=== PATIENT | female | born 1995 | race Caucasian/White ===

== ENCOUNTER 2017-11-06 21:02 | Emergency (ER) | payer BC, SELFPAY ==
[2017-11-06 21:03] VITALS: BP 122/75; PULSE 95; RESP 18; TEMP 37.7; O2SAT 99; BMI 24.0
--- NOTE | 2017-11-06 23:56 | ED.DCSUM_ITS ---
- ER Visit Summary Date of Service: 11/06/17 Chief Complaint: Abscesses History of Present Illness: The patient is a 22 F with history of skin infections and recurrent abscesses who presents with 1 day of painful abscesses to the left thigh and buttock. Patient states that they came on very suddenly, which is typical for her. She is having pain when sitting. She denies any fever or constitutional symptoms. No history of IV drug use. She has required incision and drainage in the past. She is supposed to be on a medication for her skin infections but states it cost $900 and she cannot afford it. She denies any other medical history. Physical Examination: Patient is afebrile and hemodynamically stable. Well-nourished well-developed sitting in bed in no distress. Heart is regular rate and rhythm. No increased work of breathing. Examination of the left lower extremity shows a 5 x 7 erythematous ovoid region with mild fluctuance in the middle on the posterior mid left thigh and a 6 x 4 cm erythematous ovoid lesion with mild fluctuance in the middle on the left buttock. They are tender to palpation. Test Results: [] Emergency Department Course and Treatment: Bedside ultrasound was performed that did show pus pockets in both lesions consistent with abscess. They both had surrounding cellulitis greater than 5 cm. Incision and drainage was performed after cleansing both abscesses. 1% lidocaine was instilled to perform a local block. A 1 cm stab incision was performed with an 11 blade with expression of thick pus from both abscess pockets. Loculations were broken with curved hemostats. Patient was then started on Keflex and Bactrim for treatment of the associated cellulitis. Patient was given pain medication. She was discharged home with referral to a primary care doctor for further evaluation and management of her recurrent skin infections. Patient agreed with this plan was discharged home. Treatment Plan: [] Disposition: [] Impression: Left thigh abscess, left buttock abscess, associated cellulitis This note was generated with [employer] dictation software. It may contain incorrect words, spelling, and punctuation that were not noted in review of the chart prior to signing ED Disposition - Plan for ED Patient: Disposition: Home or Assisted Living Chief Complaint: Abscess Instructions: ED Abscess IandD, ED Infec Skin Cellulitis Prescriptions: Hydrocodone Bitart/Apap 5-325 [[place] 5/325] 1 tab PO Q6H PRN PRN 2 Days #8 tab PRN Reason: Pain Cephalexin [Keflex] 500 mg PO Q6 #40 cap Smz/Tmp Ds [Bactrim Ds] 1 tab PO BID #10 tab Referrals: Evelyn Vallejo [[facility]] - Additional Instructions: Please take the antibiotic in its entirety as prescribed, even if your cellulitis improves before your antibiotics are wished. You may use over-the- counter pain medication as needed for pain. You may use the norco for severe pain related to the incision and drainage. Please follow-up with a doctor of your choice or the doctor on this paperwork to establish primary care and for further evaluation of your recurrent abscesses and infections. If you have any further concerns or any worsening of your condition, please come back immediately for another evaluation.
[2017-11-06] MEDS: Smz/Tmp Ds Tablet 1 TABLET PO (23:57)
[2017-11-06] MEDS: Cephalexin 250 MG Capsule 500 MG PO (23:57)
[2017-11-07] MEDS: HYDROcodone Bitartrate/Apap 5/325 Tablet PO (00:01)
[2017-11-07 00:12] VITALS: BP 120/60; PULSE 82; RESP 18; O2SAT 96
== END 2017-11-07 00:13 | disposition home or self-care (01) ==
PROVIDERS: Emergency Provider Emergency Medicine
DX: L02.416 Cutaneous abscess of left lower limb (principal); L02.31 Cutaneous abscess of buttock
CPT/HCPCS: 10060; 99283

== ENCOUNTER 2018-05-19 08:17 | Emergency (ER) | payer MEDICAID, SELFPAY ==
[2018-05-19 08:18] VITALS: BP 118/69; PULSE 78; RESP 16; TEMP 37; O2SAT 99; BMI 22.6
--- NOTE | 2018-05-19 08:32 | ED.VISSUMM ---
- ER Visit Summary Date of Service: 05/19/18 Chief Complaint: [Abscess on sternum and right upper thigh] History of Present Illness: The patient is a 22 F [presents the emergency department with complaint of an abscess on her sternal area that started about 2 days ago. Patient states the the abscess broke open and started to drain today. She has had no fevers. Patient also noticed one developing on her right medial thigh. Patient states she has been having abscesses for years. Patient did not go to work last night because of the pain.] Physical Examination: [HEENT-PERRLA, EOMI. Cranial nerves II through XII grossly intact. TMs clear. Mucous membranes moist. No adenopathy. Cardiovascular-regular rate and rhythm without murmur or ectopy Lungs-clear to auscultation, chest wall stable without crepitus or subcu emphysema. Patient has a soft tissue swelling measuring approximately 4 cm in total diameter with some faint surrounding erythema in the inferior sternal area. There is a central opening of about 5 mm that is draining spontaneously. Abdomen-normoactive bowel sounds, soft, nontender, no rebound or rigidity, no peritoneal signs. Extremities-intact ?4, normal range of motion, normal pulses, atraumatic]. Patient has approximately 1 cm soft tissue swelling over the medial proximal thigh with some faint erythema. Central portion slightly fluctuant. Test Results: [None indicated] Emergency Department Course and Treatment: [Using gentle pressure I was able to express large amount of purulent debris from the sternal abscess some of which was thick and cottage cheeselike. No further I&D was required. Regarding the small abscess on her right medial thigh I offered to anesthetize an I&D this area however she would refer just to try antibiotics and does not want me to attempt an I&D at this time. Patient understands that if this enlarges she may need to have an opened up and drained.] Treatment Plan: [Patient will be started on Keflex and Bactrim and advised to follow-up with primary care physician invertebrate paleontologist for no doc within the next 5-7 days] Disposition: [Discharged home in stable condition] Impression: [Abscess to sternum spontaneously draining Abscess right medial thigh] This note was generated with [employer] software. It may contain incorrect words, spelling, and punctuation that were not noted in review of the chart prior to signing ED Disposition - Plan for ED Patient: Chief Complaint: Abscess Referrals: Care Physician,No Primary [Primary Care Provider] -
--- NOTE | 2018-05-19 08:36 | ED.DEP ---
ED Disposition - Plan for ED Patient: Chief Complaint: Abscess Instructions: ED Abscess IandD, ED Staph Infec Abx Tx Only Prescriptions: Hydrocodone Bitart/Apap 5-325 [[place] 5MG-325MG] 1 tab PO Q4H PRN PRN 2 Days #10 tab PRN Reason: Pain Cephalexin [Keflex] 500 mg PO Q6 #40 cap Smz/Tmp Ds [Bactrim Ds] 1 tab PO BID #14 tab Referrals: Care Physician,No Primary [Primary Care Provider] - Evelyn Vallejo MD [COURTESY STAFF PHYSICIAN] - 5-7 Days
== END 2018-05-19 09:06 | disposition home or self-care (01) ==
PROVIDERS: Emergency Provider Emergency Medicine
DX: L02.415 Cutaneous abscess of right lower limb (principal); Z72.0 Tobacco use
CPT/HCPCS: 99282

== ENCOUNTER 2019-02-02 14:09 | Emergency (ER) | payer OTHER, MEDICAID, SELFPAY ==
[2019-02-02 14:10] VITALS: BP 119/58; PULSE 96; RESP 18; TEMP 36.4; O2SAT 98; BMI 32.9
--- NOTE | 2019-02-02 15:34 | ED.VISSUMM ---
- ER Visit Summary Date of Service: 02/02/19 Chief Complaint: [Abscess to left side of face] History of Present Illness: The patient is a 23 F [presents the emergency department with soft tissue swelling and pain for last 2 days. Patient states that she has swelling into the left side of her neck. She denies any fevers. Patient has had history of prior abscesses. Patient has history of acne.] Physical Examination: [HEENT-PERRLA, EOMI. Cranial nerves II through XII grossly intact. TMs clear. Mucous membranes moist. No adenopathy. Left face-patient has a chain of suspected small abscesses that are anterior auricular and tender to palpation. Patient does have left anterior cervical lymphadenopathy noted. There is faint erythema and cellulitis. Abscesses are fluctuant. Cardiovascular-regular rate and rhythm without murmur or ectopy Lungs-clear to auscultation, chest wall stable without crepitus or subcu emphysema Abdomen-normoactive bowel sounds, soft, nontender, no rebound or rigidity, no peritoneal signs. Extremities-intact ?4, normal range of motion, normal pulses, atraumatic] Test Results: [None indicated] Emergency Department Course and Treatment: [Patient was given the option of antibiotics versus incision and drainage. She understands that antibiotic alone may not resolve the issue. Patient agreed and consented to incision and drainage. Area of the left face was sterilely draped and prepped. Wound cleansed with Shur-Clens. Anesthetized locally with 1% lidocaine total of 3 cc. Using 11 blade two small 5 mm incisions were made into the suspected abscesses. Immediately returned large amount of purulent debris. Wound culture was obtained. Wounds irrigated. Clean dressing applied.] Treatment Plan: [Patient will start clindamycin. Patient will be referred to Dr. Enrique Khan for follow up] Disposition: [Discharged home in stable condition] Impression: [Facial soft tissue abscesses with incision and drainage] This note was generated with [employer] dictation software. It may contain incorrect words, spelling, and punctuation that were not noted in review of the chart prior to signing ED Disposition - Plan for ED Patient: Referrals: Care Physician,No Primary [Primary Care Provider] -
--- NOTE | 2019-02-02 15:36 | ED.DEP ---
ED Disposition - Plan for ED Patient: Instructions: ED Abscess IandD Prescriptions: Clindamycin HCl [Cleocin] 300 mg PO Q6H #40 cap Referrals: Care Physician,No Primary [Primary Care Provider] - Enrique Khan MD [STAFF PHYSICIAN] - 3-5 Days
[2019-02-02] MEDS: Clindamycin HCl 150 MG Capsule 300 MG PO (16:09)
[2019-02-02 16:12] VITALS: PULSE 87; RESP 16; O2SAT 98
== END 2019-02-02 16:13 | disposition home or self-care (01) ==
PROVIDERS: Emergency Provider Emergency Medicine
DX: L02.01 Cutaneous abscess of face (principal); Z72.0 Tobacco use
CPT/HCPCS: 69000; 87070; 87186; 87205; 99283

== ENCOUNTER 2019-07-25 10:54 | Emergency (ER) | payer MEDICAID, SELFPAY ==
[2019-07-25 10:55] VITALS: BP 110/81; PULSE 107; RESP 17; TEMP 36.9; O2SAT 98; BMI 26.4
--- NOTE | 2019-07-25 11:13 | ED.VIS.GEN ---
History of Present Illness Chief Complaint: Sore Throat Informant: Patient Onset: Days Context: Gradual Onset Timing: Continuous Current Severity: Moderate Maximum Severity: Moderate Narrative: The patient presents to the emergency department with sore throat. Patient states over the past 3 days, she has had generalized malaise. She began to have pain in her left neck. She states that she noticed white spots in her throat. She does think she had fever but has not taken her temperature. She denies any nausea or vomiting. She has no history of immunosuppression. She is otherwise been in her normal state of health. She has had prior tonsillectomy. Prior similar symptoms: No Recent Illness/Hospitalization: No Past Medical History - Allergies and Home Meds Allergies/Adverse Reactions: Allergies No Known Allergies Allergy (Verified 07/25/19 10:55) Primary Care Physician: Care Physician,No Primary [Primary Care Provider] - Prior records reviewed: Yes Past Medical History: None Surgical History: tonsillectomy Smoking Status: Current every day smoker Review of Systems General: Reports: Fever. Denies: Chills, Sweats Eyes: Denies: Visual changes - bilaterally, Diplopia ENT: Reports: Left ear pain, Sore throat. Denies: Rhinorrhea Cardiovascular: Denies: Chest pain, Palpitations Respiratory: Denies: Dyspnea, Cough, Dyspnea on exertion Gastrointestinal: Denies: Abdominal pain, Nausea, Vomiting, Diarrhea, Melena, Hematochezia Genitourinary: Denies: Dysuria, Hematuria, Frequency Musculoskeletal: Denies: Back pain, Extremity Pain Skin: Denies: Rash, Wounds Neurological: Denies: Headache, Weakness, Numbness Physical Exam Vital Signs/Narrative: Vital Signs Temp Pulse Resp BP Pulse Ox 07/25/19 10:55 98.5 F 107 H 17 110/81 H 98 Inital Vital Signs reviewed: Yes General: Well nourished, Well developed, No Acute Distress Head: Normocephalic, Atraumatic Eyes: Perrl, EOMI ENT: Moist mucous membranes, No rhinorrhea, - - There is exudative lesions in the posterior oropharynx mostly in the left. The uvula is midline. There is no evidence of retropharyngeal or peritonsillar abscess. Neck is supple with anterior lymphadenopathy. Neck: Supple, Nontender Cardiovascular: Regular rate, Regular rhythm, No murmurs Respiratory: No distress, CTA bilaterally, Chest nontender Abdomen: Soft, Nontender, Nondistended, Normal bowel sounds Back: Nontender, Normal Inspection Extremities: Nontender, No edema Skin: Normal color, No rash Neurological: Alert, Oriented x3, Cranial nerves II-XII grossly intact, Normal Strength, Normal Sensation Psychological: Normal affect, Normal Mood Diagnostic/Tx/Re-eval - Medical Decision Making The patient has exudative tonsillitis, absence of cough, and fever. Based on [facility] criteria, I do feel that treatment for strep is appropriate. She is well-appearing. She is afebrile here. The patient be given Decadron and Augmentin. She will continue anti-inflammatories. She will be discharged home. Impression 1. Strep pharyngitis ED Disposition - Plan for ED Patient: Instructions: PHARYNGITIS, Strep (Confirmed) Prescriptions: Amox/Clavulanate Tablet [Augmentin Tablet] 875 mg PO Q12H #20 tab Prescription Printed Referrals: Care Physician,No Primary [Primary Care Provider] -
[2019-07-25] MEDS: dexAMETHasone 10 MG/ML Vial PO.IVFORM (11:44)
[2019-07-25] MEDS: Amox/Clavulanate 875 MG Tablet PO (11:44)
[2019-07-25 11:47] VITALS: TEMP 36.6
== END 2019-07-25 11:50 | disposition home or self-care (01) ==
LOC: ED 11:26
PROVIDERS: Emergency Provider Emergency Medicine
DX: J02.0 Streptococcal pharyngitis (principal); F17.200 Nicotine dependence, unspecified, uncomplicated
CPT/HCPCS: 99283

== ENCOUNTER 2019-08-14 12:09 | Emergency (ER) | payer MEDICAID, SELFPAY ==
[2019-08-14 12:10] VITALS: BP 110/74; PULSE 76; RESP 16; TEMP 36.8; O2SAT 98; BMI 25.8
[2019-08-14 12:58] LABS: Bacteria 0 SEEN /hpf (None Seen); Mucous, Urine 0 SEEN /hpf (<or=2+); Red Blood Cells-Urine 0 SEEN /hpf (0-5); White Blood Cells 0 SEEN /hpf (0-5)
[2019-08-14 13:01] LABS: Color, Urine Yellow (Yellow); Glucose, Dipstick Normal (Normal); Ketone-Dipstick 5 mg/dl (Negative); Leukocyte Esterase-Dipstick Negative /ul (Negative); Nitrite-Dipstick Negative (Negative); Occult Blood-Urine Negative /ul (Negative); Protein-Dipstick 30 mg/dl (Negative); Specific Gravity, Urine 1.025 (1.002-1.030); Urine Bilirubin Dipstick Negative (Negative); Urine Clarity Clear (Clear); Urine Urobilinogen Normal (Normal)
[2019-08-14 13:07] LABS: Squamous Epithelial Cells - UA 0-5 SEEN /hpf (5-10)
[2019-08-14 13:08] LABS: Internal QC Validated? YES +Cl - CLEAR BKGD; Pregnancy, Urine Negative Negative
[2019-08-14 13:35] LABS: Anion Gap 6 (5-15); BUN 10 mg/dL (7-18); BUN/Creat Ratio 17.1 RATIO (10-20); Calcium,Total 8.7 mg/dL (8.5-10.1); Chloride 108 mmol/L (98-107); Creatinine, Serum 0.58 mg/dL (0.55-1.02); EST Glomerular Filtration Rate 136 mL/min (>60); Est Glom Filt Rate - Afr Amer 164 mL/min (>60); Estimated Creatinine Clearance 141.22 ml/min; Glucose 82 mg/dL (74-106); Sodium Level 141 mmol/L (136-145)
--- NOTE | 2019-08-14 13:47 | ED.VIS.GEN ---
History of Present Illness Informant: Patient Onset: Yesterday Context: Gradual Onset Timing: Continuous Quality: swollen Location: left arm and left flank Current Severity: Mild Maximum Severity: Mild Worsened by: movement Relieved by: nothing Associated Symptoms: denies Narrative: 24-year-old female who denies any significant past medical history presents to the emergency department with concern for swelling of the left side of her abdomen and her left arm. Patient was seen here approximately 3 weeks ago and diagnosed with strep throat given a prescription for Augmentin as well as 1 dose of Decadron in the emergency department. Was feeling improved up until yesterday when she felt like the left side of her abdomen and her left arm were swollen. She is not having any significant pain. No fevers. No vomiting. She has been able to eat and drink normally. No diarrhea melena or hematochezia. No urinary symptoms. No back pain. No rash. She is no longer having a sore throat or any upper respiratory symptoms. She is not on control. She has no leg pain or swelling. No hemoptysis. No chest pain or shortness of breath. No history of DVT or PE or any recent travel or surgeries. Prior similar symptoms: No Recent Illness/Hospitalization: No <Huseyin Freeman - Last Filed: 08/14/19 13:47> <Melany Goodman - Last Filed: 08/14/19 15:10> Chief Complaint: Edema Past Medical History Prior records reviewed: Yes Past Medical History: None Surgical History: tonsillectomy Lives: With Family Smoking Status: Current every day smoker Alcohol: Rare <Huseyin Freeman - Last Filed: 08/14/19 13:47> <Melany Goodman - Last Filed: 08/14/19 15:10> - Allergies and Home Meds Allergies/Adverse Reactions: Allergies No Known Allergies Allergy (Verified 07/25/19 10:55) Primary Care Physician: Betty Mccormack DO [STAFF PHYSICIAN] - Care Physician,No Primary [Primary Care Provider] - Review of Systems General: Denies: Chills, Fever, Malaise, Subjective, Sweats, Weight loss, - Eyes: Denies: Visual changes - left, Visual changes - right, Visual changes - bilaterally, Blurred vision - left, Blurred vision - right, Blurred Vision - bilaterally, Diplopia, -, - ENT: Denies: Bilateral ear pain, Left ear pain, Right ear pain, Rhinorrhea, Sore throat, -, - Cardiovascular: Denies: Chest pain, Palpitations, Heart racing, -, - Respiratory: Denies: Dyspnea, Cough, Sputum, Dyspnea on exertion, Orthopnea, Paroxysmal nocturnal dyspnea, -, - Gastrointestinal: Denies: Abdominal pain, Nausea, Vomiting, Diarrhea, Constipation, Melena, Hematochezia, -, - Genitourinary: Denies: Dysuria, Hematuria, Frequency, -, - Musculoskeletal: Reports: Swelling. Denies: Myalgias, Arthralgias, Neck pain, Back pain, Extremity Pain Skin: Denies: Rash, Abscess, Abrasions, Wounds Neurological: Denies: Headache, Weakness, Parasthesia, Numbness Hematologic: Denies: Easy bruising, Easy bleeding <Huseyin Freeman - Last Filed: 08/14/19 13:47> Musculoskeletal: Reports: Extremity Pain - left arm <Melany Goodman - Last Filed: 08/14/19 15:10> Physical Exam Vital Signs/Narrative: Vital Signs Temp Pulse Resp BP Pulse Ox 08/14/19 12:10 98.3 F 76 16 110/74 98 Inital Vital Signs reviewed: Yes General: Well nourished, Well developed, No Acute Distress Head: Normocephalic, Atraumatic Eyes: Perrl, EOMI ENT: Moist mucous membranes Neck: Supple, Nontender, No lymphadenopathy, No JVD Cardiovascular: Regular rate, Regular rhythm, No murmurs Respiratory: No distress, CTA bilaterally, Chest nontender Abdomen: Soft, Nontender, Nondistended, Normal bowel sounds, No masses Back: Nontender, Normal Inspection Extremities: Nontender, No edema, - - Patient has no appreciable swelling of her left upper extremity. She has pain with flexion of her arm at the bicep tendon. She has no weakness. There is no redness or rash. No signs of compartment syndrome. Radial pulses are normal. Rocket Assembly Operator strength equal bilaterally.. Negative for: Tenderness, Edema, Calf Tenderness Skin: Normal color, No rash, No Trauma Neurological: Alert, Oriented x3, Normal Strength, Normal Sensation Psychological: Normal affect <Huseyin Freeman - Last Filed: 08/14/19 13:47> Vital Signs/Narrative: Vital Signs Temp Pulse Resp BP Pulse Ox 08/14/19 12:10 98.3 F 76 16 110/74 98 <NehemiashaileMelany - Last Filed: 08/14/19 15:10> Diagnostic/Tx/Re-eval - Medical Decision Making On exam the patient does not have any appreciable swelling of her abdomen or of her left upper extremity. She has no signs of DVT. Vital signs are stable. She has no rash or CVA tenderness. She has no further evidence of pharyngitis. Urinalysis did show proteinuria and because we are concerned for a poststreptococcal glomerulonephritis we did obtain a basic metabolic panel. This was unremarkable. Patient was reassured. I stressed to her the importance of establishing with a primary care physician. We referred her to one today. She will be discharged. Return precautions given. <Huseyin Freeman - Last Filed: 08/14/19 13:47> Laboratory Data 08/14/19 08/14/19 12:51 13:18 Sodium 141 Potassium 4.0 Chloride 108 H Carbon Dioxide 27.0 Anion Gap 6 BUN 10 Creatinine 0.58 Estim Creat Clear Calc 141.22 Est GFR (MDRD) Af Amer 164 Est GFR (MDRD) Non-Af 136 BUN/Creatinine Ratio 17.1 Glucose 82 Calcium 8.7 Urine Color Yellow Urine Clarity Clear Urine pH 5.0 Ur Specific [place] 1.025 Urine Protein 30 H Urine Glucose (UA) Normal Urine Ketones 5 H Urine Occult Blood Negative Urine Nitrite Negative Urine Bilirubin Negative Urine Urobilinogen Normal Ur Leukocyte Esterase Negative Urine RBC 0 SEEN Urine WBC 0 SEEN Ur Squamous Epith Cells 0-5 SEEN Urine Bacteria 0 SEEN Urine Mucus 0 SEEN Urine Test Negative - Medical Decision Making Patient evaluated independent of PA. I agree with above. Patient is evaluated for sensation of swelling over her left flank. She also has pain/soreness in her left arm. She appears nontoxic in no acute distress. Her vital signs are normal. She did recently have strep throat which she was treated for. I do not appreciate any swelling on physical exam. Because of her recent strep, urinalysis is obtained looking for signs of proteinuria. She does have a small amount of protein in her urine. BMP is been obtained which shows normal renal function and normal electrolytes. Her chloride is minimally elevated but near her baseline. At this time I do not suspect post Streptococcus glomerulonephritis. Urine is negative. Patient has minimal tenderness over her left bicep. She has soft compartments. It is possible she has a strain. I feel that she is stable for outpatient follow-up. She was referred to me she does not currently have one. Urinalysis is not consistent with a kidney stone or pyelonephritis. Patient is counseled on signs and symptoms requiring return to the emergency room. Patient verbalizes agreement and understand this plan. Patient discharged home in stable and improved condition. <Melany Goodman - Last Filed: 08/14/19 15:10> ED Disposition <Huseyin Fereman - Last Filed: 08/14/19 13:47> <Melany Goodman - Last Filed: 08/14/19 15:10> - Plan for ED Patient: Disposition: Home or Assisted Living Diagnosis: Proteinuria, Flank pain, Biceps muscle strain Instructions: ED Peripheral Edema, Unilateral Referrals: Care Physician,No Primary [Primary Care Provider] - Betty Mccormack DO [STAFF PHYSICIAN] -
--- NOTE | 2019-08-14 14:01 | ED.RN ---
THIS RN TO BEDSIDE TO DISCHARGE PATIENT. PATIENT AND BELONGINGS WERE GONE, GOWN LAYING ON CHAIR.
== END 2019-08-14 14:01 | disposition home or self-care (01) ==
PROVIDERS: Emergency Medicine; Emergency Provider Physician Assistant Medical
DX: R80.9 Proteinuria, unspecified (principal); R10.9 Unspecified abdominal pain; S46.219A Strain of muscle, fascia and tendon of other parts of biceps, unspecified arm, initial encounter; X58.XXXA Exposure to other specified factors, initial encounter; Y93.9 Activity, unspecified; Y92.89 Other specified places as the place of occurrence of the external cause; Y99.9 Unspecified external cause status; F17.200 Nicotine dependence, unspecified, uncomplicated
CPT/HCPCS: 36415; 80048; 81001; 81025; 99282

== ENCOUNTER 2019-10-29 17:00 | Emergency (ER) | payer SELFPAY ==
[2019-10-29 17:01] VITALS: BP 115/76; PULSE 101; RESP 18; TEMP 37.3; O2SAT 98; BMI 25.8
--- NOTE | 2019-10-29 18:06 | ED.DCSUM_ITS ---
History of Present Illness Chief Complaint: General Illness Informant: Patient Onset: Days Context: Gradual Onset Timing: Continuous Associated Symptoms: Cough, Fever Chest Pain: Intermittent, Pleuritic Narrative: Patient is a 24-year-old female with no past medical history presenting with flulike symptoms. She states her stepdaughter recently was diagnosed with the flu by swab. Patient she has been having symptoms for the past 5 days. She has associated fever, chills, headache, left-sided chest pain, abdominal pain, cough and decreased appetite. She is also having myalgias. She states he feels very nauseous and is intermittently thrown up and had diarrhea. She is taken [id number] cold and flu medicines with minimal relief. States the nighttime medicine seem to work best. She last had medicine last night. She said nothing today. She is not have a primary care doctor or insurance. States she came to emergency room for medications to help with her symptoms. Patient denies any other complaints at this time. Past Medical History - Allergies and Home Meds Allergies/Adverse Reactions: Allergies No Known Allergies Allergy (Verified 10/29/19 17:03) Primary Care Physician: Care Physician,No Primary [Primary Care Provider] - Past Medical History: None Surgical History: tonsillectomy Lives: With Family Smoking Status: Current every day smoker Review of Systems General: Reports: Chills, Fever, Malaise. Denies: Sweats Cardiovascular: Reports: Chest pain. Denies: Palpitations Respiratory: Reports: Cough. Denies: Dyspnea, Dyspnea on exertion Gastrointestinal: Reports: Abdominal pain, Nausea, Vomiting, Diarrhea. Denies: Melena, Hematochezia Genitourinary: Denies: Dysuria, Hematuria, Frequency Musculoskeletal: Reports: Myalgias. Denies: Arthralgias Skin: Denies: Rash Neurological: Denies: Headache, Weakness, Numbness Physical Exam Vital Signs/Narrative: Vital Signs Temp Pulse Resp BP Pulse Ox 10/29/19 17:01 99.2 F H 101 H 18 115/76 98 Inital Vital Signs reviewed: Yes General: Well nourished, Well developed Head: Normocephalic, Atraumatic Eyes: Perrl, EOMI ENT: Moist mucous membranes, TM's clear - Bilaterally?only partial visualization of the TM secondary to cerumen. Negative for: Rhinorrhea, Sinus tenderness Neck: Supple, Nontender, - - Mild anterior cervical lymphadenopathy present Cardiovascular: Regular rate, Regular rhythm, No murmurs Respiratory: No distress, CTA bilaterally, No Stridor, - - Dry hacking cough during my exam. Negative for: Rhonchi, Wheezing Abdomen: Soft, Nontender, Nondistended, Normal bowel sounds Back: Nontender, Normal Inspection Extremities: Nontender, No edema Skin: Normal color, No rash Neurological: Alert, Oriented x3, Cranial nerves II-XII grossly intact, Normal Strength, Normal Sensation Psychological: Normal affect Diagnostic/Tx/Re-eval - Medical Decision Making Patient is evaluated for 5 days of flulike symptoms with a known flu exposure. Clinically she is well-appearing but looks like she feels unwell. Her vital signs significant for mild tachycardia and low-grade fever. Patient does not appear dehydrated. While patient states she has chest pain that seems to be more associated with coughing and her flulike illness. It seems to be worse when she takes a deep breath or when she coughs. I suspect it is pleuritic in nature versus muscle skeletal. I do not think blood work, EKG or chest x-ray is indicated at this time. She does have clear breath sounds. Patient is counse led that she is not a candidate for Tamiflu and therefore we will not flu swab her. She is treated with Motrin and Zofran emergency room. She will be discharged home with symptomatic treatment. She is counseled on the typical course of a flu illness. Patient does have a PCP will be [facility]. Patient is counseled on signs and symptoms requiring return to the emergency room. Patient verbalizes agreement and understand this plan. Patient discharged home in stable and improved condition. ED Disposition - Plan for ED Patient: Disposition: Home or Assisted Living Diagnosis: Flu-like symptoms Instructions: INFLUENZA (Adult) Prescriptions: Ibuprofen [Motrin] 600 mg PO Q6H PRN PRN #20 tab PRN Reason: Fever Prescription Printed Guaifenesin/Codeine [Robitussin AC] 10 ml PO Q6H PRN PRN 3 Days #120 udc PRN Reason: Cough Prescription Printed Ondansetron HCl [Zofran] 4 mg PO Q6H PRN PRN #12 tab PRN Reason: Nausea Prescription Printed Referrals: [facility] [NON-STAFF] -
[2019-10-29] MEDS: Ibuprofen 600 MG Tablet PO (18:20)
[2019-10-29] MEDS: Ondansetron ODT 4 MG Tablet PO (18:21)
== END 2019-10-29 18:23 | disposition home or self-care (01) ==
PROVIDERS: Emergency Provider Emergency Medicine
DX: R05 Cough (principal); R50.9 Fever, unspecified; M79.10 Myalgia, unspecified site; R10.9 Unspecified abdominal pain; R51 Headache; R07.9 Chest pain, unspecified; F17.200 Nicotine dependence, unspecified, uncomplicated
CPT/HCPCS: 99283

== ENCOUNTER 2021-02-27 16:28 | Emergency (ER) | payer MEDICAID, SELFPAY ==
[2021-02-27 16:28] VITALS: BP 122/67; PULSE 108; RESP 17; TEMP 36.8; O2SAT 96; BMI 28.3
[2021-02-27 16:30] VITALS: BP 122/67; PULSE 108; RESP 17; TEMP 36.8; O2SAT 96
--- NOTE | 2021-02-27 16:49 | EDS_ITS ---
HPI History of Present Illness Chief Complaint: Abscess Narrative Narrative: Patient presents with a right inner thigh abscess for the past few days she did have some drainage but it closed up again. She has some redness around it and she feels pain in her right inguinal crease region. No fever or chills no abdominal pain. No nausea or vomiting. [facility] Medical History (Updated 02/27/21 @ 17:[address] Michael Lazcano MD) Abscess Home Medications clindamycin HCl 300 mg PO 4X/DAY #80 cap 02/27/21 [Rx Last Taken Unknown] hydrocodone-acetaminophen 1 tab PO QHS PRN 3 Days #10 tab 02/27/21 [Rx Last Taken Unknown] Allergy/AdvReac Type Severity Reaction Status Date / Time No Known Allergies Allergy Verified 02/27/21 16:31 Social History Smoking Status: Current every day smoker tobacco type: cigarettes ROS ROS ED ROS Narrative Past medical history: none Medications: Reviewed Social history: Noncontributory Review of systems: General: No fever or chills Musculoskeletal: Abscess as in HPI Skin: Abscess as in HPI Neurological: No weakness or paresthesias Hematologic: No easy bleeding or easy bruising EXAM Physical Exam Narrative Exam Narrative: Physical exam General: Patient does appears slightly anxious Head: Normocephalic, Atraumatic Neck: No C-spine tenderness Cardiovascular: Regular rate, Regular rhythm Respiratory: No distress, CTA bilaterally Back: Nontender, Normal Inspection. Extremities: Right inner thigh proximal abscess, IV abscess is about 7 cm x 3 cm, there is a surrounding area of cellulitis of about 10 x 12 cm without. There is some inguinal pain but I do not appreciate any actual lymph nodes. Skin: As above Neurological: Normal strength and sensation Const Vital Signs: 02/27/21 16:28 02/27/21 16:30 Temperature 98.3 F 98.3 F Temperature Source Temporal Temporal Pulse Rate 108 H 108 H Respiratory Rate 17 17 Blood Pressure 122/67 H 122/67 H Blood Pressure Mean 85 85 Pulse Ox 96 96 Oxygen Delivery Method Room Air Room Air MDM MDM MDM Narrative Medical decision making narrative: Patient is given IV antibiotics, she will be given analgesics and p.o. antibiotics for home she will be discharged in stable condition with follow-up. If anything worsens she is to come back to the emergency department. Procedures Other Procedures Procedure(s): Incision and drainage Verbal consent obtained. Patient was given Dilaudid IV prior to the procedure. The procedure is complex with multiple loculations 1% lidocaine about 10 mL were used A #11 blade, the wound was ellipsed. Pus was expectorated All the loculations were broken. I irrigated afterwards Patient tolerated procedure well. Discharge Plan Triage Chief Complaint: Abscess ED Provider: Michael Lazcano Dx/Rx/DC Orders Clinical Impression: Abscess Instructions: ED Abscess Incision And Drainage Prescriptions: New hydrocodone-acetaminophen 5-325 mg tablet 1 tab PO QHS PRN (Reason: pain) 3 Days Qty: 10 RF: 0 clindamycin HCl 150 mg capsule 300 mg PO 4X/DAY Qty: 80 RF: 0 Primary Care Provider: Care Physician,No Primary Referrals: Radhames Pickett III, MD [STAFF PHYSICIAN] - 2 Days Care Physician,No Primary [Primary Care Provider] - Disposition Disposition: Home, self care
[2021-02-27] MEDS: HYDROmorphone 1 MG/ML Syringe IV (17:15)
[2021-02-27] MEDS: Ondansetron 4 MG/2 ML Vial IV (17:15)
[2021-02-27] MEDS: Lidocaine 1% (20 ml mdv) 20 ML Vial INFILT (17:17)
[2021-02-27 18:17] VITALS: PULSE 98; RESP 16; O2SAT 97
== END 2021-02-27 18:17 | disposition home or self-care (01) ==
LOC: ED 17:55
PROVIDERS: Emergency Provider Emergency Medicine
DX: L02.415 Cutaneous abscess of right lower limb (principal); F17.210 Nicotine dependence, cigarettes, uncomplicated
CPT/HCPCS: 10060; 96365; 96375; 99283; J7050; A4216; J2405

== ENCOUNTER 2022-04-21 18:35 | Emergency (ER) | payer MEDICAID, SELFPAY ==
[2022-04-21 18:35] VITALS: BP 114/81; PULSE 98; RESP 16; TEMP 36.6; O2SAT 98; BMI 29.1
[2022-04-21 18:58] VITALS: BP 114/81; PULSE 92; RESP 18; TEMP 36.6; O2SAT 98
[2022-04-21] MEDS: Lidocaine 1% (20 ml mdv) 20 ML Vial INFILT (19:08)
--- NOTE | 2022-04-21 19:29 | EX.ED.DYSGE1 ---
HPI History of Present Illness Chief Complaint: Abscess Detail of Chief Complaint: Abscess the body of the mandible on the right and upper back Informant: patient Onset/Context/Timing Onset: Days (Onset Thursday) Context: Sudden Onset Timing: Continuous Quality: Abscess Location: Midline upper back and anterior right neck Current Severity: Moderate Maximum Severity: Moderate Worsened by: Palpation Relieved by: Nothing Associated Symptoms Associated Symptoms: No associated symptoms Narrative Narrative: Patient is a 26-year-old woman with recurrent abscesses. 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 She denies fever, chills night sweats. She denies history of diabetes. She states last normal menses was 2 to 3 weeks ago. Prior similar symptoms: Yes Recent Illness/Hospitalization: No PFSH PFSH Medical History Abscess Home Medications clindamycin HCl 150 mg capsule 300 mg PO 4X/DAY #80 caps 02/27/21 [Rx Last Taken Unknown] hydrocodone-acetaminophen 5-325mg 5mg-325mg 1 tab PO QHS PRN pain 3 days #10 tabs 02/27/21 [Rx Last Taken Unknown] doxycycline monohydrate 100 mg capsule 100 mg PO BID #10 CAPSULES 04/21/22 [Rx Last Taken Unknown] Allergy/AdvReac Type Severity Reaction Status Date / Time No Known Allergies Allergy Verified 04/21/22 18:38 Social History (Updated 04/21/22 @ 19:[address] Harpreet Conner MD) Smoking Status: Current every day smoker tobacco type: e-cigarettes substance use type: does not use ROS ROS ED Constitutional Constitutional ED: Denies chills, fever(s), subjective or sweats Eyes Eyes: Reports other; Denies blurry vision, change in vision or diplopia ENT ENT ED: Reports other Details: Denies inability to open or close mouth. ; Denies ear pain, rhinorrhea or sore throat Cardiovascular Cardiovascular: Denies palpitations or racing heartbeat Respiratory/Chest Respiratory/Chest: Denies dyspnea Gastrointestinal Gastrointestinal: Denies nausea or vomiting Integumentary Reports abscess; Denies rash Endocrine Endocrinology: Denies polydipsia, polyphagia or polyuria Hematologic/Lymphatic Hematologic/Lymphatic: Denies easy bruising or lymphadenopathy Allergic/Immunologic Allergic/Immunologic ED: Denies mouth swelling, tongue swelling or urticaria EXAM Physical Exam Const Vital Signs: 04/21/22 18:35 04/21/22 18:58 04/21/22 18:58 Temperature 97.8 F 97.8 F Temperature Source Temporal Temporal Pulse Rate 98 92 92 Respiratory Rate 16 18 18 Blood Pressure 114/81 H 114/81 H 114/81 H Blood Pressure Mean 92 92 92 Pulse Ox 98 98 98 Oxygen Delivery Method Room Air Room Air Room Air Positive well nourished and well developed General Appearance ED: well developed and NAD; Negative for cyanotic, diaphoretic or pallor HEENT Reports moist mucous membranes HEENT Narrative: Nares patent. Mucosa moist. Teeth normal. Patient has an abscess in. The body of the mandible on the right. There is cervical lymphadenopathy. The area is fluctuant. There is slight erythema. There is no evidence of trismus. Trachea is midline. There is no in-store expiratory stridor. tenderness; Negative for trauma Eyes PERRL and EOMs intact bilaterally General Eye ED: Negative for pale conjunctiva or scleral icterus Neck No no lymphadenopathy, supple and no JVD Neck Narrative: Please read under H EENT narrative Resp normal respiratory effort and clear to auscultation bilaterally Cardio regular rate, regular rhythm, S1 normal heart sound, S2 normal heart sound and no murmurs Neuro oriented x3, CN's II-XII intact bilaterally and no sensory deficits noted Sensorium / Orientation: alert Motor Exam: strength 5/5 throughout Psych mental status grossly normal Skin no rashes or lesions noted, no wounds and skin turgor normal General Skin Exam: elasticity normal; Negative for jaundice or pallor MDM MDM MDM Narrative Medical decision making narrative: Patient has an abscess inferior to the cervical spinous process of C7. There is fluctuant erythematous. This may represent a carbuncle. Patient also has an abscess anterior right neck as previously described. These will require incision and drainage. Procedures Other Procedures Procedure(s): The apparent abscess on the back was incised by field block and local infiltration. Incision was made with 10 blade. Thick copious cottage cheese appearing material was present. This is an infected sebaceous cyst and not an abscess. Patient for serial/anterior neck abscess was incised. This was under significant pressure. Purulent material flowed. There is a cavity that is 1 cm in depth and 2 cm in width that was noted. Blunt dissection was undertaken. The cavity was cleansed. This is not an infected sebaceous cyst. Discharge Plan Triage Chief Complaint: Abscess ED Provider: Harpreet Conner Dx/Rx/DC Orders Clinical Impression: Abscess of skin of neck, Infected sebaceous cyst Instructions: ED Abscess Incision And Drainage, Epidermoid Cyst Infect Antibiotics Prescriptions: New doxycycline monohydrate 100 mg capsule 100 mg PO BID Qty: 10 0RF No Action hydrocodone-acetaminophen 5-325 mg tablet 1 tab PO QHS PRN (Reason: pain) 3 Days Qty: 10 0RF clindamycin HCl 150 mg capsule 300 mg PO 4X/DAY Qty: 80 0RF Primary Care Provider: Care Physician,No Primary Referrals: Care Physician,No Primary [Primary Care Provider] - Doctor,Your [NON-STAFF] - 2 Days for wound check Activity Restrictions/Additional Instructions: You need to follow-up with a surgeon to remove the sac of the cyst to prevent recurrent infections. This is located on your back Take antibiotics until gone The name of your doctor is located on your insurance card issue to you by [facility] Disposition Disposition: Home, Self Care
[2022-04-21] MEDS: Ibuprofen 200 MG Tablet 800 MG PO (19:39)
[2022-04-21] MEDS: Doxycycline 100 MG CAPSULE PO (19:39)
[2022-04-21 20:01] VITALS: RESP 16
== END 2022-04-21 20:02 | disposition home or self-care (01) ==
PROVIDERS: Emergency Provider Emergency Medicine; Visit Provider Emergency Medicine
DX: L02.11 Cutaneous abscess of neck (principal); L72.3 Sebaceous cyst; F17.290 Nicotine dependence, other tobacco product, uncomplicated
CPT/HCPCS: 10061; 10060; 99283

== ENCOUNTER → 2022-05-16 | Outpatient (CLI) | payer MEDICAID, SELFPAY ==
--- NOTE | 2022-05-16 15:56 | US_ITS ---
STUDY: SUPERFICIAL ULTRASOUND - LEFT AXILLA REASON FOR EXAM: Female, 26 years old. left axillary lump TECHNIQUE: A superficial ultrasound was performed with real-time and static hagen-scale imaging. COMPARISON: None. FINDINGS: Multiple longitudinal and transverse ultrasound images the left axilla multiple axillary lymph nodes with the largest measuring 8 x 16 mm. Other lymph nodes are noted. There is also a 5 mm hypoechoic area within the superficial subcutaneous fat which may be of rheumatologic origin. US/Ext Non Vasc Limited/Soft Tiss IMPRESSION: 1. Multiple axillary lymph nodes. 2. 5 mm hypoechoic mass in the superficial subcutaneous fat may be of dermal rheumatologic origin such as a sebaceous cyst. Electronically Signed: Billy Russell MD at 18:30 EDT ,
== END | disposition home or self-care (01) ==
LOC: US 15:54
PROVIDERS: Referring Provider Physician Assistant; Visit Provider Physician Assistant
DX: M79.662 Pain in left lower leg (principal)
CPT/HCPCS: 76882

== ENCOUNTER → 2022-06-25 | Outpatient (CLI) | payer MEDICAID, SELFPAY ==
[2022-06-25 15:32] LABS: Absolute Lymphocyte Count 2.11 X10^3/uL (0.83-4.51); Absolute Neutrophil Count 5.1 X10^3/uL (2.0-7.7); Basophil# 0.03 X10^3/uL; Basophil% 0.4 % (0-1); Eosinophil# 0.08 X10^3/uL; Hematocrit 41.4 % (37-47); Hemoglobin 13.1 g/dL (12.0-15.0); Lymphocyte # 2.11 X10^3/ul (0.83-4.51); Lymphocyte % 26.5 % (19-41); Mean Corp Hgb Conc 31.6 g/dL (32-36); Mean Corpuscular Hgb 28.9 pg (27.0-32.0); Mean Corpuscular Volume 91.2 fL (81-99); Mean Platelet Vol. 10.8 fl (6.2-12.0); Monocyte# 0.63 X10^3/uL; Monocyte% 7.9 % (0-10); NRBC Flagged by Analyzer 0 % (0-5); Neutrophil # 5.07 X10^3/uL (2.7-7.7); Neutrophil % 63.8 % (47-70); Platelet Count 395 K/mm3 (150-450); RBC Distribution Width CV 12.9 % (11.6-14.6); RBC Distribution Width SD 42.8 fl (35.1-43.9); Red Blood Count 4.54 M/mm3 (4.2-5.4)
== END | disposition home or self-care (01) ==
PROVIDERS: PCP Family Medicine; Referring Provider Family Medicine; Visit Provider Family Medicine
DX: R59.1 Generalized enlarged lymph nodes (principal)
CPT/HCPCS: 36415; 85025

== ENCOUNTER 2022-07-22 13:00 | Outpatient (RCR) | payer MEDICAID, SELFPAY ==
--- NOTE | 2022-06-30 16:20 | HP.OTEVAL_ITS ---
Patient's Visit Information DON GARCIA is a 26 year old F, referred to Occupational Therapy by Nanda William DO, with a diagnosis of lymphedema. Date of Evaluation: 06/30/22 Occupational Therapist: Jayda Concepcion, BISMARK/Mark Anthony, CHT - Subjective This 26 year old female was seen for OT eval dx of lymphedema. Pt states she had a sx in March and noticed shortly after pt states US showed in larged lymph nodes and now it comes and goes of swelling. pt has swelling in her armpit about 4 years ago - pt states this did seep and went away on its on. 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 pt states she when her arm does start to feel funny it the whole inner arm and backside- pt states at times symptoms make her feel like she is losing control over her arm. Pt is left handed for eating and writing. pt does use her left hand with her phone. pt states she does get tingling in her arm after she has been using her arm and stops at her wrist. pt states pain does become bothersome and have difficulty sleeping-. pt states she took the kids to [facility]- pt states she did not participate in event just driving about [address] did not bother her until she got home. pt states hot shower does make it feel a little better and movement does feel good- pt notices symptoms after she stops doing. - Pain left UE 2 Pain Intensity Range: 7 - Strength Backend Python Developer: right 75# left 75# Lateral Pinch: right 12# left 14# Tripod Pinch: right 10# left 12# Tip-to-Tip Pinch: right 4# left 4# - Lymphedema (Circumferential Measure) MCP: right 20cm left 20cm Wrist: right 16cm left 15.5cm Lower forearm: right 20.5 left 20cm Largest forearm: right 26cm left 26cm Elbow: right 25cm left 25cm Largest humerus: right 29cm left 29cm Axcillary: right 34cm left 33cm - Quick DASH-Disab of Arm,Shoulder& Hand Quick DASH Score: 51.6650 - Rehabilitation General Assessment: pt demo with sensory symptoms of fullness/tightness and nerve irritation. Pt demo with poor posture that can be contributing to symptoms of tingling. Pt demo need of skilled OT services 2x week for 4 weeks to ed. pt on dx, initiate postural correction and ergo. to limit rolled shoulders neck forward posture. Rehabilitation Potential: Good - Anticipated Interventions A/AAROM/PROM, Edema Control, Desensitization, Ergonomic Education, Education re Diagnosis, Manual Lymph Drainage, Education re Life-long lymphedema Management, Education re Skin Care and Precautions, Education re Self Massage Techniques, Education re Correct Donning Tech,Care&Wearing Sched Comp Garments, Home Program - Visit Plan Frequency: 1-2x /Week Duration: 4 Weeks TEXT: Thank you for the opportunity to evaluate your patient. For Medicare and Medicare HMO plans, please review the plan of care and approve it. It will need to be FAXED BACK to us at [phone] for Medicare purposes. Please let me know if there are questions or concerns regarding this plan of care. Physician Signature: Date:
--- NOTE | 2022-08-01 07:53 | HP.OTREVAL ---
Nanda William, DO, It has been my pleasure to treat DON GARCIA over the last 3 visits for lymphedema. Please see the progress note below for an update on the occupational therapy plan of care! Subjective: pt arrives states she is painful after she removes the garment- and is difficult to sleep. pt states she continues to struggle with discomfort left axillary region Objective/Function: pt has been compliant in getting compression device that supports under her axillary region and arm- pt however is getting pain when she removes her garment- ( this should not be happening). pt is also performing self lymph massage and her ROM ex with no change in her symptoms of fullness-pain- and the nodules in her axillary region have not changed- circumference of UE has not changed. pt does not present with typical lymphedema type symptoms and would benefit from further imaging - or referral vascular /lymphedema specialist- Plan Visits in this POC: 8 Plan: rec'd referral to vascular/lymphedema for further testing and dx imaging Goals - Goals Demonstrate adequate knowledge of self-massage by 2nd week: Yes Demonstrate adequate knowledge skin care/prec by 2nd week: Yes Demonstrate adequate knowledge therapeutic exercises by d/c: Yes Select approp compression garment w/donning/care/wear by d/c: Yes Patient Goals: Decrease Swelling/Stiffness, Use Hand/Wrist/Arm Normally Again Anticipated Interventions Anticipated Interventions: A/AAROM/PROM, Edema Control, Desensitization, Ergonomic Education, Education re Diagnosis, Manual Lymph Drainage, Education re Life-long lymphedema Management, Education re Skin Care and Precautions, Education re Self Massage Techniques, Education re Correct Donning Tech,Care&Wearing Sched Comp Garments, Home Program Please do not hesitate to contact me at [phone] by phone or if you have questions or concerns regarding this new plan of care! Sincerely, Jayda Concepcion, OTR/L, CHT
--- NOTE | 2022-08-21 12:34 | HP.OT.NRP ---
DON GARCIA was seen in my office for initial evaluation on 06/30/22. The following Plan of Care was established for this patient: Initial Frequency: 1-2x /Week Initial Duration: 4 Weeks Plan: rec'd referral to vascular/lymphedema drFernando for further testing and dx imaging Anticipated Interventions: A/AAROM/PROM, Edema Control, Desensitization, Ergonomic Education, Education re Diagnosis, Manual Lymph Drainage, Education re Life-long lymphedema Management, Education re Skin Care and Precautions, Education re Self Massage Techniques, Education re Correct Donning Tech,Care&Wearing Sched Comp Garments, Home Program This patient was last seen in our office 07/22/11. Pertinent comments regarding their Occupational therapy will appear below: pt seen 3 visits for lymphedema a Home program was given. pt to return if she has concerns and at this time pt has not scheduled further apts and is d/c at this time. At this point I will be discontinuing this patient from occupational therapy. I would be happy to see this patient again in the future if found appropriate by the physician. Thank you! Jayda Concepcion, OTR/L, CHT
== END 2022-07-22 19:00 | disposition home or self-care (01) ==
LOC: OT 13:00
PROVIDERS: PCP Family Medicine; Referring Provider Family Medicine; Visit Provider Family Medicine
DX: I89.0 Lymphedema, not elsewhere classified (principal)
CPT/HCPCS: 97140; 97166; 97530

== ENCOUNTER → 2022-08-11 | Outpatient (CLI) | payer MEDICAID, SELFPAY ==
[2022-08-11 18:03] LABS: Erythrocyte Sedimentation Rate 11 mm/hr (0-30)
[2022-08-11 18:32] LABS: Anion Gap 8 (5-15); BUN 10 mg/dL (7-18); BUN/Creat Ratio 17.2 RATIO (10-20); Calcium,Total 8.8 mg/dL (8.5-10.1); Chloride 106 mmol/L (98-107); Creatinine, Serum 0.58 mg/dL (0.55-1.02); EST Glomerular Filtration Rate 133 mL/min (>60); Est Glom Filt Rate - Afr Amer 161 mL/min (>60); Glucose 95 mg/dL (74-106); Potassium 3.9 mmol/L (3.5-5.1); Sodium Level 139 mmol/L (136-145)
[2022-08-13 14:47] LABS: ANTINUCLEAR ANTIBODIES DIRECT Negative (Negative)
== END | disposition home or self-care (01) ==
PROVIDERS: PCP Family Medicine; Referring Provider Nurse Practitioner Family; Visit Provider Nurse Practitioner Family
DX: R59.1 Generalized enlarged lymph nodes (principal)
CPT/HCPCS: 36415; 80048; 85652; 86038

== ENCOUNTER 2022-09-30 18:22 | Emergency (ER) | payer MEDICAID, SELFPAY ==
[2022-09-30 18:23] VITALS: BP 150/92; PULSE 92; RESP 18; TEMP 36; O2SAT 100; BMI 32.1
[2022-09-30] MEDS: Cephalexin 500 MG Capsule PO (19:27)
[2022-09-30] MEDS: Lidocaine 1% (20 ml mdv) 20 ML Vial INFILT (19:29)
[2022-09-30 19:32] VITALS: O2SAT 99
--- NOTE | 2022-09-30 19:42 | EX.ED.DYSGE1 ---
HPI History of Present Illness Chief Complaint: Abscess Informant: patient Onset/Context/Timing Onset: Weeks (1) Context: Gradual Onset Timing: Continuous Quality: Burning Location: Right periorbital area Worsened by: Nothing Relieved by: Nothing Narrative Narrative: Patient presents with facial abscess that has been getting worse over the past week. Patient states it is gradually getting worse. Patient states it is over the right periorbital area. Patient states nothing makes it worse and nothing makes it better. Patient describes her pain as burning sensation. Patient states she tried to squeeze it but was unable to get anything out of it. Patient states she has been using warm compresses with no improvement. Patient admits to some blurred vision and some nausea. Patient denies any fevers or chills. PFSH PFS Medical History Abscess H/O drainage of abscess Hidradenitis suppurativa Home Medications cephalexin 500 mg capsule 500 mg PO Q6 #40 CAPSULES 09/30/22 [Rx Last Taken Unknown] Allergy/AdvReac Type Severity Reaction Status Date / Time No Known Allergies Allergy Verified 09/30/22 18:23 Family History Grandmother Breast cancer Diabetes Surgical History no surgical history no surgical history Social History Smoking Status: Current every day smoker tobacco type: e-cigarettes substance use type: does not use ROS ROS ED Constitutional Constitutional ED: Denies chills or fever(s) Eyes Eyes: Reports blurry vision; Denies change in vision ENT ENT ED: Denies rhinorrhea or sore throat Cardiovascular Cardiovascular: Denies chest pain or palpitations Respiratory/Chest Respiratory/Chest: Denies cough or dyspnea Gastrointestinal Gastrointestinal: Reports nausea; Denies vomiting Genitourinary Genitourinary ED: Denies dysuria or hematuria Musculoskeletal Musculoskeletal: Denies back pain or neck pain Integumentary Reports abscess; Denies rash Neurologic Neurologic: Denies headache(s) or weakness Allergic/Immunologic Allergic/Immunologic ED: Denies mouth swelling or urticaria EXAM Physical Exam Const Vital Signs: 09/30/22 18:23 09/30/22 19:32 Temperature 96.8 F L Temperature Source Temporal Pulse Rate 92 Respiratory Rate 18 Blood Pressure 150/92 H Blood Pressure Mean 111 Pulse Ox 100 99 Oxygen Delivery Method Room Air Room Air Positive well nourished and well developed General Appearance ED: well developed and NAD HEENT Reports moist mucous membranes Eyes PERRL and EOMs intact bilaterally Neck supple and no JVD Neuro oriented x3, CN's II-XII intact bilaterally and no sensory deficits noted Sensorium / Orientation: alert Motor Exam: strength 5/5 throughout Psych mental status grossly normal Skin Skin Narrative: There is some erythema and fluctuance over the right lateral periorbital area. There is some mild fluctuance. There is no discharge or drainage. There is tenderness to palpation over the area. MDM MDM MDM Narrative Medical decision making narrative: Patient was given a dose of Keflex here. The area was cleaned with chlorhexidine prep. The area was anesthetized with 1% plain lidocaine locally. A small linear incision was made using an 11 blade scalpel. A large amount of purulent drainage was expressed. The wound was left open. Bacitracin dressing was applied. Patient tolerated the procedure well. Patient was instructed to use warm compresses. Patient was given a prescription for Keflex. Patient was instructed to follow-up with her primary care physician in 5 to 7 days. Patient understood and was agreeable with the plan. All questions were answered. Discharge Plan Triage Chief Complaint: Abscess ED Provider: Guzman Lan Dx/Rx/DC Orders Clinical Impression: Abscess of face Instructions: ED Abscess Incision And Drainage Prescriptions: New cephalexin [cephalexin] 500 MG capsule 500 mg PO Q6 Qty: 40 0RF Primary Care Provider: Nanda William Referrals: Nanda William, [Primary Care Provider] - 5-7 Days Disposition Disposition: Home, Self Care Discharge Date/Time: 09/30/22 20:52
== END 2022-09-30 20:52 | disposition home or self-care (01) ==
PROVIDERS: Emergency Provider Emergency Medicine; PCP Family Medicine; Visit Provider Emergency Medicine
DX: L02.01 Cutaneous abscess of face (principal); R11.0 Nausea; H53.8 Other visual disturbances; F17.210 Nicotine dependence, cigarettes, uncomplicated
CPT/HCPCS: 10060; 99283

== ENCOUNTER 2023-02-25 19:40 | Emergency (ER) | payer MEDICAID, SELFPAY ==
[2023-02-25 19:41] VITALS: BP 119/80; PULSE 80; RESP 16; TEMP 36.7; O2SAT 99; BMI 29.8
--- NOTE | 2023-02-25 20:54 | ED.VIS.DENTA ---
HPI History of Present Illness Chief Complaint: Dental Informant: patient Onset/Context/Timing Onset: Days (2) Context: Gradual Onset Timing: Continuous Quality: Pressure, aching Location: Left lower molars Worsened by: Nothing Relieved by: - (Nothing) Associated Symptoms Assocated Symptom - Dental: jaw swelling and face swelling; Negative for fever, cold sensitivity or hot sensitivity Narrative Narrative: Patient presents with left lower dental pain that has been getting worse over the past 2 days. Patient states it has gradually gotten worse. Patient states she was brushing her teeth when she felt pain in her left lower teeth. Patient states that she got feeling in her left lower molars a few months ago and started having infection after that. Patient states she has an appoint with a new dentist but not until April. Patient states nothing makes it worse and nothing makes it better. Patient admits to some subjective chills but denies any fevers. Patient states her pain radiates into the left side of her head and down into the left side of her neck. PFSH PFS Medical History Abscess H/O drainage of abscess Hidradenitis suppurativa Pain, dental Home Medications cephalexin 500 mg capsule 500 mg PO Q6 #40 CAPSULES 09/30/22 [Rx Last Taken Unknown] amoxicillin 875 mg-potassium clavulanate 125 mg tablet 875 mg PO Q12H #20 TABLETS 02/25/23 [Rx Last Taken Unknown] Allergy/AdvReac Type Severity Reaction Status Date / Time No Known Allergies Allergy Verified 02/25/23 19:42 Family History Grandmother Breast cancer Diabetes Social History Smoking Status: Current every day smoker tobacco type: e-cigarettes substance use type: does not use ROS ROS ED Constitutional Constitutional ED: Reports chills; Denies fever(s) Eyes Eyes: Denies blurry vision or change in vision ENT ENT ED: Denies rhinorrhea or sore throat Cardiovascular Cardiovascular: Denies chest pain or palpitations Respiratory/Chest Respiratory/Chest: Denies cough or dyspnea Gastrointestinal Gastrointestinal: Denies nausea or vomiting Genitourinary Genitourinary ED: Denies dysuria or hematuria Musculoskeletal Musculoskeletal: Reports neck pain; Denies back pain Integumentary Denies abscess or rash Neurologic Neurologic: Reports headache(s); Denies weakness Allergic/Immunologic Allergic/Immunologic ED: Denies mouth swelling or urticaria EXAM Physical Exam Const Vital Signs: 02/25/23 19:41 Temperature 98.1 F Temperature Source Temporal Pulse Rate 80 Respiratory Rate 16 Blood Pressure 119/80 Blood Pressure Mean 93 Pulse Ox 99 Oxygen Delivery Method Room Air Positive well nourished and well developed General Appearance ED: well developed and NAD HEENT Mouth ED: Yes oral and palatal mucosa normal, Yes lips normal and Yes tongue normal Mouth: oral and palatal mucosa normal, lips normal and tongue normal Teeth and Gingiva: caries and gingiva abnormal Positive for gingival edema and gingival tenderness Throat: posterior oropharynx normal Neck supple and no JVD General: Negative for anterior neck swelling, tenderness or submandibular swelling Neuro oriented x3, CN's II-XII intact bilaterally, moves all extremities, no focal motor deficits and no sensory deficits noted Sensorium / Orientation: alert Motor Exam: strength 5/5 throughout MDM MDM MDM Narrative Medical decision making narrative: Patient was advised that this is most likely an infected dental carry since the patient recently completed a course of antibiotics, there is a risk of resistance to penicillin. Therefore, patient was given a dose of Augmentin here. Patient was given a prescription for Augmentin. Patient was instructed to use Tylenol or ibuprofen as needed for pain. Patient was instructed to contact her dentist for follow-up care in 7 to 10 days. Patient was instructed return if worse in any way. Patient understood and was agreeable with the plan. All questions were answered. Discharge Plan Triage Chief Complaint: Dental ED Provider: Guzman Lan Dx/Rx/DC Orders Clinical Impression: Infected dental caries Instructions: ED Dental Pain Prescriptions: New amoxicillin-pot clavulanate [amoxicillin-pot clavulanate] 875-125 mg tablet 875 mg PO Q12H Qty: 20 0RF No Action cephalexin [cephalexin] 500 MG capsule 500 mg PO Q6 Qty: 40 0RF Primary Care Provider: Nanda William Referrals: Nanda William, DO [Primary Care Provider] - 1-2 Weeks Dentist,Your [STAFF PHYSICIAN] - 1-2 Weeks Disposition Disposition: Home, Self Care Discharge Date/Time: 02/25/23 21:11
[2023-02-25] MEDS: Naproxen 250 MG Tablet 500 MG PO (21:08)
[2023-02-25] MEDS: Amox/Clavulanate 875 MG Tablet PO (21:08)
== END 2023-02-25 21:11 | disposition home or self-care (01) ==
PROVIDERS: Emergency Provider Emergency Medicine; PCP Family Medicine; Visit Provider Emergency Medicine
DX: K02.9 Dental caries, unspecified (principal); F17.210 Nicotine dependence, cigarettes, uncomplicated
CPT/HCPCS: 99283

== ENCOUNTER → 2024-04-12 | Outpatient (CLI) | payer MEDICAID, SELFPAY ==
--- NOTE | 2024-04-12 10:58 | RAD_ITS ---
STUDY: X-RAY - CERVICAL SPINE REASON FOR EXAM: Female, 28 years old. Neck pain TECHNIQUE: 5 view(s) of the cervical spine were obtained. COMPARISON: None FINDINGS: Normal anterior atlantoaxial articulation. Normal odontoid process. There is straightening of the normal cervical lordosis. Normal vertebral bodies and endplates. Normal disc space heights. Normal visualized intervertebral neuroforamina. The soft tissue structures are unremarkable. RAD/Cerv Spine 4 or 5 Views IMPRESSION: Straightening of the normal lordotic curvature possibly from muscular spasm. Electronically Signed: Billy Russell MD at 13:16 EDT ,
== END | disposition home or self-care (01) ==
PROVIDERS: PCP Family Medicine; Referring Provider Family Medicine; Visit Provider Family Medicine
DX: M54.2 Cervicalgia (principal)
CPT/HCPCS: 72050

== ENCOUNTER → 2024-04-26 | Outpatient (CLI) | payer MEDICAID, SELFPAY ==
[2024-04-26 15:50] LABS: Erythrocyte Sedimentation Rate 11 mm/hr (0-30)
[2024-04-30 10:41] LABS: Dilute Russell Viper Venom 34.8 sec (0.0-47.0); Interpretation Comment: (.); PTT-LA 31.4 sec (0.0-43.5); Thrombin Time 19.2 sec (0.0-23.0); dPT Confirm Ratio 1.32 Ratio (0.00-1.34)
[2024-04-30 10:42] LABS: ANTINUCLEAR ANTIBODIES DIRECT Negative (Negative); Anti-Histone Abs 0.4 Units (0.0-0.9); SJOGREN'S Anti-SS-A test < 0.2 AI (0.0-0.9); SJOGREN'S Anti-SS-B test < 0.2 AI (0.0-0.9)
== END | disposition home or self-care (01) ==
LOC: MTLAB 12:34
PROVIDERS: PCP Family Medicine; Referring Provider Family Medicine; Visit Provider Family Medicine
DX: R21 Rash and other nonspecific skin eruption (principal)
CPT/HCPCS: 36415; 85652; 86038; 86235

== ENCOUNTER 2024-06-10 08:27 | Day surgery (SDC) | payer MEDICAID, SELFPAY ==
[2024-06-10 08:41] VITALS: BP 112/69; PULSE 63; RESP 18; TEMP 36.3; O2SAT 100; BMI 28.4
--- NOTE | 2024-06-10 09:05 | PCM.HP.BLA ---
History and Physical Date of Admission: 06/10/24 The patient is examined and there are no changes to the H&P dated 06/08/2024. Informed consent was obtained. We will proceed with excision of cyst x 2 of her posterior neck. Assessment & Plan Assessment/Plan (1) Epidermoid cyst of neck: PLAN: Plan For excision cyst of neck x 2.
--- NOTE | 2024-06-10 09:20 | CYST_PTH ---
PATIENT: DON GARCIA LOC: [facility] [place] U#:[id number] AGE/SX: 28/F ROOM: RE06/10/[address]: Dr. Romina Grigsby MD : 1995 BED: DIS: 06/10/2024 SPEC #: [id number] RECD: 06/10/24 13:04 STATUS: BETO URIARTEKeith #: [id number] PAVEL: 06/10/24 09:[address]: Romina Grigsby DEPT: SURGICAL PATHOLOGY RECD BY: Sharron Arteaga ENTERED: 06/10/24 13:40 SP TYPE: Cyst OTHR DR: Helio Smith MD Tissues: A - CYST B - CYST Procedures: Surgery Specimen Level III HEADER OPERATION: Excision cysts x2 posterior neck PRE-OP DIAGNOSIS: Epidermoid cyst of neck TISSUE SUBMITTED: A- Upper posterior neck cyst, B- Lower posterior neck cyst MICROSCOPIC DIAGNOSIS A. Cyst of upper posterior neck, excision: Epidermal inclusion cyst. B. Cyst of lower posterior neck, excision: Epidermal inclusion cyst. AM. 06/13/2024 MICROSCOPIC DESCRIPTION Slides are reviewed. GROSS DESCRIPTION A. Received in fixative is one container labeled with the patient's name and designated Upper posterior neck cyst. The specimen consists of a piece of arguelles-white skin measuring 2.0 x 0.2 x 0.1cm. Also present in the container is a piece of skin with underlying tissue measuring 2.2 x 0.5cm and underlying tissue measuring 2.5 x 1.5 x 1.5cm. Section of the larger piece reveals a cyst filled with arguelles-white cheesy material. International Trade Analyst sections are submitted in one cassette. B. Received in fixative is one container labeled with the patient's name and designated Lower posterior neck cyst. The specimen consists of a piece of skin with underlying tissue. Skin piece measures 1.5 x 0.5cm and underlying tissue measures 1.5 x 1.5 x 1.0cm. Specimen is inked, serially sectioned and reveal a cyst filled with arguelles-white cheesy material. The entire specimen is submitted in one cassette. 06/10/2024 TC:5 CPT:29201p6
[2024-06-10 09:41] VITALS: BP 104/69; BP 121/67; O2SAT 100; O2SAT 97; O2SAT 98; O2SAT 99
[2024-06-10] MEDS: Lidocaine 1% /Epi 1:100 9 ML, Sodium Bicarbonate 1 MEQ OPERA.SITE (09:48)
--- NOTE | 2024-06-10 10:48 | DCINST_ITS ---
Discharge Instructions Dressing / Incision Additional Dressing/Incision Instructions:: Keep your back slightly elevated to reduce swelling and bruising. Take the oral antibiotic (Keflex) until finished after you have finished your other antibiotic. May remove the dressing to shower --then replace after showering with dry gauze and tape. Follow Up Care Please Follow Up With: Romina Grigsby MD When: in 1-2 weeks Test Results: Test results from this visit will be discussed in further detail at your follow- up appointment, if applicable. Discharge Plan Admission Attending Provider: Romina Grigsby Primary Care Provider: Helio Smith Instructions Print Language: Israeli Discharge Orders/Prescriptions Prescriptions: New cephalexin 500 mg capsule 500 mg PO BID 7 Days Qty: 14 0RF No Action gabapentin 100 mg capsule 100 mg PO TID tizanidine 4 mg tablet 4 mg PO BID Referrals / Follow Up: Helio Smith MD [Primary Care Provider] - Disposition Disposition (needs filled in before D/C Order can be placed): Home, Self Care
--- NOTE | 2024-06-10 10:54 | OP.PCM_ITS ---
Problems Associated Problem List Diagnoses (1) Epidermoid cyst of neck: Report of Operation Date of Procedure: 06/10/24 Pre-Operative Diagnosis: Cysts x 2 of posterior neck Post-Operative Diagnosis: Same Surgery/Procedure Performed:: Excision cyst of the neck x 2 (4.0 cm, 3.0 cm) with intermediate closure Surgeon: Romina Grigsby sonar technician: ADDIS HILLresource development manager Type of Anesthesia: Local Specimen's removed: Cyst x 2 Estimated Blood Loss (mL): Minimal Description of Procedure: The patient presents with 2 cyst on the posterior neck. She presents for excision of the cyst with submission for pathologic evaluation. Procedure the patient is brought to the operating room and placed on the operating room table in a prone position. The posterior neck is prepped and draped in the usual sterile fashion. We initially began with injecting 1% Xylocaine with epinephrin e in the periphery around the cysts. An elliptical incision is made over top of the cysts and is then carried down through the subcutaneous tissue until the cyst are encountered. The cyst is then carefully enucleated from its bed. Hemostasis is controlled with cautery. The wound is then closed in layers using a Monocryl suture in the subcutaneous tissue and dermis. Skin edges were approximated with a running subcuticular Monocryl suture. Further reinforcement the closure is done with interrupted Prolene suture. Dry gauze and tape is applied as a dressing. She tolerated the procedure well and was taken to the recovery area in an awake and stable condition. Needle and sponge counts are correct. Complications None Admit VTE Documentation VTE Mechan Device Prophylaxis: None Reason prophylaxis not ordered:: Treatment Not Indicated
[2024-06-10 11:04] VITALS: BP 105/68; BP 112/69; PULSE 57; RESP 16; TEMP 36.4; O2SAT 100
== END 2024-06-10 11:09 | disposition home or self-care (01) ==
LOC: SDC 08:28 → AC 08:30
PROVIDERS: PCP Family Medicine; Referring Provider Plastic Surgery; Visit Provider Plastic Surgery
PROC: (CPT 12042; principal; 2024-06-10 09:10)
DX: L72.0 Epidermal cyst (principal)
CPT/HCPCS: 12042; 88304

== ENCOUNTER 2024-08-01 09:30 | Outpatient (RCR) | payer MEDICAID, SELFPAY ==
--- NOTE | 2024-06-22 12:27 | HP.PTEVAL_ITS ---
Patient's Visit Information Visit Information Visit Information: DON GARCIA is a 28 year old F referred to Physical Therapy by Helio Smith MD with a diagnosis of neuropathy. Date of Evaluation: 06/22/24 Physical Therapist: JIMBO Landry Visit Plan Frequency: 2x /Week Duration: 2 Months Plan: Give stretches for C-spine, thoracic and Lumbar first visit for HEP and see how pt does with these and then begin core/postural exercises 2X/ week for 8 weeks for stretching of thoracic, cervical, and L-spine musculature, neutral spine core stability, postural exercises, L LE strength and L UE strength with HEP. Subjective Subjective: Pt has some shoulder blade pinching and her LB and pain down the L leg to her toes. It feels like she sat on her L arm and L leg. She does not notice any weakness in her arm or leg but it feels it is weak. They did not do anything other than go to PT and then to a neurologist. She has neck pain. X-r ay of neck is good. Her neck is stiff and she gets NAIR quite freq also. She started with L arm N&T and burning feeling (feels liek his funny bone) feels in her shoulder down to her finger. This just randomly started about a year ago. She has tried compression sleeves ad that did not help. The sx come and goes and not a continuous thing. She is taking gabapentin but did not take it this morning. The leg started about 3 weeks ago randomly front and back of L leg. It is random too. She also has mid back pain and across her shoulder blades and her LB. She gets random reoccurring abscess off her neck 2 weeks ago and she got her stitches out yesterday. She has no issue walking. She has no issue climbing stairs. She is on her feet all day because she can not sit still. She is sleeping but wakes up twice a night. If she gets the tingling and numbness she would sit down and it would calm down. Her arm pain and leg pain do not occur at the same time. Pain LBP: Pain Intensity (Out of 10): 4 L leg pain: Pain Intensity (Out of 10): 3 L arm pain: Pain Intensity (Out of 10): 2 mid back: Pain Intensity (Out of 10): 7 Objective Objective: L handed: Gait: Walks with decrease hip extension and guarded gait pattern Trunk AROM: flexion 95%, Ext 50% (increase pain), SB B 75%, Rot B 75% Pt is able to walk on heels and toes UE AROM: full AROM B UE MMT: R shoulder flex 6.9 and L 4.5 R shoulder ABD 7.1 and L 7.8 R shoulder ER 8.2 and L 8 LE MMT: R hip flex 12.8 and L 10.3 R knee ext 11.2 and L 9.9 R knee flex 6.3 and L 6.2 R hip abd 4/5 and L 4/5 R hip ext 4-/5 and L 3+/5 Pt is able to do 3/4 normal ROM bridge Patella and bicep DTR 2+/3 B C-spine AROM: flexion 75% (increase pulling), Ext 50% (increase pain), Rot B 75%, SB B 75% Balance/Special Test Scores Lower Extremity Functional Score: 70 Goals Goal 1:: I HEP Goal Time Frame: 6-8 Weeks Goal 2:: Increase posture to sit and stand with good posture during therapy sessions Goal Time Frame: 6-8 Weeks Goal 3:: Increase UE/LE strength (at the time of the eval: UE MMT: R shoulder flex 6.9 and L 4.5 R shoulder ABD 7.1 and L 7.8 R shoulder ER 8.2 and L 8 LE MMT: R hip flex 12.8 and L 10.3 R knee ext 11.2 and L 9.9 R knee flex 6.3 and L 6.2 R hip abd 4/5 and L 4/5 R hip ext 4-/5 and L 3+/5 Pt is able to do 3/4 normal ROM bridge) Goal Time Frame: 6-8 Weeks Goal 4:: Decrease the frequency of L UE and L LE tingling by 25% Goal Time Frame: 6-8 Weeks Rehabilitation Potential Rehabilitation Potential: Good Anticipated Interventions Patient/Client Instruction: Educate patient on: Condition and Plan of Care For the Purpose of:: To decrease pain, To increase ROM, To improve nutrient delivery to tissue, To improve muscle performance and motor function, To improve ability to perform ADL's, To increase tolerance to activity/condition/position, To improve performance and independence with ADL's, To decrease level of supervision to perform tasks, To improve ability of physical actions for home/community/work/leisure, To improve health of tissue, To decrease soft tissue restriction and To increase flexibility/ROM Therapeutic Exercise to Include: Strength training, Body mechanics, Postural training, Flexibilty training, Neuromotor development, Active ROM, Dynamic Lumbar Stabilization and Scapular Strength/Stabilization For the Purpose of:: To decrease pain, To increase ROM, To improve nutrient delivery to tissue, To increase oxygenation perfusion, To improve muscle performance and motor function, To improve ability to perform ADL's, To increase tolerance to activity/condition/position, To improve performance and independence with ADL's, To decrease level of supervision to perform tasks, To improve ability of physical actions for home/community/work/leisure, To improve gait and locomotor functions, To improve health of tissue, To decrease soft tissue restriction, To increase flexibility/ROM and To improve endurance Text: Thank you for the opportunity to evaluate your patient. For Medicare and Medicare HMO plans, please review the plan of care and approve it. It will need to be FAXED BACK to us at [phone] for Medicare purposes. For Medicare only, by signing this I certify the plan of care. Please let me know if there are questions or concerns regarding this plan of care. Physician Signature: Date:
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
== END 2024-08-01 10:51 | disposition home or self-care (01) ==
LOC: PT 09:30
PROVIDERS: PCP Family Medicine; Referring Provider Family Medicine; Visit Provider Family Medicine
DX: G62.9 Polyneuropathy, unspecified (principal)
CPT/HCPCS: 97110; 97162; 97530

== ENCOUNTER 2024-08-18 17:17 | Emergency (ER) | payer MEDICAID, SELFPAY ==
[2024-08-18 17:17] VITALS: BP 159/85; PULSE 104; RESP 16; TEMP 35.7; O2SAT 100; BMI 30.1
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
--- NOTE | 2024-08-18 17:35 | EX.ED.DYSGE1 ---
HPI History of Present Illness Chief Complaint: Lower Extremity Injury [facility] Medical History Left shoulder pain History of back pain History of environmental allergies Pain, dental H/O drainage of abscess Hidradenitis suppurativa Abscess Home Medications ?Medication ?Instructions ?Recorded ?Last Taken ?Type NK 08/09/24 Unknown History Allergy/AdvReac Type Severity Reaction Status Date / Time No Known Allergies Allergy Verified 08/18/24 17:27 Family History Grandmother Breast cancer Diabetes Grandfather Cancer prostate and colon Grandmother CVA (cerebral vascular accident) Social History Smoking Status: Current every day smoker tobacco type: e-cigarettes alcohol intake: never substance use type: does not use additional social history: denies vaping, denies edibles, denies marijuana, denies aspirin and ibuprofen EXAM Physical Exam Const Vital Signs: 08/18/24 17:17 Temperature 96.2 F L Temperature Source Temporal Pulse Rate 104 H Respiratory Rate 16 Blood Pressure 159/85 H Blood Pressure Mean 109 Pulse Ox 100 Oxygen Delivery Method Room Air MDM MDM MDM Narrative Medical decision making narrative: HISTORY OF PRESENT ILLNESS: 29-year-old female presents with concern for lower extremity injury. She states she injured her right foot on Thursday. She received x-rays in urgent care which showed a possible fracture. She follow with orthopedic surgery they stated she had no clear fracture. She is currently in a walking boot and is bearing weight on the foot. She is concerned that there may be a fracture and wants to know was going on REVIEW OF SYSTEMS: Pertinent positives: Foot pain Pertinent negatives: Numbness weakness or loss of sensation PHYSICAL EXAM: Nursing triage notes reviewed, Vital signs reviewed Constitutional: please see mdm Extremities: Slight swelling noted to the right foot, TTP over right fibula, compartments are soft Neuro: Intact sensation L1-S1 dermatomal distributions. Intact 5/5 strength in hip flexion (T12-L3). Knee extension (L2-L4). Ankle dorsiflexion (L4-L5). Ankle plantar flexion (S1). Great toe extension (L5). 2+ patellar and Achilles DTRs. Skin: Ecchymosis noted over the posterior foot MEDICAL DECISION MAKING: Chief Complaint: Foot pain External records reviewed: Reviewed prior imaging studies in our chart. No advanced imaging of the foot noted Factors affecting care: Possible foot fracture Social determinants of health: none History obtained from others: none Consults: none MDM Narrative: Patient was hemodynamically stable, afebrile, nontoxic-appearing. Exam with bruising noted to foot and TTP over fibula. I considered the following differential diagnosis: Foot fracture, foot contusion Discussed the patient repeat imaging reviewed prior imaging the patient had on her cell phone that showed a slight hairline distal fibular fracture. I informed the patient that she likely would not require surgery. I offered her pain medication immobilization with her walking boot as well as crutches and nonweightbearing status. She agreed to did not want additional imaging at this time. She agreed to follow-up with the already scheduled orthopedic appointment next week. The patient and/or family, caregivers express understanding. The patient and/or family, caregivers agrees with the plan. Shared decision making: I will have a discussion with the patient and or visitors regarding risk/benefits of further testing or admission. They will be made aware of of the risk/benefits inherent in this decision they will be given the opportunity to voice understanding. Total critical care time today provided was at least 0 minutes. This excludes separately billable procedures. Critical care time (if documented) is secondary to the patient having high probability of clinically significant/life threatening deterioration in the patient's condition which required my urgent intervention. Impression: 1. Right foot pain 2. Distal fibular fracture Dispo: Discharge home This note was generated with [employer]ist dictation software. It may contain incorrect words, spelling, and punctuation that were not noted in review of the chart prior to signing. Discharge Plan Triage Chief Complaint: Lower Extremity Injury ED Provider: Jaylan Hunter Dx/Rx/DC Orders Prescriptions: No Action NK Primary Care Provider: Helio Smith Referrals: Helio Smith MD [Primary Care Provider] - Print Language: Cymraes
[2024-08-18] MEDS: oxyCODONE 5 MG Tablet PO (18:32)
== END 2024-08-18 18:35 | disposition home or self-care (01) ==
PROVIDERS: Emergency Provider Emergency Medicine; PCP Family Medicine; Visit Provider Emergency Medicine
DX: S82.409D Unspecified fracture of shaft of unspecified fibula, subsequent encounter for closed fracture with routine healing (principal); S90.30XD Contusion of unspecified foot, subsequent encounter; M79.671 Pain in right foot; F17.210 Nicotine dependence, cigarettes, uncomplicated; X58.XXXD Exposure to other specified factors, subsequent encounter
CPT/HCPCS: 99282

== ENCOUNTER → 2024-08-31 | Outpatient (CLI) | payer MEDICAID, SELFPAY ==
--- NOTE | 2024-08-31 12:59 | NEURO ---
NCS and/or EMG Patient Report Ordering Doctor: Jayson Turcios DATE OF SERVICE: 08/31/24 Fela presents with complaints of intermittent pain in both arms. She reports intermittent numbness. Electrodiagnostic findings: Median motor nerve demonstrates normal distal latency, amplitude and conduction velocity bilaterally. Ulnar motor response is within normal limits bilaterally. Normal median and ulnar F?waves. Sensory responses are within normal limits. Needle EMG testing was performed upper limbs. All muscles tested showed no evidence of denervation with normal motor unit action potentials. Electrodiagnostic impression: This is a normal electrodiagnostic study of the upper limbs. There is no electrodiagnostic evidence for peripheral neuropathy, including carpal tunnel syndrome. There is no electrodiagnostic evidence for cervical radiculopathy. Multi Select Codes Neurology Neurology Interp Codes: 31160-90 Musc test done w/n test comp (interp) (2) and 87860-41 Nrv cndj test 13/> studies (interp)
== END | disposition home or self-care (01) ==
LOC: PSN 09:50
PROVIDERS: PCP Family Medicine; Referring Provider Orthopaedic Surgery Sports Medicine; Visit Provider Orthopaedic Surgery Sports Medicine
DX: R20.0 Anesthesia of skin (principal); R20.2 Paresthesia of skin; M79.602 Pain in left arm; M79.601 Pain in right arm
CPT/HCPCS: 95886; 95913

== ENCOUNTER 2024-09-27 11:00 | Outpatient (RCR) | payer MEDICAID, SELFPAY ==
--- NOTE | 2024-09-05 12:02 | HP.PTEVAL_ITS ---
Patient's Visit Information Visit Information Visit Information: DON GARCIA is a 29 year old F referred to Physical Therapy by Yao Myers PA-C with a diagnosis of CONTUSION OF RIGHT ANKLE. Date of Evaluation: 09/05/24 Physical Therapist: Enrique Borden, PT, Cert MDT, OCS Visit Plan Frequency: 2x /Week Duration: 4 Weeks Plan: PT INTERVENTIONS FLEXABILITY CALF ,STRENGTHENING EX'S ANKLE STABILIZERS , PROPRIOCEPTION AND MODALITIES PRN Subjective Subjective: This 29 y/o female presents to physical therapy with right ankle contusion . Patient had ~ 1 month closet door hit ankle posterior aspect. Patient had immediate ER urgent care did x-rays and place on boot . Patient developed bruising and edema. JEN Myers did x-rays no fracture. Recommended PT also prescribed Oxycodone. Patient has some soreness. Patient wore regular shoes 1st day. Denies paresthesia/tingling -. Patient able to sleeping .Patient symptoms affects QOL and function. Patient goals to decrease pain. SOCIAL: Significant other VOCATION: HOME Pain Right Ankle: Pain Intensity (Out of 10): 2 Pain Intensity Range: 10 Objective Objective: POSTURE: mild forward,normal arch PALPATION: tender calf GAIT: reciprocal pattern NEURO: denies paresthesia/tingling AROM: dorsiflexion 0 degrees ,plantarflexion 60 degrees ,inversion 35 degrees ,eversion 5 degrees MMT: ankle stabilizers 4/5 PROPRIOCEPTION: intact SPECIAL TEST: inversion stress test ,anterior drawer - Balance/Special Test Scores Lower Extremity Functional Score: 55 Goals Goal 1:: Patient to be I with HEP ankle Goal Time Frame: 4-6 Weeks Goal 2:: Patient to improve LFES Score by 5 points to improve QOL Goal Time Frame: 4-6 Weeks Goal 3:: Patient to demonstrate 70% improvement with NO pain and improved function housework tasks Goal Time Frame: 4-6 Weeks Goal 4:: Patient to have 5/5 strength without pain to improve function Goal Time Frame: 4-6 Weeks Rehabilitation Potential Physical Therapy Diagnosis: Patient had laceration from door landed on posterior ankle /calf caused pain ecchymosis and some weakness thus benefit from skilled PT Rehabilitation Potential: Good Anticipated Interventions Patient/Client Instruction: Educate patient on: Condition and Plan of Care For the Purpose of:: To decrease pain, To increase ROM, To improve muscle performance and motor function, To increase tolerance to activity/conditio n/position, To improve ability of physical actions for home/community/work/leisure, To improve health of tissue, To decrease soft tissue restriction and To increase flexibility/ROM Therapeutic Exercise to Include: Strength training, Balance training and Flexibilty training Comment: ANKLE For the Purpose of:: To decrease pain, To increase ROM, To improve muscle performance and motor function, To improve ability to perform ADL's, To improve ability of physical actions for home/community/work/leisure, To improve health of tissue, To decrease soft tissue restriction and To improve tolerance to ADL's TENS: Yes IF ES: Yes Thermo therapy (hot pack): Yes Ultrasound (thermal/non thermal): Yes For the Purpose of:: To decrease pain, To increase ROM, To improve health of tissue and To decrease soft tissue restriction Text: Thank you for the opportunity to evaluate your patient. For Medicare and Medicare HMO plans, please review the plan of care and approve it. It will need to be FAXED BACK to us at [phone] for Medicare purposes. For Medicare only, by signing this I certify the plan of care. Please let me know if there are questions or concerns regarding this plan of care. Physician Signature: Date:
--- NOTE | 2025-01-25 08:30 | HP.PT.NRP ---
Patient Information Patient Information: DON GARCIA was seen in my office for initial evaluation on 09/05/24. The following Plan of Care was established for this patient: POC Established Initial Frequency: 2x /Week Initial Duration: 4 Weeks Anticipated Interventions Patient/Client Instruction: Educate patient on: Condition and Plan of Care For the Purpose of:: To decrease pain, To increase ROM, To improve muscle performance and motor function, To increase tolerance to activity/condition/position, To improve ability of physical actions for home/community/work/leisure, To improve health of tissue, To decrease soft tissue restriction and To increase flexibility/ROM Therapeutic Exercise to Include: Strength training, Balance training and Flexibilty training For the Purpose of:: To decrease pain, To increase ROM, To improve muscle performance and motor function, To improve ability to perform ADL's, To improve ability of physical actions for home/community/work/leisure, To improve health of tissue, To decrease soft tissue restriction and To improve tolerance to ADL's TENS: Yes IF ES: Yes Thermo therapy (hot pack): Yes Ultrasound (thermal/non thermal): Yes For the Purpose of:: To decrease pain, To increase ROM, To improve health of tissue and To decrease soft tissue restriction Last Seen Last Seen: This patient was last seen in our office . Pertinent comments regarding their Physical therapy will appear below: This patient was seen for PT for ankle contusion for HEP thus is d/c At this point I will be discontinuing this patient from physical therapy. I would be happy to see this patient again in the future if found appropriate by the physician. Thank you! Enrique Borden, PT, Cert MDT, OCS Balance/Gait/Functional tests Balance/Special Test Scores Lower Extremity Functional Score: 55
== END 2024-09-27 19:00 | disposition home or self-care (01) ==
LOC: PT 11:00
PROVIDERS: PCP Family Medicine; Referring Provider Physician Assistant; Visit Provider Physician Assistant
DX: S90.01XD Contusion of right ankle, subsequent encounter (principal)
CPT/HCPCS: 97110; 97162

== ENCOUNTER → 2024-09-27 | Outpatient (CLI) | payer MEDICAID, SELFPAY ==
[2024-09-27 17:50] LABS: Absolute Neutrophil Count 4.9 X10^3/uL (2.0-7.7); Basophil# 0.05 X10^3/uL; Basophil% 0.5 % (0-1); Eosinophil# 0.08 X10^3/uL; Eosinophils% 0.9 % (0-5); Hematocrit 40.5 % (37-47); Hemoglobin 13.1 g/dL (12.0-15.0); Lymphocyte % 37.7 % (19-41); Mean Corp Hgb Conc 32.3 g/dL (32-36); Mean Corpuscular Volume 89.6 fL (81-99); Monocyte# 0.71 X10^3/uL; Monocyte% 7.6 % (0-10); NRBC Flagged by Analyzer 0 % (0-5); Neutrophil # 4.93 X10^3/uL (2.7-7.7); Neutrophil % 53.1 % (47-70); Platelet Count 348 K/mm3 (150-450); RBC Distribution Width CV 12.4 % (11.6-14.6); RBC Distribution Width SD 40.7 fl (35.1-43.9); Red Blood Count 4.52 M/mm3 (4.2-5.4); White Blood Count 9.3 K/mm3 (4.4-11.0)
[2024-09-27 19:08] LABS: Vitamin D,25 Hydroxy 30.1 ng/mL
[2024-09-27 19:25] LABS: ALB/GLOB Ratio 1.1 RATIO (0.9-2.4); AST(SGOT) 14 U/L (15-37); Alanine Aminotransfer ALT/SGPT 25 U/L (13-56); Albumin, Serum 4.1 g/dL (3.2-5.0); Alkaline Phosphatase 72 U/L (45-117); Anion Gap 6 (5-15); BUN 9 mg/dL (7-18); BUN/Creat Ratio 13.6 RATIO (10-20); Calcium,Total 9.4 mg/dL (8.5-10.1); Chloride 106 mmol/L (98-107); Creatinine, Serum 0.66 mg/dL (0.55-1.02); EST Glomerular Filtration Rate 113 mL/min (>60); Est Glom Filt Rate - Afr Amer 136 mL/min (>60); Globulin 3.9 g/dL (2.2-4.2); Glucose 97 mg/dL (74-106); Potassium 3.9 mmol/L (3.5-5.1); Sodium Level 138 mmol/L (136-145); Troponin-I HS 4 pg/mL (3.0-54.0)
== END | disposition home or self-care (01) ==
LOC: MFPLAB 15:13
PROVIDERS: PCP Family Medicine; Referring Provider Family Medicine; Visit Provider Family Medicine
DX: R00.2 Palpitations (principal); R07.9 Chest pain, unspecified; R53.83 Other fatigue
CPT/HCPCS: 36415; 80053; 82306; 84443; 84484; 85025

== ENCOUNTER → 2024-10-10 | Outpatient (CLI) | payer MEDICAID, SELFPAY ==
--- NOTE | 2024-10-10 11:00 | MRI_ITS ---
STUDY: MRI LEFT SHOULDER REASON FOR EXAM: Female, 29 years old. Pain, shoulder pain rule out cuff tear. TECHNIQUE: Standardized fat and water weighted pulse sequences were obtained in all 3 orthogonal planes. COMPARISON: Left shoulder radiographs dated 08/09/2024. FINDINGS: Normal supraspinatus tendon. Normal infraspinatus tendon. Normal subscapularis tendon. Normal teres minor tendon. Normal supraspinatus muscle. Normal infraspinatus muscle. Normal subscapularis muscle. Normal teres minor muscle. Normal glenohumeral articulation. Normal humeral head and visualized proximal humerus. Normal biceps labral complex. Normal intracapsular long biceps tendon. Normal labrum. Normal capsulo-ligamentous complex. Normal rotator interval. Normal acromioclavicular articulation. There is a Type II morphology (curved), with a neutral orientation. There is no subacromial-subdeltoid bursal fluid. Normal visualized coracohumeral and coracoacromial ligaments. Normal quadrilateral space. Normal axillary space. Normal deltoid muscle. Normal trapezius muscle. MRI/Upper Ext Joint Only(Routine) IMPRESSION: No rotator cuff tear or discrete labral tear. Electronically Signed: Ender Amanda MD at 9:54 EST ,
== END | disposition home or self-care (01) ==
LOC: MRI 08:59
PROVIDERS: PCP Family Medicine; Referring Provider Orthopaedic Surgery Sports Medicine; Visit Provider Orthopaedic Surgery Sports Medicine
DX: M25.512 Pain in left shoulder (principal); M25.812 Other specified joint disorders, left shoulder
CPT/HCPCS: 73221

== ENCOUNTER → 2024-11-14 | Outpatient (CLI) | payer MEDICAID, SELFPAY ==
[2024-11-14 17:54] LABS: Internal QC Validated? YES +Cl - CLEAR BKGD; Pregnancy, Serum, hCG Quali. NEGATIVE Negative
== END | disposition home or self-care (01) ==
LOC: MFPLAB 16:32
PROVIDERS: PCP Family Medicine; Referring Provider Family Medicine; Visit Provider Family Medicine
DX: Z00.00 Encounter for general adult medical examination without abnormal findings (principal)
CPT/HCPCS: 36415; 84703

== ENCOUNTER → 2024-11-22 | Outpatient (CLI) | payer MEDICAID, SELFPAY ==
--- NOTE | 2024-11-22 18:55 | CT_ITS ---
PROCEDURE: ABDOMEN WITH IV CONTRAST REASON FOR EXAM: Epigastric pain with radiation to right side TECHNIQUE: Abdomen CT with intravenous contrast. Coronal and sagittal reformatted images IV CONTRAST: 91 cc Isovue-300 COMPARISON: None. FINDINGS: Lung bases: Clear Liver: Unremarkable. Gallbladder: Unremarkable. Nondistended without evidence of calcified stones, wall thickening or pericholecystic free fluid identified. Spleen: Unremarkable. Pancreas: Unremarkable. Adrenals: Unremarkable. Kidneys: Unremarkable. Symmetric appearing nephrograms without hydronephrosis or perinephric stranding. Bowel: Visualized loops of bowel are unremarkable. Oral contrast is seen to the proximal sigmoid colon. No bowel dilation, free air or free fluid identified. Normal caliber appendix without secondary signs. Lymph nodes: No suspicious lymph node enlargement. Vasculature: Unremarkable Peritoneum / Retroperitoneum: No ascites or free air at the upper abdomen. Bones: Unremarkable. CT/Abdomen WITH IV Contrast IMPRESSION: No evidence of intra-abdominal abnormality. One or more dose reduction techniques were used (e.g., Automated exposure contr ol, adjustment of the mA and/or kV according to patient size, use of iterative reconstruction technique). Reading Location: [id number]
== END | disposition home or self-care (01) ==
LOC: CT 18:49
PROVIDERS: PCP Family Medicine; Referring Provider Family Medicine; Visit Provider Family Medicine
DX: R10.13 Epigastric pain (principal)
CPT/HCPCS: 74160; Q9967

== ENCOUNTER → 2024-12-02 | Outpatient (CLI) | payer MEDICAID, SELFPAY ==
[2024-12-02 14:22] LABS: CRP 4.51 mg/L (0.0-3.0)
[2024-12-05 13:07] LABS: Endomysial Antibody IgA Negative (Negative); Immunoglobulin A 100 mg/dL (87-352); t-Transglutaminase IgA <2 U/mL (0-3)
== END | disposition home or self-care (01) ==
LOC: MTLAB 09:51
PROVIDERS: PCP Family Medicine; Referring Provider Internal Medicine Gastroenterology; Visit Provider Internal Medicine Gastroenterology
DX: R10.9 Unspecified abdominal pain (principal)
CPT/HCPCS: 36415; 82784; 83516; 86140; 86255

== ENCOUNTER → 2025-01-26 | Outpatient (CLI) | payer MEDICAID, SELFPAY ==
[2025-01-28 05:07] LABS: Alpha Antitrypsin Serum 145 mg/dL (100-188)
== END | disposition home or self-care (01) ==
LOC: MFPLAB 11:13
PROVIDERS: PCP Family Medicine; Referring Provider Family Medicine; Visit Provider Family Medicine
DX: R79.89 Other specified abnormal findings of blood chemistry (principal); J44.9 Chronic obstructive pulmonary disease, unspecified
CPT/HCPCS: 36415; 82103; 84439; 84443

== ENCOUNTER → 2025-02-06 | Outpatient (CLI) | payer MEDICAID, SELFPAY ==
--- NOTE | 2025-02-06 17:16 | CT_ITS ---
PROCEDURE: CHEST WITHOUT CONTRAST 02/06/2025 REASON FOR EXAM: COPD,SOB TECHNIQUE: Chest CT without contrast performed in the prone position. Coronal and Sagittal reconstruction series were provided. One or more dose reduction techniques were used (e.g., Automated exposure control, adjustment of the mA and/or kV according to patient size, use of iterative reconstruction technique RADIATION DOSE SUMMARY: CTDlvol: 15.6 mGy DLP: 615 mGycm COMPARISON: CT abdomen and pelvis 11/22/2024 FINDINGS: Lymph nodes: Mildly prominent axillary lymph nodes bilaterally. Heart and Vasculature: Residual thymic tissue. Normal heart size. No coronary calcification. Lungs and Airways: Central airways are clear. No focal consolidation. No suspicious pulmonary nodule. Pleura: No pleural effusion. Upper Abdomen: Unremarkable. Bones: Unremarkable. CT/Chest without Contrast IMPRESSION: 1. No acute cardiopulmonary abnormality. 2. Mildly prominent axillary lymph nodes bilaterally. Recommend clinical foll ow-up. Reading Location: [id number]
== END | disposition home or self-care (01) ==
LOC: CT 17:10
PROVIDERS: PCP Family Medicine; Referring Provider Internal Medicine Pulmonary Disease; Visit Provider Internal Medicine Pulmonary Disease
DX: R06.02 Shortness of breath (principal); J44.9 Chronic obstructive pulmonary disease, unspecified
CPT/HCPCS: 71250

== ENCOUNTER → 2025-04-03 | Outpatient (CLI) | payer MEDICAID, SELFPAY | END | disposition home or self-care (01) | LOC: MFPLAB 12:23 | PROVIDERS: PCP Family Medicine; Referring Provider Family Medicine; Visit Provider Family Medicine | DX: E03.9 Hypothyroidism, unspecified (principal) | CPT/HCPCS: 36415; 84439; 84443 ==

== ENCOUNTER → 2025-04-11 | Outpatient (CLI) | payer MEDICAID, SELFPAY ==
--- NOTE | 2025-04-11 10:12 | ECHOD_ITS ---
Reason For Study Reason For Study: PHTN Procedure This was a 2D Doppler, Color Flow transthoracic echocardiogram. Myocardial strain analysis was performed in this exam to aid in the assessment of cardiac function. Exam performed in department. Left Ventricle Normal LV size. Left ventricular systolic function is normal. The left ventricular ejection fraction is 60 %. No regional wall motion abnormalities noted. Right Ventricle Normal RV size. Normal systolic function. Atria Normal left atrium. Normal right atrium. Bubble contrast study is negative for PFO/ASD. Hypermobile atrial septum. Mitral Valve Equivocal mitral valve prolapse. Tricuspid Valve Normal tricuspid valve. Aortic Valve Trisinus/trileaflet aortic valve. Pulmonic Valve Normal pulmonic valve. Great Vessels Normal aortic root. The pulmonary artery is normal size. Normal inferior vena cava. Pericardium/Pleural No pericardial effusion. Medication 22 gauge I.V. with prn adaptor inserted into right arm. Performed a rapid injection of agitated mix of 9 cc saline and 1cc air to assess for atrial septal defect. No chance of confirmed before Bubble study. MMode/2D Measurements & Calculations LVIDd: 5.3 cm IVSd: 0.85 cm Ao root diam: 2.6 cm LVIDs: 3.5 cm LVPWd: 0.77 cm RVDd: 3.6 cm FS: 35.0 % LAV(MOD-bp): 42.3 ml LVAd ap4: 30.2 cm2 SV(MOD-sp4): 55.3 ml LAV(MOD-bp) Indexed: 21.0 ml/m2 LVLd ap4: 8.1 cm SI(MOD-sp4): 27.5 ml/m2 LAV(MOD-sp2): 40.9 ml EDV(MOD-sp4): 93.4 ml LAV(MOD-sp4): 39.6 ml EDV(sp4-el): 95.4 ml LVAs ap4: 16.9 cm2 LVLs ap4: 6.2 cm ESV(MOD-sp4): 38.0 ml ESV(sp4-el): 39.2 ml EF(MOD-sp4): 59.3 % EF(sp4-el): 58.9 % SV(sp4-el): 56.1 ml LA A4 area: 16.0 cm2 LA dimension(2D): 3.6 cm RA A4 area: 12.8 cm2 TAPSE: 2.3 cm Time Measurements MV dec time: 0.19 sec Doppler Measurements & Calculations MV E max loc: 94.7 cm/sec Lat Peak E' Loc: 18.0 cm/sec Med Peak E' Loc: 14.2 cm/sec MV A max loc: 50.1 cm/sec E/E' lat: 5.3 E/E' med: 6.7 MV E/A: 1.9 MV V2 max: 109.7 cm/sec MV P1/2t max loc: 111.6 cm/sec Ao V2 max: 108.6 cm/sec MV max P.8 mmHg MV P1/2t: 64.7 msec Ao max P.7 mmHg MV V2 mean: 50.5 cm/sec MV dec slope: 505.1 cm/sec2 Ao V2 mean: 73.5 cm/sec MV mean P.3 mmHg MVA(P1/2t): 3.4 cm2 Ao mean P.5 mmHg MV V2 VTI: 29.1 cm Ao V2 VTI: 26.3 cm AV (velocity ratio): 0.86 LV V1 max: 97.6 cm/sec PA V2 max: 86.4 cm/sec LV V1 max P.8 mmHg LV V1 mean P.0 mmHg LV V1 mean: 65.5 cm/sec LV V1 VTI: 22.6 cm ECHO/Echo Complete Interpretation Summary Normal LV size. Left ventricular systolic function is normal. The left ventricular ejection fraction is 60 %. Bubble contrast study is negative for PFO/ASD. Hypermobile atrial septum. Ordering Physician: Eric Ford V Referring Physician: Eric Ford V Performed By: Dewayne Moyer RCS
== END | disposition home or self-care (01) ==
LOC: CVS 10:06
PROVIDERS: PCP Family Medicine; Referring Provider Internal Medicine Pulmonary Disease; Visit Provider Internal Medicine Pulmonary Disease
DX: I27.20 Pulmonary hypertension, unspecified (principal)
CPT/HCPCS: 93306; A4216

== ENCOUNTER → 2025-04-20 | Outpatient (CLI) | payer MEDICAID, SELFPAY ==
--- NOTE | 2025-04-20 08:06 | US_ITS ---
PROCEDURE: BREAST LIMITED UNILATERAL 04/20/2025 REASON FOR EXAM: F, Age 29 y/o , LYMPHADENOPATHY COMPARISON: Prior mammogram done earlier in the day.. TECHNIQUE: BREAST LIMITED UNILATERAL. Targeted sonogram of the left axilla. FINDINGS: There is a 1.5 cm 1.4 cm 0.6 cm hypoechoic complex density with increased vascularity in the axilla. There is also evidence of a 6 mm x 5 mm x 8 mm superficial hypoechoic nodule without any vascularity. There is also evidence of a 1.2 cm 1.2 cm x 0.4 cm hypoechoic complex nodular density with increased vascularity. Benign-appearing axillary lymph nodes are also seen the largest measures 2 cm x 1.6 cm x 0.9 cm. US/Breast Limited Unilateral IMPRESSION: Benign-appearing lymphadenopathy as described. There are 2 complex solid and cystic nodules with increased vascularity. Biops y recommended. BI-RADS 4: SUSPICIOUS RECOMMENDATION: Biopsy Recommended Reading Location: [id number]
--- NOTE | 2025-04-20 08:06 | BI_ITS ---
EXAM: DIAG MAMM W/CAD, BILAT 04/20/2025 CLINICAL HISTORY: F, Age 29 y/o , LYMPHADENOPATHY. Waxing and waning of swollen lymph nodes in both axilla. TECHNIQUE: DIAG MAMM W/CAD, BILAT. COMPARISON: This is a baseline study. FINDINGS: TISSUE DENSITY: The breasts are heterogeneously dense, which may obscure small masses. Bilateral Breast Mammographic Findings: No significant masses, calcifications or other abnormalities are identified. BI/DIAG MAMM W/CAD, BILAT IMPRESSION: No suspicious abnormality is seen. With the patient's history of bilateral axi llary lymphadenopathy, targeted sonographic correlation recommended. OVERALL FINAL ASSESSMENT BI-RADS 0: INCOMPLETE - NEED ADDITIONAL IMAGING EVALUATION. RECOMMENDATION: Ultrasound Recommended A letter with findings and recommendations will be mailed to the patient. Reading Location: [id number]
--- NOTE | 2025-04-20 08:06 | US_ITS ---
PROCEDURE: BREAST LIMITED UNILATERAL 04/20/2025 REASON FOR EXAM: F, Age 29 y/o , LYMPHADENOPATHY COMPARISON: Prior mammogram done earlier in the day.. TECHNIQUE: BREAST LIMITED UNILATERAL targeted ultrasound of the right axilla performed. FINDINGS: No sonographic abnormality is seen. US/Breast Limited Unilateral IMPRESSION: No sonographic abnormality is seen. BI-RADS 1: NEGATIVE RECOMMENDATION: Routine annual follow-up in 1 Year Reading Location: [id number]
--- OUTSIDE RECORDS SUMMARY | 2025-04-20 08:32 | XMS RPT_ITS | CCD ---
Author Organization [facility] Care Team Providers Care Powder Line Repairer Name Role Phone ERASTOTAB E Unavailable Unavailable ERASTO, TAB E Unavailable Unavailable ERASTO, TAB E Unavailable Unavailable DIDUR, KENZIE DO Unavailable Unavailable DIDUR, KENZIE DO Unavailable Unavailable DIDUR, KENZIE DO Unavailable Unavailable NO, DOCTOR ON Unavailable Unavailable NO, DOCTOR ON Unavailable Unavailable Care Physician, No Primary Primary Care Provider Unavailable Care Physician, No Primary Referring Provider Un available CHRISTIANO Maza Attending Provider Care Physician, No Primary Primary Care Provider Unavailable Care Physician, No Primary Referring Provider Un available CHRISTIANO Maza Attending Provider Unavailable Primary Care Provider Unavailcarlos e Cynthia Williamson (Pss) Primary Care Provider Michelle vailable Helio Hargrove MD Primary Care Provider Unavailable Primary Care Provider UnavailHelio Joe MD Primary Care Provider Helio Hargrove MD Attending Provider Helio Hargrove MD Referring Provider Jayson Turcios MD Attending Provider Dr. Ty Vazquez MD Attending Provider Dr. Jaylan Hunter DO Attending Provider Dr. Jaylan Hunter DO Emergency Provider [phone] Jayson Turcios MD Referring Provider Jayson Turcios MD Other Provider Dr. Jade Hernandez MD Attending Provider Yao Myers PA-C Attending Provider [phone] Yao Myers PA-C Referring Provider Beena FLYNN, Helio Primary Care Provider Beena FLYNN, Helio Referring Provider Jayson Turcios MD Attending Provider George FLYNN, Dr. Crawford Attending Provider Elsa SORENSEN, Dr. Tian Attending Provider Dr. Jaylan Hunter DO Emergency Provider Jayson Turcios MD Referring Provider Jayson Turcios MD Other Provider Mary FLYNN, Dr. Hansen Attending Provider Louis ALVARADO, Yao Attending Provider Yao Myers PA-C Referring Provider Beena FLYNN, Helio Attending Provider Zaira FLYNN, Dr. Allen Attending Provider Dr. Alejandro Meneses MD Referring Provider Beena FLYNN, Helio Primary Care Provider [phone] Jayson Turcios MD Attending Provider Beena FLYNN, Helio Referring Provider [phone] Beena FLYNN, Helio Primary Care Provider [phone] Jayson Turcios MD Attending Provider Jayson Turcios MD Referring Provider Beena FLYNN, Helio Referring Provider Helio Hargrove MD Attending Provider WHITNEY SMILEY Referring Unavailable BEENA, CHALON Primary Care Unavailable BEENA, CHALON Primary Care Unavailable BEENA, CHALON Primary Care Unavailable BEENA, CHALON Primary Care Unavailable ROSIE WHALEN Attending Unavailable BEENA, CHALON Primary Care Unavailable GALI MATTHEW Attending Unavailable BEENA, CHALON Primary Care Unavailable BEENA, CHALON Primary Care Unavailable Beena FLYNN, Beverlyon Primary Care Provider [phone] Helio Hargrove MD Attending Provider Beena FLYNN, Chalon Referring Provider Dr. Eric Ford MD, V Attending Provider [phone] Dr. Eric Ford MD, V Referring Provider George FLYNN, Dr. Crawford Attending Provider Jaylan Hunter Attending Unavailable Beena, Chalon Primary Care Unavailable Beena, Chalon Primary Care Unavailable Ghazoul, Romina Referring Unavailable Ghazoul, Romina Attending Unavailable Beena, Chalon Attending Unavailable Beena, Chalon Referring Unavailable Beena, Chalon Primary Care Unavailable Mollison, Jayson Referring Unavailable Mollison, Jayson Attending Unavailable Beena, Chalon Primary Care Unavailable Beena, Chalon Attending Unavailable Beena, Chalon Primary Care Unavailable Beena, Chalon Referring Unavailable Beena, Chalon Primary Care Unavailable Jabour, Vincent Referring Unavailable Jabour, Vincent Attending Unavailable Beena, Chalon Primary Care Unavailable Sibilia, Eric V Referring Unavailable Sibilia, Eric V Attending Unavailable Beena, Chalon Attending Unavailable Beena, Chalon Primary Care Unavailable Beena, Chalon Referring Unavailable Beena, Chalon Referring Unavailable Beena, Chalon Attending Unavailable Beena, Chalon Primary Care Unavailable Beena, Chalon Primary Care Unavailable Sibilia, Eric V Attending Unavailable Beena, Chalon Primary Care Unavailable Sibilia, Eric V Referring Unavailable Sibilia, Eric V Attending Unavailable Beena, Chalon Attending Unavailable Beena, Chalon Referring Unavailable Beena, Chalon Primary Care Unavailable Beena, Chalon Attending Unavailable Beena, Chalon Referring Unavailable Beena, Chalon Primary Care Unavailable Beena, Chalon Attending Unavailable Beena, Chalon Primary Care Unavailable Beena, Chalon Referring Unavailable Beena, Chalon Primary Care Unavailable Ty Vazquez Attending Unavailable Beena, Chalon Referring Unavailable Beena, Chalon Primary Care Unavailable Ghazoul, Romina Attending Unavailable Mollison, Jayson Attending Unavailable Beena, Chalon Primary Care Unavailable Beena, Chalon Referring Unavailable Beena, Chalon Referring Unavailable Beena, Chalon Attending Unavailable Beena, Chalon Primary Care Unavailable Mollison, Jayson Referring Unavailable Mollison, Jayson Attending Unavailable Beena, Chalon Primary Care Unavailable Beena, Chalon Primary Care Unavailable Yao Ram Referring Unavailable Yao Ram Attending Unavailable Beena, Chalon Referring Unavailable Mollison, Jayson Attending Unavailable Beena, Chalon Primary Care Unavailable Beena, Chalon Referring Unavailable Jayson Turcios Attending Unavailable Beena, Chalon Primary Care Unavailable Beena, Chalon Primary Care Unavailable Calista, Romina Attending Unavailable Beena, Chalon Referring Unavailable Beena, Chalon Primary Care Unavailable Ghazoul, Romina Referring Unavailable Ghazoul, Romina Attending Unavailable Ghazoul, Romina Consulting Unavailable Beena, Chalon Primary Care Unavailable Ty Vazquez Attending Unavailable Jayson Turcios Consulting Unavailable Jayson Turcios Referring Unavailable Jade Hernandez Attending Unavailable Beena, Chalon Primary Care Unavailable Beena, Chalon Attending Unavailable Beena, Chalon Referring Unavailable Beena, Chalon Primary Care Unavailable Medications Current Medications Medication Drug Class(es) Dates Sig (Normalized) Sig (Original) baclofen 10 mg oral tablet (7 sources) gamma-Aminobutyric Acid-ergic Agonist Start: 10-17-2024 Baclofen 10 mg tablet Active mg PO October 17, 2024 1:00am 120 actuat fluticasone propionate 0.22 mg/actuat metered dose inhaler (8 sources) Corticosteroid Start: 02-28-2025 fluticasone (FLOVENT) 220 mcg/actuation inhaler 02/28/2025 Active Start: 12-16-2018 End: 08-16-2024 take 2 spray(s) by mouth once daily fluticasone (FLONASE) 50 mcg/actuation nasal spray Use 2 Sprays in each nostril once daily. Rinse mouth after use. 1 Bottle 12/16/2018 08/16/2024 Discontinued (Course of therapy completed) Comment on above: Use 2 Sprays in each nostril once daily. Rinse mouth after use. levothyroxine sodium 0.05 mg oral tablet (1 source) l-Thyroxine Start: 03-28-20 levothyroxine (SYNTHROID) 50 mcg tablet 03/28/2025 Active omeprazole 40 mg delayed release oral capsule (1 source) Proton Pump Inhibitor Start: 12-28-19 take 1 capsule by mouth once daily before breakfast omeprazole (PRILOSEC) 40 mg capsule TAKE 1 CAPSULE BY MOUTH ONCE DAILY DIRECTED BEFORE BREAKFAST 12/27/2024 Active predniSONE 20 mg oral tablet (2 sources) Start: 03-28-20 End: 04-08-20 take 3 tablets by mouth once daily, then take 2 tablets by mouth once daily, then take 1 tablet by mouth once daily predniSONE (DELTASONE) 20 mg tablet Indications: Rash Take 3 tablets by mouth once daily for 3 days, THEN 2 tablets once daily for 4 days, THEN 1 tablet once daily for 4 days. 21 tablet 03/28/2025 04/08/2025 Active Start: 04-27-2023 End: 05-02-2023 take 2 tablets by mouth once daily predniSONE (DELTASONE) 20 mg tablet Indications: Foot injury, right, initial encounter Take 2 tablets by mouth once daily for 5 days. 10 tablet 0 04/27/2023 05/02/2023 Active Comment on above: Take 2 tablets by [facility] once daily for 5 days. 30 actuat umeclidinium 0.0625 mg/actuat / vilanterol 0.025 mg/actuat dry powder inhaler (1 source) Anticholinergic, beta2-Adrenergic Agonist Start: 02-28-2025 take 1 puff(s) by mouth once daily ANORO ELLIPTA 62.5-25 mcg/actuation inhaler INHALE 1 PUFF BY MOUTH ONCE DAILY WITH GOOD ORAL CARE AFTER USE 02/28/2025 Active Completed/Discontinued Medications Medication Drug Class(es) Dates Sig (Normalized) Sig (Original) acetaminophen 325 mg / HYDROcodone bitartrate 5 mg oral tablet (12 sources) Opioid Agonist Start: 02-27-2021 End: 04-24-2022 Hydrocodone-Acetami nophen 5-325 mg tablet Discontinued 1 {tbl} PO AT BEDTIME as needed for pain 10 3 0 February 27, 2021 April 24, 2022 1:23pm Abscess Cutaneous abscess, unspecified Start: 02-27-2021 End: 04-24-2022 take 1 tablet by mouth at bedtime Hydrocodone-Acetaminophen Discontinued 1 TABLET PO AT BEDTIME 10 3 February 27, 2021 April 24, 2022 1:23pm amoxicillin 500 mg oral capsule (5 sources) Penicillin-class Antibacterial Start: 04-24-2023 End: 08-16-2024 amoxicillin (AMOXIL) 500 mg capsule 04/24/2023 08/16/2024 Discontinued (Course of therapy completed) amoxicillin 875 mg / clavulanate 125 mg oral tablet (8 sources) Penicillin-class Antibacterial Start: 02-25-2023 End: 06-08-2024 take 1 tablet by mouth every twelve hours Amoxicillin-Pot Clavulanate 875-125 mg tablet Discontinued 875 mg PO Q12H 20 0 February 25, 2023 12:00am June 08, 2024 9:52am benzonatate 100 mg oral capsule (3 sources) Non-narcotic Antitussive Start: 12-27-2023 End: 08-16-2024 take 1 capsule by mouth every eight hours as needed benzonatate (TESSALON PERLES) 100 mg capsule Take 1 capsule by mouth three times a day as needed for cough. 21 capsule 12/27/2023 08/16/2024 Discontinued (Course of therapy completed) Comment on above: Take 1 capsule by mo ut three times a day as needed for cough. biotin 1 mg oral capsule (7 sources) End: 08-16-2024 biotin 1 mg cap Take by mouth. 08/16/2024 Discontinued (Course of therapy completed) Comment on above: Take by mouth. brompheniramine maleate 0.4 mg/ml / dextromethorphan hydrobromide 2 mg/ml / pseudoephedrine hydrochloride 6 mg/ml oral solution (5 sources) alpha-Adrenergic Agonist, Uncompetitive P-tmgywt-T-aspartate Receptor Antagonist, Sigma-1 Agonist Start: 12-16-2018 End: 12-27-2023 take 10 mL by mouth every six hours as needed Brompheniramine- Pseudoeph-DM (BROMFED DM) 2-30-10 mg/5 mL syrup Take 10 mL by mouth four times daily as needed. 200 mL 12/16/2018 12/27/2023 Discontinued Comment on above: Take 10 mL by mouth four times daily as needed. cephalexin 500 mg oral capsule (16 sources) Cephalosporin Antibacterial Start: 06-10-2024 End: 08-09-2024 take 1 capsule by mouth twice daily Cephalexin 500 mg capsule Discontinued 500 mg PO TWICE A DAY 14 7 0 June 10, 2024 12:00am August 09, 2024 10:33am Start: 09-30-2022 End: 06-08-2024 take 1 capsule by mouth every six hours Cephalexin 500 MG capsule Discontinued 500 mg PO EVERY 6 HOURS 40 0 September 30, 2022 1:00am June 08, 2024 9:52am clindamycin 150 mg oral capsule (12 sources) Lincosamide Antibacterial Start: 02-27-2021 End: 04-24-2022 take 2 capsules by mouth four times daily Clindamycin Hcl 150 mg capsule Discontinued 300 mg PO 4 TIMES DAILY 80 0 February 27, 2021 12:00am April 24, 2022 1:23pm Start: 02-27-2021 End: 04-24-2022 take 300 mg by mouth four times daily Clindamycin Hcl Discontinued 300 MG PO 4 TIMES DAILY 80 February 27, 2021 12:00am April 24, 2022 1:23pm codeine phosphate 2 mg/ml / guaiFENesin 20 mg/ml oral solution (12 sources) Opioid Agonist Start: 10-29-2019 End: 11-01-2019 take 1 mL by mouth every six hours as needed for cough Codeine-Guaifenesin 5 ML liquid Discontinued 10 mL PO EVERY 6 HOURS NEEDED as needed for Cough 120 3 0 October 29, 2019 1:00am October 31, 2019 1:00am November 01, 2019 1:08am Influenza-like symptoms Other general symptoms and signs Start: 10-29-2019 End: 11-01-2019 take 1 mL by mouth every six hours as needed Codeine-Guaifenesin Discontinued 10 ML PO EVERY 6 HOURS NEEDED 120 3 October 29, 2019 1:00am November 01, 2019 1:08am doxycycline hyclate 50 mg oral capsule (20 sources) Tetracycline-class Drug Start: 04-12-2024 End: 08-16-2024 take 1 capsule by mouth once doxycycline (VIBRAMYCIN) 50 mg capsule Take 1 capsule by mouth every afternoon. 04/12/2024 08/16/2024 Discontinued (Course of therapy completed) Start: 04-21-2022 End: 05-15-2022 take 1 capsule by mouth twice daily Doxycycline Monohydrate 100 mg capsule Discontinued 100 mg PO TWICE A DAY 14 7 0 May 08, 2022 6:40pm May 14, 2022 12:00am May 15, 2022 12:04am gabapentin 100 mg oral capsule (7 sources) Anti-epileptic Agent Start: 06-08-2024 End: 08-09-2024 take 1 capsule by mouth three times daily Gabapentin 100 mg capsule Discontinued 100 mg PO THREE TIMES A DAY June 08, 2024 12:00am August 09, 2024 10:33am ibuprofen 600 mg oral tablet (3 sources) Nonsteroidal Anti-inflammatory Drug Start: 12-27-2023 End: 08-16-2024 take 1 tablet by mouth every six hours as needed ibuprofen (MOTRIN) 600 mg tablet Take 1 tablet by mouth every 6 hours as needed for pain. 30 tablet 12/27/2023 08/16/2024 Discontinued (Course of therapy completed) Comment on above: Take 1 tablet by anshul th every 6 hours as needed for pain. meloxicam 15 mg oral tablet (5 sources) Nonsteroidal Anti-inflammatory Drug Start: 03-07-2019 End: 12-27-2023 take 1 tablet by mouth once daily at mealtime meloxicam (MOBIC) 15 mg tablet Indications: Wrist pain, acute, left Take 1 tablet by mouth once daily. Take with food. 30 tablet 03/07/2019 12/27/2023 Discontinued Comment on above: Take 1 tablet by anshul th once daily. Take with food. naproxen 500 mg oral tablet (4 sources) Nonsteroidal Anti-inflammatory Drug Start: 03-28-2021 End: 12-27-2023 take 1 tablet by mouth every twelve hours as needed naproxen (NAPROSYN) 500 mg tablet Take 1 tablet by mouth twice daily as needed (pain/inflammatio n, take with food.). 20 tablet 03/28/2021 12/27/2023 Discontinued Comment on above: Take 1 tablet by anshul th twice daily as needed (pain/inflammation, take with food.). oxyCODONE hydrochloride 5 mg oral capsule (7 sources) Opioid Agonist Start: 08-18-2024 End: 09-06-2024 take 1 capsule by mouth every six hours as needed for pain Oxycodone 5 mg capsule Discontinued 5 mg PO EVERY 6 HOURS as needed for pain 12 3 0 August 18, 2024 September 06, 2024 12:00pm Closed fracture of fibula 25/iron fum/folic/dha (-1 ORAL) (7 sources) End: 08-16-2024 25/iron fum/folic/dha (-1 ORAL) Take by mouth. 08/16/2024 Discontinued (Course of therapy completed) 25/iron fum/folic/dha (-1 ORAL) Take by mouth. Active 25/iron fum/folic/dha (-1 ORAL) Take by mouth. 0 Active Comment on above: Take by mouth. tiZANidine 4 mg oral tablet (7 sources) Central alpha-2 Adrenergic Agonist Start: 4 End: 4 take 1 tablet by mouth twice daily Tizanidine 4 mg tablet Discontinued 4 mg PO TWICE A DAY June 08, 2024 12:00am June 21, 2024 11:20am Problems Active Problems Problem Classification Problem Date Documented Da te Episodic/Chronic Allergic reactions (1 source) Unspecified contact dermatitis due to plants, except food; Translations: [Rhus dermatitis] Onset: 01-12-2025 Episodic Disorders of teeth and jaw (20 sources) Abscess of mandible; Translations: [Inflammatory conditions of jaws] Episodic Fracture of lower limb (8 sources) Closed fracture of distal right fibula; Translations: [Other fracture of upper and lower end of right fibula, initial encounter for closed fracture] 08-16-2024 Episodic Genitourinary symptoms and ill-defined conditions (12 sources) Proteinuria; Translations: [Proteinuria, unspecified] 08-15-2019 Episodic Nonmalignant breast conditions (1 source) Unspecified lump in unspecified breast; Translations: [Unspecified lump in unspecified breast] Onset: 04-18-2025 Episodic Other connective tissue disease (11 sources) Pain in axilla; Translations: [Pain in left upper arm] 05-13-2022 Episodic Other connective tissue disease (2 sources) Pain in left upper arm; Translations: [Pain in limb] Episodic Other connective tissue disease (1 source) Pain in left foot; Translations: [Pain in left foot] 03-28-2021 Episodic Other ear and sense organ disorders (1 source) Impacted cerumen in right ear; Translations: [Impacted cerumen, right ear] 11-19-2024 Episodic Other injuries and conditions due to external causes (1 source) Injury of right foot; Translations: [Unspecified injury of right foot, initial encounter] 04-27-2023 Episodic Other injuries and conditions due to external causes (1 source) Injury of right ankle; Translations: [Unspecified injury of right ankle, initial encounter] 08-16-2024 Episodic Other lower respiratory disease (1 source) Shortness of breath; Translations: [Shortness of breath] Onset: 02-10-2025 Episodic Other non-traumatic joint disorders (1 source) Acute ankle pain; Translations: [Pain in left ankle and joints of left foot] 03-28-2021 Episodic Other non-traumatic joint disorders (15 sources) Disorder of shoulder; Translations: [Other specified joint disorders, left shoulder] 09-06-2024 Episodic Other screening for suspected conditions (not mental disorders or infectious disease) (2 sources) Encounter for screening mammogram for malignant neoplasm of breast; Translations: [Other specified abnormal findings of blood chemistry] Onset: 02-01-2025 Episodic Other skin disorders (12 sources) Infection of sebaceous cyst; Translations: [Sebaceous cyst] 04-29-2022 Episodic Other skin disorders (11 sources) Hidradenitis suppurativa; Translations: [Hidradenitis suppurativa] 05-08-2022 Episodic Other skin disorders (4 sources) Hidradenitis suppurativa; Translations: [Hidradenitis] Episodic Other skin disorders (2 sources) Eruption; Translations: [Rash and other nonspecific skin eruption] 04-25-2024 Episodic Other skin disorders (7 sources) Epidermoid cyst of skin of neck; Translations: [Epidermal cyst] 06-08-2024 Episodic Other upper respiratory infections (2 sources) Acute upper respiratory infection; Translations: [Acute upper respiratory infection, unspecified] 12-27-2023 Episodic Pulmonary heart disease (2 sources) Pulmonary hypertension, unspecified; Translations: [Pulmonary hypertension, unspecified] Onset: 02-27-2025 Chronic Residual codes; unclassified (5 sources) Influenza-like symptoms; Translations: [Other general symptoms and signs] 10-30-2019 Episodic Residual codes; unclassified (8 sources) Viral syndrome; Translations: [Other general symptoms and signs] 11-19-2024 Episodic Skin and subcutaneous tissue infections (20 sources) Abscess; Translations: [Cutaneous abscess, unspecified] 10-08-2022 Episodic Sprains and strains (12 sources) Strain of biceps brachii muscle; Translations: [Strain of muscle, fascia and tendon of other parts of biceps, unspecified arm, initial encounter] 08-15-2019 Episodic Superficial injury; contusion (1 source) Contusion of right ankle, initial encounter; Translations: [Contusion of right ankle, initial encounter] Onset: 01-26-2025 Episodic Thyroid disorders (1 source) Hypothyroidism, unspecified; Translations: [Hypothyroidism, unspecified] Onset: 04-07-2025 Chronic Past or Other Problems Problem Classification Problem Date Documented Da te Episodic/Chronic Abdominal pain (14 sources) Flank pain; Translations: [Unspecified abdominal pain] Onset: 12-05-2024 08-15-2019 Episodic Cardiac dysrhythmias (1 source) Palpitations; Translations: [Palpitations] Onset: 10-21-2024 Episodic Other connective tissue disease (1 source) Pain in left arm; Translations: [Pain in left arm] Onset: 10-04-2024 Episodic Other connective tissue disease (1 source) Pain in right arm; Translations: [Pain in right arm] Onset: 10-04-2024 Episodic Other connective tissue disease (1 source) Pain in right foot; Translations: [Pain in right foot] Onset: 09-19-2024 Episodic Other injuries and conditions due to external causes (1 source) Unspecified injury of right ankle, initial encounter; Translations: [Ankle injury, right, initial encounter] Onset: 08-16-2024 Episodic Other nervous system disorders (2 sources) Anesthesia of skin; Translations: [Anesthesia of skin] Onset: 10-04-2024 Episodic Other nervous system disorders (1 source) Paresthesia of skin; Translations: [Paresthesia of skin] Onset: 10-04-2024 Episodic Other non-traumatic joint disorders (18 sources) Pain in left shoulder; Translations: [Left shoulder pain] Onset: 11-03-2024 08-09-2024 Episodic Other non-traumatic joint disorders (1 source) Other specified joint disorders, left shoulder; Translations: [Other specified joint disorders, left shoulder] Onset: 09-06-2024 Episodic Other skin disorders (2 sources) Rash and other nonspecific skin eruption; Translations: [Rash] Onset: 05-25-2024 Episodic Other skin disorders (2 sources) Epidermal cyst; Translations: [Epidermal cyst] Onset: 06-28-2024 Episodic Results Test Name Value Interpretation Reference Range Facility [facility] 04-11-2025 [facility] [place] [address] Formerly [facility] 04/11/25 1018 MR#: [id number] Acct: [id number] Name: FELA GARCIA Rep #: [id number] : 1995 29 From: Ty Vazquez MD Attending Dr: Dr. Eric Ford MD Status: REG CLI Ordering Dr: Eric Ford MD Date: 04/11/25 Location: [facility] Sex: F C Admitted: Reason For Study Reason For Study: PHTN Procedure This was a 2D Doppler, Color Flow transthoracic echocardiogram. Myocardial strain analysis was performed in this exam to aid in the assessment of cardiac function. Exam performed in department. Left Ventricle Normal LV size. Left ventricular systolic function is normal. The left ventricular ejection fraction is 60 %. No regional wall motion abnormalities noted. Right Ventricle Normal RV size. Normal systolic function. Atria Normal left atrium. Normal right atrium. Bubble contrast study is negative for PFO/ASD. Hypermobile atrial septum. Mitral Valve Equivocal mitral valve prolapse. Tricuspid Valve Normal tricuspid valve. Aortic Valve Trisinus/trileaflet aortic valve. Pulmonic Valve Normal pulmonic valve. Great Vessels Normal aortic root. The pulmonary artery is normal size. Normal inferior vena cava. Pericardium/Pleural No pericardial effusion. Medication 22 gauge I.V. with prn adaptor inserted into right arm. Performed a rapid injection of agitated mix of 9 cc saline and 1cc air to assess for atrial septal defect. No chance of confirmed before Bubble study. MMode/2D Measurements Calculations LVIDd: 5.3 cm IVSd: 0.85 cm Ao root diam: 2.6 cm LVIDs: 3.5 cm LVPWd: 0.77 cm RVDd: 3.6 cm FS: 35.0 % LAV(MOD-bp): 42.3 ml LVAd ap4: 30.2 cm2 SV(MOD-sp4): 55.3 ml LAV(MOD-bp) Indexed: 21.0 ml/m2 LVLd ap4: 8.1 cm SI(MOD-sp4): 27.5 ml/m2 LAV(MOD-sp2): 40.9 ml EDV(MOD-sp4): 93.4 ml LAV(MOD-sp4): 39.6 ml EDV(sp4-el): 95.4 ml LVAs ap4: 16.9 cm2 LVLs ap4: 6.2 cm ESV(MOD-sp4): 38.0 ml ESV(sp4-el): 39.2 ml EF(MOD-sp4): 59.3 % EF(sp4-el): 58.9 % SV(sp4-el): 56.1 ml LA A4 area: 16.0 cm2 LA dimension(2D): 3.6 cm RA A4 area: 12.8 cm2 TAPSE: 2.3 cm Time Measurements MV dec time: 0.19 sec Doppler Measurements Calculations MV E max samir: 94.7 cm/sec Lat Peak E' Samir: 18.0 cm/sec Med Peak E' Samir: 14.2 cm/sec MV A max samir: 50.1 cm/sec E/E' lat: 5.3 E/E' med: 6.7 MV E/A: 1.9 MV V2 max: 109.7 cm/sec MV P1/2t max samir: 111.6 cm/sec Ao V2 max: 108.6 cm/sec MV max P.8 mmHg MV P1/2t: 64.7 msec Ao max P.7 mmHg MV V2 mean: 50.5 cm/sec MV dec slope: 505.1 cm/sec2 Ao V2 mean: 73.5 cm/sec MV mean P.3 mmHg MVA(P1/2t): 3.4 cm2 Ao mean P.5 mmHg MV V2 VTI: 29.1 cm Ao V2 VTI: 26.3 cm AV (velocity ratio): 0.86 LV V1 max: 97.6 cm/sec PA V2 max: 86.4 cm/sec LV V1 max P.8 mmHg LV V1 mean P.0 mmHg LV V1 mean: 65.5 cm/sec LV V1 VTI: 22.6 cm ECHO/Echo Complete Interpretation Summary Normal LV size. Left ventricular systolic function is normal. The left ventricular ejection fraction is 60 %. Bubble contrast study is negative for PFO/ASD. Hypermobile atrial septum. Ordering Physician: Eric Ford V Referring Physician: Eric Ford V Performed By: Dewayne Moyer RCS 04/11/25 1123 Date Ty Vazquez MD CC: Dr. Helio Hargrove MD; Dr. Eric Ford MD Date Dictated: 04/11/25 1018 Date Transcribed: 04/11/25 1123 Studio Potter: Signed Normal [facility] [facility] Echocardiogram study reportO rdered By: Ty Vazquez on 04-11-2025 Study report [facility] [address] [place] [address] Echo Complete 04/11/25 1018 MR#: [id number] Acct: [id number] Name: FELA GARCIA Rep #:[id number] : 1995 29 From: Ty Tyson Attending Dr: Dr. Eric Ford MD Status: REG CLI Ordering Dr: Eric Ford MD Date: 04/11/25 Location: [facility] Sex: F C Admitted: Reason For Study Reason For Study: PHTN Procedure This was a 2D Doppler, Color Flow transthoracic echocardiogram. Myocardial strain analysis was performed in this exam to aid in the assessment of cardiac function. Exam performed in department. Left Ventricle Normal LV size. Left ventricular systolic function is normal. The left ventricular ejection fraction is 60 %. No regional wall motion abnormalities noted. Right Ventricle Normal RV size. Normal systolic function. Atria Normal left atrium. Normal right atrium. Bubble contrast study is negative for PFO/ASD. Hypermobile atrial septum. Mitral Valve Equivocal mitral valve prolapse. Tricuspid Valve Normal tricuspid valve. Aortic Valve Trisinus/trileaflet aortic valve. Pulmonic Valve Normal pulmonic valve. Great Vessels Normal aortic root. The pulmonary artery is normal size. Normal inferior vena cava. Pericardium/Pleural No pericardial effusion. Medication 22 gauge I.V. with prn adaptor inserted into right arm. Performed a rapid injection of agitated mix of 9 cc saline and 1cc air to assess for atrial septal defect. No chance of confirmed before Bubble study. MMode/2D Measurements & Calculations LVIDd: 5.3 cm IVSd: 0.85 cm Ao root diam: 2.6 cm LVIDs: 3.5 cm LVPWd: 0.77 cm RVDd: 3.6 cm FS: 35.0 % LAV(MOD-bp): 42.3 ml LVAd ap4: 30.2 cm2 SV(MOD-sp4): 55.3 ml LAV(MOD-bp) Indexed: 21.0 ml/m2 LVLd ap4: 8.1 cm SI(MOD-sp4): 27.5 ml/m2 LAV(MOD-sp2): 40.9 ml EDV(MOD-sp4): 93.4 ml LAV(MOD-sp4): 39.6 ml EDV(sp4-el): 95.4 ml LVAs ap4: 16.9 cm2 LVLs ap4: 6.2 cm ESV(MOD-sp4): 38.0 ml ESV(sp4-el): 39.2 ml EF(MOD-sp4): 59.3 % EF(sp4-el): 58.9 % SV(sp4-el): 56.1 ml LA A4 area: 16.0 cm2 LA dimension(2D): 3.6 cm RA A4 area: 12.8 cm2 TAPSE: 2.3 cm Time Measurements MV dec time: 0.19 sec Doppler Measurements & Calculations MV E max samir: 94.7 cm/sec Lat Peak E' Samir: 18.0 cm/sec Med Peak E' Samir: 14.2 cm/sec MV A max samir: 50.1 cm/sec E/E' lat: 5.3 E/E' med: 6.7 MV E/A: 1.9 MV V2 max: 109.7 cm/sec MV P1/2t max samir: 111.6 cm/sec Ao V2 max: 108.6 cm/sec MV max P.8 mmHg MV P1/2t: 64.7 msec Ao max P.7 mmHg MV V2 mean: 50.5 cm/sec MV dec slope: 505.1 cm/sec2 Ao V2 mean: 73.5 cm/sec MV mean P.3 mmHg MVA(P1/2t): 3.4 cm2 Ao mean P.5 mmHg MV V2 VTI: 29.1 cm Ao V2 VTI: 26.3 cm AV (velocity ratio): 0.86 LV V1 max: 97.6 cm/sec PA V2 max: 86.4 cm/sec LV V1 max P.8 mmHg LV V1 mean P.0 mmHg LV V1 mean: 65.5 cm/sec LV V1 VTI: 22.6 cm ECHO/Echo Complete Interpretation Summary Normal LV size. Left ventricular systolic function is normal. The left ventricular ejection fraction is 60 %. Bubble contrast study is negative for PFO/ASD. Hypermobile atrial septum. Ordering Physician: Eric Ford V Referring Physician: Eric Ford V Performed By: Dewayne Moyer RCS 04/11/25 1123 Date _ Ty Vazquez MD CC: Dr. Helio Hargrove MD; Dr. Eric Ford MD ~ Date Dictated: 04/11/25 1018 Date Transcribed: 04/11/25 112 Studio Potter: Signed [facility] Work Phone: T4 Free Directon 04-03-2025 T4 FREE DIRECT 1.50 ng/dL High 0.76-1.46 [facility] Comment on above: Order Comment: Order Date: 03/31/25Order Info: 3016-3 - TSHOrder Info: 3024-7 - T4F Performed By: #### L 506.0400 ####[facility] [address] [place], [address] T4 freeOrdered By: Helio morejon on 04-03-2025 Free T4 [Mass/Vol] 1.50 ng/dL High 0.76-1.46 [facility] TSH DL <= 0.005 mIU/L QnOrde red By: Helio Hargrove on 04-03-2025 TSH Qn 4.510 uIU/mL High 0.300-4.200 [facility] Thyroid Stim Hormone (TSH)on 04-03-2025 TSH 4.510 uIU/mL High 0.300-4.200 [facility] Comment on above: Order Comment: Order Date: 03/31/25Order Info: 3016-3 - TSHOrder Info: 3024-7 - T4F Performed By: #### L [id number] ####[facility] [id number] [place], [address] CNOVon 03-28-2025 CNOV Office Visit (WOUCA) FELA GARCIA ([id number]) 1995 F Date Time Provider Department 03/28/25 6:00 PM GALI MATTHEW During your visit today, we recorded the following information about you: Temperature Pulse Respiration Blood pressure 99.4 degrees 82/minute 18/minute 122/74 Weight 94.4 kg Gali Matthew MD 03/28/2025 6:08 PM Signed [facility] [address] [place], [place] [address] Emergency Department Diagnosis: Assessment NONSPECIFIC RASH: Our exam shows you have a rash which has no clear cause. Rashes can result from infections, allergies, or irritation of the skin by chemicals or other environmental factors. Rashes can also result from scratching or rubbing the skin too much to relieve itching. Further medical examination may be needed to identify the specific cause and proper treatment of your skin rash. You should treat your rash as recommended by your doctor. If you have itching, you should avoid scratching as much as possible, as this further damages the skin. Ask your doctor or pharmacist if you have any questions about what topical medicines may help relieve your symptoms. Call your doctor right away if your rash is not better in 2-3 days, if it worsens, or if there are signs of infection (increased pain, redness, drainage or pus). Gali Matthew MD 03/28/2025 6:20 PM Signed [facility] Subjective Fela Garcia is a 29 year old female. 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 Negative for chills and fever. Respiratory: Negative for cough. Musculoskeletal: Negative for arthralgias and myalgias. Skin: Positive for rash. Objective BP 122/74 Pulse 82 Temp 37.4 ?C (99.4 ?F) (Tympanic) Resp 18 Wt 94.4 kg (208 lb 1.8 oz) LMP 07/27/2024 (Exact Date) SpO2 99% Physical Exam Vitals and nursing note reviewed. Constitutional: Appearance: Normal appearance. She is not ill-appearing. Cardiovascular: Rate and Rhythm: Normal rate and regular rhythm. Pulmonary: Effort: Pulmonary effort is normal. Breath sounds: Normal breath sounds. Skin: Findings: Rash present. Comments: Papulovesicular rash on fingers and trunk and mild rash on face Neurological: Mental Status: She is alert and oriented to person, place, and time. Psychiatric: Mood and Affect: Mood normal. Behavior: Behavior normal. {ASSESSMENT/PLAN: 1. 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 Procedures Allergies As of Date: 03/28/2025 (No Known Allergies) Date Reviewed: 03/28/2025 Reviewed by: Merle Francois LPN - Fully Assessed Reason for Visit: poison alcides [Other] Cmt: Poison alcides on face, chest and h ands x 1 week Primary Visit Diagnosis:Rash [R21] Order(s):predniSONE (DELTASONE) 20 mg tabletTake 3 tablets by mouth once daily for 3 days, THEN 2 tablets once daily for 4 days, THEN 1 tablet once daily for 4 days.Disp: 21 tabletRfl: 0 Prescriptions as of 03/28/2025 - levothyroxine (SYNTHROID) 50 mcg tablet - fluticasone (FLOVENT) 220 mcg/actuation inhaler - ANORO ELLIPTA 62.5-25 mcg/actuation inhaler INHALE 1 PUFF BY MOUTH ONCE DAILY WITH GOOD ORAL CARE AFTER USE - predniSONE (DELTASONE) 20 mg tablet Take 3 tablets by mouth once daily for 3 days, THEN 2 tablets once daily for 4 days, THEN 1 tablet once daily for 4 days. - omeprazole (PRILOSEC) 40 mg capsule TAKE 1 CAPSULE BY MOUTH ONCE DAILY DIRECTED BEFORE BREAKFAST Problem List As Of Date: 03/28/2025 (None) Other instructions from your clinician: [facility] [address] [place], [place] [address] Emergency Department Diagnosis: Assessment NONSPECIFIC RASH: Our exam shows you have a rash which has no clear cause. Rashes can result from infections, allergies, or irritation of the skin by chemicals or other environmental factors. Rashes can also result from scratching or rubbing the skin too much to relieve itching. Further medical examination may be needed to identify the specific ca (more content not included)... Normal [facility] Chest without Contraston Chest without Contrast [facility] Imaging Services [address], [place] [id number] Chest without Contrast MR#: [id number] Acct: [id number] Name: FELA GARCIA Rep #: [id number] : 1995 F 29 From: Yusuf Pulido MD PCP: Dr. Helio Hargrove MD Status: REG CLI Study: Chest without Contrast Date of Exam: 02/06/25 Exam# [id number] Ordering Dr: Eric Ford MD PROCEDURE: CHEST WITHOUT CONTRAST 02/06/2025 REASON FOR EXAM: COPD,SOB TECHNIQUE: Chest CT without contrast performed in the prone position. Coronal and Sagittal reconstruction series were provided. One or more dose reduction techniques were used (e.g., Automated exposure control, adjustment of the mA and/or kV according to patient size, use of iterative reconstruction technique RADIATION DOSE SUMMARY: CTDlvol: 15.6 mGy DLP: 615 mGycm COMPARISON: CT abdomen and pelvis 11/22/2024 FINDINGS: Lymph nodes: Mildly prominent axillary lymph nodes bilaterally. Heart and Vasculature: Residual thymic tissue. Normal heart size. No coronary calcification. Lungs and Airways: Central airways are clear. No focal consolidation. No suspicious pulmonary nodule. Pleura: No pleural effusion. Upper Abdomen: Unremarkable. Bones: Unremarkable. CT/Chest without Contrast IMPRESSION: 1. No acute cardiopulmonary abnormality. 2. Mildly prominent axillary lymph nodes bilaterally. Recommend clinical follow-up. Reading Location: [facility] CC: Dr. Helio Hargrove MD; Dr. Eric Ford MD Studio Potter: Signed Normal [facility] Alpha Antitrypsin Serumon ALPHA1 ANTITRYP 145 mg/dL Normal 100-188 [facility] Comment on above: Order Comment: Order Date: 01/26/25Order Info: [id number] - AA Result Comment: Perf ormed at: CB - [facility] [address] [id number] Pyridine Operator: Alejandro Guzman PhD, Phone: [phone] Performed By: #### L 255.1984, I3238.3414, T142.8820 ####[facility] [address] [place], [address] Serum euemq-7-iksykuwnvjd me asurementOrdered By: Helio Hargrove on 01-26-2025 Alpha 1 antitrypsin [Mass/Vol] 145 mg/dL 100-188 [facility] Comment on above: Performed at: [address] [id number] Director: Alejandro Guzman PhD, Phone: [phone] T4 Free Directon 01-26-2025 T4 FREE DIRECT 0.90 ng/dL Normal 0.76-1.46 [facility] Comment on above: Order Comment: Order Date: 01/26/25Order Info: 3016-3 - TSHOrder Info: 3024-03 - T4F Performed By: #### L 501.9520, L3900.2100, L506.0400 ####[facility] [address] [place], [place], [id number] T4 freeOrdered By: Helio morejon on 01-26-2025 Free T4 [Mass/Vol] 0.90 ng/dL 0.76-1.46 [facility] TSH DL <= 0.005 mIU/L QnOrde red By: Helio Hargrove on 01-26-2025 TSH Qn 13.800 uIU/mL High 0.300-4.200 [facility] Thyroid Stim Hormone (TSH)on 01-26-2025 TSH 13.800 uIU/mL High 0.300-4.200 [facility] Comment on above: Order Comment: Order Date: 01/26/25Order Info: 3016-3 - TSHOrder Info: 3024-03 - T4F Performed By: #### L 501.9520, L3900.2100, L506.0400 ####[facility] [address] [place], [address] CNOVon 01-12-2025 CNOV Office Visit (UCWSTR ) FELA GARCIA ([id number]) 1995 F Date Time Provider Department 01/12/25 4:30 PM ROSIE WHALEN During your visit today, we recorded the following information about you: Temperature Pulse Respiration Blood pressure 98.6 degrees 78/minute 18/minute 122/70 Weight 89.4 kg Rosie Whalen APRN.[facility] 01/12/2025 4:44 PM Signed [facility] Subjective HPI HPI Fela Garcia is a 29 year old female who presents today for CC of itchy rash. This started 2 days ago. Has tried otc medication for relief. Symptoms are worsened by nothing. Risk factors recently started a [employer] .Patient presents with: Rash: Widespread, started on L arm, now on face and L side ribs x2 days PAST MEDICAL HISTORY Diagnosis Date Skin cysts, generalized recurrent back and chest since 13yo PAST SURGICAL HISTORY Procedure Laterality Date NONE ALLERGIES Patient has no known allergies. MEDICATIONS omeprazole (PRILOSEC) 40 mg capsule TAKE 1 CAPSULE BY MOUTH ONCE DAILY DIRECTED BEFORE BREAKFAST predniSONE (DELTASONE) 10 mg tablet Take 4 tabs daily x 3 days, then 3 tabs x 3 days, 2 tabs x 3 days, then 1 tab x3 days with food. triamcinolone acetonide (KENALOG) 0.1 % cream Apply 1 application to affected area three times a day for 10 days. Apply sparingly to area for rash/itching. No family history on file. Social History Tobacco Use Smoking status: Every Day Smokeless tobacco: Never Review of Systems Constitutional: Negative for fever. Musculoskeletal: Negative for arthralgias, joint swelling and myalgias. Skin: Positive for rash. Negative for wound. Objective BP 122/70 Pulse 78 Temp 37 ?C (98.6 ?F) Resp 18 Wt 89.4 kg (197 lb 1.5 oz) LMP 07/27/2024 (Exact Date) SpO2 98% Physical Exam Constitutional: General: She is not in acute distress. Appearance: She is not toxic-appearing or diaphoretic. HENT: Head: Normocephalic and atraumatic. Skin: General: Skin is warm and dry. Findings: Rash present. Rash is vesicular (distribution linear ). Neurological: Mental Status: She is alert and oriented to person, place, and time. {ASSESSMENT/PLAN: 1. Rhus dermatitis - ICD9: 692.6, ICD10: L25.5 - Oral Steriod tx -Prednisone taper - Topical steriod tx with Rx for steriod cream/ointment- see orders - discussed skin care of rash - follow up if symptoms persist or worsen. - PREDNISONE 10 MG TABLET - TRIAMCINOLONE ACETONIDE 0.1 % TOPICAL CREAM Rosie Whalen APRN.[employer] Differential Diagnoses - contact allergic derm d/t plant Disposition The patient was discharged. Procedures Allergies As of Date: 01/12/2025 (No Known Allergies) Date Reviewed: 01/12/2025 Reviewed by: Tosin Hernandez MA - Fully Assessed Reason for Visit: Rash [1087] Cmt: Widespread, started on L arm, now on face and L side ribs x2 days Primary Visit Diagnosis:Rhus dermatitis [L25.5] Order(s):predniSONE (DELTASONE) 10 mg tabletTake 4 tabs daily x 3 days, then 3 tabs x 3 days, 2 tabs x 3 days, then 1 tab x3 days with food.Disp: 30 tabletRfl: 0 triamcinolone acetonide (KENALOG) 0.1 % creamApply 1 application to affected area three times a day for 10 days. Apply sparingly to area for rash/itching.Disp: 80 gRfl: 0 Prescriptions as of 01/12/2025 - omeprazole (PRILOSEC) 40 mg capsule TAKE 1 CAPSULE BY MOUTH ONCE DAILY DIRECTED BEFORE BREAKFAST - predniSONE (DELTASONE) 10 mg tablet Take 4 tabs daily x 3 days, then 3 tabs x 3 days, 2 tabs x 3 days, then 1 tab x3 days with food. - triamcinolone acetonide (KENALOG) 0.1 % cream Apply 1 application to affected area three times a day for 10 days. Apply sparingly to area for rash/itching. Problem List As Of Date: 01/12/2025 (None) Prescriptions ordered this encounter Disp Refills Start End PREDNISONE 10 MG TABLET 30 t* 0 01/12/2025 01/24/2025 Sig: Take 4 tabs daily x 3 days, then 3 tabs x 3 days, 2 tabs x 3 days, then 1 tab x3 days with food. TRIAMCINOLONE ACETONIDE 0.1 % TOPICA* 80 g 0 01/12/2025 01/22/2025 Route: TOPICAL Sig: Apply 1 application to affected area three times a day for 10 days. Apply sparingly to area for rash/itching. Encounter Status:Closed by ROSIE WHALEN on 01/12/25 Normal [facility] Celiac Disease Profileon ENDOMYSIAL IGA Negative Normal Negative [facility] Comment on above: Performed By: #### L 3410.2400, L501.6710 #### [facility] [address] [place], [place], [id number] IMMUNOGLOB A QN 100 mg/dL Normal 87-352 [facility] Comment on above: Result Comment: Perf ormed at: [facility] [id number] Pyridine Operator: Alejandro Guzman PhD, Phone: [phone] Performed By: #### L 3410.2400, L547.6733 #### [facility] [address] [place], [address] tTG IGA <2 Normal 0-3 [facility] Comment on above: Result Comment: Nega tive 0 - 3 Weak Positive 4 - 10 Positive >10 Tissue Transglutaminase (tTG) has been identified as the endomysial antigen. Studies have demonstr- ated that endomysial IgA antibodies have over 99% specificity for gluten sensitive enteropathy. Performed By: #### L 3410.2400, L524.6710 #### [facility] [address] [place], [place], [id number] CRPon 12-02-2024 C-REACTIVE PROT 4.51 mg/L High 0.0-3.0 [facility] Comment on above: Performed By: #### L 3410.2400, L501.6710 #### [facility] [address] [place], [place], [id number] CRP [Mass/Vol]Ordered By: Lydia Meneses on 12-02-2024 C-Reactive Protein Extended Range 4.51 mg/L High 0.0-3.0 [facility] Endomysial IgA antibody assa yOrdered By: Alejandro Meneses on 12-02-2024 Endomysial IgA Antibody Negative Negative [facility] IgA [Mass/Vol]Ordered By: Lydia Meneses on 12-02-2024 Immunoglobulin A 100 mg/dL [address] [place] [address] Comment on above: Performed at: [facility] [place] [id number] Director: Alejandro Guzman PhD, Phone: [phone] Serum or plasma C reactive p rotein measurement (mass/volume)Ordered By: Alejandro Meneses on 12-02-2024 CRP [Mass/Vol] 4.51 mg/L High 0.0-3.0 [facility] Serum or plasma IgA measurem ent (mass/volume)Ordered By: Alejandro Meneses on 12-02-2024 IgA [Mass/Vol] 100 mg/dL [address] [place] [address] Comment on above: Performed at: [facility] [place] [id number] Director: Alejandro Guzman PhD, Phone: [phone] Serum tissue transglutaminas e (tTG) IgA antibody assay (units/volume)Ordered By: Alejandro Meneses on 12-02-2024 tTG IgA Qn (S) <2 U/mL 0-3 [facility] Comment on above: Negative 0 - 3 Weak Positive 4 - 10 Positive >10 Tissue Transglutaminase (tTG) has been identified as the endomysial antigen. Studies have demonstr- ated that endomysial IgA antibodies have over 99% specificity for gluten sensitive enteropathy. tTG IgA Qn (S)Ordered By: Lydia Meneess on 12-02-2024 Tissue Transglutaminase IgA Ab <2 U/mL 0-3 [facility] Comment on above: Negative 0 - 3 Weak Positive 4 - 10 Positive >10 Tissue Transglutaminase (tTG) has been identified as the endomysial antigen. Studies have demonstr- ated that endomysial IgA antibodies have over 99% specificity for gluten sensitive enteropathy. Abdomen WITH IV Contraston 0 11-22-2024 Abdomen WITH IV Contrast [facility] Imaging Services [address] [place], [place] [address] Abdomen WITH IV Contrast MR#: [id number] Acct: [id number] Name: FELA GARCIA Rep #: [id number] : 1995 F 29 From: Eric Chan MD PCP: Dr. Helio Hargrove MD Status: REG CLI Study: Abdomen WITH IV Contrast Date of Exam: 5 Exam# [id number] Ordering Dr: Helio Hargrove MD PROCEDURE: ABDOMEN WITH IV CONTRAST REASON FOR EXAM: Epigastric pain with radiation to right side TECHNIQUE: Abdomen CT with intravenous contrast. Coronal and sagittal reformatted images IV CONTRAST: 91 cc Isovue-300 COMPARISON: None. FINDINGS: Lung bases: Clear Liver: Unremarkable. Gallbladder: Unremarkable. Nondistended without evidence of calcified stones, wall thickening or pericholecystic free fluid identified. Spleen: Unremarkable. Pancreas: Unremarkable. Adrenals: Unremarkable. Kidneys: Unremarkable. Symmetric appearing nephrograms without hydronephrosis or perinephric stranding. Bowel: Visualized loops of bowel are unremarkable. Oral contrast is seen to the proximal sigmoid colon. No bowel dilation, free air or free fluid identified. Normal caliber appendix without secondary signs. Lymph nodes: No suspicious lymph node enlargement. Vasculature: Unremarkable Peritoneum / Retroperitoneum: No ascites or free air at the upper abdomen. Bones: Unremarkable. CT/Abdomen WITH IV Contrast IMPRESSION: No evidence of intra-abdominal abnormality. One or more dose reduction techniques were used (e.g., Automated exposure control, adjustment of the mA and/or kV according to patient size, use of iterative reconstruction technique). Reading Location: [id number] CC: Dr. Helio Hargrove MD Studio Potter: Signed Normal [facility] CNOVon 11-19-2024 CNOV Office Visit (UCWSTR ) FELA GARCIA ([id number]) 1995 F Date Time Provider Department 11/19/24 12:00 PM ARIES ARAIZA [facility] During your visit today, we recorded the following information about you: Temperature Pulse Respiration Blood pressure 97 degrees 61/minute 18/minute 106/68 Weight 85.1 kg Aries Araiza MD 11/19/2024 12:48 PM Signed Patient presents with: Flu Like Symptoms: Nasal congestion, headaches, right ear pain, dry cough, sore throat x6 days HPI: Feeling sick for a couple days, initial nasal congestion started 5 days ago. Positive symptoms: Sore throat, Nasal Congestion, Rhinorrhea, Headache, right earache, Body Aches, Malaise, soft stool, hoarse voice, hot/chills Negative symptoms: Vomiting, Diarrhea, Fever, OTC: Mucinex, Nyquil, Dayquil, throat spray MEDICATIONS: No current outpatient medications on file. No current facility-administered medications for this visit. ALLERGIES: ALLERGIES No Known Allergies VITALS: BP 106/68 Pulse 61 Temp 36.1 ?C (97 ?F) Resp 18 Wt 85.1 kg (187 lb 9.8 oz) LMP 07/27/2024 (Exact Date) SpO2 98% PHYSICAL EXAM: GEN: mildly ill appearing HEENT: PERRL, EOMI, conjunctiva clear Ears: left canal clear. Right cerumen impaction. TMs without erythema, bulge, or effusion Sinuses: non-tender frontal sinus, non-tender maxillary sinuses Throat: moist mucous membranes, mild erythema, no exudate Neck: supple, no thyromegaly, no lymphadenopathy HEART: regular rate, regular rhythm, no murmurs LUNGS: clear to auscultation, no wheezes or crackles, no increased WOB ASSESSMENT/PLAN: 1. Influenza-like symptoms - ICD9: 780.99, ICD10: R68.89 (primary diagnosis) - suspect viral URI, differential includes influenza and COVID-19. - Discussed supportive care treatment with home isolation (fever free for 24 hours and improving symptoms+5 days of limiting exposure), rest, cold medicine, and analgesia. - Red flags to seek further treatment include chest pain, shortness of breath, and lethargy; in the ER if severe. 2. Impacted cerumen of right ear - ICD9: 380.4, ICD10: H61.21 Successful removal of impaction by water irrigation (began by staff and completed by myself for residual impaction). MD Trace Howard Kevin J, MD 11/19/2024 2:05 PM Signed Addended by: ARIES ARAIZA on: 11/19/2024 02:05 PM Modules accepted: Orders Allergies As of Date: 11/19/2024 (No Known Allergies) Date Reviewed: 11/19/2024 Reviewed by: Jayda Adams LPN - Fully Assessed Reason for Visit: Flu Like Symptoms [267] Cmt: Nasal congestion, headaches, right ear pain, dry cough, sore throat x6 days Primary Visit Diagnosis:Influenza-l tonie symptoms [R68.89] Other Visit Diagnosis:Impacted cerumen of right ear [H61.21] Order(s):COVID AND INFLUENZA A/B AND RSV PCR, ROUTINE [SQCVFLRS] Order #: [id number]. #:[id number] Problem List As Of Date: 11/19/2024 (None) LOS History for Encounter ----- Level of Service: OFFICE/OUTPATIENT ESTABLISHED MOD [facility] 30 MIN[[id number]] Date AND Time: 11-19-2024 12:47 PM Recorded by User: ARIES ARAIZA Encounter Status:Closed by ARIES ARAIZA on 11/19/24 Normal [facility] Beta HCG ( test) Ql Ordered By: Helio Hargrove on 11-14-2024 Serum Test, Qualitative Negative [facility] ,Serum,hCG Quali.on 11-14-2024 HCG, SERUM QUAL Negative Normal [facility] Comment on above: Performed By: #### L 700.6800 #### [facility] [address] [place], [address] Serum beta-hCG test, qualita tiveOrdered By: Helio Hargrove on 11-14-2024 Beta HCG ( test) Ql Negative [facility] CNOVon 10-26-2024 CNOV Office Visit (UCWSTR ) MARICARMENSTEFANIE ElaineFELA Ervin ([id number]) 1995 F Date Time Provider Department 10/26/24 4:00 PM LEONOR HUGGINS [facility] During your visit today, we recorded the following information about you: Temperature Pulse Respiration Blood pressure 98.1 degrees 63/minute 18/minute 110/72 Weight 82.8 kg Leonor Huggins APRN.SPANISH SPEAKING BABYSITTER 10/26/2024 4:23 PM Signed CC: Patient presents with: Sore Throat: ST and fever x 3 days HPI: Fela Mueller Jose is a 29 year old female who presents to the office with complaint of sore throat and fever for a few days. Symptoms are staying the same. Associated symptoms includes sore throat. Denies wheezing, dyspnea, nausea, vomiting , and diarrhea. Treatments tried include nothing so far. with no relief of symptoms. Sick contacts: unknown. History of asthma, frequent episodes of bronchitis, chronic bronchitis, bronchiectasis or COPD: No Smoker: No Seasonal/environmenta l allergies: No The ROS is otherwise negative. The patient's pmh, medications, allergies, and past visits are reviewed. PHYSICAL EXAM: BP 110/72 Pulse 63 Temp 36.7 ?C (98.1 ?F) (Tympanic) Resp 18 Wt 82.8 kg (182 lb 8.7 oz) LMP 07/27/2024 (Exact Date) SpO2 98% General appearance: alert, cooperative, pleasant, in no acute distress Head: Normocephalic Eyes: EOM's intact, conjunctiva pink and moist, no icterus, sclera white, non-injected Ears: Right ear: External ear/canal- Normal, TM - clear with good landmarks. Left ear: External ear/canal- Normal, TM - clear with good landmarks Oropharynx:mild erythema, without exudates present, uvula midline, serious fluid noted Neck: mild cervical adenopathy Heart: Negative. RRR without obvious murmur, gallop, or rubs. No ectopy. Lungs: clear to auscultation, without rales or wheeze, good air exchange PAST MEDICAL HISTORY Diagnosis Date Skin cysts, generalized recurrent back and chest since 13yo PAST SURGICAL HISTORY Procedure Laterality Date NONE ALLERGIES Patient has no known allergies. MEDICATIONS No prescriptions on file. No family history on file. Social History Tobacco Use Smoking status: Every Day Smokeless tobacco: Never ASSESSMENT/PLAN: 1. Sore throat - ICD9: 462, ICD10: J02.9 - STREP A MOLECULAR (POC) - neg . Potential red flag symptoms discussed with the patient. Reviewed appropriate action plan to take if red flag symptoms occur. Patient agreeable to treatment plan. Leonor Huggins APRN.SPANISH SPEAKING BABYSITTER Allergies As of Date: 10/26/2024 (No Known Allergies) Date Reviewed: 10/26/2024 Reviewed by: Merle Francois LPN - Fully Assessed Reason for Visit: Sore Throat [200] Cmt: ST and fever x 3 days Primary Visit Diagnosis:Sore throat [J02.9] Order(s):STREP A MOLECULAR (POC) [1883625] Order #: [id number]. #:[id number] Problem List As Of Date: 10/26/2024 (None) Encounter Status:Closed by LEONOR HUGGINS on 10/26/24 Normal [facility] STREP A MOLECULAR (POC)on Procedural Control Valid [facility] Strep A (POCT) Negative Negative [facility] Orthopedic Visit Reporton Orthopedic Visit Report [facility] [address] [place] [id number] OFFICE VISIT Date of Service: 10/17/24 MR#: [id number] Acct: [id number] Name: FELA GARCIA Rep #: [id number] : 1995 Provider: Dr. Jayson silveira MD Age/Sex: 29/F Location: [facility] [place].[facility] Status: Signed Intake Vital Signs 08/18/24 17:17 Height 5 ft 5 in Intake Visit Reasons: LEFT SHOULDER Chief Complaint: MRI review Accompanied by: Self Is patient in pain?: No Allergies No Known Allergies Allergy (Verified 10/17/24 10:56) Medications ???Medication ???Instructions ???Recorded ???Confirmed ???Type baclofen 10 mg tablet mg PO 10/17/24 10/17/24 History PFSH Medical History (Updated 09/06/24 @ 11:13 by Jayson Turcios MD) Impingement of left shoulder Left shoulder pain History of back pain History of environmental allergies Pain, dental H/O drainage of abscess Hidradenitis suppurativa Abscess Family History Grandmother Breast cancer Diabetes Grandfather Cancer prostate and colon Grandmother CVA (cerebral vascular accident) Social History Smoking Status: Current every day smoker tobacco type: e-cigarettes alcohol intake: never substance use type: does not use additional social history: denies vaping, denies edibles, denies marijuana, denies aspirin and ibuprofen HPI LEFT SHOULDER Details: This documentation accurately reflects the service provided and the decisions made by me, Dr. Jayson Turcios MD 10/17/24 1017. Part of today???s visit was documented by [ ], acting as scribe. FELA GARCIA is a 29 year old F here today for left shoulder pain. Follow-up MRI. Overall the last couple weeks the shoulder has not been painful. The patient is able to do all her normal activities such as playing with her boyfriend's son. Having heart monitor test still waiting on the results of that. Has tried numerous things nonoperative management including physical therapy and massage as well as medications for the upper extremity. Supplemental Info [facility] [address], [place] [id number] Upper Ext Joint Only(Routine) MR#: [id number] Acct: [id number] Name: FELA GARCIA Rep #: [id number] : 1995 F 29 From: Ender Amanda MD PCP: Dr. Helio Hargrove MD Status: REG CLI Study: Upper Ext Joint Only(Routine) Date of Exam: 10/10/24 Exam# [id number] Ordering Dr: Jayson Turcios MD [id number] STUDY: MRI LEFT SHOULDER REASON FOR EXAM: Female, 29 years old. Pain, shoulder pain rule out cuff tear. TECHNIQUE: Standardized fat and water weighted pulse sequences were obtained in all 3 orthogonal planes. COMPARISON: Left shoulder radiographs dated 08/09/2024. FINDINGS: Normal supraspinatus tendon. Normal infraspinatus tendon. Normal subscapularis tendon. Normal teres minor tendon. Normal supraspinatus muscle. Normal infraspinatus muscle. Normal subscapularis muscle. Normal teres minor muscle. Normal glenohumeral articulation. Normal humeral head and visualized proximal humerus. Normal biceps labral complex. Normal intracapsular long biceps tendon. Normal labrum. Normal capsulo-ligamentous complex. Normal rotator interval. Normal acromioclavicular articulation. There is a Type II morphology (curved), with a neutral orientation. There is no subacromial-subdeltoi d bursal fluid. Normal visualized coracohumeral and coracoacromial ligaments. Normal quadrilateral space. Normal axillary space. Normal deltoid muscle. Normal trapezius muscle. MRI/Upper Ext Joint Only(Routine) IMPRESSION: No rotator cuff tear or discrete labral tear. Electronically Signed: Ender Amanda MD at 9:54 EST , I independently reviewed the imaging. Concur with radiologist report. Coding Level of Care Code Off vis,est,level 3 Diagnoses Impingement of left shoulder M25.812 Left shoulder pain M25.512 Assessment and Plan Assessment and Plan (1) Impingement of left shoulder: Status: Acute Plan: 29-year-old female follow-up left shoulder pain MRI shows a no tendon or labrum tears with a type II acromion. At this point given minimal pain and symptoms prefer to continue on conservative ma nagement could try a subacromial cortisone injection that would be both diagnostic and potenti (more content not included)... Normal [facility] Upper Ext Joint Only(Routine )on 10-10-2024 Upper Ext Joint Only(Routine) [facility] [address], [place] [address] Upper Ext Joint Only(Routine) MR#: [id number] Acct: [id number] Name: FELA GARCIA Rep #: [id number] : 1995 F 29 From: Ender Amanda MD PCP: Dr. Helio Hargrove MD Status: REG CLI Study: Upper Ext Joint Only(Routine) Date of Exam: 0 10/10/24 Exam# [id number] Ordering Dr: Jayson Turcios MD [id number] STUDY: MRI LEFT SHOULDER REASON FOR EXAM: Female, 29 years old. Pain, shoulder pain rule out cuff tear. TECHNIQUE: Standardized fat and water weighted pulse sequences were obtained in all 3 orthogonal planes. COMPARISON: Left shoulder radiographs dated 08/09/2024. FINDINGS: Normal supraspinatus tendon. Normal infraspinatus tendon. Normal subscapularis tendon. Normal teres minor tendon. Normal supraspinatus muscle. Normal infraspinatus muscle. Normal subscapularis muscle. Normal teres minor muscle. Normal glenohumeral articulation. Normal humeral head and visualized proximal humerus. Normal biceps labral complex. Normal intracapsular long biceps tendon. Normal labrum. Normal capsulo-ligamentous complex. Normal rotator interval. Normal acromioclavicular articulation. There is a Type II morphology (curved), with a neutral orientation. There is no subacromial-subdeltoi d bursal fluid. Normal visualized coracohumeral and coracoacromial ligaments. Normal quadrilateral space. Normal axillary space. Normal deltoid muscle. Normal trapezius muscle. MRI/Upper Ext Joint Only(Routine) IMPRESSION: No rotator cuff tear or discrete labral tear. Electronically Signed: Ender Amanda MD at 9:54 EST , CC: Dr. Helio Hargrove MD; Dr. Jayson Turcios MD [employer]: Signed Normal [facility] [id number]-KF-Mmpcbcn DOrdered By: Thierry Hargrove on 09-27-2024 Vitamin D 25-Hydroxy 30.1 ng/mL [facility] Comment on above: Vitamin D 25(OH) Sta tus Range Deficiency <20 ng/mL (50nmol/L) Insufficiency 20 - 30 ng/mL (50 - 75 nmol/L) Sufficiency 30 - 100 ng/mL (75 - 250 nmol/L) Toxicity >100 ng/mL (>250 nmol/L) Absolute neutrophil countOrd ered By: Helio Hargrove on 09-27-2024 Neutrophils (Bld) [#/Vol] 4.9 10*3/uL 2.0-7.7 [facility] Albumin to globulin ratioOrd ered By: Helio Hargrove on 09-27-2024 Albumin/Globulin [Mass ratio] 1.1 {ratio} 0.9-2.4 [facility] Basophil percentageOrdered B y: Helio Hargrove on 09-27-2024 Basophils/100 WBC (Bld) 0.5 % 0-1 [facility] Bilirubin, totalOrdered By: Helio Hargrove on 09-27-2024 Bilirubin [Mass/Vol] 0.30 mg/dL 0.20-1.[address] [facility] Comment on above: For patients on eltr ombopag therapy, use of Dimension [place] TBIL is not recommended. Blood urea nitrogen (BUN)/cr eatinine ratioOrdered By: Helio Hargrove on 09-27-2024 Urea nitrogen/Creatinine [Mass ratio] 13.6 mg/mg 10-20 [facility] CBC W/Diff, Automatedon Absolute Lymph 3.50 X10 3/uL Normal 0.83-4.51 [facility] Comment on above: Order Comment: Order Date: 09/27/24Order Info: 0184-1 - CBCD Performed By: #### L 500.4050, L501.9520, L506.1000, L100.0100 ####[facility] [address] [place], [address] Absolute Neut 4.9 X10 3/uL Normal 2.0-7.7 [facility] Comment on above: Order Comment: Order Date: 09/27/24Order Info: 0184-1 - CBCD Performed By: #### L 500.4050, L501.9520, L506.1000, L100.0100 ####[facility] [address] [place], [address] Basophils/100 WBC (Bld) 0.5 % Normal 0-1 [facility] Comment on above: Order Comment: Order Date: 09/27/24Order Info: 0184-1 - CBCD Performed By: #### L 500.4050, L501.9520, L506.1000, L100.0100 ####[facility] [address] [place], [address] Eosinophils/100 WBC (Bld) 0.9 % Normal 0-5 [facility] Comment on above: Order Comment: Order Date: 09/27/24Order Info: 0184-1 - CBCD Performed By: #### L 500.4050, L501.9520, L506.1000, L100.0100 ####[facility] [address] [place], [address] Erythrocyte distribution width (RBC) [Ratio] 12.4 % Normal 11.6-14.6 [facility] Comment on above: Order Comment: Order Date: 09/27/24Order Info: 0184-1 - CBCD Performed By: #### L 500.4050, L501.9520, L506.1000, L100.0100 ####[facility] [address] [place], [address] Hematocrit (Bld) [Volume fraction] 40.5 % Normal 37-47 [facility] Comment on above: Order Comment: Order Date: 09/27/24Order Info: 0184-1 - CBCD Performed By: #### L 500.4050, L501.9520, L506.1000, L100.0100 ####[facility] [address] [place], [address] Hemoglobin (Bld) [Mass/Vol] 13.1 g/dL Normal 12.0-15.0 [facility] Comment on above: Order Comment: Order Date: 09/27/24Order Info: 0184-1 - CBCD Performed By: #### L 500.4050, L501.9520, L506.1000, L100.0100 ####[facility] [address] [place], [address] IG% 0.200 Normal 0.0-0.9 [facility] Comment on above: Order Comment: Order Date: 09/27/24Order Info: 0184-1 - CBCD Result Comment: IG% - Immature Granulocytes (promyelocytes, myelocytes and metamyelocytes) > 1% indicates that a LEFT SHIFT is Present. Performed By: #### L 500.4050, L501.9520, L506.1000, L100.0100 ####[facility] [address] [place], [address] Lymphocytes/100 WBC (Bld) 37.7 % Normal 19-41 [facility] Comment on above: Order Comment: Order Date: 09/27/24Order Info: 0184-1 - CBCD Performed By: #### L 500.4050, L501.9520, L506.1000, L100.0100 ####[facility] [address] [place], [address] MCH (RBC) [Entitic mass] 29.0 pg Normal 27.0-32.0 [facility] Comment on above: Order Comment: Order Date: 09/27/24Order Info: 0184-1 - CBCD Performed By: #### L 500.4050, L501.9520, L506.1000, L100.0100 ####[facility] [address] [place], [address] MCHC (RBC) [Mass/Vol] 32.3 g/dL Normal 32-36 [facility] Comment on above: Order Comment: Order Date: 09/27/24Order Info: 0184-1 - CBCD Performed By: #### L 500.4050, L501.9520, L506.1000, L100.0100 ####[facility] [address] [place], [address] MCV (RBC) [Entitic vol] 89.6 fL Normal 81-99 [facility] Comment on above: Order Comment: Order Date: 09/27/24Order Info: 0184-1 - CBCD Performed By: #### L 500.4050, L501.9520, L506.1000, L100.0100 ####[facility] [address] [place], [address] Monocytes/100 WBC (Bld) 7.6 % Normal 0-10 [facility] Comment on above: Order Comment: Order Date: 09/27/24Order Info: 0184-1 - CBCD Performed By: #### L 500.4050, L501.9520, L506.1000, L100.0100 ####[facility] [address] [place], [address] Neutrophils/100 WBC (Bld) 53.1 % Normal 47-70 [facility] Comment on above: Order Comment: Order Date: 09/27/24Order Info: 0184-1 - CBCD Performed By: #### L 500.4050, L501.9520, L506.1000, L100.0100 ####[facility] [address] [place], [address] Nucleated RBC (Bld) [#/Vol] 0 10*3/uL Normal 0-5 [facility] Comment on above: Order Comment: Order Date: 09/27/24Order Info: 0184-1 - CBCD Performed By: #### L 500.4050, L501.9520, L506.1000, L100.0100 ####[facility] [address] [place], [address] Platelet mean volume (Bld) [Entitic vol] 11.0 fL Normal 6.2-12.0 [facility] Comment on above: Order Comment: Order Date: 09/27/24Order Info: 0184-1 - CBCD Performed By: #### L 500.4050, L501.9520, L506.1000, L100.0100 ####[facility] [address] [place], [address] Platelets (Bld) [#/Vol] 348 10*3/uL Normal 150-450 [facility] Comment on above: Order Comment: Order Date: 09/27/24Order Info: 0184-1 - CBCD Performed By: #### L 500.4050, L501.9520, L506.1000, L100.0100 ####[facility] [address] [place], [address] RBC (Bld) [#/Vol] 4.52 10*6/uL Normal 4.2-5.4 [facility] Comment on above: Order Comment: Order Date: 09/27/24Order Info: 0184-1 - CBCD Performed By: #### L 500.4050, L501.9520, L506.1000, L100.0100 ####[facility] [address] [place], [address] RDW SD 40.7 fl Normal 35.1-43.9 [facility] Comment on above: Order Comment: Order Date: 09/27/24Order Info: 0184-1 - CBCD Performed By: #### L 500.4050, L501.9520, L506.1000, L100.0100 ####[facility] [address] [place], [address] WBC (Bld) [#/Vol] 9.3 10*3/uL Normal 4.4-11.0 [facility] Comment on above: Order Comment: Order Date: 09/27/24Order Info: 0184-1 - CBCD Performed By: #### L 500.4050, L501.9520, L506.1000, L100.0100 ####[facility] [address] [place], [address] Carbon dioxide measurementOr dered By: Helio Hargrove on 09-27-2024 CO2 [Moles/Vol] 25.0 mmol/L 21.0-32.0 [facility] Chloride measurementOrdered By: Helio Hargrove on 09-27-2024 Chloride [Moles/Vol] 106 mmol/L 98-[address] [facility] Comprehensive Metabolic Prof ilon 09-27-2024 Albumin [Mass/Vol] 4.1 g/dL Normal 3.2-5.0 [facility] Comment on above: Order Comment: Order Date: 09/27/24Order Info: 0786-1 - CMPOrder Info: 3016-3 - TSH1 Performed By: #### L 500.4050, L501.9520, L506.1000, L100.0100 ####[facility] [address] [place], [address] Albumin/Globulin [Mass ratio] 1.1 {ratio} Normal 0.9-2.4 [facility] Comment on above: Order Comment: Order Date: 09/27/24Order Info: 0786-1 - CMPOrder Info: 3016-3 - TSH1 Performed By: #### L 500.4050, L501.9520, L506.1000, L100.0100 ####[facility] [address] [place], [address] ALK P 72 U/L Normal 45-117 [facility] Comment on above: Order Comment: Order Date: 09/27/24Order Info: 0786-1 - CMPOrder Info: 3016-3 - TSH1 Performed By: #### L 500.4050, L501.9520, L506.1000, L100.0100 ####[facility] [address] [place], [address] ALT [Catalytic activity/Vol] 25 U/L Normal 13-56 [facility] Comment on above: Order Comment: Order Date: 09/27/24Order Info: 0786-1 - CMPOrder Info: 3016-3 - TSH1 Performed By: #### L 500.4050, L501.9520, L506.1000, L100.0100 ####[facility] [address] [place], [address] AST [Catalytic activity/Vol] 14 U/L Low 15-37 [facility] Comment on above: Order Comment: Order Date: 09/27/24Order Info: 0786-1 - CMPOrder Info: 3016-3 - TSH1 Performed By: #### L 500.4050, L501.9520, L506.1000, L100.0100 ####[facility] [address] [place], [address] Bilirubin [Mass/Vol] 0.30 mg/dL Normal 0.20-1.[address] [facility] Comment on above: Order Comment: Order Date: 09/27/24Order Info: 0786-1 - CMPOrder Info: 3016-3 - TSH1 Result Comment: For patients on eltrombopag therapy, use of Dimension [place] TBIL is not recommended. Performed By: #### L 500.4050, L501.9520, L506.1000, L100.0100 ####[facility] [address] [place], [address] BUN/CRE 13.6 RATIO Normal 10-20 [facility] Comment on above: Order Comment: Order Date: 09/27/24Order Info: 0786-1 - CMPOrder Info: 6-3 - TSH1 Performed By: #### L 500.4050, L501.9520, L506.1000, L100.0100 ####[facility] [address] [place], [address] CA,Total 9.4 mg/dL Normal 8.5-10.1 [facility] Comment on above: Order Comment: Order Date: 09/27/24Order Info: 0786-1 - CMPOrder Info: 6-3 - TSH1 Performed By: #### L 500.4050, L501.9520, L506.1000, L100.0100 ####[facility] [address] [place], [address] Chloride [Moles/Vol] 106 mmol/L Normal 98-[address] [facility] Comment on above: Order Comment: Order Date: 09/27/24Order Info: 0786-1 - CMPOrder Info: 3016-3 - TSH1 Performed By: #### L 500.4050, L501.9520, L506.1000, L100.0100 ####[facility] [address] [place], [address] CO2 [Moles/Vol] 25.0 mmol/L Normal 21.0-32.0 [facility] Comment on above: Order Comment: Order Date: 09/27/24Order Info: 0786-1 - CMPOrder Info: 3016-3 - TSH1 Performed By: #### L 500.4050, L501.9520, L506.1000, L100.0100 ####[facility] [address] [place], [address] Creatinine [Mass/Vol] 0.66 mg/dL Normal 0.55-1.02 [facility] Comment on above: Order Comment: Order Date: 09/27/24Order Info: 0786-1 - CMPOrder Info: 3016 - TSH1 Result Comment: The validity of the calculated GFR GFRAA in patients over 70 years has not been determined. Clinical correlation is essential. Performed By: #### L 500.4050, L501.9520, L506.1000, L100.0100 ####[facility] [address] [place], [address] EST GFR - AA 136 mL/min Normal >60 [facility] Comment on above: Order Comment: Order Date: 09/27/24Order Info: 0786-1 - CMPOrder Info: 3016-3 - TSH1 Result Comment: Afri can Croatian GFR Calc Performed By: #### L 500.4050, L501.9520, L506.1000, L100.0100 ####[facility] [address] [place], [address] GAP 6 Normal 5-15 [facility] Comment on above: Order Comment: Order Date: 09/27/24Order Info: 0786-1 - CMPOrder Info: 3016- - TSH1 Performed By: #### L 500.4050, L501.9520, L506.1000, L100.0100 ####[facility] [address] [place], [address] GFR/1.73 sq M.predicted among non-blacks MDRD (S/P/Bld) [Vol rate/Area] 113 mL/min/{1.73_m2} Normal >60 [facility] Comment on above: Order Comment: Order Date: 09/27/24Order Info: 0786- - CMPOrder Info: 3015-11 - TSH1 Result Comment: Non- GFR Calc Performed By: #### L 500.4050, L501.9520, L506.1000, L100.0100 ####[facility] [address] [place], [address] Globulin (S) [Mass/Vol] 3.9 g/dL Normal 2.2-4.2 [facility] Comment on above: Order Comment: Order Date: 09/27/24Order Info: 0786-1 - CMPOrder Info: 3015-11 - TSH1 Performed By: #### L 500.4050, L501.9520, L506.1000, L100.0100 ####[facility] [address] [place], [address] Glucose [Mass/Vol] 97 mg/dL Normal 74-106 [facility] Comment on above: Order Comment: Order Date: 09/27/24Order Info: 0786- - CMPOrder Info: 3015-11 - TSH1 Performed By: #### L 500.4050, L501.9520, L506.1000, L100.0100 ####[facility] [address] [place], [address] Potassium [Moles/Vol] 3.9 mmol/L Normal 3.5-5.1 [facility] Comment on above: Order Comment: Order Date: 09/27/24Order Info: 0786-1 - CMPOrder Info: 3015-11 - TSH1 Performed By: #### L 500.4050, L501.9520, L506.1000, L100.0100 ####[facility] [address] [place], [address] Sodium [Moles/Vol] 138 mmol/L Normal 136-145 [facility] Comment on above: Order Comment: Order Date: 09/27/24Order Info: 0786-1 - CMPOrder Info: 3 - TSH1 Performed By: #### L 500.4050, L501.9520, L506.1000, L100.0100 ####[facility] [address] [place], [address] T PROT 8.0 g/dL Normal 6.4-8.2 [facility] Comment on above: Order Comment: Order Date: 09/27/24Order Info: 0786-1 - CMPOrder Info: 3016-3 - TSH1 Performed By: #### L 500.4050, L501.9520, L506.1000, L100.0100 ####[facility] [id number], [address] Urea nitrogen [Mass/Vol] 9 mg/dL Normal 7-18 [facility] Comment on above: Order Comment: Order Date: 09/27/24Order Info: 0786-1 - CMPOrder Info: 3016-3 - TSH1 Performed By: #### L 500.4050, L501.9520, L506.1000, L100.0100 ####[facility] [id number] [place], [address] Eosinophil percentageOrdered By: Helio Hargrove on 09-27-2024 Eosinophils/100 WBC (Bld) 0.9 % 0-5 [facility] Erythrocyte distribution wid th ratioOrdered By: Helio Hargrove on 09-27-2024 Erythrocyte distribution width (RBC) [Ratio] 12.4 % 11.6-14.6 [facility] Erythrocyte distribution wid th standard deviationOrdered By: Helio Hargrove on 09-27-2024 Erythrocyte distribution width (RBC) [Entitic vol] 40.7 fL 35.1-43.9 [facility] Estimated glomerular filtrat ion rate (GFR) AmericanOrdered By: Helio Hargrove on 09-27-2024 Estimated GFR (MDRD) Amer 136 mL/min >60 [facility] Comment on above: GFR Calc Glomerular filtration rate ( GFR) estimationOrdered By: Helio Hargrove on 09-27-2024 Estimated GFR (MDRD) Non-Af Amer 113 mL/min >60 [facility] Comment on above: Non- GFR Calc Glucose measurementOrdered B y: Helio Hargrove on 09-27-2024 Glucose [Mass/Vol] 97 mg/dL 74-106 [facility] Hematocrit Auto (Bld) [Volum e fraction]Ordered By: Helio Hargrove on 09-27-2024 Hematocrit (Bld) [Volume fraction] 40.5 % 37-47 [facility] Hemoglobin measurementOrdere d By: Helio Hargrove on 09-27-2024 Hemoglobin (Bld) [Mass/Vol] 13.1 g/dL 12.0-15.0 [facility] Immature granulocytes/100 WB C Auto (Bld)Ordered By: [facility] Hargrove on 09-27-2024 Immature granulocytes/100 WBC (Bld) 0.200 % 0.0-0.9 [facility] Comment on above: IG% - Immature Granu locytes (promyelocytes, myelocytes and metamyelocytes) > 1% indicates that a LEFT SHIFT is Present. L501.4020on 09-27-2024 TROPONIN-I HS 4 pg/mL Normal 3.0-54.0 [facility] Comment on above: Order Comment: Order Date: 09/27/24Order Info: 0786-1 - CMPOrder Info: 3016-3 - TSH1 Result Comment: Tim frank Note: New Test Units and Gender Specific Reference Ranges. For more information see Policy Stat Procedure [place] High Sensitivity Troponin (TNIH) and attachments. Performed By: #### L 501.4020 ####[facility] [id number] [place], [address] Laboratory - Chemistry and C hemistry - challengeOrdered By: Helio Hargrove on 09-27-2024 AST [Catalytic activity/Vol] 14 U/L Low 15-37 [facility] Lymphocytes Auto (Unsp spec) [#/Vol]Ordered By: Helio Hargrove on 09-27-2024 Lymphocytes (Bld) [#/Vol] 3.50 10*3/uL 0.83-4.51 [facility] Lymphocytes/100 WBC Auto (Un sp spec)Ordered By: Helio Hargrove on 09-27-2024 Lymphocytes/100 WBC (Bld) 37.7 % 19-41 [facility] MCV (mean corpuscular volume ) determinationOrdered By: Helio Hargrove on 09-27-2024 MCV (RBC) [Entitic vol] 89.6 fL 81-99 [facility] Mean corpuscular hemoglobin (MCH) determinationOrdered By: Helio Beena on 09-27-2024 MCH (RBC) [Entitic mass] 29.0 pg 27.0-32.0 [facility] Mean corpuscular hemoglobin concentration (MCHC) determinationOrdered By: Helio Beena on 09-27-2024 MCHC (RBC) [Mass/Vol] 32.3 g/dL 32-36 [facility] Mean platelet volume determi nationOrdered By: Helio Beena on 09-27-2024 Platelet mean volume (Bld) [Entitic vol] 11.0 fL 6.2-12.0 [facility] Monocyte percentageOrdered B y: Helio Hargrove on 09-27-2024 Monocytes/100 WBC (Bld) 7.6 % 0-10 [facility] Neutrophil percentageOrdered By: Helio Beena on 09-27-2024 Neutrophils/100 WBC (Bld) 53.1 % 47-70 [facility] Nucleated red blood cell per centageOrdered By: Helio Hargrove on 09-27-2024 Nucleated RBC/100 WBC (Bld) [Ratio] 0 % 0-5 [facility] Platelet countOrdered By: Dallin Hargrove on 09-27-2024 Platelets (Bld) [#/Vol] 348 10*3/uL 150-450 [facility] Potassium measurementOrdered By: Helio Hargrove on 09-27-2024 Potassium [Moles/Vol] 3.9 mmol/L 3.5-5.1 [facility] RBC Auto (Bld) [#/Vol]Ordere d By: Helio Hargrove on 09-27-2024 RBC (Bld) [#/Vol] 4.52 10*6/uL 4.2-5.4 [facility] Serum anion gap measurementO rdered By: Helio Hargrove on 09-27-2024 Anion gap [Moles/Vol] 6 mmol/L 5-15 [facility] Serum globulin measurementOr dered By: Helio Hargrove on 09-27-2024 Globulin (S) [Mass/Vol] 3.9 g/dL 2.2-4.2 [facility] Serum or plasma alanine larson otransferase (ALT) measurementOrdered By: Helio Hargrove on 09-27-2024 ALT [Catalytic activity/Vol] 25 U/L 13-56 [facility] Serum or plasma albumin carri urement (mass/volume)Ordered By: Helio Hargrove on 09-27-2024 Albumin [Mass/Vol] 4.1 g/dL 3.2-5.0 [facility] Serum or plasma alkaline fabby sphatase measurementOrdered By: Helio Hargrove on 09-27-2024 ALP [Catalytic activity/Vol] 72 U/L 45-117 [facility] Serum or plasma calcium carri urement (mass/volume)Ordered By: Helio Hargrove on 09-27-2024 Calcium [Mass/Vol] 9.4 mg/dL 8.5-10.1 [facility] Serum or plasma creatinine m easurement (mass/volume)Ordered By: Helio Hargrove on 09-27-2024 Creatinine [Mass/Vol] 0.66 mg/dL 0.55-1.02 [facility] Comment on above: The validity of the calculated GFR & GFRAA in patients over 70 years has not been determined. Clinical correlation is essential. Serum or plasma urea nitroge n measurement (mass/volume)Ordered By: Helio Hargrove on 09-27-2024 Urea nitrogen [Mass/Vol] 9 mg/dL 7-18 [facility] Sodium levelOrdered By: Beverly Hargrove on 09-27-2024 Sodium [Moles/Vol] 138 mmol/L 136-145 [facility] TSH QnOrdered By: Helio elaine on 09-27-2024 Thyroid Stimulating Hormone (TSH) 3.830 uIU/mL High 0.358-3.740 [facility] Thyroid Stim Hormone (TSH)on 09-27-2024 TSH 3.830 uIU/mL High 0.358-3.740 [facility] Comment on above: Order Comment: Order Date: 09/27/24Order Info: [id number] - CMPOrder Info: [id number] - TSH1 Performed By: #### L 500.4050, L501.9520, L506.1000, L100.0100 ####[facility] [id number] [place], [address] Total proteinOrdered By: Martha Hargrove on 09-27-2024 Protein [Mass/Vol] 8.0 g/dL 6.4-8.2 [facility] Troponin IOrdered By: Helio Hargrove on 09-27-2024 Troponin I High Sensitivity 4 pg/mL 3.0-54.0 [facility] Comment on above: Please Note: New Cady t Units and Gender Specific Reference Ranges. For more information see Policy Stat Procedure [place] High Sensitivity Troponin (TNIH) and attachments. Vitamin D,25 Hydroxyon 09-27 Vitamin D 25-OH 30.1 ng/mL Normal [facility] Comment on above: Order Comment: Order Date: 09/27/24Order Info: [id number] - VITD25 Result Comment: Ilene min D 25(OH) Status Range Deficiency <20 ng/mL (50nmol/L) Insufficiency 20 - 30 ng/mL (50 - 75 nmol/L) Sufficiency 30 - 100 ng/mL (75 - 250 nmol/L) Toxicity >100 ng/mL (>250 nmol/L) Performed By: #### L 500.4050, L501.9520, L506.1000, L100.0100 ####[facility] [address] [place], [address] White blood cell (WBC) count Ordered By: Helio Hargrove on 09-27-2024 WBC (Bld) [#/Vol] 9.3 10*3/uL 4.4-11.0 [facility] Orthopedic Visit Reporton Orthopedic Visit Report [facility] [address] [place] [address] [address] [place], [place] [address] OFFICE VISIT Date of Service: 09/06/24 MR#: [id number] Acct: [id number] Name: FELA GARCIA Rep #: [id number] : 1995 Provider: Dr. Jayson silveira MD Age/Sex: 29/F Location: [facility] [place].[facility] Status: Signed Intake Vital Signs 08/18/24 17:17 Height 5 ft 5 in Weight: 181 lb BMI 30.1 BP 159/85 H Respiration 16 Pulse 104 H Temp 96.2 F L Temp Source Temporal Pulse Oximetry (%) 100 Intake Visit Reasons: LEFT SHOULDER Chief Complaint: EMG Review Accompanied by: Self Is patient in pain?: Yes Allergies No Known Allergies Allergy (Verified 09/06/24 11:00) PFSH Medical History Left shoulder pain History of back pain History of environmental allergies Pain, dental H/O drainage of abscess Hidradenitis suppurativa Abscess Family History Grandmother Breast cancer Diabetes Grandfather Cancer prostate and colon Grandmother CVA (cerebral vascular accident) Social History Smoking Status: Current every day smoker tobacco type: e-cigarettes alcohol intake: never substance use type: does not use additional social history: denies vaping, denies edibles, denies marijuana, denies aspirin and ibuprofen HPI LEFT SHOULDER Details: This documentation accurately reflects the service provided and the decisions made by me, Dr. Jayson Turcios MD 09/06/24 8483. Part of today???s visit was documented by [ ], acting as scribe. FELA GARCIA is a 29 year old F here today for FU NCS upper extremities. still painful in the shoulder. Has done PT twice now. first time was OT. PT was 6 weeks ago for 5 weeks. Supplemental Info [facility] Pulmonary Services/Neurology [address] [place] [address] MR#: [id number] Acct: [id number] Name: FELA GARCIA Rep #: [id number] : 1995 29 From: Jade Hernandez MD Referring Dr: Jayson Turcios MD Status: REG CLI Location: PSN Date: 08/31/24 Sex: F C NCS and/or EMG Patient Report Ordering Doctor: Jayson Turcios DATE OF SERVICE: 08/31/24 Fela presents with complaints of intermittent pain in both arms. She reports intermittent numbness. Electrodiagnostic findings: Median motor nerve demonstrates normal distal latency, amplitude and conduction velocity bilaterally. Ulnar motor response is within normal limits bilaterally. Normal median and ulnar F???waves. Sensory responses are within normal limits. Needle EMG testing was performed upper limbs. All muscles tested showed no evidence of denervation with normal motor unit action potentials. Electrodiagnostic impression: This is a normal electrodiagnostic study of the upper limbs. There is no electrodiagnostic evidence for peripheral neuropathy, including carpal tunnel syndrome. There is no electrodiagnostic evidence for cervical radiculopathy. Multi Select Codes Neurology Neurology Interp Codes: 08196-98 Musc test done w/n test comp (interp) (2) and 92848-04 Nrv cndj test 13/> studies (interp) Coding Level of Care Code Off vis,est,level 3 Diagnoses Left shoulder pain M25.512 Impingement of left shoulder M25.812 Assessment and Plan Assessment and Plan (1) Left shoulder pain: Status: Acute Plan: 29-year-old female with ongoing difficulties with the upper extremity. Has some shoulder pain radiating down the arm the nerve conduction studies were negative. I will go ahead and order an MRI of the shoulder to see if there is any shoulder pathology that would be amenable to interventions beyond conservative management the patient has done twice now physical therapy recently within the last 6 weeks. They will follow-up after the MRI no further questions or concerns and the patient did decline a cortisone injection at today's visit. (2) Impingement of left shoulder: Status: Acute Orders: Orders Upper Ext Joint Only(Routine) Today M25.512 - Pain in left shoulder, M25.812 - Other specified joint disorders, left shoulder Ortho Exam General General: Yes no acute distress Neurologic: Yes alert and Yes oriented x3 Psychologic: Yes reasonable and appropriate Left Shoulder Skin/Wound: Yes CDI, No ecchymosis, No erythema and No swelling Testing: Yes Hawkin's, Yes Neer's, No Speed's, No TTP Biceps, No TTP AC Joint, Yes AROM-Forward Elevation 0-180, Yes AROM-External Rotation at side 0-60, Yes empty can and No scapular winging 09/06/24 1116 Date (more content not included)... Normal [facility] Inital Evaluation (1) - PTon 09-05-2024 Inital Evaluation (1) - PT [facility] Physical Therapy [facility] [address] [place] [address] / REHABILITATION SERVICES INITIAL EVALUATION MR#: [id number] Acct: [id number] Name: FELA GARCIA Rep #: [id number] : 1995 29 From: Enrique Borden PT, Cert. MD Mart[place], OCS Referring Dr.: Yao Myers PA-C Status: REG R CR Insurance: [facility] [employer]URANCE Patient's Visit Information Visit Information Visit Information: FELA GARCIA is a 29 year old F referred to Physical Therapy by Yao Myers PA-C with a diagnosis of CONTUSION OF RIGHT ANKLE. Date of Evaluation: 09/05/24 Physical Therapist: Enrique Borden PT, Cert T, OCS Visit Plan Frequency: 2x /Week Duration: 4 Weeks Plan: PT INTERVENTIONS FLEXABILITY CALF ,STRENGTHENING EX'S ANKLE STABILIZERS , PROPRIOCEPTION AND MODALITIES PRN Subjective Subjective: This 29 y/o female presents to physical therapy with right ankle contusion . Patient had 1 month closet door hit ankle posterior aspect. Patient had immediate ER urgent care did x-rays and place on boot . Patient developed bruising and edema. JEN Myers did x-rays no fracture. Recommended PT also prescribed Oxycodone. Patient has some soreness. Patient wore regular shoes 1st day. Denies paresthesia/tingling -. Patient able to sleeping .Patient symptoms affects QOL and function. Patient goals to decrease pain. SOCIAL: Significant other VOCATION: HOME Pain Right Ankle: Pain Intensity (Out of 10): 2 Pain Intensity Range: 10 Objective Objective: POSTURE: mild forward,normal arch PALPATION: tender calf GAIT: reciprocal pattern NEURO: denies paresthesia/tingling AROM: dorsiflexion 0 degrees ,plantarflexion 60 degrees ,inversion 35 degrees ,eversion 5 degrees MMT: ankle stabilizers 4/5 PROPRIOCEPTION: intact SPECIAL TEST: inversion stress test ,anterior drawer - Balance/Special Test Scores Lower Extremity Functional Score: 55 Goals Goal 1:: Patient to be I with HEP ankle Goal Time Frame: 4-6 Weeks Goal 2:: Patient to improve LFES Score by 5 points to improve QOL Goal Time Frame: 4-6 Weeks Goal 3:: Patient to demonstrate 70% improvement with NO pain and improved function housework tasks Goal Time Frame: 4-6 Weeks Goal 4:: Patient to have 5/5 strength without pain to improve function Goal Time Frame: 4-6 Weeks Rehabilitation Potential Physical Therapy Diagnosis: Patient had laceration from door landed on posterior ankle /calf caused pain ecchymosis and some weakness thus benefit from skilled PT Rehabilitation Potential: Good Anticipated Interventions Patient/Client Instruction: Educate patient on: Condition and Plan of Care For the Purpose of:: To decrease pain, To increase ROM, To improve muscle performance and motor function, To increase tolerance to activity/condition/po sition, To improve ability of physical actions for home/community/work/l eisure, To improve health of tissue, To decrease soft tissue restriction and To increase flexibility/ROM Therapeutic Exercise to Include: Strength training, Balance training and Flexibilty training Comment: ANKLE For the Purpose of:: To decrease pain, To increase ROM, To improve muscle performance and motor function, To improve ability to perform ADL's, To improve ability of physical actions for home/community/work/l eisure, To improve health of tissue, To decrease soft tissue restriction and To improve tolerance to ADL's TENS: Yes IF ES: Yes Thermo therapy (hot pack): Yes Ultrasound (thermal/non thermal): Yes For the Purpose of:: To decrease pain, To increase ROM, To improve health of tissue and To decrease soft tissue restriction Text: Thank you for the opportunity to evaluate your patient. For Medicare and Medicare HMO plans, please review the plan of care and approve it. It will need to be FAXED BACK to us at [phone] for Medicare purposes. For Medicare only, by signing this I certify the plan of care. Please let me know if there are questions or concerns regarding this plan of care. Physician Signature: Date : 09/05/24 1519 CC: CHRISTIANO Myers; Dr. Helio Hargrove MD ROSALINA Signed Normal [facility] NCS and/or EMG Patienton NCS and/or EMG Patient [facility] Pulmonary Services/Neurology [address] [place] [address] MR#: [id number] Acct: [id number] Name: FELA GARCIA Rep #: [id number] : 1995 29 From: Jade Hernandez MD Referring Dr: Jayson Turcios MD Status: REG [facility] Location: [facility] Date: 08/31/24 Sex: F C NCS and/or EMG Patient Report Ordering Doctor: Jayson Turcios DATE OF SERVICE: 08/31/24 Fela presents with complaints of intermittent pain in both arms. She reports intermittent numbness. Electrodiagnostic findings: Median motor nerve demonstrates normal distal latency, amplitude and conduction velocity bilaterally. Ulnar motor response is within normal limits bilaterally. Normal median and ulnar F???waves. Sensory responses are within normal limits. Needle EMG testing was performed upper limbs. All muscles tested showed no evidence of denervation with normal motor unit action potentials. Electrodiagnostic impression: This is a normal electrodiagnostic study of the upper limbs. There is no electrodiagnostic evidence for peripheral neuropathy, including carpal tunnel syndrome. There is no electrodiagnostic evidence for cervical radiculopathy. Multi Select Codes Neurology Neurology Interp Codes: 14378-09 Musc test done w/n test comp (interp) (2) and 27380-53 Nrv cndj test 13/> studies (interp) 08/31/24 1301 Date Jade Hernandez MD CC: Dr. Jade Hernandez MD; Dr. Helio Hargrove MD; Dr. Jayson Turcios MD Date Dictated: 08/31/24 1259 Date Transcribed: 08/31/241258 Studio Potter: JOSY Signed Normal [facility] Emergency Department Summary on 08-18-2024 Emergency Department Summary [facility] Medical Records Department [address] [place] [address] Emergency Department Summary 08/18/24 MR#: [id number] Acct: [id number] Name: FELA GARCIA Rep #: [id number] : 1995 From: Jaylan Hunter DO PCP: Dr. Helio Hargrove MD Status:PRE ER Location: ED HPI History of Present Illness Chief Complaint: Lower Extremity Injury [facility] Medical History Left shoulder pain History of back pain History of environmental allergies Pain, dental H/O drainage of abscess Hidradenitis suppurativa Abscess Home Medications ???Medication ???Instructions ???Recorded ???Last Taken ???Type NK 08/09/24 Unknown History Allergy/AdvReac Type Severity Reaction Status Date / Time No Known Allergies Allergy Verified 08/18/24 17:27 Family History Grandmother Breast cancer Diabetes Grandfather Cancer prostate and colon Grandmother CVA (cerebral vascular accident) Social History Smoking Status: Current every day smoker tobacco type: e-cigarettes alcohol intake: never substance use type: does not use additional social history: denies vaping, denies edibles, denies marijuana, denies aspirin and ibuprofen EXAM Physical Exam Const Vital Signs: 08/18/24 17:17 Temperature 96.2 F L Temperature Source Temporal Pulse Rate 104 H Respiratory Rate 16 Blood Pressure 159/85 H Blood Pressure Mean 109 Pulse Ox 100 Oxygen Delivery Method Room Air MDM MDM MDM Narrative Medical decision making narrative: HISTORY OF PRESENT ILLNESS: 29-year-old female presents with concern for lower extremity injury. She states she injured her right foot on Thursday. She received x-rays in urgent care which showed a possible fracture. She follow with orthopedic surgery they stated she had no clear fracture. She is currently in a walking boot and is bearing weight on the foot. She is concerned that there may be a fracture and wants to know was going on REVIEW OF SYSTEMS: Pertinent positives: Foot pain Pertinent negatives: Numbness weakness or loss of sensation PHYSICAL EXAM: Nursing triage notes reviewed, Vital signs reviewed Constitutional: please see mdm Extremities: Slight swelling noted to the right foot, TTP over right fibula, compartments are soft Neuro: Intact sensation L1-S1 dermatomal distributions. Intact 5/5 strength in hip flexion (T12- L3). Knee extension (L2-L4). Ankle dorsiflexion (L4-L5). Ankle plantar flexion (S1). Great toe extension (L5). 2+ patellar and Achilles DTRs. Skin: Ecchymosis noted over the posterior foot MEDICAL DECISION MAKING: Chief Complaint: Foot pain External records reviewed: Reviewed prior imaging studies in our chart. No advanced imaging of the foot noted Factors affecting care: Possible foot fracture Social determinants of health: none History obtained from others: none Consults: none [facility] Narrative: Patient was hemodynamically stable, afebrile, nontoxic-appearing. Exam with bruising noted to foot and TTP over fibula. I considered the following differential diagnosis: Foot fracture, foot contusion Discussed the patient repeat imaging reviewed prior imaging the patient had on her cell phone that showed a slight hairline distal fibular fracture. I informed the patient that she likely would not require surgery. I offered her pain medication immobilization with her walking boot as well as crutches and nonweightbearing status. She agreed to did not want additional imaging at this time. She agreed to follow-up with the already scheduled orthopedic appointment next week. The patient and/or family, caregivers express understanding. The patient and/or family, caregivers agrees with the plan. Shared decision making: I will have a discussion with the patient and or visitors regarding risk/benefits of further testing or admission. They will be made aware of of the risk/benefits inherent in this decision they will be given the opportunity to voice understanding. Total critical care time today provided was at least 0 minutes. This excludes separately billable procedures. Critical care time (if documented) is secondary to the patient having high probability of clinically significant/life threatening deterioration in the patient's condition which required my urgent intervention. Impression: 1. Right foot pain 2. Distal fibular fracture Dispo: Discharge home This note was generated with Wikimedia Foundationation software. It may contain incorrect words, spelling, and punctuation that were not noted in review of the chart prior to signing. Discharge Plan Triage Chief Complaint: Lower Extremity Inj (more content not included)... [facility] FELA GARCIA ([id number]) 1995 F Date Time Provider Department 08/16/24 11:30 AM [facility] During your visit today, we recorded the following information about you: Temperature Pulse Respiration Blood pressure 98 degrees 77/minute 18/minute 129/85 Weight Last Period 79.7 kg 07/27/24 Whitney Smiley PA-C 08/16/2024 2:15 PM Signed This note was created using Heliatekriter. Subjective Fela Garcia is a 29 year old female. HPI Presents with a chief complaint of right ankle pain for 2 days. She states an accordion door from her closet fell and landed on the back of her ankle. She is got bruising and swelling and pain with moving the ankle. She denies other injuries. No weakness or numbness. Review of Systems Musculoskeletal: Right ankle pain, swelling and bruising All other systems reviewed and are negative. 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 No current facility-administered medications for this visit. PAST SURGICAL HISTORY Procedure Laterality Date NONE No family history on file. Social History Tobacco Use Smoking status: Every Day Smokeless tobacco: Never Objective BP 129/85 Pulse 77 Temp 36.7 ?C (98 ?F) Resp 18 Wt 79.7 kg (175 lb 11.3 oz) LMP 07/27/2024 (Exact Date) SpO2 100% Physical Exam Vitals reviewed. Constitutional: Appearance: Normal appearance. HENT: Head: Normocephalic and atraumatic. Musculoskeletal: Legs: Comments: Patient has bruising and swelling diffusely about the lateral malleolus and lateral right foot. She is tender on palpation. Able to dorsiflex and plantarflex but is painful. Able to ambulate. No tenderness over the Achilles tendon. Intact on Velasco testing. Pedal pulses 2+. Normal distal sensation. Cap refill brisk less than 2 seconds. Skin: General: Skin is warm and dry. Neurological: General: No focal deficit present. Mental Status: She is alert and oriented to person, place, and time. Assessment and Plan ASSESSMENT/PLAN: 1. Closed fracture of distal end of right fibula, unspecified fracture morphology, initial encounter - ICD9: 824.8, ICD10: S82.831A X-ray shows a fracture of the distal right fibula that is nondisplaced. I did place her in a boot and crutches. Recommended nonweightbearing until she follows up with orthopedics. She would prefer to follow-up with [place] [facility]. She was given her disc of x-rays and referral. Rest, ice, ibuprofen. Patient agreeable. - XR ANKLE GENERAL 3V AP/LAT/OBL RIGHT - XR FOOT GENERAL 3V AP/LAT/OBL RIGHT - CONSULT TO ORTHOPAEDICS Whitney Smiley PA-C Allergies As of Date: 08/16/2024 (No Known Allergies) Date Reviewed: 04/25/2024 Reviewed by: Merle Francois LPN - Fully Assessed Reason for Visit: Trauma [112] Cmt: Accordion door fell on R ankle backside of foot x 2 days, ankle is painful, swelling an bruising , LROM, applying pressure painful Primary Visit Diagnosis:Closed fracture of distal end of right fibula, unspecified fracture morphology, initial encounter [S82.831A] Order(s):XR ANKLE GENERAL 3V AP/LAT/OBL RIGHT [[id number]] Order #: [id number] FUTURE XR FOOT GENERAL 3V AP/LAT/OBL RIGHT [[id number]] Order #: [id number] FUTURE CONSULT TO ORTHOPAEDICS [9026] Order #: [id number]: 1 FUTURE Problem List As Of Date: 08/16/2024 (None) Medications Discontinued During This Encounter Prescriptions - amoxicillin (AMOXIL) 500 mg capsule (Discontinued) Reported on 12/27/2023 - benzonatate (TESSALON PERLES) 100 mg capsule (Discontinued) Reported on 04/25/2024 - biotin 1 mg cap (Discontinued) Reported on 03/28/2021 - fluticasone (FLONASE) 50 mcg/actuation nasal spray (Discontinued) Reported on 03/07/2019 - 25/iron fum/folic/dha (-1 ORAL) (Discontinued) Reported on 03/28/2021 - doxycycline (VIBRAMYCIN) 50 mg capsule (Discontinued) Take 1 capsule by mouth every afternoon. - ibuprofen (MOTRIN) 600 mg tablet (Discontinued) Take 1 tablet by mouth every 6 hours as needed for pain. Encounter Status:Closed by WHITNEY SMILEY on 08/16/24 Normal [facility] No Panel Informationon 08-16 Radiology Study observation (narrative) [facility] XR ANKLE 3V AP/LAT/OBL RTon 08-16-2024 XR ANKLE 3V AP/LAT/OBL RT * * *Final Report* * * DATE OF EXAM: Aug 16 2024 12:15PM WOX [id number] - XR ANKLE 3V AP/LAT/OBL RT / PROCEDURE REASON: Ankle injury, right, initial encounter * * * * Physician Interpretation * * * * TITLE: XR ANKLE 3V AP/LAT/OBL RT CLINICAL INDICATION: Injury with pain TECHNIQUE: 3 view radiographic study of the right ankle COMPARISON: Radiograph dated 03/28/2021 FINDINGS: Lateral soft tissue swelling and small ankle joint effusion. Vertical oblique nondisplaced fracture of the medial aspect of the distal fibular metaphysis. Talar dome and ankle mortise intact. IMPRESSION: Nondisplaced fracture of the distal fibular metaphysis with overlying soft tissue swelling Studio [facility] Transcribe Date/Time: Aug 16 2024 12:17P Dictated by : ISAIAS MARSHALL MD This examination was interpreted and the report reviewed and electronically signed by: ISAIAS MARSHALL MD on Aug 16 2024 12:20PM EST [id number] Normal [facility] XR Ankle - right AP and Late ral and obliqueon 08-16-2024 IMPRESSION: Nondisplaced fracture of the distal fibular metaphysis with overlying soft tissue swelling Studio Potter: [facility] Transcribe Date/Time: Aug 16 2024 12:17P Dictated by : ISAIAS MARSHALL MD This examination was interpreted and the report reviewed and electronically signed by: ISAIAS MARSHALL MD on Aug 16 2024 12:20PM [facility] DIVISION OF RADIOLOGY * * *Final Report* * * DATE OF EXAM: Aug 16 2024 12:15PM WOX 5297 - XR ANKLE 3V AP/LAT/OBL RT / PROCEDURE REASON: Ankle injury, right, initial encounter * * * * Physician Interpretation * * * * TITLE: XR ANKLE 3V AP/LAT/OBL RT CLINICAL INDICATION: Injury with pain TECHNIQUE: 3 view radiographic study of the right ankle COMPARISON: Radiograph dated 03/28/2021 FINDINGS: Lateral soft tissue swelling and small ankle joint effusion. Vertical oblique nondisplaced fracture of the medial aspect of the distal fibular metaphysis. Talar dome and ankle mortise intact. DIVISION OF RADIOLOGY Provider, [facility] - 08/16/2024 * * *Final Report* * * DATE OF EXAM: Aug 16 2024 12:15PM WOX 5297 - XR ANKLE 3V AP/LAT/OBL RT / PROCEDURE REASON: Ankle injury, right, initial encounter * * * * Physician Interpretation * * * * TITLE: XR ANKLE 3V AP/LAT/OBL RT CLINICAL INDICATION: Injury with pain TECHNIQUE: 3 view radiographic study of the right ankle COMPARISON: Radiograph dated 03/28/2021 FINDINGS: Lateral soft tissue swelling and small ankle joint effusion. Vertical oblique nondisplaced fracture of the medial aspect of the distal fibular metaphysis. Talar dome and ankle mortise intact. IMPRESSION IMPRESSION: Nondisplaced fracture of the distal fibular metaphysis with overlying soft tissue swelling Studio Potter: [facility] Transcribe Date/Time: Aug 16 2024 12:17P Dictated by : ISAIAS MARSHALL MD This examination was interpreted and the report reviewed and electronically signed by: ISAIAS MARSHALL MD on Aug 16 2024 12:20PM [facility] XR FOOT 3V AP/LAT/OBL RTon 1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 Intake Vital Signs 02/25/23 19:41 06/08/24 09:48 Height 5 ft 4 in 5 ft 5 in Weight: 171 lb BMI 28.4 BP 109/71 Blood Pressure Location Rt brachial Position Sitting Respiration 16 Pulse 54 L Temp 98.0 F Temp Source Oral Pulse Oximetry (%) 99 Oxygen Delivery Method room air Intake Visit Reasons: LIPOMAS/CYSTS BACK OF NECK Chief Complaint: cyst on back of neck Is patient in pain?: Yes (02/28) Allergies No Known Allergies Allergy (Verified 06/08/24 09:51) Medications ???Medication ???Instructions ???Recorded ???Confirmed ???Type gabapentin 100 mg capsule 100 mg PO TID 06/08/24 06/08/24 History tizanidine 4 mg tablet 4 mg PO BID 06/08/24 06/08/24 History Nurse's Note: pt here for evaluation of cyst on back of neck, close to spine. [facility] Medical History (Updated 06/08/24 @ 10:[address] Romina Grigsby MD) History of back pain History of environmental allergies Pain, dental H/O drainage of abscess Hidradenitis suppurativa Abscess Family History (Updated 06/08/24 @ 09:47 by Rosa Macario) Grandmother Breast cancer Diabetes Grandfather Cancer prostate and colon Grandmother CVA (cerebral vascular accident) Social History (Updated 06/08/24 @ 09:48 by Rosa Macario) Smoking Status: Current every day smoker tobacco type: e-cigarettes alcohol intake: never substance use type: does not use additional social history: denies vaping, denies edibles, denies marijuana, denies aspirin and ibuprofen HPI LIPOMAS/CYSTS BACK OF NECK Details: Patient states that she has recently noticed 2 lumps on the posterior neck. She is unsure how long they have been in place. She states she has had another 1 removed from her right shoulder in the past. She has a long history of acne of her chest, shoulders, back, and face which has been resistant to previous treatment. She states she showers daily using an exfoliating sponge. ROS General General: Yes good health and fatigue; No fever(s) or weight loss HENMT HENMT: No rhinitis, sore throat/mouth sore, nasal congestion, contacts or glaucoma Endo Endocrine: Yes polydipsia; No thyroid disease, heat intolerance, cold intolerance, hepatitis or excessive urine Skin Skin: No Bleeding, bruising, changing moles or suspicious lesion Musc Musculoskeletal: Yes muscle weakness and back pain; No joint pain, joint stiffness, osteoarthritis or Muscle aches/ myalgia Neuro Neurological: Yes headache(s), Yes lightheadedness and No numbness Cardio Cardiovascular: Yes fatigue; No chest pain, pacemaker or shortness of breat with exertion Psych Psychiatric: No depression, claustrophobia or anxiety Resp Respiratory: No spitting up, shortness of breath, sleep apnea, asthma, emphysema, TB, Cough or Smoker Gastro Gastrointestinal: No diarrhea, constipation, blood in stool, nausea, vomiting or abdominal bloating Pablo Hematologic: No anemia, No bleeding and No abnormal bleeding Genitourinary: No urinary frequency, blood in urine or incontinence Exam Details Patient with 2 subcutaneous masses of the posterior inferior neck. The surrounding area is noted to have multiple small cysts and comedones. There is no evidence of active infection. I reviewed excision of the 2 masses under local anesthetic. The specimens will be sent to pathology for evaluation. She is aware that this will result in scars from the excision however cyst could enlarge or become infected if they remain in place. She indicates she wishes to proceed. Const General: cooperative, healthy appearing, no acute distress and well developed Nutritional Appearance: well nourished Orientation: alert [facility] Head: normal to inspection, normocephalic and atraumatic Ears: hearing grossly normal bilaterally Nose: external nose normal Face and sinus: normal facial exam and face symmetric Mouth: lip normal Eyes General: appearance normal, both eyes and all related structures Eyelids: eyelids normal Pupils: PERRL EOM: EOM intact bilaterally Neck Neck: normal visual inspection and no lymphadenopathy Chest Chest palpation inspection: normal inspection of the chest Resp Effort Inspection: normal respiratory effort Auscultation: clear to auscultation bilaterally Cardio Rate: regular rate Rhythm: regular rhythm Heart Sounds: S1 normal and S2 normal GI Inspection: normal to inspection Palpation: soft and nontender Skin General: no rashes or lesions n (more content not included)... Normal [facility] ANTINUCLEAR ANTIBODIES [facility] 04-30-2024 IVET,DIRECT Negative Normal Negative [facility] Comment on above: Result Comment: Perf ormed at: - [facility] [address] [id number] Pyridine Operator: Alejandro Guzman PhD, Phone: [phone] Performed at: [facility] [id number] Pyridine Operator: Villa Guevara MD, Phone: [phone] Performed By: #### L 3410.0800, L3100.5475, L3100.9100, L4500.0100, L101.9900 #### [facility] [address] [place], [place], [id number] Anti-Histone Abson ANTI-HISTONE AB 0.4 Units Normal 0.0-0.9 [facility] Comment on above: Result Comment: Nega tive <1.0 Weak Positive 1.0 - 1.5 Moderate Positive 1.6 - 2.5 Strong Positive >2.5 Performed By: #### L 3410.0800, L3100.5475, L3100.9100, L4500.0100, L101.9900 ####[facility] [address] [place], [place], [id number] Lupus Anticoagulant Compon 0 04-30-2024 aPTT Coag (Bld) [Time] 31.4 s Normal 0.0-43.5 [facility] Comment on above: Performed By: #### L 3410.0800, L3100.5475, L3100.9100, L4500.0100, L101.9900 #### [facility] [address] [place], [place], [id number] DILUTE PT (dPT) 35.0 sec Normal 0.0-47.6 [facility] Comment on above: Performed By: #### L 3410.0800, L3100.5475, L3100.9100, L4500.0100, L101.9900 #### [facility] [address] [place], [place], [id number] dPT Conf. Ratio 1.32 Ratio Normal 0.00-1.34 [facility] Comment on above: Performed By: #### L 3410.0800, L3100.5475, L3100.9100, L4500.0100, L101.9900 #### [facility] [address] [place], [place], [id number] DRVVT 34.8 sec Normal 0.0-47.0 [facility] Comment on above: Performed By: #### L 3410.0800, L3100.5475, L3100.9100, L4500.0100, L101.9900 #### [facility] [address] [place], [address] Interpretation Comment: Normal . [facility] Comment on above: Result Comment: No l upus anticoagulant was detected. Performed at: [address] [id number] Pyridine Operator: Villa Guevara MD, Phone: [phone] Performed By: #### L 3410.0800, L3100.5475, L3100.9100, L4500.0100, L101.9900 #### [facility] [address] [place], [place], [id number] THROMBIN TIME 19.2 sec Normal 0.0-23.0 [facility] Comment on above: Performed By: #### L 3410.0800, L3100.5475, L3100.9100, L4500.0100, L101.9900 #### [facility] [address] [place], [place], [id number] Sjogren's Antibodies A/Bon 0 04-30-2024 ANTI-SS-A < 0.2 Normal 0.0-0.9 [facility] Comment on above: Performed By: #### L 3410.0800, L3100.5475, L3100.9100, L4500.0100, L101.9900 #### [facility] [address] [place], [address] ANTI-SS-B < 0.2 Normal 0.0-0.9 [facility] Comment on above: Performed By: #### L 3410.0800, L3100.5475, L3100.9100, L4500.0100, L101.9900 #### [facility] [address] [place], [place], [address] Erythrocyte Sed Rateon 04-26 SED RATE 11 mm/hr Normal 0-30 [facility] Comment on above: Performed By: #### L 3410.0800, L3100.5475, L3100.9100, L4500.0100, L101.9900 #### [facility] [address] [place], [address] CNOVon 04-25-2024 CNOV Office Visit (UCTR ) FELA GARCIA ([id number]) 1995 F Date Time Provider Department 04/25/24 7:00 PM ES CUMIMNS [facility] During your visit today, we recorded the following information about you: Temperature Pulse Respiration Blood pressure 98.8 degrees 82/minute 16/minute 112/78 Weight 80.1 kg Es Cummins APRN.SPANISH SPEAKING BABYSITTER 04/25/2024 7:13 PM Signed Subjective The history is provided by the patient. No occupational health nurse manager was used. HPI Fela Garcia is a 28 year old female who presents today for CC of red, sunburn like rash on face, neck, and patches on arms, and legs. States it does not itch, feels like sunburn This started in past 24 hours. Patient started Doxycycline in March 50 mg for cystic acne. Patient was out in the sun the past weekend and developed sunburn like rash in past 24 hours. She denies any fever chills body aches, throat swelling or SOB. BP 112/78 Pulse 82 Temp 37.1 ?C (98.8 ?F) (Tympanic) Resp 16 Wt 80.1 kg (176 lb 9.4 oz) SpO2 98% Social History Tobacco Use Smoking status: Every Day Smokeless tobacco: Never PAST MEDICAL HISTORY No date: Skin cysts, generalized Comment: recurrent back and chest since 13yo I have confirmed and edited as necessary, the [facility] Review of Systems Constitutional: Negative for chills and fever. Musculoskeletal: Negative for joint pain and myalgias. Skin: Positive for rash. Negative for itching. All other systems reviewed and are negative. Objective Physical Exam Vitals and nursing note reviewed. HENT: Mouth/Throat: Pharynx: No pharyngeal swelling. Pulmonary: Effort: Pulmonary effort is normal. Breath sounds: Normal breath sounds. Skin: General: Skin is warm and dry. Findings: Erythema present. Comments: Patches/sunburn like on marked areas Neurological: Mental Status: She is alert and oriented to person, place, and time. Psychiatric: Mood and Affect: Affect normal. ASSESSMENT/PLAN: 1. Rash - ICD9: 782.1, ICD10: R21 Appears to be photosensitivity reaction to doxycycline Stop doxycycline Zyrtec/Benadryl prn Follow up with PCP for management of doxycycline. Diagnosis and treatment plan were discussed and questions were answered to the patient's satisfaction. Pt acknowledged understanding of concepts and follow up plan. Specific signs and symptoms that would indicate the need for higher level of care were discussed in detail warranting prompt ER evaluation. Es Cummins APRN.Es Perez APRN.CNP 04/25/2024 7:13 PM Signed Stop doxycycline Zyrtec/Benadryl prn Follow up with PCP for management of doxycycline. * Seek medical care immediately, call 911, go to ER if you have chest pain, difficulty breathing, shortness of breath, inability to swallow. Allergies As of Date: 04/25/2024 (No Known Allergies) Date Reviewed: 04/25/2024 Reviewed by: Merle Francois LPN - Fully Assessed Reason for Visit: Rash [1087] Cmt: Rash on face, neck shoulders arms and legs x 1 day Primary Visit Diagnosis:Rash [R21] Prescriptions as of 04/25/2024 - doxycycline (VIBRAMYCIN) 50 mg capsule Take 1 capsule by mouth every afternoon. - ibuprofen (MOTRIN) 600 mg tablet Take 1 tablet by mouth every 6 hours as needed for pain. - benzonatate (TESSALON PERLES) 100 mg capsule Take 1 capsule by mouth three times a day as needed for cough. - amoxicillin (AMOXIL) 500 mg capsule - 25/iron fum/folic/dha (-1 ORAL) Take by mouth. - biotin 1 mg cap Take by mouth. - fluticasone (FLONASE) 50 mcg/actuation nasal spray Use 2 Sprays in each nostril once daily. Rinse mouth after use. Problem List As Of Date: 04/25/2024 (None) Other instructions from your clinician: Stop doxycycline Zyrtec/Benadryl prn Follow up with PCP for management of doxycycline. * Seek medical care immediately, call 911, go to ER if you have chest pain, difficulty breathing, shortness of breath, inability to swallow. Encounter Status:Closed by ES CUMMINS on 04/25/24 Normal [facility] INFLUENZA A&B MOLECULAR (POC )on 12-27-2023 Flu A (POCT) Negative Negative [facility] Flu B (POCT) Negative Negative [facility] Procedural Control Valid [facility] STREP A MOLECULAR (POC)on Procedural Control [facility] Strep A (POCT) Negative Negative [facility] XR FOOT GENERAL 3V AP/LAT/OB L RIGHTon 04-27-2023 [facility] XR Foot - right AP and Later al and obliqueon 04-27-2023 IMPRESSION: No radiographic evidence of acute osseous injury Studio Potter: [facility] Transcribe Date/Time: Apr 27 2023 4:07P Dictated by : ISAIAS MARSHALL MD This examination was interpreted and the report reviewed and electronically signed by: ISAIAS MARSHALL MD on Apr 27 2023 4:08PM [facility] DIVISION OF RADIOLOGY * * *Final Report* * * DATE OF EXAM: Apr 27 2023 4:06PM WOX [id number] - XR FOOT 3V AP/LAT/OBL RT / PROCEDURE REASON: Foot injury, right, initial encounter * * * * Physician Interpretation * * * * TITLE: XR FOOT 3V AP/LAT/OBL RT CLINICAL INDICATION: Foot injury TECHNIQUE: 3 view radiographic study of the right foot COMPARISON: None FINDINGS: No acute fracture or dislocation identified. Joint spaces preserved. DIVISION OF RADIOLOGY Provider, [facility] Jarred morel [place] - 04/27/2023 * * *Final Report* * * DATE OF EXAM: Apr 27 2023 4:06PM WOX [id number] - XR FOOT 3V AP/LAT/OBL RT / PROCEDURE REASON: Foot injury, right, initial encounter * * * * Physician Interpretation * * * * TITLE: XR FOOT 3V AP/LAT/OBL RT CLINICAL INDICATION: Foot injury TECHNIQUE: 3 view radiographic study of the right foot COMPARISON: None FINDINGS: No acute fracture or dislocation identified. Joint spaces preserved. IMPRESSION IMPRESSION: No radiographic evidence of acute osseous injury Studio Potter: [facility] Transcribe Date/Time: Apr 27 2023 4:07P Dictated by : ISAIAS MARSHALL MD This examination was interpreted and the report reviewed and electronically signed by: ISAIAS MARSHALL MD on Apr 27 2023 4:08PM EST [facility] Radiology Study observation (narrative) [facility] XR Foot - right AP and Later al and obliqueOrdered By: [facility] Provider on 04-27-2023 [facility] Basophil percentageon 2021 Chloride [Moles/Vol] 106 mmol/L 98-[address] [facility] Work Phone: Glucose [Mass/Vol] 95 mg/dL 74-106 [facility] Work Phone: Potassium [Moles/Vol] 3.9 mmol/L 3.5-5.1 [facility] Work Phone: [phone] Sodium [Moles/Vol] 139 mmol/L 136-145 [facility] Work Phone: Erythrocyte sedimentation ra gabrielle 08-11-2022 ESR (Bld) [Velocity] 11 mm/h 0-[address] [facility] Work Phone: Laboratory - Chemistry and C hemistry - challengeon 08-11-2022 CO2 [Moles/Vol] 25.0 mmol/L 21.0-32.0 [facility] Work Phone: Urea nitrogen/Creatinine [Mass ratio] 17.2 mg/mg 10-20 [facility] Work Phone: No Panel Informationon 08-11 Anti-Nuclear Antibody Screen Negative Negative [facility] Work Phone: Comment on above: Performed at: [address] [id number] Director: Alejandro Guzman PhD, Phone: [phone] Estimated GFR (MDRD) Amer 161 mL/min >60 [facility] Work Phone: Comment on above: GFR Calc Estimated GFR (MDRD) Non-Af Amer 133 mL/min >60 [facility] Work Phone: Comment on above: Non- GFR Calc Serum or plasma calcium carri urement (mass/volume)on 08-11-2022 Calcium [Mass/Vol] 8.8 mg/dL 8.5-10.1 [facility] Work Phone: [phone] Serum or plasma creatinine m easurement (mass/volume)on 08-11-2022 Creatinine [Mass/Vol] 0.58 mg/dL 0.55-1.02 [facility] Work Phone: Comment on above: The validity of the calculated GFR & GFRAA in patients over 70 years has not been determined. Clinical correlation is essential. Serum or plasma urea nitroge n measurement (mass/volume)on 08-11-2022 Urea nitrogen [Mass/Vol] 10 mg/dL 7-18 [facility] Work Phone: [phone] Thin prep Papanicolaou smear with manual screeningon 08-11-2022 Thin prep Papanicolaou smear with manual screening 8 5-15 [facility] Work Phone: [phone] Absolute lymphocyte counton 06-25-2022 Lymphocytes Auto (Unsp spec) [#/Vol] 2.11 10*3/uL 0.83-4.51 [facility] Work Phone: [phone] Basophil percentageon 2021 Basophils/100 WBC (Bld) 0.4 % 0-1 [facility] Work Phone: Eosinophils/100 WBC (Bld) 1.0 % 0-5 [facility] Work Phone: Neutrophils (Bld) [#/Vol] 5.1 10*3/uL 2.0-7.7 [facility] Work Phone: [phone] Neutrophils/100 WBC (Bld) 63.8 % 47-70 [facility] Work Phone: [phone] WBC (Bld) [#/Vol] 8.0 10*3/uL 4.4-11.0 [facility]: [phone] Blood erythrocytes count (nu mber/volume)on 06-25-2022 RBC (Bld) [#/Vol] 4.54 10*6/uL 4.2-5.4 [facility] Work Phone: [phone] Blood hemoglobin measurement (mass/volume)on 06-25-2022 Hemoglobin (Bld) [Mass/Vol] 13.1 g/dL 12.0-15.0 [facility] Work Phone: [phone] Blood lymphocytes/100 leukoc yteson 06-25-2022 Lymphocytes/100 WBC (Bld) 26.5 % 19-41 [facility] Work Phone: [phone] Blood monocytes/100 leukocyt eson 06-25-2022 Monocytes/100 WBC (Bld) 7.9 % 0-10 [facility] Work Phone: [phone] Blood platelet mean volumeon 06-25-2022 Platelet mean volume (Bld) [Entitic vol] 10.8 fL 6.2-12.0 [facility] Work Phone: [phone] Determination of erythrocyte mean corpuscular volume (MCV)on 06-25-2022 MCV (RBC) [Entitic vol] 91.2 fL 81-99 [facility] Work Phone: [phone] Hematocrit Auto (Bld) [Volum e fraction]on 06-25-2022 Hematocrit (Bld) [Volume fraction] 41.4 % 37-47 [facility] Work Phone: [phone] Laboratory - Hematology and Cell countson 06-25-2022 Erythrocyte distribution width (RBC) [Entitic vol] 42.8 fL 35.1-43.9 [facility] Work Phone: Erythrocyte distribution width (RBC) [Ratio] 12.9 % 11.6-14.6 [facility] Work Phone: Immature granulocytes/100 WBC (Bld) 0.400 % 0.0-0.9 [facility] Work Phone: Comment on above: IG% - Immature Granu locytes (promyelocytes, myelocytes and metamyelocytes) > 1% indicates that a LEFT SHIFT is Present. MCH (RBC) [Entitic mass] 28.9 pg 27.0-32.0 [facility] Work Phone: Nucleated RBC/100 WBC (Bld) [Ratio] 0 % 0-5 [facility] Work Phone: MCHC Auto (RBC) [Mass/Vol]on 06-25-2022 MCHC (RBC) [Mass/Vol] 31.6 g/dL 32-36 [facility] Work Phone: Platelets bldon 06-25-2022 Platelets (Bld) [#/Vol] 395 10*3/uL 150-450 [facility] Work Phone: No Panel Informationon 03-28 IMPRESSION: Negative left ankle and foot. Studio Potter: GASTON Transcribe Date/Time: Mar 28 2021 7:57P Dictated by : KENZIE PAYNE MD This examination was interpreted and the report reviewed and electronically signed by: KENZIE PAYNE MD on Mar 28 2021 7:59PM [facility] DIVISION OF RADIOLOGY Radiology Study observation (narrative) [facility] No Panel InformationOrdered By: Ccf Provider on 03-28-2021 [facility] XR Ankle - left AP and Later al and obliqueon 03-28-2021 * * *Final Report* * * DATE OF EXAM: Mar 28 2021 7:33PM WOX 5298 - XR ANKLE 3V AP/LAT/OBL LT / PROCEDURE REASON: Acute left ankle pain * * * * Physician Interpretation * * * * EXAMINATION: LEFT ANKLE AND FOOT X-RAYS HISTORY: Acute left ankle pain COMPARISON: None available. TECHNIQUE: AP, lateral and oblique views. (6 images) RESULT: No fracture, dislocation or destructive changes. Joint spaces and articular surfaces are preserved. Soft tissues appear within normal limits. DIVISION OF RADIOLOGY Provider, [facility] - 03/28/2021 * * *Final Report* * * DATE OF EXAM: Mar 28 2021 7:33PM WOX 5298 - XR ANKLE 3V AP/LAT/OBL LT / PROCEDURE REASON: Acute left ankle pain * * * * Physician Interpretation * * * * EXAMINATION: LEFT ANKLE AND FOOT X-RAYS HISTORY: Acute left ankle pain COMPARISON: None available. TECHNIQUE: AP, lateral and oblique views. (6 images) RESULT: No fracture, dislocation or destructive changes. Joint spaces and articular surfaces are preserved. Soft tissues appear within normal limits. IMPRESSION IMPRESSION: Negative left ankle and foot. Studio Potter: [employer] Transcribe Date/Time: Mar 28 2021 7:57P Dictated by : KENZIE PAYNE MD This examination was interpreted and the report reviewed and electronically signed by: KENZIE PAYNE MD on Mar 28 2021 7:59PM EST [facility] XR Foot - left AP and Latera l and obliqueon 03-28-2021 * * *Final Report* * * DATE OF EXAM: Mar 28 2021 7:33PM WOX 5336 - XR FOOT 3V AP/LAT/OBL LT / PROCEDURE REASON: Foot pain, left * * * * Physician Interpretation * * * * EXAMINATION: LEFT ANKLE AND FOOT X-RAYS HISTORY: Acute left ankle pain COMPARISON: None available. TECHNIQUE: AP, lateral and oblique views. (6 images) RESULT: No fracture, dislocation or destructive changes. Joint spaces and articular surfaces are preserved. Soft tissues appear within normal limits. DIVISION OF RADIOLOGY Provider, [facility] - 03/28/2021 * * *Final Report* * * DATE OF EXAM: Mar 28 2021 7:33PM WOX 5336 - XR FOOT 3V AP/LAT/OBL LT / PROCEDURE REASON: Foot pain, left * * * * Physician Interpretation * * * * EXAMINATION: LEFT ANKLE AND FOOT X-RAYS HISTORY: Acute left ankle pain COMPARISON: None available. TECHNIQUE: AP, lateral and oblique views. (6 images) RESULT: No fracture, dislocation or destructive changes. Joint spaces and articular surfaces are preserved. Soft tissues appear within normal limits. IMPRESSION IMPRESSION: Negative left ankle and foot. Studio Potter: GASTON Transcribe Date/Time: Mar 28 2021 7:57P Dictated by : KENZIE PAYNE MD This examination was interpreted and the report reviewed and electronically signed by: KENZIE PAYNE MD on Mar 28 2021 7:59PM EST [facility] EMERGENCY REPORTon EMERGENCY REPORT [facility] EMERGENCY ROOM REPORT NAME ACCOUNT SEX AGE ADMIT DISCHARGE PT MED. RECORD# NUMBER DATE DATE TYPE JOSE [id number] F 01/11/18 01/11/18 [place] [address] ROOM: ER DATE OF : 1995 DICTATING PHYSICIAN: Kenzie Farah CHIEF COMPLAINT/HISTORY OF PRESENT ILLNESS: This is a 22-year-old white female complaining of an abscess to the upper thoracic back near the base of the neck for the past 2 days. The area has been gradually getting more red, swollen and painful. She has had abscesses before and was here 2 weeks go for an abscess on the left leg that had to be drained. This feels very similar. PAST MEDICAL HISTORY: Significant only for previous skin abscess. PAST SURGICAL HISTORY: She denies any past surgeries. ALLERGIES: No known drug allergies. SOCIAL HISTORY: She is a smoker of 1/2 pack per day. She denies any use of alcohol . She lives at home with her family. REVIEW OF SYSTEMS: She denies any fever, weight loss, sweats, chills, chest pain, shortness of breath, cough, sputum, wheeze, abdominal pain, nausea, vomiting, diarrhea, constipation, melena, hematochezia, headache, numbness, unsteady gait, weakness, neck or back pain, joint pain, but does complain of skin abscess. Further review of systems is negative. PHYSICAL EXAMINATION: The patient is alert and oriented x 3. Appears in mild distress secondary to a skin abscess on the thoracic back. Pleasant and cooperative. HEENT: Head appears atraumatic. Pupils are equal and reactive to light. Red reflex intact bilaterally. Extraocular muscles intact. No conjunctival injection. Nose: No rhinorrhea or epistaxis. Mouth: Mucous membranes are moist. Teeth intact. No pharyngeal erythema. Neck is supple. Trachea is midline. No JVD or lymphadenopathy. No posterior cervical tenderness. No nuchal rigidity. Lungs are clear to auscultation in all lung chua. No adventitious sounds are noted. CVS: Heart rate and rhythm is regular without murmur. Abdomen is soft and nontender with normoactive bowel sounds x4 quadrants. No guarding or rigidity. No rebound. No palpable abdominal mass or hepatosplenomegaly. Back exhibits a 2 cm abscess upper thoracic back near the base of the neck. It has come to a head. There is a central pore, but it is presently not draining anything. There is no lymphangitic streaking. But the area is very tender to palpation, consistent with a subcutaneous abscess. Extremities: No edema, cyanosis. Peripheral pulses are intact. No motor or sensory Page 1 of 2 [facility]ELA GARCIA Emergency Room Report deficits noted. Hand range master is strong and symmetric. Vital Signs: Blood pressure 128/83, pulse 83, respirations 18, temperature 97.5. EMERGENCY DEPARTMENT COURSE AND TREATMENT: Wound site was cleansed with a diluted Betadine solution. Local anesthesia with 1% lidocaine with epinephrine. The abscess then was incised with a #11 blade, 1 cm length incision with a moderate amount of purulent drainage produced. The wound was packed with iodoform gauze and the patient was advised to keep that in for 2 days and then remove it. She tolerated the procedure well. Sterile dressing was placed over the site. DIAGNOSIS: Superficial skin abscess, upper thoracic back--incised and drained. PLAN/DISPOSITION: She is prescribed Keflex 500 mg one p.o. q6h, dispense #40 with no refill. Bactrim DS one p.o. b.i.d. dispense #20 with no refill. She was given a dose of each prior to discharge. She is to follow up with [facility] in 2-3 days for reevaluation. If her symptoms become worse she can return here. She is discharged from the clinic in stable condition. Dictated By: Kenzie Farah DO JOB #: [id number] Transcribed by: tessie TD: 01/11/18 11:20 Electronically signed by: E-Sign: Dr. Kenzie Farah D.O. 01/15/18 05:44 Page 2 of 2 FELA AGRCIA Emergency Room Report [facility] EMERGENCY REPORTon 8 EMERGENCY REPORT [facility] EMERGENCY ROOM REPORT NAME ACCOUNT SEX AGE ADMIT DISCHARGE PT MED. RECORD# NUMBER DATE DATE TYPE JOSE [id number] F 22 12/27/17 12/27/17 3 [place] [id number] ROOM: ER DATE OF : 1995 DICTATING PHYSICIAN: Tab Sage CHIEF COMPLAINT: Abscesses. HISTORY OF PRESENT ILLNESS: She comes in with multiple abscesses. She has had these abscesses in the past. She denies fevers or chills. She has had some pain. She presents to the emergency department. She says that she may have had a low-grade fever at home. She has a friend who has had abscesses in the past. PAST MEDICAL HISTORY: PAST SURGICAL HISTORY: Denies. SOCIAL HISTORY: She does smoke. She denies alcohol use. REVIEW OF SYSTEMS: Eight systems are reviewed. Negative except as mentioned above. PHYSICAL EXAMINATION: She is an awake, alert and oriented female in no acute distress. Blood pressure 132/98. Pulse 110. Pulse ox 99% on room air. Head is normocephalic, atraumatic. Eyes: Pupils are equal, round, and reactive to light. Extraocular muscles are intact. Nares are patent. Throat has adequate oral moisture. Uvula is midline. Neck is supple without petechiae or rash. Heart rate is regular without murmur. S1 equals S2, and no S3 or S4 appreciated. Lungs are clear to auscultation bilaterally. No rales, rhonchi or retractions. Abdomen is soft and nontender, nondistended. Skin is warm and dry. EMERGENCY DEPARTMENT COURSE AND TREATMENT: She does have an abscess on her left thigh and also on her left shoulder. I did offer to remove them. Risks and benefits were explained. She was anesthetized with lidocaine. A cross incision was made. She had a small amount of discharge from the thigh and also a small amount of discharge from the shoulder area. She also has some excoriated wounds that she has picked over. We will write her for Bactrim. DIAGNOSIS: Abscess of the left leg and left shoulder with incision and drainage. PLAN/DISPOSITION: She will be placed on Bactrim and discharged in stable condition. Page 1 of 2 JOSE [facility] Emergency Room Report D: Tab Sage DO TD: 12/28/17 07:40 JOB #: [id number] Transcribed by: tessie Electronically signed by: EMELIA Sage D.O. 12/29/17 08:00 Page 2 of 2 JOSEFELA Emergency Room Report [facility] Vital Signs Date Time Vital Sign Value Performing Clinician Facility 03-28-2025 17:55-0400 Body temperature 99.39 [degF] Gali Matthew MD Work Phone: [facility] 03-28-2025 17:55-0400 Body weight 94.4 kg Gali Matthew MD Work Phone: [facility] 03-28-2025 17:55-0400 Diastolic blood pressure 74 mm[Hg] Gali Matthew MD Work Phone: [facility] 03-28-2025 17:55-0400 Heart rate 82 /min Gali Matthew MD Work Phone: [facility] 03-28-2025 17:55-0400 Respiratory rate 18 /min Gali Matthew MD Work Phone: [facility] 03-28-2025 17:55-0400 SaO2% (BldA) [Mass fraction] 99 % Gali Matthew MD Work Phone: [facility] 03-28-2025 17:55-0400 Systolic blood pressure 122 mm[Hg] Gali Matthew MD Work Phone: [facility] 11-19-2024 12:14-0500 Body temperature 97 [degF] Aries Araiza MD Work Phone: [facility] 11-19-2024 12:14-0500 Body weight 85.1 kg Aries Araiza MD Work Phone: [facility] 11-19-2024 12:14-0500 Diastolic blood pressure 68 mm[Hg] Aries Araiza MD Work Phone: [facility] 11-19-2024 12:14-0500 Heart rate 61 /min Aries Araiza MD Work Phone: [facility] 11-19-2024 12:14-0500 Respiratory rate 18 /min Aries Araiza MD Work Phone: [facility] 11-19-2024 12:14-0500 SaO2% (BldA) [Mass fraction] 98 % Aries Araiza MD Work Phone: [facility] 11-19-2024 12:14-0500 Systolic blood pressure 106 mm[Hg] Aries Araiza MD Work Phone: [facility] 10-26-2024 15:57-0500 Body temperature 98.1 [degF] Leonor Huggins APRN.SPANISH SPEAKING BABYSITTER Work Phone: [facility] 10-26-2024 15:57-0500 Body weight 82.8 kg Leonor Huggins APRN.SPANISH SPEAKING BABYSITTER Work Phone: [facility] 10-26-2024 15:57-0500 Diastolic blood pressure 72 mm[Hg] Leonor Huggins APRN.SPANISH SPEAKING BABYSITTER Work Phone: [facility] 10-26-2024 15:57-0500 Heart rate 63 /min Leonor Huggins APRN.SPANISH SPEAKING BABYSITTER Work Phone: [facility] 10-26-2024 15:57-0500 Respiratory rate 18 /min Leonor Huggins APRN.SPANISH SPEAKING BABYSITTER Work Phone: [facility] 10-26-2024 15:57-0500 SaO2% (BldA) [Mass fraction] 98 % Leonor Huggins APRN.SPANISH SPEAKING BABYSITTER Work Phone: [facility] 10-26-2024 15:57-0500 Systolic blood pressure 110 mm[Hg] Leonor Huggins APRN.SPANISH SPEAKING BABYSITTER Work Phone: [facility] 08-18-2024 17:17-0500 Body height 165.1 cm Helio Hargrove MD Work Phone: [facility] 08-18-2024 17:17-0500 Body mass index (BMI) [Ratio] 30.1 kg/m2 Helio Hargrove MD Work Phone: [facility] 08-18-2024 17:17-0500 Body temperature 96.2 [degF] Helio Hargrove MD Work Phone: [facility] 08-18-2024 17:17-0500 Body weight 82.1 kg Helio Hargrove MD Work Phone: [facility] 08-18-2024 17:17-0500 Diastolic blood pressure 85 mm[Hg] Helio Hargrove MD Work Phone: [facility] 08-18-2024 17:17-0500 Heart rate 104 /min Helio Hargrove MD Work Phone: [facility] 08-18-2024 17:17-0500 Respiratory rate 16 /min Helio Hargrove MD Work Phone: [facility] 08-18-2024 17:17-0500 SaO2% (BldA) [Mass fraction] 100 % Helio Hargrove MD Work Phone: [facility] 08-18-2024 17:17-0500 Systolic blood pressure 159 mm[Hg] Helio Hargrove MD Work Phone: [facility] 08-16-2024 11:43-0500 Body temperature 98.01 [degF] Whitney Athy PA-C Work Phone: [facility] 08-16-2024 11:43-0500 Body weight 79.7 kg Whitney Athy PA-C Work Phone: [facility] 08-16-2024 11:43-0500 Diastolic blood pressure 85 mm[Hg] Whitney Athy PA-C Work Phone: [facility] 08-16-2024 11:43-0500 Heart rate 77 /min Whitney Athy PA-C Work Phone: [facility] 08-16-2024 11:43-0500 Respiratory rate 18 /min Whitney Athy PA-C Work Phone: [facility] 08-16-2024 11:43-0500 SaO2% (BldA) [Mass fraction] 100 % Whitney LI-Thierry Work Phone: [facility] 08-16-2024 11:43-0500 Systolic blood pressure 129 mm[Hg] Whitney LI-Thierry Work Phone: [facility] 04-25-2024 18:54-0400 Body temperature 98.8 [degF] Es Maria G TIRE MOLD ENGRAVER.SPANISH SPEAKING BABYSITTER Work Phone: [facility] 04-25-2024 18:54-0400 Body weight 80.1 kg Es Mraia G TIRE MOLD ENGRAVER.SPANISH SPEAKING BABYSITTER Work Phone: [facility] 04-25-2024 18:54-0400 Diastolic blood pressure 78 mm[Hg] Es Maria G TIRE MOLD ENGRAVER.SPANISH SPEAKING BABYSITTER Work Phone: [facility] 04-25-2024 18:54-0400 Heart rate 82 /min Es Maria G TIRE MOLD ENGRAVER.SPANISH SPEAKING BABYSITTER Work Phone: [facility] 04-25-2024 18:54-0400 Respiratory rate 16 /min Es Maria G TIRE MOLD ENGRAVER.SPANISH SPEAKING BABYSITTER Work Phone: [facility] 04-25-2024 18:54-0400 SaO2% (BldA) [Mass fraction] 98 % Es Maria G TIRE MOLD ENGRAVER.SPANISH SPEAKING BABYSITTER Work Phone: [facility] 04-25-2024 18:54-0400 Systolic blood pressure 112 mm[Hg] Es Maria G TIRE MOLD ENGRAVER.SPANISH SPEAKING BABYSITTER Work Phone: [facility] 12-27-2023 11:15-0400 Body temperature 98.4 [degF] Roseline Lan TIRE MOLD ENGRAVER.SPANISH SPEAKING BABYSITTER Work Phone: [facility] 12-27-2023 11:15-0400 Body weight 83 kg Roseline Lan TIRE MOLD ENGRAVER.SPANISH SPEAKING BABYSITTER Work Phone: [facility] 12-27-2023 11:15-0400 Diastolic blood pressure 72 mm[Hg] Roseline Lan TIRE MOLD ENGRAVER.SPANISH SPEAKING BABYSITTER Work Phone: [facility] 12-27-2023 11:15-0400 Heart rate 108 /min Roseline Lan TIRE MOLD ENGRAVER.SPANISH SPEAKING BABYSITTER Work Phone: [facility] 12-27-2023 11:15-0400 Respiratory rate 18 /min Roseline Lan TIRE MOLD ENGRAVER.SPANISH SPEAKING BABYSITTER Work Phone: [facility] 12-27-2023 11:15-0400 SaO2% (BldA) [Mass fraction] 97 % Roseline Lan TIRE MOLD ENGRAVER.SPANISH SPEAKING BABYSITTER Work Phone: [facility] 12-27-2023 11:15-0400 Systolic blood pressure 110 mm[Hg] Roseline Lan TIRE MOLD ENGRAVER.SPANISH SPEAKING BABYSITTER Work Phone: [facility] 04-27-2023 15:38-0400 Body temperature 97.7 [degF] Rosie Koby TIRE MOLD ENGRAVER.SPANISH SPEAKING BABYSITTER Work Phone: [facility] 04-27-2023 15:38-0400 Body weight 80.02 kg Rosie Koby TIRE MOLD ENGRAVER.SPANISH SPEAKING BABYSITTER Work Phone: [facility] 04-27-2023 15:38-0400 Diastolic blood pressure 76 mm[Hg] Rosie Koby TIRE MOLD ENGRAVER.SPANISH SPEAKING BABYSITTER Work Phone: [facility] 04-27-2023 15:38-0400 Heart rate 80 /min Rosie Koby TIRE MOLD ENGRAVER.SPANISH SPEAKING BABYSITTER Work Phone: [facility] 04-27-2023 15:38-0400 Respiratory rate 21 /min Rosie Koby TIRE MOLD ENGRAVER.SPANISH SPEAKING BABYSITTER Work Phone: [facility] 04-27-2023 15:38-0400 SaO2% (BldA) [Mass fraction] 98 % Rosie Koby TIRE MOLD ENGRAVER.SPANISH SPEAKING BABYSITTER Work Phone: [facility] 04-27-2023 15:38-0400 Systolic blood pressure 118 mm[Hg] Rosie Koby TIRE MOLD ENGRAVER.SPANISH SPEAKING BABYSITTER Work Phone: [facility] 02-25-2023 19:41-0400 Body height 162.56 cm [facility] 02-25-2023 19:41-0400 Body mass index (BMI) [Ratio] 29.8 kg/m2 [facility] 02-25-2023 19:41-0400 Body temperature 98.1 [degF] [facility] 02-25-2023 19:41-0400 Body weight 78.92 kg [facility] 02-25-2023 19:41-0400 Diastolic blood pressure 80 mm[Hg] [facility] 02-25-2023 19:41-0400 Heart rate 80 /min [facility] 02-25-2023 19:41-0400 Respiratory rate 16 /min [facility] 02-25-2023 19:41-0400 SaO2% (BldA) [Mass fraction] 99 % [facility] 02-25-2023 19:41-0400 Systolic blood pressure 119 mm[Hg] [facility] 12-17-2022 17:01-0400 Body temperature 97.5 [degF] Leonor Huggins APRN.SPANISH SPEAKING BABYSITTER Work Phone: [facility] 12-17-2022 17:01-0400 Body weight 86.82 kg Leonor Huggins APRN.SPANISH SPEAKING BABYSITTER Work Phone: [facility] 12-17-2022 17:01-0400 Diastolic blood pressure 68 mm[Hg] Leonor Huggins APRN.SPANISH SPEAKING BABYSITTER Work Phone: [facility] 12-17-2022 17:01-0400 Heart rate 70 /min Leonor Huggins APRN.SPANISH SPEAKING BABYSITTER Work Phone: [facility] 12-17-2022 17:01-0400 Respiratory rate 20 /min Leonor Huggins APRN.SPANISH SPEAKING BABYSITTER Work Phone: [facility] 12-17-2022 17:01-0400 SaO2% (BldA) [Mass fraction] 99 % Leonor Huggins APRN.SPANISH SPEAKING BABYSITTER Work Phone: [facility] 12-17-2022 17:01-0400 Systolic blood pressure 100 mm[Hg] Leonor Huggins APRN.SPANISH SPEAKING BABYSITTER Work Phone: [facility] 09-30-2022 19:32-0500 SaO2% (BldA) [Mass fraction] 99 % [facility] Work Phone: 09-30-2022 18:23-0500 Body height 165.1 cm [facility] Work Phone: 09-30-2022 18:23-0500 Body mass index (BMI) [Ratio] 32.1 kg/m2 [facility] Work Phone: 09-30-2022 18:23-0500 Body temperature 96.8 [degF] [facility] Work Phone: 09-30-2022 18:23-0500 Body weight 87.54 kg [facility] Work Phone: 09-30-2022 18:23-0500 Diastolic blood pressure 92 mm[Hg] [facility] Work Phone: 09-30-2022 18:23-0500 Heart rate 92 /min [facility] Work Phone: 09-30-2022 18:23-0500 Respiratory rate 18 /min [facility] Work Phone: 09-30-2022 18:23-0500 Systolic blood pressure 150 mm[Hg] [facility] Work Phone: 04-21-2022 20:01-0400 Respiratory rate 16 /min [facility] Work Phone: 04-21-2022 18:58-0400 Body temperature 97.8 [degF] [facility] Work Phone: 04-21-2022 18:58-0400 Diastolic blood pressure 81 mm[Hg] [facility] Work Phone: 04-21-2022 18:58-0400 Heart rate 92 /min [facility] Work Phone: 04-21-2022 18:58-0400 SaO2% (BldA) [Mass fraction] 98 % [facility] Work Phone: 04-21-2022 18:58-0400 Systolic blood pressure 114 mm[Hg] [facility] Work Phone: 04-21-2022 18:35-0400 Body height 165.1 cm [facility] Work Phone: 04-21-2022 18:35-0400 Body mass index (BMI) [Ratio] 29.1 kg/m2 [facility] Work Phone: 04-21-2022 18:35-0400 Body weight 79.37 kg [facility] Work Phone: Encounters Encounter Date Encounter Type Care Provider Facility Start: 04-20-2025 ambulatory [facility] Facility:[facility] Start: 04-12-2025 ambulatory [facility] Facility:[facility] Start: 04-11-2025 Non-patient / Non-visit Dr. Araujo [facility] Start: 04-11-2025 End: 04-11-2025 ambulatory Helio Hargrove MD Work Phone: -[facility]iovascular Services Start: 04-11-2025 End: 04-11-[address] Eric Ford MD -Cardiovascular Services Work Phone: Start: 04-11-2025 End: 04-11-2025 ambulatory Helio Hargrove Facility:[facility] Start: 04-03-2025 End: 04-03-2025 ambulatory Helio Hargrove MD Work Phone: -Laboratory [facility] Start: 04-03-2025 End: 04-03-[address] Helio Hargrove MD -[facility] Start: 04-03-2025 End: 04-03-2025 ambulatory Helio Hargrove Facility:[facility] Start: 03-28-2025 End: 03-28-2025 Office outpatient visit 25 minutes Gali Matthew MD Work Phone: [facility] Comment on above: Rash (Primary Dx) Start: 03-28-2025 End: 03-28-2025 ambulatory [facility] Facility:[facility] Start: 02-27-2025 ambulatory Beverlyon Beena Facility:[facility] Start: 02-06-2025 End: 02-06-[address] Eirc Ford MD -Cat Scan [facility] Work Phone: Start: 02-06-2025 End: 02-06-2025 ambulatory Helio Hargrove Facility:[facility] Start: 01-26-2025 End: 01-26-2025 ambulatory Helio Hargrove MD Work Phone: [facility] Work Phone: Start: 01-26-2025 End: 01-26-[address] [facility] Start: 01-26-2025 End: 01-26-2025 ambulatory Helio Hargrove Facility:[facility] Start: 01-12-2025 End: 01-12-2025 ambulatory HELIO HARGROVE Facility:[facility] Start: 12-02-2024 End: 12-02-2024 ambulatory Helio Hargrove MD Work Phone: [facility] Work Phone: Start: 12-02-2024 End: 12-02-[address] [facility] Start: 12-02-2024 End: 12-02-2024 ambulatory Helio Hargrove Facility:[facility] Start: 11-24-2024 Encounter for genera l adult medical examination without abnormal findings Helio Hargrove [facility] Start: 11-22-2024 End: 11-22-2024 ambulatory Helio Hargrove MD Work Phone: [facility] Work Phone: Start: 11-22-2024 End: 11-22-[address] Helio Hargrove MD -Cat Scan, [facility] Work Phone: Start: 11-22-2024 End: 11-22-2024 ambulatory Helio Hargrove Facility:[facility] Start: 11-20-2024 End: 01-20-2025 Follow-up encounter Leonor Huggins APRN.SPANISH SPEAKING BABYSITTER Work Phone: [facility] Start: 11-19-2024 End: 11-19-2024 ambulatory [facility] Facility:[facility] Start: 11-19-2024 End: 11-19-2024 Patient encounter procedure Aries Araiza MD Work Phone: [facility] Comment on above: Influenza-like sympt oms (Primary Dx); Impacted cerumen of right ear Start: 11-14-2024 End: 11-14-2024 ambulatory Helio Hargrove MD Work Phone: [facility] Work Phone: Start: 11-14-2024 End: 11-14-[address] Helio Hargrove MD -Laboratory, [facility] Start: 11-14-2024 End: 11-14-2024 ambulatory [facility] Facility:[facility] Start: 10-26-2024 End: 10-26-2024 ambulatory [facility] Facility:[facility] Start: 10-26-2024 End: 10-26-2024 Patient encounter procedure Leonor Huggins APRN.SPANISH SPEAKING BABYSITTER Work Phone: [facility] Comment on above: Sore throat (Primary Dx) Start: 10-17-2024 End: 10-17-[address] Jayson Turcios MD -[facility] Work Phone: Start: 10-17-2024 End: 10-17-2024 ambulatory Helio Beena Facility:[facility] Start: 10-10-2024 End: 10-10-[address] Jayson Turcios MD -[facility] Work Phone: Start: 10-10-2024 End: 10-10-2024 ambulatory Jayson Turcios Facility:[facility] Start: 09-27-2024 End: 09-27-[address] Helio Hargrove MD -Laboratory, [facility] Start: 09-27-2024 End: 09-27-2024 ambulatory [facility] Facility:[facility] Start: 09-27-2024 Registered Recurring Yao Ramirez -Physical Therapy Work Phone: Start: 09-27-2024 End: 09-27-2024 [facility] Facility:[facility] Start: 09-06-2024 End: 09-06-[address] Jayson Turcios MD -[facility] Work Phone: Start: 09-06-2024 End: 09-06-[address] [facility] Facility:[facility] Start: 08-31-[address] [facility] Facility :[facility] Start: 08-31-2024 Non-patient / Non-visit Dr. Jade acuña MD -[facility]- Start: 08-31-2024 End: 08-31-[address] Jayson Turcios MD -Pulmonary Services/Neurology Work Phone: Start: 08-31-2024 End: 08-31-[address] [facility] Facility:[facility] Start: 08-18-2024 End: 08-18-2024 Emergency department patient visit Dr. Jaylan Hunter DO -Emergency Department Work Phone: Start: 08-16-2024 End: 08-16-2024 Subsequent hospital visit by physician Jim [facility] Work Phone: Radiology Comment on above: Ankle injury, right, initial encounter [S99.911A] Start: 08-16-2024 End: 08-16-2024 ambulatory [facility] Facility:[facility] Start: 08-16-2024 End: 08-16-2024 Patient encounter procedure Whitney Smiley PA-C Work Phone: [facility] Comment on above: Closed fracture of d istal end of right fibula, unspecified fracture morphology, initial encounter (Primary Dx) Start: 08-09-2024 End: 08-09-[address] Jayson Turcios MD -[facility] Work Phone: Start: 08-09-2024 End: 08-09-2024 ambulatory [facility] Facility:[facility] Start: 08-01-2024 End: 08-01-2024 ambulatory [facility] Facility:[facility] Start: 08-01-2024 End: 08-01-[address] Helio Hargrove MD -Physical Therapy Work Phone: Start: 06-21-2024 End: 06-21-2024 ambulatory [facility] Facility:[facility] Start: 06-10-2024 End: 06-10-2024 ambulatory [facility] Facility:[facility] Start: 06-08-2024 End: 06-08-[facility] Start: 04-25-2024 End: 04-26-2024 ambulatory [facility] Facility:[facility] Start: 04-25-2024 End: 04-25-2024 Patient encounter procedure Es Cummins APRN.SPANISH SPEAKING BABYSITTER Work Phone: [facility] Comment on above: Rash (Primary Dx) Start: 12-27-2023 End: 12-27-2023 Patient encounter procedure Roseline Lan APRN.SPANISH SPEAKING BABYSITTER Work Phone: [facility] Comment on above: URI, acute (Primary Dx) Start: 04-27-2023 End: 04-27-2023 Subsequent hospital visit by physician Xr [facility] Work Phone: Radiology Comment on above: Foot injury, right, initial encounter [S99.921A] Start: 04-27-2023 End: 04-27-2023 Patient encounter procedure Rosie Whalen APRN.SPANISH SPEAKING BABYSITTER Work Phone: [facility] Comment on above: Foot injury, right, initial encounter (Primary Dx) Start: 02-25-2023 End: 02-25-2023 Emergency department patient visit [facility]-Emergency Department Start: 12-17-2022 End: 12-17-2022 Patient encounter procedure Leonor Huggins APRN.SPANISH SPEAKING BABYSITTER Work Phone: [facility] Comment on above: Jaw pain (Primary Dx ) Start: 09-30-2022 End: 09-30-2022 Emergency department patient visit [facility]-Emergency Department Start: 08-11-2022 End: 08-11-2022 ambulatory No Primary Care Physician [facility] Work Phone: Start: 08-11-2022 End: 08-11-2022 Patient encounter procedure No Primary Care Physician [facility] Start: 07-22-2022 End: 07-22-2022 ambulatory No Primary Care Physician [facility] Work Phone: Start: 07-22-2022 End: 07-22-2022 Discharged Recurring No Primary Care Physician [facility]-Occupational Therapy Start: 07-22-2022 Registered Recurring No Primar y Care Physician [facility]-Occupational Therapy Start: 06-25-2022 End: 06-25-2022 Patient encounter procedure No Primary Care Physician [facility] Start: 05-16-2022 End: 05-16-2022 Patient encounter procedure No Primary Care Physician [facility] Start: 05-13-2022 End: 05-13-2022 Patient encounter procedure No Primary Care Physician [facility] Start: 05-08-2022 End: 05-08-2022 Patient encounter procedure No Primary Care Physician [facility] Start: 04-24-2022 End: 04-24-2022 Patient encounter procedure No Primary Care Physician [facility] Start: 04-21-2022 End: 04-21-2022 Emergency department patient visit [facility]-Emergency Department Start: 03-28-2021 End: 03-28-2021 Subsequent hospital visit by physician Jim [facility] Work Phone: Radiology Comment on above: Acute left ankle cathryn n [M25.572] Start: 01-11-2018 End: 01-11-2018 Emergency department patient visit KENZIE SANTA [facility] Start: 12-27-2017 End: 12-27-2017 Emergency department patient visit TAB SAGE [facility] Procedures Date Procedure Procedure Detail Performing Clinician Start: 02-06-2025 CT of chest without contrast Helio Hargrove MD Work Phone: Start: 03-14-2025 Endomysial antibody IgA level Helio Hargrove MD Work Phone: Start: 11-22-2024 CT of abdomen with contrast Helio Hargrove MD Work Phone: Start: 10-26-2024 STREP A MOLECULAR (POC) Roseline Lan TIRE MOLD ENGRAVER.SPANISH SPEAKING BABYSITTER Work Phone: Start: 10-10-2024 MRI of joint of lowe r extremity Helio Hargrove MD Work Phone: Start: 08-16-2024 End: 08-16-2024 Radex ankle complete minimum 3 views Whitney Smiley PA-C Work Phone: Start: 08-09-2024 Plain X-ray of shoulder Helio Hargrove MD Work Phone: Start: 12-27-2023 INFLUENZA A&B MOLECU LAR (POC) [facility] Start: 12-27-2023 STREP A MOLECULAR (POC) [facility] Provider Start: 04-27-2023 Radex foot complete minimum 3 views Rosie Whalen TIRE MOLD ENGRAVER.SPANISH SPEAKING BABYSITTER Work Phone: Start: 05-16-2022 Ultrasonography of limb No Primary Care Physician Start: 03-28-2021 Radex ankle complete minimum 3 views Guzman Charlton TIRE MOLD ENGRAVER.SPANISH SPEAKING BABYSITTER Work Phone: Plan of Treatment Date Care Activity Detail Author Start: 05-22-2025 Influenza vaccination C [facility] Start: 08-18-2024 [facility] Start: 05-22-2024 Covid-19 Vaccine ( season) Covid-19 Vaccine ( season) [facility] Start: 05-22-2024 Covid-19 Vaccine ( season) Covid-19 Vaccine ( season) [facility] Start: 05-22-2024 Influenza vaccination C [facility] Start: 12-27-2023 End: 03-27-2024 INFLUENZA A&B MOLECULAR (POC) INFLUENZA A&B MOLECULAR (POC) Microbiology Routine URI, acute Expected: 12/27/2023, Expires: 03/27/2024 [facility] Work Phone: Comment on above: Expected: 12/27/2023 , Expires: 03/27/2024 Start: 09-21-2023 Behavioral Health Screening Behavioral Health Screening [facility] Start: 05-22-2023 Covid-19 Vaccine ( season) Covid-19 Vaccine ( season) [facility] Start: 05-22-2023 Influenza vaccination INFLUENZA (#1) [facility] Start: 09-21-2022 DEPRESSION ASSESSMENT DEPRESSION ASS ESSMENT [facility] Start: 05-22-2022 Influenza vaccination INFLUENZA (#1) [facility] Start: 05-08-2022 Patient referral [facility] Work Phone: Start: 11-12-2021 Urine microalbumin profile DTaP,Tdap,Td Vaccine (7 - Td or Tdap) [facility] Start: 2017 PAP TESTING PAP TESTING [facility] Start: 2017 Screening for malign ant neoplasm of cervix [facility] Start: 2015 Pneumococcal vaccination Pneumococcal Vaccine (1 of 2 - PCV) [facility] Start: 2015 Urine microalbumin profile DTAP,TDAP,TD (1 - Tdap) [facility] Start: 2014 Anxiety Screening Anxiety Screening [facility] Start: 2014 [facility]: 2014 HEPATITIS C SCREENING HEPATITIS C [facility] Start: 2014 Hepatitis C screening Hepatitis C [facility] Start: 2014 HIV SCREENING HIV SCREENING [facility] Start: 2014 HIV screening HIV Screening [facility] Start: 12-10-2011 HPV Vaccine (2 - 3-d ose series) HPV Vaccine (2 - 3-dose series) [facility] Start: 2010 PEDS TO ADULT TRANSITION ANNUAL ASSESSMENT PEDS TO ADULT TRANSITION ANNUAL ASSESSMENT [facility] Start: 2008 PEDS TO ADULT TRANSITION INITIAL DISCUSSION PEDS TO ADULT TRANSITION INITIAL DISCUSSION [facility] Start: 2007 HPV VACCINE (1 - 2-d ose series) HPV VACCINE (1 - 2-dose series) [facility] Start: 2005 HPV VACCINE (1 - 2-d ose series) HPV VACCINE (1 - 2-dose series) [facility] Start: 2002 PNEUMOCOCCAL (1 - PCV) PNEUMOCOCCAL (1 - PCV) [facility] Start: 2002 Pneumococcal vaccination Pneumococcal Vaccine (1 of 2 - PCV) [facility] Start: 01-11-1997 COVID-19 VACCINE (#1) COVID-19 VACCI NE (#1) [facility] Start: 1996 HEPATITIS B (1 of 3 - 3-dose series) HEPATITIS B (1 of 3 - 3-dose series) [facility] COVID & INFLUENZA A/ B & RSV PCR, ROUTINE COVID & INFLUENZA A/B & RSV PCR, ROUTINE Microbiology Routine Influenza-like symptoms Ordered: 11/19/2024 [facility] Work Phone: Comment on above: Ordered: 11/19/2024 Patient Education [facility] Work Phone: Patient referral [facility] [place] Work Phone: Payers Date Payer Category Payer Self-pay [id number] 2022 Unknown [id number] 2020 Medicaid [id number] [facility] [id number] [id number] Medicaid MEDICAID [id number] Private Health Insurance [id number] Unknown [id number] Unknown [id number] 2.16.8 [id number] Unknown [id number] 2.16.8 40.1.030657.3.579.2.462 Unknown [id number] 2.16.8 40.1.691766.3.579.2.462 Unknown [id number] 2.16.8 40.1.038425.3.579.2.462 Unknown [id number] 2.16.8 40.1.708759.3.579.2.462 Unknown [id number] 2.16.8 40.1.318130.3.579.2.462 Unknown [id number] 2.16.8 40.1.274658.3.579.2.462 Unknown [id number] 2.16.8 40.1.010212.3.579.2.462 Unknown [id number] 2.16.8 40.1.732137.3.579.2.462 Unknown [id number] 2.16.8 40.1.142149.3.579.2.462 Unknown [id number] 2.16.8 40.1.222955.3.579.2.462 Unknown [id number] 2.16.8 40.1.607180.3.579.2.462 Unknown [id number] 2.16.8 40.1.555833.3.579.2.462 Unknown [id number] 2.16.8 40.1.600154.3.579.2.462 Unknown [id number] 2.16.8 40.1.722152.3.579.2.462 Unknown [id number] 2.16.8 40.1.396968.3.579.2.462 Unknown [id number] 2.16.8 40.1.104354.3.579.2.462 Unknown [id number] 2.16.8 40.1.005739.3.579.2.462 Unknown [id number] 2.16.8 40.1.382562.3.579.2.462 Unknown [id number] 2.16.8 40.1.993620.3.579.2.462 Unknown [id number] 2.16.8 40.1.989753.3.579.2.462 Unknown [id number] 2.16.8 40.1.520964.3.579.2.462 Unknown [id number] 2.16.8 40.1.600018.3.579.2.462 Unknown [id number] 2.16.8 40.1.564609.3.579.2.462 Unknown [id number] 2.16.8 40.1.288270.3.579.2.462 Unknown [id number] 2.16.8 40.1.346602.3.579.2.462 Unknown [id number] 2.16.8 40.1.682499.3.579.2.462 Social History Date Type Detail Facility [facility] Work Phone: Start: 04-21-2022 End: 02-25-2023 Tobacco smoking status LAIS Unknown if ever smoked [facility] Start: 08-14-2019 Rare [facility] Start: 10-29-2019 With Family [facility] Start: 1995 Sex Assigned At Female [facility] Start: 12-17-2022 End: 08-18-2024 Tobacco smoking status NHIS Smokes tobacco daily [facility] Start: 11-25-2018 End: 12-17-2022 Tobacco use and exposure Smokeless tobacco non-user [facility] Start: 1995 Sex Assigned At Not on file [facility] Start: 08-25-2020 End: 04-27-2023 History of Social function [facility] Start: 08-25-2020 End: 04-27-2023 Tobacco use panel [facility] National Score (1-100), lower number is lower risk Not on file [facility] Start: 02-26-2021 End: 03-28-2021 Exposure to SARS-CoV-2 (event) Not sure [facility] Start: 11-24-2024 End: 12-13-2024 Sex Female (finding) [facility] NEGATED: Highlighted row [facility] Functional Status Date Assessment Result Facility 08-30-2020 Are you deaf, or do you have serious difficulty hearing No 08/30/2020 7:23 PM Dinah Sepulveda MD No [facility] Work Phone: 08-30-2020 Are you blind, or do you have serious difficulty seeing, even when wearing glasses No 08/30/2020 7:23 PM Dinah Sepulveda MD No [facility] 08-30-2020 Do you have serious difficulty walking or climbing stairs No 08/30/2020 7:23 PM Dinah Sepulveda MD No [facility] 08-30-2020 Do you have difficul ty dressing or bathing No 08/30/2020 7:23 PM Dinah Sepulveda MD No [facility] 08-30-2020 Because of a physica l, mental, or emotional condition, do you have difficulty doing errands alone such as visiting a physician's office or shopping No 08/30/2020 7:23 PM Dinah Sepulveda MD No [facility] Mental Status Date Assessment Result Facility 08-30-2020 Because of a physica l, mental, or emotional condition, do you have serious difficulty concentrating, remembering, or making decisions No 08/30/2020 7:23 PM Dinah Sepulveda MD No [facility] Clinical Notes 03-28-2021 to 03-28-2025 Gali Matthew MD - 03/28/2025 6:08 PM EDTPatient InstructionsAddendum Note - Aries Araiza MD - 11/19/2024 2:05 PM ESTAddendum Note - Aries Araiza MD - 11/19/2024 2:05 PM EST Note Date & Type Note Facility 03-28-2025 Note HNO ID: [id number] Author: GALI MATTHEW MD Service: ? Author Type: Physician Type: Progress Notes Filed: 03/28/2025 18:20 Note Text: URGENT CARE CHARY Garcia is a 29 year old female. 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 Negative for chills and fever. Respiratory: Negative for cough. Musculoskeletal: Negative for arthralgias and myalgias. Skin: Positive for rash. Objective BP 122/74 Pulse 82 Temp 37.4 ?C (99.4 ?F) (Tympanic) Resp 18 Wt 94.4 kg (208 lb 1.8 oz) LMP 07/27/2024 (Exact Date) SpO2 99% Physical Exam Vitals and nursing note reviewed. Constitutional: Appearance: Normal appearance. She is not ill-appearing. Cardiovascular: Rate and Rhythm: Normal rate and regular rhythm. Pulmonary: Effort: Pulmonary effort is normal. Breath sounds: Normal breath sounds. Skin: Findings: Rash present. Comments: Papulovesicular rash on fingers and trunk and mild rash on face Neurological: Mental Status: She is alert and oriented to person, place, and time. Psychiatric: Mood and Affect: Mood normal. Behavior: Behavior normal. {ASSESSMENT/PLAN: 1. 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 Procedures [facility] 03-28-2025 History of Presen t illness Narrative URGENT CARE [facility] Fela Garcia is a 29 year old female. 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 Negative for chills and fever. Respiratory: Negative for cough. Musculoskeletal: Negative for arthralgias and myalgias. Skin: Positive for rash. Objective BP 122/74 Pulse 82 Temp 37.4 C (99.4 F) (Tympanic) Resp 18 Wt 94.4 kg (208 lb 1.8 oz) LMP 07/27/2024 (Exact Date) SpO2 99% Physical Exam Vitals and nursing note reviewed. Constitutional: Appearance: Normal appearance. She is not ill-appearing. Cardiovascular: Rate and Rhythm: Normal rate and regular rhythm. Pulmonary: Effort: Pulmonary effort is normal. Breath sounds: Normal breath sounds. Skin: Findings: Rash present. Comments: Papulovesicular rash on fingers and trunk and mild rash on face Neurological: Mental Status: She is alert and oriented to person, place, and time. Psychiatric: Mood and Affect: Mood normal. Behavior: Behavior normal. {ASSESSMENT/PLAN: 1. 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 Procedures documented in this encounter [facility] 03-28-2025 Instructions Gali Matthew MD - 03/28/2025 6:08 PM EDT [facility] [address] [place], [place] [address] Emergency Department Diagnosis: Assessment NONSPECIFIC RASH: Our exam shows you have a rash which has no clear cause. Rashes can result from infections, allergies, or irritation of the skin by chemicals or other environmental factors. Rashes can also result from scratching or rubbing the skin too much to relieve itching. Further medical examination may be needed to identify the specific cause and proper treatment of your skin rash. You should treat your rash as recommended by your doctor. If you have itching, you should avoid scratching as much as possible, as this further damages the skin. Ask your doctor or pharmacist if you have any questions about what topical medicines may help relieve your symptoms. Call your doctor right away if your rash is not better in 2-3 days, if it worsens, or if there are signs of infection (increased pain, redness, drainage or pus). documented in this encounter [facility] 01-12-2025 Note HNO ID: [id number] Author: ROSIE WHALEN APRN.SPANISH SPEAKING BABYSITTER Service: ? Author Type: Nurse Practitioner Type: Progress Notes Filed: 01/12/2025 16:44 Note Text: [facility] Subjective HPI HPI Fela Garcia is a 29 year old female who presents today for CC of itchy rash. This started 2 days ago. Has tried otc medication for relief. Symptoms are worsened by nothing. Risk factors recently started a [employer] .Patient presents with: Rash: Widespread, started on L arm, now on face and L side ribs x2 days PAST MEDICAL HISTORY Diagnosis Date Skin cysts, generalized recurrent back and chest since 13yo PAST SURGICAL HISTORY Procedure Laterality Date NONE ALLERGIES Patient has no known allergies. MEDICATIONS omeprazole (PRILOSEC) 40 mg capsule TAKE 1 CAPSULE BY MOUTH ONCE DAILY DIRECTED BEFORE BREAKFAST predniSONE (DELTASONE) 10 mg tablet Take 4 tabs daily x 3 days, then 3 tabs x 3 days, 2 tabs x 3 days, then 1 tab x3 days with food. triamcinolone acetonide (KENALOG) 0.1 % cream Apply 1 application to affected area three times a day for 10 days. Apply sparingly to area for rash/itching. No family history on file. Social History Tobacco Use Smoking status: Every Day Smokeless tobacco: Never Review of Systems Constitutional: Negative for fever. Musculoskeletal: Negative for arthralgias, joint swelling and myalgias. Skin: Positive for rash. Negative for wound. Objective BP 122/70 Pulse 78 Temp 37 ?C (98.6 ?F) Resp 18 Wt 89.4 kg (197 lb 1.5 oz) LMP 07/27/2024 (Exact Date) SpO2 98% Physical Exam Constitutional: General: She is not in acute distress. Appearance: She is not toxic-appearing or diaphoretic. HENT: Head: Normocephalic and atraumatic. Skin: General: Skin is warm and dry. Findings: Rash present. Rash is vesicular (distribution linear ). Neurological: Mental Status: She is alert and oriented to person, place, and time. {ASSESSMENT/PLAN: 1. Rhus dermatitis - ICD9: 692.6, ICD10: L25.5 - Oral Steriod tx -Prednisone taper - Topical steriod tx with Rx for steriod cream/ointment- see orders - discussed skin care of rash - follow up if symptoms persist or worsen. - PREDNISONE 10 MG TABLET - TRIAMCINOLONE ACETONIDE 0.1 % TOPICAL CREAM Rosie Whalen APRN.SPANISH SPEAKING BABYSITTER Differential Diagnoses - contact allergic derm d/t plant Disposition The patient was discharged. Procedures [facility] 11-23-2024 Radiology Diagnostic study note [facility] Imaging Services [address], [place] [address] Abdomen WITH IV Contrast MR#: [id number] Acct: [id number] Name: FELA GARCIA Rep #: [id number] : 1995 F 29 From: Narendra Chan MD PCP: Dr. Helio Hargrove MD Status: REG CL I Study:Abdomen WITH IV Contrast Date of Exam: 11/22/24 Exam# [id number] Ordering Dr: Martha Hargrove MD PROCEDURE: ABDOMEN WITH IV CONTRAST REASON FOR EXAM: Epigastric pain with radiation to right side TECHNIQUE: Abdomen CT with intravenous contrast. Coronal and sagittal reformatted images IV CONTRAST: 91 cc Isovue-300 COMPARISON: None. FINDINGS: Lung bases: Clear Liver: Unremarkable. Gallbladder: Unremarkable. Nondistended without evidence of calcified stones, wall thickening or pericholecystic free fluid identified. Spleen: Unremarkable. Pancreas: Unremarkable. Adrenals: Unremarkable. Kidneys: Unremarkable. Symmetric appearing nephrograms without hydronephrosis or perinephric stranding. Bowel: Visualized loops of bowel are unremarkable. Oral contrast is seen to theproximal sigmoid colon. No bowel dilation, free air or free fluid identified. Normal caliber appendix without secondary signs. Lymph nodes: No suspicious lymph node enlargement. Vasculature: Unremarkable Peritoneum / Retroperitoneum: No ascites or free air at the upper abdomen. Bones: Unremarkable. CT/Abdomen WITH IV Contrast IMPRESSION: No evidence of intra-abdominal abnormality. One or more dose reduction techniques were used (e.g., Automated exposure control, adjustment of the mA and/or kV according to patient size, use of iterative reconstruction technique). Reading Location: [id number] CC: Dr. Helio Hargrove MD ~ Studio Potter: Signed [facility] 11-19-2024 Note SARS-COV-2 (AGENT OF COVID-19) RNA: Not detected INFLUENZA A RNA: Not detected INFLUENZA B RNA: Not detected RESPIRATORY SYNCYTIAL VIRUS (RSV) RNA: Not detected [facility] Comment on above: Performed By: #### 9 [id number] ####[facility]CLIA [id number] [address] 11-19-2024 Note Addended by: ARIES HERNANDEZ on: 11/19/2024 02:05 PM Modules accepted: Orders [facility] 11-19-2024 Miscellaneous Notes Addended by: ARIES ARAIZA on: 11/19/2024 02:05 PM Modules accepted: Orders documented in this encounter [facility] 11-19-2024 Note HNO ID: [id number] Author: ARIES ARAIZA MD Service: ? Author Type: Physician Type: Progress Notes Filed: 11/19/2024 12:48 Note Text: Patient presents with: Flu Like Symptoms: Nasal congestion, headaches, right ear pain, dry cough, sore throat x6 days HPI: Feeling sick for a couple days, initial nasal congestion started 5 days ago. Positive symptoms: Sore throat, Nasal Congestion, Rhinorrhea, Headache, right earache, Body Aches, Malaise, soft stool, hoarse voice, hot/chills Negative symptoms: Vomiting, Diarrhea, Fever, OTC: Mucinex, Nyquil, Dayquil, throat spray MEDICATIONS: No current outpatient medications on file. No current facility-administered medications for this visit. ALLERGIES: ALLERGIES No Known Allergies VITALS: BP 106/68 Pulse 61 Temp 36.1 ?C (97 ?F) Resp 18 Wt 85.1 kg (187 lb 9.8 oz) LMP 07/27/2024 (Exact Date) SpO2 98% PHYSICAL EXAM: GEN: mildly ill appearing HEENT: PERRL, EOMI, conjunctiva clear Ears: left canal clear. Right cerumen impaction. TMs without erythema, bulge, or effusion Sinuses: non-tender frontal sinus, non-tender maxillary sinuses Throat: moist mucous membranes, mild erythema, no exudate Neck: supple, no thyromegaly, no lymphadenopathy HEART: regular rate, regular rhythm, no murmurs LUNGS: clear to auscultation, no wheezes or crackles, no increased WOB ASSESSMENT/PLAN: 1. Influenza-like symptoms - ICD9: 780.99, ICD10: R68.89 (primary diagnosis) - suspect viral URI, differential includes influenza and COVID-19. - Discussed supportive care treatment with home isolation (fever free for 24 hours and improving symptoms+5 days of limiting exposure), rest, cold medicine, and analgesia. - Red flags to seek further treatment include chest pain, shortness of breath, and lethargy; in the ER if severe. 2. Impacted cerumen of right ear - ICD9: 380.4, ICD10: H61.21 Successful removal of impaction by water irrigation (began by staff and completed by myself for residual impaction). Aries Araiza MD [facility] 11-19-2024 History of Presen t illness Narrative Patient presents with: Flu Like Symptoms: Nasal congestion, headaches, right ear pain, dry cough, sore throat x6 days HPI: Feeling sick for a couple days, initial nasal congestion started 5 days ago. Positive symptoms: Sore throat, Nasal Congestion, Rhinorrhea, Headache, right earache, Body Aches, Malaise, soft stool, hoarse voice, hot/chills Negative symptoms: Vomiting, Diarrhea, Fever, OTC: Mucinex, Nyquil, Dayquil, throat spray MEDICATIONS: No current outpatient medications on file. No current facility-administered medications for this visit. ALLERGIES: ALLERGIES No Known Allergies VITALS: BP 106/68 Pulse 61 Temp 36.1 C (97 F) Resp 18 Wt 85.1 kg (187 lb 9.8 oz) LMP 07/27/2024 (Exact Date) SpO2 98% PHYSICAL EXAM: GEN: mildly ill appearing HEENT: PERRL, EOMI, conjunctiva clear Ears: left canal clear. Right cerumen impaction. TMs without erythema, bulge, or effusion Sinuses: non-tender frontal sinus, non-tender maxillary sinuses Throat: moist mucous membranes, mild erythema, no exudate Neck: supple, no thyromegaly, no lymphadenopathy HEART: regular rate, regular rhythm, no murmurs LUNGS: clear to auscultation, no wheezes or crackles, no increased WOB ASSESSMENT/PLAN: 1. Influenza-like symptoms - ICD9: 780.99, ICD10: R68.89 (primary diagnosis) - suspect viral URI, differential includes influenza and COVID-19. - Discussed supportive care treatment with home isolation (fever free for 24 hours and improving symptoms+5 days of limiting exposure), rest, cold medicine, and analgesia. - Red flags to seek further treatment include chest pain, shortness of breath, and lethargy; in the ER if severe. 2. Impacted cerumen of right ear - ICD9: 380.4, ICD10: H61.21 Successful removal of impaction by water irrigation (began by staff and completed by myself for residual impaction). Aries Araiza MD documented in this encounter [facility] 10-26-2024 Note HNO ID: [id number] Author: LEONOR HUGGINS APRN.SPANISH SPEAKING BABYSITTER Service: ? Author Type: Nurse Practitioner Type: Progress Notes Filed: 10/26/2024 16:23 Note Text: CC: Patient presents with: Sore Throat: ST and fever x 3 days HPI: Fela Garcia is a 29 year old female who presents to the office with complaint of sore throat and fever for a few days. Symptoms are staying the same. Associated symptoms includes sore throat. Denies wheezing, dyspnea, nausea, vomiting , and diarrhea. Treatments tried include nothing so far. with no relief of symptoms. Sick contacts: unknown. History of asthma, frequent episodes of bronchitis, chronic bronchitis, bronchiectasis or COPD: No Smoker: No Seasonal/environmental allergies: No The ROS is otherwise negative. The patient's pmh, medications, allergies, and past visits are reviewed. PHYSICAL EXAM: BP 110/72 Pulse 63 Temp 36.7 ?C (98.1 ?F) (Tympanic) Resp 18 Wt 82.8 kg (182 lb 8.7 oz) LMP 07/27/2024 (Exact Date) SpO2 98% General appearance: alert, cooperative, pleasant, in no acute distress Head: Normocephalic Eyes: EOM's intact, conjunctiva pink and moist, no icterus, sclera white, non-injected Ears: Right ear: External ear/canal- Normal, TM - clear with good landmarks. Left ear: External ear/canal- Normal, TM - clear with good landmarks Oropharynx:mild erythema, without exudates present, uvula midline, serious fluid noted Neck: mild cervical adenopathy Heart: Negative. RRR without obvious murmur, gallop, or rubs. No ectopy. Lungs: clear to auscultation, without rales or wheeze, good air exchange PAST MEDICAL HISTORY Diagnosis Date Skin cysts, generalized recurrent back and chest since 13yo PAST SURGICAL HISTORY Procedure Laterality Date NONE ALLERGIES Patient has no known allergies. MEDICATIONS No prescriptions on file. No family history on file. Social History Tobacco Use Smoking status: Every Day Smokeless tobacco: Never ASSESSMENT/PLAN: 1. Sore throat - ICD9: 462, ICD10: J02.9 - STREP A MOLECULAR (POC) - neg . Potential red flag symptoms discussed with the patient. Reviewed appropriate action plan to take if red flag symptoms occur. Patient agreeable to treatment plan. Leonor Huggins APRN.[facility] 10-26-2024 History of Presen t illness Narrative CC: Patient presents with: Sore Throat: ST and fever x 3 days HPI: Fela Garcia is a 29 year old female who presents to the office with complaint of sore throat and fever for a few days. Symptoms are staying the same. Associated symptoms includes sore throat. Denies wheezing, dyspnea, nausea, vomiting , and diarrhea. Treatments tried include nothing so far. with no relief of symptoms. Sick contacts: unknown. History of asthma, frequent episodes of bronchitis, chronic bronchitis, bronchiectasis or COPD: No Smoker: No Seasonal/environmental allergies: No The ROS is otherwise negative. The patient's pmh, medications, allergies, and past visits are reviewed. PHYSICAL EXAM: BP 110/72 Pulse 63 Temp 36.7 C (98.1 F) (Tympanic) Resp 18 Wt 82.8 kg (182 lb 8.7 oz) LMP 07/27/2024 (Exact Date) SpO2 98% General appearance: alert, cooperative, pleasant, in no acute distress Head: Normocephalic Eyes: EOM's intact, conjunctiva pink and moist, no icterus, sclera white, non-injected Ears: Right ear: External ear/canal- Normal, TM - clear with good landmarks. Left ear: External ear/canal- Normal, TM - clear with good landmarks Oropharynx:mild erythema, without exudates present, uvula midline, serious fluid noted Neck: mild cervical adenopathy Heart: Negative. RRR without obvious murmur, gallop, or rubs. No ectopy. Lungs: clear to auscultation, without rales or wheeze, good air exchange PAST MEDICAL HISTORY Diagnosis Date Skin cysts, generalized recurrent back and chest since 13yo PAST SURGICAL HISTORY Procedure Laterality Date NONE ALLERGIES Patient has no known allergies. MEDICATIONS No prescriptions on file. No family history on file. Social History Tobacco Use Smoking status: Every Day Smokeless tobacco: Never ASSESSMENT/PLAN: 1. Sore throat - ICD9: 462, ICD10: J02.9 - STREP A MOLECULAR (POC) - neg . Potential red flag symptoms discussed with the patient. Reviewed appropriate action plan to take if red flag symptoms occur. Patient agreeable to treatment plan. Leonor Huggins APRN.TALIB documented in this encounter [facility] 10-17-2024 Evaluation note Diagnosis Onset Date Resolution Impingement of left shoulder acute October 17 10:49am Left shoulder pain acute 2024 10:49am [facility] Work Phone: 1(819) 333-446312-17-2024 Evaluation note* Diagnosis Onset Date Resolution Status Admit Date Impingement of left shoulder acute September 06, 2024 10:56am Left shoulder pain acute Decemb er 2023 10:56am Impingement of left shoulder acute October 17, 2024 10:49am Left shoulder pain acute Terry y 2024 10:49am [facility] Work Phone: 1(368) 571-372711-26-2024 NoteHNO ID: [id number] Author: WHITNEY SMILEY PA-C Service: ? Author Type: Physician Cocoa Bean Cleaner Type: Progress Notes Filed: 08/16/2024 14:15 Note Text: This note was created using [employer]. Subjective Fela Garcia is a 29 year old female. HPI Presents with a chief complaint of right ankle pain for 2 days. She states an accordion door from her closet fell and landed on the back of her ankle. She is got bruising and swelling and pain with moving the ankle. She denies other injuries. No weakness or numbness. Review of Systems Musculoskeletal: Right ankle pain, swelling and bruising All other systems reviewed and are negative. 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 No current facility-administered medications for this visit. PAST SURGICAL HISTORY Procedure Laterality Date NONE No family history on file. Social History Tobacco Use Smoking status: Every Day Smokeless tobacco: Never Objective BP 129/85 Pulse 77 Temp 36.7 ?C (98 ?F) Resp 18 Wt 79.7 kg (175 lb 11.3 oz) LMP 07/27/2024 (Exact Date) SpO2 100% Physical Exam Vitals reviewed. Constitutional: Appearance: Normal appearance. HENT: Head: Normocephalic and atraumatic. Musculoskeletal: Legs: Comments: Patient has bruising and swelling diffusely about the lateral malleolus and lateral right foot. She is tender on palpation. Able to dorsiflex and plantarflex but is painful. Able to ambulate. No tenderness over the Achilles tendon. Intact on Velasco testing. Pedal pulses 2+. Normal distal sensation. Cap refill brisk less than 2 seconds. Skin: General: Skin is warm and dry. Neurological: General: No focal deficit present. Mental Status: She is alert and oriented to person, place, and time. Assessment and Plan ASSESSMENT/PLAN: 1. Closed fracture of distal end of right fibula, unspecified fracture morphology, initial encounter - ICD9: 824.8, ICD10: S82.831A X-ray shows a fracture of the distal right fibula that is nondisplaced. I did place her in a boot and crutches. Recommended nonweightbearing until she follows up with orthopedics. She would prefer to follow-up with [place] [facility]. She was given her disc of x-rays and referral. Rest, ice, ibuprofen. Patient agreeable. - XR ANKLE GENERAL 3V AP/LAT/OBL RIGHT - XR FOOT GENERAL 3V AP/LAT/OBL RIGHT - CONSULT TO ORTHOPAEDICS JEN [facility]11-26-2024 History of Present illness Narrative* Whitney Smiley PA-C - 08/16/2024 2:12 PM EST This note was created using [employer]. Subjective Fela Garcia is a 29 year old female. HPI Presents with a chief complaint of right ankle pain for 2 days. She states an accordion door from her closet fell and landed on the back of her ankle. She is got bruising and swelling and pain with moving the ankle. She denies other injuries. No weakness or numbness. Review of Systems Musculoskeletal: Right ankle pain, swelling and bruising All other systems reviewed and are negative. 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 No current facility-administered medications for this visit. PAST SURGICAL HISTORY Procedure Laterality Date NONE No family history on file. Social History Tobacco Use Smoking status: Every Day Smokeless tobacco: Never Objective BP 129/85 Pulse 77 Temp 36.7 C (98 F) Resp 18 Wt 79.7 kg (175 lb 11.3 oz) LMP 07/27/2024 (Exact Date) SpO2 100% Physical Exam Vitals reviewed. Constitutional: Appearance: Normal appearance. HENT: Head: Normocephalic and atraumatic. Musculoskeletal: Legs: Comments: Patient has bruising and swelling diffusely about the lateral malleolus and lateral rightfoot. She is tender on palpation. Able to dorsiflex and plantarflex but is painful. Able to ambulate. No tenderness over the Achilles tendon. Intact on Velasco testing. Pedal pulses 2+. Normal distal sensation. Cap refill brisk less than 2 seconds. Skin: General: Skin is warm and dry. Neurological: General: No focal deficit present. Mental Status: She is alert and oriented to person, place, and time. Assessment and Plan ASSESSMENT/PLAN: 1. Closed fracture of distal end of right fibula, unspecified fracture morphology, initial encounter - ICD9: 824.8, ICD10: S82.831A X-ray shows a fracture of the distal right fibula that is nondisplaced. I did place her in a boot and crutches. Recommended nonweightbearing until she follows up with orthopedics. She would prefer tofollow-up with [facility]. She was given her disc of x-rays and referral. Rest, ice, ibuprofen. Patient agreeable. - XR ANKLE GENERAL 3V AP/LAT/OBL RIGHT - XR FOOT GENERAL 3V AP/LAT/OBL RIGHT - CONSULT TO ORTHOPAEDICS Whitney Smiley PA-C [facility] History of Present illness Narrative* Ginny Caba RT(R) - 08/16/2024 12:00 PM EST Radiology Service Progress Note PATIENT NAME: Fela Garcia DATE OF SERVICE: August 16, 2024 TIME: 12:14 PM PATIENT IDENTITY VERIFICATION COMPLETED USING TWO (2) IDENTIFIERS: Name and Date of confirmedby patient verbally. FALL SCREENING: Has the patient had 2 falls in the last year or 1 fall with injury or currently using an Ambulatory Assistive Device (Walker, Cane, Wheelchair, Crutches, etc.)? No PATIENT GENDER DATA: Female. status: : No status: NO. PATIENT RELEVANT IMPLANT DATA REVIEWED: Yes PATIENT PRESENTS WITH AN IMPLANTABLE OR ATTACHED COAL UNLOADER: No RADIOLOGY DEPARTMENT: General X-ray: Exam(s) Completed: Lower Extremity X- Ray(s): Ankle, Right and Foot, Right PERIPHERAL IV DATA: Not applicable SIGNED BY: RT Michael(R) August 16, 2024 12:14 PM [facility]24 NoteHNO ID: [id number] Author: GINNY CABA RT (R) Service: ? Author Type: Battalion Chief Type: Progress Notes Filed: 08/16/2024 12:14 Note Text: Radiology Service Progress Note PATIENT NAME: Fela Garcia DATE OF SERVICE: August 16, 2024 TIME: 12:14 PM PATIENT IDENTITY VERIFICATION COMPLETED USING TWO (2) IDENTIFIERS: Name and Date of confirmed by patient verbally. FALL SCREENING: Has the patient had 2 falls in the last year or 1 fall with injury or currently using an Ambulatory Assistive Device (Walker, Cane, Wheelchair, Crutches, etc.)? No PATIENT GENDER DATA: Female. status: : No status: NO. PATIENT RELEVANT IMPLANT DATA REVIEWED: Yes PATIENT PRESENTS WITH AN IMPLANTABLE OR ATTACHED COAL UNLOADER: No RADIOLOGY DEPARTMENT: General X-ray: Exam(s) Completed: Lower Extremity X-Ray(s): Ankle, Right and Foot, Right PERIPHERAL IV DATA: Not applicable SIGNED BY: AYANA Rodriguez) August 16, 2024 12:14 [facility]11-19-2024 Evaluation note* Diagnosis Onset Date Resolution Status Admit Date Left shoulder pain acute Novemb er 2023 9:28am Impingement of left shoulder acute September 06, 2024 10:56am Left shoulder pain acute Decemb er 2023 10:56am Impingement of left shoulder acute October 17, 2024 10:49am Left shoulder pain acute Januar y 2024 10:49am [facility] Work Phone: 1(135) 299-177909-20-2024 [facility] Medical Records Department [address] [place] [address] History Physical Exam 06/10/24 0905 MR#: [id number] Acct: [id number] Name: FELA GARCIA Rep #: [id number] : 1995 28 From: Romina Grigsby MD PCP: Dr. Helio Hargrove MD Status:[facility] Location: [place] [address] History and Physical Date of Admission: 06/10/24 The patient is examined and there are no changes to the H P dated 06/08/2024. Informed consent was obtained. We will proceed with excision of cyst x 2 of her posterior neck. Assessment Plan Assessment/Plan (1) Epidermoid cyst of neck: PLAN: Plan For excision cyst of neck x 2. 06/10/24 0906 Cosigner Signature (if applicable): CC: Dr. Helio Hargrove MD; Dr. Romina Grigsby MD [facility] Instructions* Patient Instructions* Es Cummins APRN.CNP - 04/25/2024 7:13 PM EDT Stop doxycycline Zyrtec/Benadryl prn Follow up with PCP for management of doxycycline. * Seek medical care immediately, call 911, go to ER if you have chest pain, difficulty breathing, shortness of breath, inability to swallow. documented in [facility]-2024 NoteHNO ID: [id number] Author: ES CUMMINS APRN.TALIB Service: ? Author Type: Nurse Practitioner Type: Progress Notes Filed: 04/25/2024 19:13 Note Text: Subjective The history is provided by the patient. No occupational health nurse manager was used. HPI Fela Garcia is a 28 year old female who presents today for CC of red, sunburn like rash on face, neck, and patches on arms, and legs. States it does not itch, feels like sunburn This started in past 24 hours. Patient started Doxycycline in March 50 mg for cystic acne. Patient was out in the sun the past weekend and developed sunburn like rash in past 24 hours. She denies any fever chills body aches, throat swelling or SOB. BP 112/78 Pulse 82 Temp 37.1 ?C (98.8 ?F) (Tympanic) Resp 16 Wt 80.1 kg (176 lb 9.4 oz) SpO2 98% Social History Tobacco Use Smoking status: Every Day Smokeless tobacco: Never PAST MEDICAL HISTORY No date: Skin cysts, generalized Comment: recurrent back and chest since 13yo I have confirmed and edited as necessary, the [facility] Review of Systems Constitutional: Negative for chills and fever. Musculoskeletal: Negative for joint pain and myalgias. Skin: Positive for rash. Negative for itching. All other systems reviewed and are negative. Objective Physical Exam Vitals and nursing note reviewed. HENT: Mouth/Throat: Pharynx: No pharyngeal swelling. Pulmonary: Effort: Pulmonary effort is normal. Breath sounds: Normal breath sounds. Skin: General: Skin is warm and dry. Findings: Erythema present. Comments: Patches/sunburn like on marked areas Neurological: Mental Status: She is alert and oriented to person, place, and time. Psychiatric: Mood and Affect: Affect normal. ASSESSMENT/PLAN: 1. Rash - ICD9: 782.1, ICD10: R21 Appears to be photosensitivity reaction to doxycycline Stop doxycycline Zyrtec/Benadryl prn Follow up with PCP for management of doxycycline. Diagnosis and treatment plan were discussed and questions were answered to the patient's satisfaction. Pt acknowledged understanding of concepts and follow up plan. Specific signs and symptoms that would indicate the need for higher level of care were discussed in detail warranting prompt ER evaluation. Es Cummins APRN.[facility]08-05-2024 History of Present illness Narrative* Es Cummins APRN.SPANISH SPEAKING BABYSITTER - 04/25/2024 7:08 PM EDT Images from the original note were not included. Subjective The history is provided by the patient. No occupational health nurse manager was used. HPI Fela Garcia is a 28 year old female who presents today for CC of red, sunburn like rash onface, neck, and patches on arms, and legs. States it does not itch, feels like sunburn This startedin past 24 hours. Patient started Doxycycline in March 50 mg for cystic acne. Patient was out in then the past weekend and developed sunburn like rash in past 24 hours. She denies any fever chills body aches, throat swelling or SOB. BP 112/78 Pulse 82 Temp 37.1 C (98.8 F) (Tympanic) Resp 16 Wt 80.1 kg (176 lb 9.4 oz) SpO2 98% Social History Tobacco Use Smoking status: Every Day Smokeless tobacco: Never PAST MEDICAL HISTORY No date: Skin cysts, generalized Comment: recurrent back and chest since 13yo I have confirmed and edited as necessary, the [facility] Review of Systems Constitutional: Negative for chills and fever. Musculoskeletal: Negative for joint pain and myalgias. Skin: Positive for rash. Negative for itching. All other systems reviewed and are negative. Objective Physical Exam Vitals and nursing note reviewed. HENT: Mouth/Throat: Pharynx: No pharyngeal swelling. Pulmonary: Effort: Pulmonary effort is normal. Breath sounds: Normal breath sounds. Skin: General: Skin is warm and dry. Findings: Erythema present. Comments: Patches/sunburn like on marked areas Neurological: Mental Status: She is alert and oriented to person, place, and time. Psychiatric: Mood and Affect: Affect normal. ASSESSMENT/PLAN: 1. Rash - ICD9: 782.1, ICD10: R21 Appears to be photosensitivity reaction to doxycycline Stop doxycycline Zyrtec/Benadryl prn Follow up with PCP for management of doxycycline. Diagnosis and treatment plan were discussed and questions were answered to the patient's satisfaction. Pt acknowledged understanding of concepts and follow up plan. Specific signs and symptoms that would indicate the need for higher level of care were discussed indetail warranting prompt ER evaluation. Es Cummins APRN.TALIB documented [facility] History of Present illness Narrative* Roseline Lan APRN.CNP - 12/27/2023 11:24 AM EDT This note was created using Heliatekriter. Subjective Fela Garcia is a 28 year old female. 28 year old female with no PMH presents for illness. Acute onset a couple days ago +body aches +headache +fatigue +chills +sinus pressure +cough +sore throat +tobacco usage Has used decongestants, but she endorses that the symptoms seemed to have worsened by it Her kids are at home ill with similar. The history is provided by the patient. No occupational health nurse manager was used. Flu Like Symptoms This is a new problem. Episode onset: 2 days ago. The problem occurs constantly. The problem has been gradually worsening. Associated symptoms include chills, congestion, coughing, fatigue, headaches, a sore throat and swollen glands. Pertinent negatives include no abdominal pain, anorexia, arthralgias, change in bowel habit, chest pain, diaphoresis, nausea, neck pain, numbness, rash, urinary symptoms, vertigo, visual change, vomiting or weakness. Nothing aggravates the symptoms. Treatments tried: decongestants. The treatment provided no relief. PAST MEDICAL HISTORY Diagnosis Date Skin cysts, generalized recurrent back and chest since 13yo PAST SURGICAL HISTORY Procedure Laterality Date NONE ALLERGIES Patient has no known allergies. MEDICATIONS ibuprofen (MOTRIN) 600 mg tablet Take 1 tablet by mouth every 6 hours as needed for pain. benzonatate (TESSALON PERLES) 100 mg capsule Take 1 capsule by mouth three times a day as needed for cough. amoxicillin (AMOXIL) 500 mg capsule (Patient not taking: Reported on 12/27/2023) 25/iron fum/folic/dha (-1 ORAL) Take by mouth. (Patient not taking: Reported on 03/28/2021 ) biotin 1 mg cap Take by mouth. (Patient not taking: Reported on 03/28/2021 ) fluticasone (FLONASE) 50 mcg/actuation nasal spray Use 2 Sprays in each nostril once daily. Rinse mouth after use. (Patient not taking: Reported on 03/07/2019 ) No family history on file. Social History Tobacco Use Smoking status: Every Day Smokeless tobacco: Never Review of Systems Constitutional: Positive for chills and fatigue. Negative for diaphoresis. HENT: Positive for congestion, postnasal drip, sinus pressure, sinus pain and sore throat. Eyes: Negative for pain, discharge, redness and itching. Respiratory: Positive for cough. Negative for apnea, choking and chest tightness. Cardiovascular: Negative for chest pain. Gastrointestinal: Negative for abdominal pain, anorexia, change in bowel habit, diarrhea, nausea and vomiting. Musculoskeletal: Negative for arthralgias and neck pain. Skin: Negative for color change, pallor and rash. Allergic/Immunologic: Negative for environmental allergies, food allergies and immunocompromised state. Neurological: Positive for headaches. Negative for dizziness, vertigo, facial asymmetry, weakness and numbness. Hematological: Negative for adenopathy. Does not bruise/bleed easily. Psychiatric/Behavioral: Negative for agitation and behavioral problems. Objective BP 110/72 Pulse 108 Temp 36.9 C (98.4 F) Resp 18 Wt 83 kg (182 lb 15.7 oz) SpO2 97% Physical Exam Vitals and nursing note reviewed. Constitutional: General: She is not in acute distress. Appearance: Normal appearance. She is normal weight. She is not ill-appearing, toxic-appearing or diaphoretic. HENT: Head: Normocephalic and atraumatic. Right Ear: Ear canal and external ear normal. Left Ear: Ear canal and external ear normal. Nose: Congestion present. No rhinorrhea. Mouth/Throat: Mouth: Mucous membranes are moist. Pharynx: Posterior oropharyngeal erythema present. No oropharyngeal exudate. Eyes: General: Right eye: No discharge. Left eye: No discharge. Extraocular Movements: Extraocular movements intact. Conjunctiva/sclera: Conjunctivae normal. Pupils: Pupils are equal, round, and reactive to light. Cardiovascular: Rate and Rhythm: Regular rhythm. Tachycardia present. Pulses: Normal pulses. Heart sounds: Normal heart sounds. No murmur heard. No friction rub. Pulmonary: Effort: Pulmonary effort is normal. No respiratory distress. Breath sounds: Normal breath sounds. No stridor. No wheezing, rhonchi or rales. Chest: Chest wall: No tenderness. Abdominal: General: Abdomen is flat. There is no distension. Palpations: Abdomen is soft. There is no mass. Tenderness: There is no abdominal tenderness. There is no right CVA tenderness, left CVA tenderness, guarding or rebound. Hernia: No hernia is present. Musculoskeletal: General: No swelling, tenderness, deformity or signs of injury. Normal range of motion. Cervical back: Normal range of motion and neck supple. No rigidity. Right lower leg: No edema. Left lower leg: No edema. Lymphadenopathy: Cervical: Cervical adenopathy present. Skin: General: Skin is warm and dry. Capillary Refill: Capillary refill takes less than 2 seconds. Coloration: Skin is not jaundiced or pale. Findings: No bruising, erythema, lesion or rash. Neurological: General: No focal deficit present. Mental Status: She is alert and oriented to person, place, and time. Cranial Nerves: No cranial nerve deficit. Sensory: No sensory deficit. Motor: No weakness. Coordination: Coordination normal. Gait: Gait normal. Psychiatric: Mood and Affect: Mood normal. Behavior: Behavior normal. Thought Content: Thought content normal. Judgment: Judgment normal. Assessment and Plan ASSESSMENT/PLAN: 1. URI, acute - ICD9: 465.9, ICD10: J06.9 X 2 days - Discussed viral etiology and rationale for treatment. - Group A strep molecular testing negative INFLUENZA POC negative - Symptomatic treatment with prn analgesia - Supportive care with fluids and rest - The patient may also use OTC cough and cold meds as needed and RX Ibuprofen and RX Tessalon Perles . - Follow up in 3-5 days if symptoms persist or sooner if worsening of symptoms - INFLUENZA A&B MOLECULAR (POC) Roseline Lan APRN.SPANISH SPEAKING BABYSITTER documented in this encounterM[facility]-07-[facility] History of Present illness Narrative* Rosie Whalen APRN.TALBI - 04/27/2023 4:29 PM EDT Images from the original note were not included. Subjective HPI HPI Fela Garcia is a 27 year old female who presents today for CC of right foot pain after fall down step . This started weeks ago. Has tried nothing for relief. Symptoms are worsened by walking. Denies history of surgery or injury to right foot. Denies numbness and tingling of right foot. Denies possibility of being . .Patient presents with: Trauma: Right foot injury, rolled foot x 2 weeks PAST MEDICAL HISTORY Diagnosis Date Skin cysts, generalized recurrent back and chest since 13yo PAST SURGICAL HISTORY Procedure Laterality Date NONE ALLERGIES Patient has no known allergies. MEDICATIONS amoxicillin (AMOXIL) 500 mg capsule predniSONE (DELTASONE) 20 mg tablet Take 2 tablets by mouth once daily for 5 days. naproxen (NAPROSYN) 500 mg tablet Take 1 tablet by mouth twice daily as needed (pain/inflammation, take with food.). (Patient not taking: Reported on 07/17/2021 ) 25/iron fum/folic/dha (-1 ORAL) Take by mouth. (Patient not taking: Reported on 03/28/2021 ) biotin 1 mg cap Take by mouth. (Patient not taking: Reported on 03/28/2021 ) meloxicam (MOBIC) 15 mg tablet Take 1 tablet by mouth once daily. Take with food. (Patient not taking: Reported on 08/22/2020 ) Ajlqhpdmmegfoxp-Vymsyvvck-QC (BROMFED DM) 2-30-10 mg/5 mL syrup Take 10 mL by mouth four times daily as needed. (Patient not taking: Reported on 03/07/2019 ) fluticasone (FLONASE) 50 mcg/actuation nasal spray Use 2 Sprays in each nostril once daily. Rinse mouth after use. (Patient not taking: Reported on 03/07/2019 ) No family history on file. Social History Tobacco Use Smoking status: Every Day Smokeless tobacco: Never ROS Objective Blood pressure 118/76, pulse 80, temperature 36.5 C (97.7 F), resp. rate 21, weight 80 kg (176 lb 6.4 oz), SpO2 98 %. Physical Exam Constitutional: General: She is not in acute distress. Appearance: She is not toxic-appearing or diaphoretic. HENT: Head: Normocephalic and atraumatic. Pulmonary: Effort: Pulmonary effort is normal. No accessory muscle usage or respiratory distress. Musculoskeletal: Feet: Neurological: Mental Status: She is alert and oriented to person, place, and time. ASSESSMENT/PLAN: 1. Foot injury, right, initial encounter - ICD9: 959.7, ICD10: S99.921A -no bony abnormality noted on xray -try prednisone -Rest, Ice, Compression, Elevation discussed -follow up with primary care if symptoms persist/worsen in 10-14 days - XR FOOT GENERAL 3V AP/LAT/OBL RIGHT IMPRESSION: No radiographic evidence of acute osseous injury Dictated by : ISAIAS MARSHALL MD - PREDNISONE 20 MG TABLET Rosie Whalen APRN.SPANISH SPEAKING BABYSITTER documented in this encounterM[facility]08-07-2023 History of Present illness Narrative* Shayy Velasco, RT(R) - 04/27/2023 4:00 PM EDT Radiology Service Progress Note PATIENT NAME: Fela Garcia DATE OF SERVICE: April 27, 2023 TIME: 3:58 PM PATIENT IDENTITY VERIFICATION COMPLETED USING TWO (2) IDENTIFIERS: Name and Date of confirmedby patient verbally. FALL SCREENING: Has the patient had 2 falls in the last year or 1 fall with injury or currently using an Ambulatory Assistive Device (Walker, Cane, Wheelchair, Crutches, etc.)? No PATIENT GENDER DATA: Female. status: : No status: NO. PATIENT RELEVANT IMPLANT DATA REVIEWED: Yes RADIOLOGY DEPARTMENT: General X-ray: Exam(s) Completed: Lower Extremity X- Ray(s): Foot, Right and Wt. Bearing PERIPHERAL IV DATA: Not applicable SIGNED BY: RT Triston(R) April 27, 2023 3:58 PM documented in this encounterM[facility]03-29-2023 History of Present illness Narrative* Leonor Huggins APRN.SPANISH SPEAKING BABYSITTER - 12/17/2022 5:18 PM EDT Subjective Patient came in with complaints of possible left ear pain or jaw pain. Patient is not sure exactly where it is coming from. Patient says she did recently have dental work done in September. But did nothave any trouble several weeks after that. Patient denies any nausea vomiting fever chills. Patientsays its been going on for about a month. The history is provided by the patient. No occupational health nurse manager was used. Ear Problem Review of Systems Constitutional: Negative. HENT: Positive for ear pain. Skin: Negative. Objective Physical Exam Constitutional: Appearance: Normal appearance. HENT: Right Ear: Hearing, tympanic membrane, ear canal and external ear normal. Left Ear: Hearing, tympanic membrane, ear canal and external ear normal. Mouth/Throat: Comments: Signs of redness or swelling or drainage. TMJ joint non tender. Pulmonary: Effort: Pulmonary effort is normal. Neurological: Mental Status: She is alert. PAST MEDICAL HISTORY Diagnosis Date Skin cysts, generalized recurrent back and chest since 13yo PAST SURGICAL HISTORY Procedure Laterality Date NONE ALLERGIES Patient has no known allergies. MEDICATIONS naproxen (NAPROSYN) 500 mg tablet Take 1 tablet by mouth twice daily as needed (pain/inflammation, take with food.). (Patient not taking: Reported on 07/17/2021 ) 25/iron fum/folic/dha (-1 ORAL) Take by mouth. (Patient not taking: Reported on 03/28/2021 ) biotin 1 mg cap Take by mouth. (Patient not taking: Reported on 03/28/2021 ) meloxicam (MOBIC) 15 mg tablet Take 1 tablet by mouth once daily. Take with food. (Patient not taking: Reported on 08/22/2020 ) Adxvjlthwaxhqna-Sbyoicvjb-RI (BROMFED DM) 2-30-10 mg/5 mL syrup Take 10 mL by mouth four times daily as needed. (Patient not taking: Reported on 03/07/2019 ) fluticasone (FLONASE) 50 mcg/actuation nasal spray Use 2 Sprays in each nostril once daily. Rinse mouth after use. (Patient not taking: Reported on 03/07/2019 ) No family history on file. Social History Tobacco Use Smoking status: Every Day Smokeless tobacco: Never ASSESSMENT/PLAN: 1. Jaw pain - ICD9: 784.92, ICD10: R68.84 Patient is going to follow-up with her dentist. Patient was also instructed about red flag symptomssuch as fever chills warmth swelling and to report to the ER. Patient was okay with this care plan. Leonor Huggins APRN.TALIB documented in this encounterM[facility]07-08-2021 History of Present illness Narrative* Shayy Velasco RT(R) - 03/28/2021 7:20 PM EDT Radiology Service Progress Note PATIENT NAME: Fela Garcia DATE OF SERVICE: March 28, 2021 TIME: 7:20 PM PATIENT IDENTITY VERIFICATION COMPLETED USING TWO (2) IDENTIFIERS: Name and Date of confirmedby patient verbally. FALL SCREENING: Has the patient had 2 falls in the last year or 1 fall with injury or currently using an Ambulatory Assistive Device (Walker, Cane, Wheelchair, Crutches, etc.)? No PATIENT GENDER DATA: Female. status: : No status: NO. PATIENT RELEVANT IMPLANT DATA REVIEWED: Yes RADIOLOGY DEPARTMENT: General X-ray: Exam(s) Completed: Lower Extremity X- Ray(s): Ankle, Left and Wt. Bearing and Foot, Left and Wt. Bearing PERIPHERAL IV DATA: Not applicable SIGNED BY: RT Triston(R) March 28, 2021 7:20 PM [facility] noteNo assessment information availableWTrumbull [facility] Work Phone: Evaluation note* Diagnosis Onset Date Resolution Status Abscess of mandible acute Hidradenitis suppurativa acu te Hidradenitis suppurativa acu te Left axillary pain acute [facility] Work Phone: evaluation note* Diagnosis Onset Date Resolution Status Hidradenitis suppurativa acu te Hidradenitis suppurativa acu te Left axillary pain acute [facility] Work Phone: Evaluation note* Diagnosis Jaw pain- Primary documented in this encounter [facility] note* Diagnosis Foot injury, right, initial encounter- Primary documented in this encounter [facility] note* Diagnosis URI, acute- Primary Acute upper respiratory infections of unspecified site documented in this encounter [facility] note* Diagnosis Rash- Primary Rash and other nonspecific skin eruption documented in this encounter [facility] note* Diagnosis Acute left ankle pain Foot pain, left Pain in limb documented in this encounter [facility] note* Diagnosis Closed fracture of distal end of right fibula, unspecified fracture morphology, initial encounter- Primary Ankle injury, right, initial encounter documented in this encounter [facility] note* Diagnosis Ankle injury, right, initial encounter [facility]* Diagnosis Sore throat- Primary Acute pharyngitis documented in this encounter [facility] note* Diagnosis Influenza-like symptoms- Primary Other general symptoms Impacted cerumen of right ear Impacted cerumen [facility]* Diagnosis Rash- Primary Rash and other nonspecific skin eruption [facility] Additional Instructions You need to follow-up with a surgeon to remove the sac of the cyst to prevent recurrent infections. This is located on your back Take antibiotics until gone The name of your doctor is located on your insurance card issue to you by [facility] Work Phone: Reason for referral (narrative)* Diagnostic Procedure Only (Urgent) - Closed Specialty Diagnoses / Procedures Referred By Contac t Referred To Contact XR IMAGING Diagnoses Foot injury, right, initial encounter Procedures XR FOOT GENERAL 3V AP/LAT/OBL RIGHT RADEX FOOT COMPLETE MINIMUM 3 VIEWS Rosie Whalen APRN.CNP [address] [place] [address] Xr Imaging Referral ID Status Reason Start Date Expiration Date V isits Requested Visits Authorized [id number] Closed Auto-Generate d Referral 04/27/2023 05/26/2024 1 1 [facility] for referral (narrative)* Diagnostic Procedure Only (Urgent) - Closed Specialty Diagnoses / Procedures Referred By Contac t Referred To Contact XR IMAGING Diagnoses Ankle injury, right, initial encounter Procedures XR FOOT GENERAL 3V AP/LAT/OBL RIGHT RADEX FOOT COMPLETE MINIMUM 3 VIEWS Whitney Smiley PA-C [address] [place] [address] [place] [address] Referral ID Status Reason Start Date Expiration Date V isits Requested Visits Authorized [id number] Closed Auto-Generate d Referral 08/16/2024 09/15/2025 1 1 * Diagnostic Procedure Only (Urgent) - Closed Specialty Diagnoses / Procedures Referred By Contac t Referred To Contact XR IMAGING Diagnoses Ankle injury, right, initial encounter Procedures XR ANKLE GENERAL 3V AP/LAT/OBL RIGHT RADEX ANKLE COMPLETE MINIMUM 3 VIEWS Whitney Smiley PA-C [address] [place] [address] [place] [address] Referral ID Status Reason Start Date Expiration Date V isits Requested Visits Authorized [id number] Closed Auto-Generate d Referral 08/16/2024 09/15/2025 1 1 [facility] for referral (narrative)No reason for referral information availableWTrumbull Memorial Hospital Work Phone: Reason for visit Narrative* Diagnostic Procedure Only (Urgent) - Closed Specialty Diagnoses / Procedures Referred By Contac t Referred To Contact XR IMAGING Diagnoses Foot injury, right, initial encounter Procedures XR FOOT GENERAL 3V AP/LAT/OBL RIGHT RADEX FOOT COMPLETE MINIMUM 3 VIEWS Rosie Whalen APRN.SPANISH SPEAKING BABYSITTER [address] [place] [address] [place] [address] Referral ID Status Reason Start Date Expiration Date V isits Requested Visits Authorized [id number] Closed Auto-Generate d Referral 04/27/2023 05/26/2024 1 1 [facility] for visit Narrative* Diagnostic Procedure Only (Urgent) - Closed Specialty Diagnoses / Procedures Referred By Contac t Referred To Contact XR IMAGING Diagnoses Ankle injury, right, initial encounter Procedures XR FOOT GENERAL 3V AP/LAT/OBL RIGHT RADEX FOOT COMPLETE MINIMUM 3 VIEWS Whitney Smiley PA-C [address] [place] [address] [place] [address] Referral ID Status Reason Start Date Expiration Date V isits Requested Visits Authorized [id number] Closed Auto-Generate d Referral 08/16/2024 09/15/2025 1 1 [facility] Summary Purpose Family History No Family History Records Found Relationship Condition Age at Onset Recorded Date/T raquel grandmother Malignant neoplasm of breast Unknown Diabetes mellitus Unknown Relationship Condition Age at Onset Recorded Date/T raquel grandmother Malignant neoplasm of breast Unknown Diabetes mellitus Unknown grandfather Malignant neoplasm Unknown grandmother Cerebrovascular accident (CVA) Unknown Advance Directives No Advanced Directives Records Found Advance Directive Response Recorded Date/ Time Living Will No April 21, 2022 6:56pm Power of Delivery Truck Driver Heavy No April 21 6:56pm Advance Directive Response Recorded Date/ Time Living Will No April 21, 2022 5:56pm Power of Delivery Truck Driver Heavy No April 21 5:56pm Advance Directive Response Recorded Date/ Time Living Will No September 30 7:32pm Power of Delivery Truck Driver Heavy No September 30, 2022 7:32pm Advance Directive Response Recorded Date/ Time Living Will No February 25, 2023 8 :45pm Power of Delivery Truck Driver Heavy No February 25, 2023 8:45pm Advance Directive Response Recorded Date/ Time Living Will No February 25, 2023 7 :45pm Power of Delivery Truck Driver Heavy No February 25, 2023 7:45pm Living Will No August 18 5:24pm Power of Delivery Truck Driver Heavy No August 18, 2024 5:24pm Advance Directive Response Recorded Date/ Time Living Will No August 18 6:24pm Power of Delivery Truck Driver Heavy No August 18, 2024 6:24pm Advance Directive Response Recorded Date/ Time Living Will No August 18 6:24pm Do you have a Healthcare Power of Delivery Truck Driver Heavy? No August 18, 2024 6:24pm Chief Complaint and Reason for Visit Chief Complaint ABSCESS Chief Complaint WOUND CHECK ED 04/21 C YST ON BACK AND NECK WOUND CHECK WOUND CHECK LEFT AXILLARY PAIN LYMPHEDEMA/RX HERE Reason for Visit Abscess of mandible Hidradenitis suppurativa Hidradenitis suppurativa Left axillary pain Chief Complaint WOUND CHECK WOUND CHECK LEFT AXILLARY PAIN LYMPHEDEMA/RX HERE Reason for Visit Hidradenitis suppura tiva Hidradenitis suppurativa Left axillary pain Chief Complaint LYMPHEDEMA/RX HERE abscess Chief Complaint DENTAL Chief Complaint Admit Date NEUROPATHY RX HERE August 01, 2024 9:30am LEFT SHOULDER August 09, 2024 9:28am Room 4 August 09, 2024 9:39am LOWER EXTREMITY August 18, 2024 5:17pm BUE; N/T, BILAT ARM PAIN August 31, 2024 9:50am BUE; N/T, BILAT ARM PAIN August 31, 2024 12:59pm LEFT SHOULDER September 06, 2024 10:56am CONTUSION OF RIGHT ANKLE. RX HERE Terry 2024 11:00am LEFT SHOULDER PAIN October 10, 2024 8 :58am LEFT SHOULDER October 17, 2024 1 0:49am ABD PAIN November 22, 2024 6:48 pm Reason for Visit Admit Date Left shoulder pain August 09, 2024 9:28am Impingement of left shoulder September 062023 10:56am Left shoulder pain September 06, 2024 10:56am Impingement of left shoulder September 10:49am Left shoulder pain October 17, 2024 1 0:49am Chief Complaint Admit Date LEFT SHOULDER August 09, 2024 9:28am Room 4 August 09, 2024 9:39am LOWER EXTREMITY August 18, 2024 5:17pm BUE; N/T, BILAT ARM PAIN August 31, 2024 9:50am BUE; N/T, BILAT ARM PAIN August 31, 2024 12:59pm LEFT SHOULDER September 06, 2024 10:56am CONTUSION OF RIGHT ANKLE. RX HERE Mattyr y 2024 11:00am LEFT SHOULDER PAIN October 10, 2024 8 :58am LEFT SHOULDER October 17, 2024 1 0:49am ABD PAIN November 22, 2024 6:48 pm SEE ORDER December 02, 2024 9:5 0am Chief Complaint Admit Date LOWER EXTREMITY August 18, 2024 5:17pm BUE; N/T, BILAT ARM PAIN August 31, 2024 9:50am BUE; N/T, BILAT ARM PAIN August 31, 2024 12:59pm LEFT SHOULDER September 06, 2024 10:56am CONTUSION OF RIGHT ANKLE. RX HERE Terry y 2024 11:00am LEFT SHOULDER PAIN October 10, 2024 8 :58am LEFT SHOULDER October 17, 2024 1 0:49am ABD PAIN November 22, 2024 6:48 pm SEE ORDER December 02, 2024 9:5 0am Reason for Visit Admit Date Impingement of left shoulder September 062023 10:56am Left shoulder pain September 06, 2024 10:56am Impingement of left shoulder September 10:49am Left shoulder pain October 17, 2024 1 0:49am Chief Complaint Admit Date LEFT SHOULDER PAIN October 10, 2024 8 :58am LEFT SHOULDER October 17, 2024 1 0:49am ABD PAIN November 22, 2024 6:48 pm SEE ORDER December 02, 2024 9:5 0am Reason for Visit Admit Date Impingement of left shoulder September 10:49am Left shoulder pain October 17, 2024 1 0:49am Chief Complaint Admit Date COPD, SOB February 06, 2025 5:10p m Chief Complaint Admit Date COPD, SOB February 06, 2025 5:10p m Pulmonary hypertension, unspecified April 11, 2025 10:06am Reason for Referral Specialty Diagnoses / Procedures Referred By Contac t Referred To Contact Orthopedics Diagnoses Closed fracture of distal end of right fibula, unspecified fracture morphology, initial encounter Procedures CONSULT TO ORTHOPAEDICS OFFICE/OUTPATIENT [facility] 60 MINUTES Whitney Smiley PA-C [address] [place] [address] Referral ID Status Reason Start Date Expiration Date Visits Requested Visits Authorized [id number] Authorized PCP Requested Referral 08/16/2025 1 1 Specialty Diagnoses / Procedures Referred By Contac t Referred To Contact XR IMAGING Diagnoses Ankle injury, right, initial encounter Procedures XR FOOT GENERAL 3V AP/LAT/OBL RIGHT RADEX FOOT COMPLETE MINIMUM 3 VIEWS Whitney Smiley PA-C [address] [place] [address] [place] [id number] Referral ID Status Reason Start Date Expiration Date V isits Requested Visits Authorized [id number] Closed Auto-Generate d Referral 08/16/2024 09/15/2025 1 1 Specialty Diagnoses / Procedures Referred By Contac t Referred To Contact XR IMAGING Diagnoses Ankle injury, right, initial encounter Procedures XR ANKLE GENERAL 3V AP/LAT/OBL RIGHT RADEX ANKLE COMPLETE MINIMUM 3 VIEWS Whitney Smiley PA-C [address] [place] [address] [place] [address] Referral ID Status Reason Start Date Expiration Date V isits Requested Visits Authorized [id number] Closed Auto-Generate d Referral 08/16/2024 09/15/2025 1 1 Additional Source Comments INFORMATION SOURCE (unrecogn ized section and content) DATE CREATED AUTHOR 03/11/2018 Shen Frias [facility] DATE CREATED AUTHOR AUTHOR'S ORGANIZ ATION 04/02/2025 [facility] DATE CREATED AUTHOR AUTHOR'S ORGANIZ ATION 04/19/2025 [facility] Goals (unrecognized section and content) Goals may be documented in a n alternate sectionGoals may be documented in an alternate sectionGoals may be documented in an alternate sectionGoals may be documented in an alternate sectionGoals may be documented in an alternate sectionGoals may be documented in an alternate sectionGoals may be documented in an alternate sectionGoals may be documented in an alternate sectionGoals may be documented in an alternate sectionGoals may be documented in an alternate sectionGoals may be documented in an alternate sectionGoals may be documented in an alternate section Source Comments (unrecognize d section and content) In the event this informatio n is protected by the Federal Confidentiality of Alcohol and Drug Abuse Patient Records regulations: The Federal rules restrict any use of the information to criminally investigate or prosecute any alcohol or drug abuse patient.[facility] the event this information is protected by the Federal Confidentiality of Alcohol and Drug Abuse Patient Records regulations: The Federal rules restrict any use of the information to criminally investigate or prosecute any alcohol or drug abuse patient.[facility] the event this information is protected by the Federal Confidentiality of Alcohol and Drug Abuse Patient Records regulations: The Federal rules restrict any use of the information to criminally investigate or prosecute any alcohol or drug abuse patient.[facility] the event this information is protected by the Federal Confidentiality of Alcohol and Drug Abuse Patient Records regulations: The Federal rules restrict any use of the information to criminally investigate or prosecute any alcohol or drug abuse patient.[facility] the event this information is protected by the Federal Confidentiality of Alcohol and Drug Abuse Patient Records regulations: The Federal rules restrict any use of the information to criminally investigate or prosecute any alcohol or drug abuse patient.[facility] the event this information is protected by the Federal Confidentiality of Alcohol and Drug Abuse Patient Records regulations: The Federal rules restrict any use of the information to criminally investigate or prosecute any alcohol or drug abuse patient.[facility] the event this information is protected by the Federal Confidentiality of Alcohol and Drug Abuse Patient Records regulations: The Federal rules restrict any use of the information to criminally investigate or prosecute any alcohol or drug abuse patient.[facility] the event this information is protected by the Federal Confidentiality of Alcohol and Drug Abuse Patient Records regulations: The Federal rules restrict any use of the information to criminally investigate or prosecute any alcohol or drug abuse patient.[facility] the event this information is protected by the Federal Confidentiality of Alcohol and Drug Abuse Patient Records regulations: The Federal rules restrict any use of the information to criminally investigate or prosecute any alcohol or drug abuse patient.[facility] the event this information is protected by the Federal Confidentiality of Alcohol and Drug Abuse Patient Records regulations: The Federal rules restrict any use of the information to criminally investigate or prosecute any alcohol or drug abuse patient.[facility] the event this information is protected by the Federal Confidentiality of Alcohol and Drug Abuse Patient Records regulations: The Federal rules restrict any use of the information to criminally investigate or prosecute any alcohol or drug abuse patient.[facility] the event this information is protected by the Federal Confidentiality of Alcohol and Drug Abuse Patient Records regulations: The Federal rules restrict any use of the information to criminally investigate or prosecute any alcohol or drug abuse patient.[facility] Reason for Visit (unrecogniz ed section and content) Reason Comments Ear Problem Left ear and jaw cathryn n, bump in jaw x 1 month Reason Comments Trauma Right foot injury, r olled foot x 2 weeks Reason Comments Nasal Congestion drainage, cough, bod yaches, sore throat x 2 days Reason Comments Rash Rash on face, neck s houlders arms and legs x 1 day Reason Comments Trauma Accordion door fell on R ankle backside of foot x 2 days, ankle is painful, swelling an bruising , LROM, applying pressure painful Reason Comments Sore Throat ST and fever x 3 day s Reason Comments Flu Like Symptoms Nasal congestion, he adaches, right ear pain, dry cough, sore throat x6 days Reason Comments poison alcides Poison alcides on face, chest and h ands x 1 week Care Teams (unrecognized sec tion and content) Team Status: Active Member Role Status Dates No Primary Care Physician Family Provider Active Nanda William , DO Primary Care Provider Active Team Status: Inactive Member Role Status Dates Nanda William , DO Primary Care Provider Active Dr. Guzman Lan , DO Emergency Provider Active Powder Line Repairer Relationship Specialty Start Date End Date Cynthia Williamson ([facility]) PCP - General 12/27/23 Powder Line Repairer Relationship Specialty Start Date End Date Helio Hargrove MD [address] [place] [address] PCP - General Internal Medicine 04/25/24 Powder Line Repairer Relationship Specialty Start Date End Date Helio Hargrove MD [address] [facility] [address] [place] [address] PCP - General Internal Medicine 04/25/24 Powder Line Repairer Relationship Specialty Start Date End Date Helio Hargrove MD [address] [facility] [address] [place] [address] PCP - General Internal Medicine 04/25/24 Powder Line Repairer Relationship Specialty Start Date End Date Helio Hargrove MD [address] [facility] [address] [place] [address] PCP - General Internal Medicine 04/25/24 Powder Line Repairer Relationship Specialty Start Date End Date Helio Hargrove MD [address] [facility] [address] [place] [address] PCP - General Internal Medicine 04/25/24 Team Status: Active Member Role Status Hazel Hargrove MD Primary Care Provider Active Team Status: Inactive Member Role Status Hazel Hargrove MD Primary Care Provider Active St art: August 01, 2024 End: August 01, 2024 Helio Hargrove MD Attending Provider Active Start : August 01, 2024 End: August 01, 2024 Helio Hargrove MD Referring Provider Active Start : August 01, 2024 End: August 01, 2024 Team Status: Inactive Member Role Status Hazel Hargrove MD Primary Care Provider Active St art: August 09, 2024 End: August 09, 2024 Helio Hargrove MD Referring Provider Active Start : August 09, 2024 End: August 09, 2024 Jayson Turcios MD Attending Provider Active St art: August 09, 2024 End: August 09, 2024 Team Status: Inactive Member Role Status Hazel Hargrove MD Primary Care Provider Active St art: August 09, 2024 End: August 09, 2024 Dr. Ty Vazquez MD Attending Provider Active S tart: August 09, 2024 End: August 09, 2024 Team Status: Inactive Member Role Status Hazel Hargrove MD Primary Care Provider Active St art: August 18, 2024 End: August 18, 2024 Dr. Jaylan Hunter DO Attending Provider Active Start: August 18, 2024 End: August 18, 2024 Dr. Jaylan Hunter DO Emergency Provider Active Start: August 18, 2024 End: August 18, 2024 Team Status: Inactive Member Role Status Hazel Hargrove MD Primary Care Provider Active St art: August 31, 2024 End: August 31, 2024 Jayson Turcios MD Attending Provider Active St art: August 31, 2024 End: August 31, 2024 Jayson Turcios MD Referring Provider Active St art: August 31, 2024 End: August 31, 2024 Team Status: Active Member Role Status Hazel Hargrove MD Primary Care Provider Active St art: August 31, 2024 Jayson Turcios MD Referring Provider Active St art: August 31, 2024 Jayson Turcios MD Other Provider Active Start: August 31, 2024 Dr. Jade Hernandez MD Attending Provider Active S tart: August 31, 2024 Team Status: Inactive Member Role Status Hazel Hargrove MD Primary Care Provider Active St art: September 06, 2024 End: September 06, 2024 Helio Hargrove MD Referring Provider Active Start : September 06, 2024 End: September 06, 2024 Jayson Turcios MD Attending Provider Active St art: September 06, 2024 End: September 06, 2024 Team Status: Active Member Role Status Hazel Hargrove MD Primary Care Provider Active St art: September 27, 2024 Yao LI PA-C Attending Provider Active Start: September 27, 2024 Yao LI PA-C Referring Provider Active Start: September 27, 2024 Team Status: Inactive Member Role Status Hazel Hargrove MD Primary Care Provider Active St art: September 27, 2024 End: September 27, 2024 Helio Hargorve MD Attending Provider Active Start : September 27, 2024 End: September 27, 2024 Helio Hargrove MD Referring Provider Active Start : September 27, 2024 End: September 27, 2024 Team Status: Inactive Member Role Status Hazel Hargrove MD Primary Care Provider Active St art: October 10, 2024 End: October 10, 2024 Jayson Turcios MD Attending Provider Active St art: October 10, 2024 End: October 10, 2024 Jayson Turcios MD Referring Provider Active St art: October 10, 2024 End: October 10, 2024 Team Status: Inactive Member Role Status Hazel Hargrove MD Primary Care Provider Active St art: October 17, 2024 End: October 17, 2024 Helio Hargrove MD Referring Provider Active Start : October 17, 2024 End: October 17, 2024 Jayson Turcios MD Attending Provider Active St art: October 17, 2024 End: October 17, 2024 Team Status: Inactive Member Role Status Hazel Hargrove MD Primary Care Provider Active St art: November 14, 2024 End: November 14, 2024 Helio Hargrove MD Attending Provider Active Start : November 14, 2024 End: November 14, 2024 Helio Hargrove MD Referring Provider Active Start : November 14, 2024 End: November 14, 2024 Team Status: Active Member Role Status Hazel Hargrove MD Primary Care Provider Active St art: November 22, 2024 Helio Hargrove MD Attending Provider Active Start : November 22, 2024 Helio Hargrove MD Referring Provider Active Start : November 22, 2024 Team Status: Inactive Member Role Status Hazel Hargrove MD Primary Care Provider Active St art: November 22, 2024 End: November 22, 2024 Helio Hargrove MD Attending Provider Active Start : November 22, 2024 End: November 22, 2024 Helio Hargrove MD Referring Provider Active Start : November 22, 2024 End: November 22, 2024 Team Status: Active Member Role Status Hazel Hargrove MD Primary Care Provider Active St art: December 02, 2024 Dr. Alejandro Meneses MD Attending Provider Active Start: December 02, 2024 Dr. Alejandro Meneses MD Referring Provider Active Start: December 02, 2024 Team Status: Inactive Member Role Status Hazel Hargrove MD Primary Care Provider Active St art: December 02, 2024 End: December 02, 2024 Dr. Alejandro Meneses MD Attending Provider Active Start: December 02, 2024 End: December 02, 2024 Dr. Alejandro Meneses MD Referring Provider Active Start: December 02, 2024 End: December 02, 2024 Powder Line Repairer Relationship Specialty Start Date End Date Helio Hargrove MD [address] [facility] [address] [place] [address] PCP - General Internal Medicine 04/25/24 Team Status: Inactive Member Role Status Hazel Hargrove MD Primary Care Provider Active St art: January 26, 2025 End: January 26, 2025 Helio Hargrove MD Attending Provider Active Start : January 26, 2025 End: January 26, 2025 Helio Hargrove MD Referring Provider Active Start : January 26, 2025 End: January 26, 2025 Powder Line Repairer Relationship Specialty Start Date End Date Helio Hargrove MD [address] [facility] [address] [place] [address] PCP - General Internal Medicine 04/25/24 Team Status: Active Member Role/Relationship Status Hazel Hargrove MD Primary Care Provider Active Team Status: Inactive Member Role/Relationship Status Hazel Hargrove MD Primary Care Provider Active St art: January 26, 2025 End: January 26, 2025 Helio Hargrove MD Attending Provider Active Start : January 26, 2025 End: January 26, 2025 Helio Hargrove MD Referring Provider Active Start : January 26, 2025 End: January 26, 2025 Team Status: Inactive Member Role/Relationship Status Hazel Hargrove MD Primary Care Provider Active St art: February 06, 2025 End: February 06, 2025 Dr. Eric Ford MD Attending Provider Active Start: February 06, 2025 End: February 06, 2025 Dr. Eric Ford MD Referring Provider Active Start: February 06, 2025 End: February 06, 2025 Team Status: Inactive Member Role/Relationship Status Hazel Hargrove MD Primary Care Provider Active St art: April 03, 2025 End: April 03, 2025 Helio Hargrove MD Attending Provider Active Start : April 03, 2025 End: April 03, 2025 Helio Hargrove MD Referring Provider Active Start : April 03, 2025 End: April 03, 2025 Team Status: Inactive Member Role/Relationship Status Dates Helio Hargrove MD Primary Care Provider Active St art: April 11, 2025 End: April 11, 2025 Dr. Eric Ford MD Attending Provider Active Start: April 11, 2025 End: April 11, 2025 Dr. Eric Ford MD Referring Provider Active Start: April 11, 2025 End: April 11, 2025 Team Status: Active Member Role/Relationship Status Dates Helio Hargrove MD Primary Care Provider Active St art: April 11, 2025 Dr. Ty Vazquez MD Attending Provider Active S tart: April 11, 2025 FOR RECORDS PERTAINING TO PATIENTS WHO ARE OR HAVE BEEN ENROLLED IN A CHEMICAL DEPENDENCY/SUBSTANCEABUSE PROGRAM, SOME INFORMATION MAY BE OMITTED. This clinical summary was aggregated from multiple sources. Caution should be exercised in using it in the provision of clinical care. This summary normalizes information from multiple sources, and as a consequence, information in this document may materially change the coding, format and clinical context of patient data. In addition, data may be omitted in some cases. CLINICAL DECISIONS SHOULD BE BASED ON THE PRIMARY CLINICAL RECORDS. [facility] [facility]. provides no warranty or guarantee of the accuracy or completeness of information in this document.
== END | disposition home or self-care (01) ==
LOC: OPBI 08:03
PROVIDERS: PCP Family Medicine; Referring Provider Family Medicine; Visit Provider Family Medicine
DX: R59.0 Localized enlarged lymph nodes (principal)
CPT/HCPCS: 77062; 76642; 77066; G0279

== ENCOUNTER → 2025-06-14 | Outpatient (CLI) | payer MEDICAID, SELFPAY | END | disposition home or self-care (01) | LOC: MFPLAB 14:18 | PROVIDERS: PCP Family Medicine; Visit Provider Family Medicine | DX: E03.9 Hypothyroidism, unspecified (principal) | CPT/HCPCS: 36415; 84443 ==

== ENCOUNTER 2025-08-31 19:08 | Emergency (ER) | payer MEDICAID, SELFPAY ==
[2025-08-31 19:09] VITALS: BP 124/91; PULSE 82; RESP 18; TEMP 36.2; O2SAT 99; BMI 35.7
[2025-08-31 20:09] VITALS: BP 112/67; PULSE 70; RESP 18; O2SAT 99
--- NOTE | 2025-08-31 20:31 | EDS_ITS ---
HPI History of Present Illness Chief Complaint: Fall Detail of Chief Complaint: Fall Informant: patient Narrative Narrative: Patient presents with a fall that occurred last evening. Patient states that she fell on the steps outside that were wooden. She was holding her puppy and she did not brace herself she did not want to land on the puppy. Patient landed on her buttocks and back. She think she hit her head because she had a small laceration to the inner lip. Denies neck pain. Complaining of bruising to her left buttock and low back pain. Complaining of headaches. Denies nausea or vomiting. [facility] Medical History Impingement of left shoulder Left shoulder pain History of back pain History of environmental allergies Pain, dental H/O drainage of abscess Hidradenitis suppurativa Abscess Home Medications ?Medication ?Instructions ?Recorded ?Last Taken ?Type doxycycline hyclate 100 mg capsule 100 mg PO QDAY #10 caps 05/05/25 Unknown Rx fluticasone fur. 100 mcg-umeclid 1 inh inhalation Q24H 05/05/25 Unknown History 62.5 mcg-vilant 25 mcg inhalat.powder (Trelegy Ellipta) levothyroxine 75 mcg capsule 75 mcg PO QDAY 05/05/25 U nknown History omeprazole 40 mg capsule,delayed 40 mg PO QDAY 5 Unknown History release cyclobenzaprine 10 mg tablet 10 mg PO TID PRN Muscle S pasm #20 08/31/25 Unknown Rx TABLETS hydrocodone-acetaminophen 5-325mg 1 tab PO Q4H PRN PRN Pain 2 days 08/31/25 Unknown Rx 5mg-325mg #10 TABLETS Allergy/AdvReac Type Severity Reaction Status Date / Time No Known Allergies Allergy Verified 08/31/25 19:12 Family History Grandmother Breast cancer Diabetes Grandfather Cancer prostate and colon Grandmother CVA (cerebral vascular accident) Thyroid disorder Aunt Thyroid disorder Social History Smoking Status: Former smoker alcohol intake: never substance use type: does not use additional social history: denies vaping, denies edibles, denies marijuana, denies aspirin and ibuprofen ROS ROS ED Review of Systems ROS Unobtainable: other Constitutional Constitutional ED: Reports lethargy; Denies chills, fever(s), sweats or weight loss Eyes Eyes: Denies blurry vision, change in vision or diplopia ENT ENT ED: Denies rhinorrhea or sore throat Cardiovascular Cardiovascular: Denies chest pain, orthopnea or racing heartbeat Respiratory/Chest Respiratory/Chest: Denies cough, dyspnea, dyspnea on exertion, orthopnea or sputum Gastrointestinal Gastrointestinal: Denies abdominal pain, diarrhea, nausea or vomiting Genitourinary Genitourinary ED: Denies dysuria, hematuria or urinary frequency Musculoskeletal Musculoskeletal: Reports back pain; Denies arthralgias, myalgias or neck pain Integumentary Denies abscess, Abrasions or rash Neurologic Neurologic: Reports headache(s); Denies weakness Psychiatric Psychiatric: Denies anxiety, depression or suicidal thoughts Endocrine Endocrinology: Denies polydipsia, polyphagia or polyuria Hematologic/Lymphatic Hematologic/Lymphatic: Denies easy bleeding, easy bruising or lymphadenopathy Allergic/Immunologic Allergic/Immunologic ED: Denies mouth swelling, tongue swelling or urticaria EXAM Physical Exam Const Vital Signs: 08/31/25 19:09 08/31/25 20:09 08/31/25 20:09 Temperature 97.1 F L Temperature Source Temporal Pulse Rate 82 70 Respiratory Rate 18 18 Respiratory Effort Normal Respiratory Depth Normal Respiratory Pattern Normal Blood Pressure 124/91 H 112/67 Blood Pressure Mean 102 82 Pulse Ox 99 99 Oxygen Delivery Method Room Air Room Air Room Air 08/31/25 22:00 Temperature Temperature Source Pulse Rate 77 Respiratory Rate 14 Respiratory Effort Respiratory Depth Respiratory Pattern Blood Pressure 109/70 Blood Pressure Mean 83 Pulse Ox 98 Oxygen Delivery Method Room Air Positive well nourished and well developed General Appearance ED: well developed and NAD HEENT Reports TM's clear and moist mucous membranes normocephalic and atraumatic; Negative for trauma or tenderness Tympanic Membrane ED: Yes TM's clear Eyes PERRL and EOMs intact bilaterally General Eye ED: Negative for pale conjunctiva or scleral icterus Neck no lymphadenopathy, supple and no JVD General: Negative for tenderness Chest Wall inspection of chest normal and palpation of chest normal Chest: Negative for tenderness Resp normal respiratory effort and clear to auscultation bilaterally Effort and Inspection: Negative for respiratory distress or pain with movement Auscultation: Negative for rhonchi, wheezes or diminished lung sounds Cardio regular rate, regular rhythm, S1 normal heart sound, S2 normal heart sound and no murmurs Peripheral Pulses: pulses 2+ throughout GI normal to inspection, nondistended, normoactive bowel sounds, soft to palpation, non-tender, non-distended and no masses Back/Spine no CVA tenderness and no thoracic nor lumbar tenderness Back/Spine Narrative: Diffuse tenderness over the lumbar spine and lower thoracic spine. There is no significant ecchymosis or bruising. She does have ecchymosis and bruising to the left buttock. Negative straight leg raises. Normal leg strength. Neurovascular intact distally. Extremity normal to inspection General Extremety ED: Negative for edema General Extremity: Negative for edema Neuro oriented x3, CN's II-XII intact bilaterally, no sensory deficits noted and gait normal Sensorium / Orientation: awake, alert, oriented to person, oriented to place and oriented to time Motor Exam: strength 5/5 throughout and strength abnormal Psych mental status grossly normal Skin no rashes or lesions noted and no wounds MDM MDM MDM Narrative Medical decision making narrative: Patient presented with a fall with injury to her back and head. Clinically looks well. Vital signs stable. CT brain without contrast was unremarkable. CT scan of the abdomen pelvis was obtained which did not show any traumatic injuries of her spine or pelvis. Patient drove herself here. I will write her prescription for a few [place] for pain and Flexeril. Advised to follow-up with her primary care physician within next 3 to 5 days. Radiography Diagnostic Testing: Clinical Impression(s) from Imaging Studies Abdomen/Pelvis CT 08/31/25 20:45 IMPRESSION: No CT evidence of an acute traumatic injury to the abdomen or pelvis. Reading Location: [id number] Brain CT 08/31/25 20:45 IMPRESSION: No acute intracranial abnormality. Reading Location: [facility] Discharge Plan Triage Chief Complaint: Fall ED Provider: Annie Ramos Dx/Rx/DC Orders Clinical Impression: Fall, Closed head injury, Contusion of back Instructions: ED Back Contusion, ED Mechanical Fall, ED Head Injury (Adult) Prescriptions: New cyclobenzaprine 10 mg tablet 10 mg PO TID PRN (Reason: Muscle Spasm) Qty: 20 0RF hydrocodone-acetaminophen 5-325 mg tablet 1 tab PO Q4H PRN PRN (Reason: Pain) 2 Days Qty: 10 0RF No Action doxycycline hyclate 100 mg capsule 100 mg PO QDAY Qty: 10 0RF levothyroxine 75 mcg capsule 75 mcg PO QDAY omeprazole 40 mg capsule,delayed release(DR/EC) 40 mg PO QDAY Trelegy Ellipta 100-62.5-25 mcg blister with device 1 inh inhalation Q24H Primary Care Provider: Helio Smith Referrals: Helio Smith MD [Primary Care Provider, Family Practice] - 3-5 Days Print Language: Frisian Disposition Disposition: Home, Self Care
--- NOTE | 2025-08-31 20:45 | CT_ITS ---
PROCEDURE: CT BRAIN/HEAD WITHOUT CONTRAST 08/31/2025 REASON FOR EXAM: HEAD INJURY TECHNIQUE: Procedure Code: CTBR Modality: CT Procedure: BRAIN/HEAD WITHOUT CONTRAST Coronal and Sagittal reconstruction series were provided. One or more dose reduction techniques were used (e.g., Automated exposure control, adjustment of the mA and/or kV according to patient size, use of iterative reconstruction technique. RADIATION DOSE SUMMARY: CTDlvol: 44.99 mGy DLP: 745.49 mGycm COMPARISON: None. FINDINGS: No acute intracranial hemorrhage, extra-axial collection, mass effect or evidence of acute infarct. Ventricles and subarachnoid spaces are normal in size. Orbital contents are unremarkable. Intact skull base and calvarium. Well-aerated paranasal sinuses and mastoid air cells. CT/Brain/Head without Contrast IMPRESSION: No acute intracranial abnormality. Reading Location: [id number]
--- NOTE | 2025-08-31 20:45 | CT_ITS ---
PROCEDURE: ABDOMEN/PELVIS WITHOUT CONT 08/31/2025 REASON FOR EXAM: FALL TECHNIQUE: Procedure Code: CTABDPEL Modality: CT Procedure: ABDOMEN/PELVIS WITHOUT CONT Noncontrast technique limits evaluation of the abdominal and pelvic viscera. Coronal and Sagittal reconstruction series were provided. One or more dose reduction techniques were used (e.g., Automated exposure control, adjustment of the mA and/or kV according to patient size, use of iterative reconstruction technique). COMPARISON: 11/22/2024. FINDINGS: Lack of IV and oral contrast limits evaluation on portions of this study. The visualized lung bases are clear. No CT evidence of a urinary stone or obstructive uropathy. The unenhanced kidneys, liver, gallbladder, spleen, pancreas, and adrenal glands appear grossly unremarkable. The unenhanced urinary bladder appears grossly unremarkable. Moderate amount of stool within the right side of the colon. No evidence of a bowel obstruction. No bowel wall thickening. The appendix is visualized and unremarkable. No intraperitoneal free air or free fluid. No abdominal nor pelvic lymphadenopathy. No acute osseous abnormality. No acute fracture. CT/Abdomen/Pelvis without Cont IMPRESSION: No CT evidence of an acute traumatic injury to the abdomen or pelvis. Reading Location: [id number]
--- OUTSIDE RECORDS SUMMARY | 2025-08-31 21:06 | XMS RPT_ITS | CCD ---
Author Organization [facility] Care Team Providers Care Student Assistant Name Role Phone ERASTO, TAB Elaine Unavailable Unavailable ERASTO, TAB E Unavailable Unavailable ERASTO, TAB Elaine Unavailable Unavailable DIDUR, KENZIE DO Unavailable Unavailable [...] (Pss) Primary Care Provider Michelle vailable Helio Smith MD Primary Care Provider Unavailable Primary Care Provider Unavailabl e Helio Smith MD Primary Care Provider Helio Smith MD Attending Provider Helio Smith MD Referring Provider Jayson Turcios MD Attending Provider Dr. Ty Vazquez MD Attending Provider Dr. Jaylan Hunter DO Attending Provider Dr. Jaylan Hunter DO Emergency Provider Jayson Turcios MD Referring Provider Jayson Turcios MD Other Provider Dr. Jade Hernandez MD Attending Provider Yao Myers PA-C Attending Provider [phone] Louis ALVARADO, Yao Referring Provider Beena FLYNN, Helio Primary Care Provider Beena FLYNN, Helio Referring Provider Jayson Turcios MD Attending Provider George FLYNN, Dr. Crawford Attending Provider Dr. Jaylan Hunter DO Attending Provider Dr. Jaylan Hunter DO Emergency Provider Jayson Turcios MD Referring Provider Tam FLYNN, Jayson Other Provider Mary FLYNN, Dr. Hansen Attending Provider [phone] KarlosChan [facility] WindberThier[facility], Yao Attending Provider Louis AZAshley, Yao Referring Provider Beena FLYNN, Helio Attending Provider Dr. Alejandro Meneses MD Attending Provider Dr. Alejandro Meneses MD Referring Provider Beena FLYNN, Helio Primary Care Provider Jayson Turcios MD Attending Provider Beena FLYNN, Helio Referring Provider Beena FLYNN, Helio Primary Care Provider Jayson Turcios MD Attending Provider Jayson Turcios MD Referring Provider Beena FLYNN, Helio Referring Provider Helio Smith MD Attending Provider Beena FLYNN, Helio Primary Care Provider Helio Smith MD Attending Provider Beena FLYNN, Helio Referring Provider Liliana FLYNN, Dr. Eric Fernandes Attending Provider Dr. Eric Ford MD, V Referring Provider Dr. Ty Vazquez MD Attending Provider Robotham MD, Dr. Maurice Attending Provider Beena FLYNN, Chalon Primary Care Physician Beena FLYNN, Helio Attending Physician Beena FLYNN, Chalraoul Referring Provider Liliana FLYNN, Dr. Eric Fernandes Attending Physician Liliana FLYNN, Dr. Eric Fernandes Referring Provider [phone] George FLYNN, Dr. Crawford Attending Physician German FLYNN, Dr. Maurice Attending Physician [phone] Beena, Chalon Primary Care Unavailable Ty Vazquez Attending Unavailable Beena, Chalon Primary Care Unavailable Beena, Chalon Attending Unavailable Beena, Chalon Primary Care Unavailable Yao Ram Referring Unavailable Yao Ram Attending Unavailable Beena, Chalon Referring Unavailable Beena, Chalon Primary Care Unavailable Beena, Chalon Attending Unavailable Mollison, Jayson Referring Unavailable Mollison, Jayson Attending Unavailable Beena, Chalon Primary Care Unavailable Sibilia, Eric V Referring Unavailable Sibilia, Eric Fernandes Attending Unavailable Beena, Chalon Primary Care Unavailable Beena, Chalon Primary Care Unavailable Beena, Chalon Referring Unavailable Beena, Chalon Attending Unavailable Mollison, Jayson Consulting Unavailable Mollison, Jayson Referring Unavailable Beena, Chalon Primary Care Unavailable Jade Hernandez Attending Unavailable Mollison, Jayson Referring Unavailable Mollison, Jayson Attending Unavailable Beena, Chalon Primary Care Unavailable Beena, Chalon Primary Care Unavailable Beena, Chalon Referring Unavailable Beena, Chalon Attending Unavailable Beena, Chalon Referring Unavailable Beena, Chalon Attending Unavailable Beena, Chalon Primary Care Unavailable Beena, Chalon Primary Care Unavailable Beena, Chalon Referring Unavailable Beena, Chalon Attending Unavailable Beena, Chalon Referring Unavailable Beena, Chalon Attending Unavailable Beena, Chalon Primary Care Unavailable Beena, Chalon Primary Care Unavailable Sibilia, Eric V Attending Unavailable Beena, Chalon Referring Unavailable Beena, Chalon Attending Unavailable Beena, Chalon Primary Care Unavailable ElsaRyanon Attending Unavailable Beena, Chalon Primary Care Unavailable Beena, Chalon Primary Care Unavailable Alejandro Meneses Referring Unavailable Jaxsonbour, Alejandro Attending Unavailable Beena, Chalon Attending Unavailable Beena, Chalon Primary Care Unavailable Beena, Chalon Referring Unavailable Beena, Chalon Referring Unavailable Mollison, Jayson Attending Unavailable Beena, Chalon Primary Care Unavailable Beena, Chalon Primary Care Unavailable Sibilia, Eric Fernandes Referring Unavailable Sibilia, Eric Fernandes Attending Unavailable Beena, Chalon Primary Care Unavailable Ty Vazquez Attending Unavailable Mollison, Jayson Attending Unavailable Beena, Chalon Primary Care Unavailable Beena, Chalon Referring Unavailable Beena, Chalon Referring Unavailable Robotham, Kaylene Attending Unavailable Beena, Chalon Primary Care Unavailable Beena, Chalon Referring Unavailable Robotham, Kaylene Attending Unavailable Beena, Chalon Primary Care Unavailable Beena, Chalon Referring Unavailable Mollison, Jayson Attending Unavailable Beena, Chalon Primary Care Unavailable BEENA, CHALON Primary Care Unavailable TALKAR, GALI Referring Unavailable BEENA, CHALON Primary Care Unavailable TALKAR, GALI Attending Unavailable BEENA, CHALON Primary Care Unavailable WORMALD, BOOKER P Referring Unavailable BEENA, CHALON Primary Care Unavailable WORMALD, BOOKER P Attending Unavailable LEONOR HUGGINS Attending Unavailable BEENA, CHALON Primary Care Unavailable TALKAR, GALI Attending Unavailable BEENA, CHALON Primary Care Unavailable ROSIE WHALEN Attending Unavailable BEENA, CHALON Primary Care Unavailable BEENA, CHALON Primary Care Unavailable BEENA, CHALON Primary Care Unavailable BEENA, CHALON Primary Care Unavailable WHITNEY SMILEY Referring Unavailable BEENA, CHALON Primary Care Unavailable Medications Current Medications Medication Drug Class(es) Dates Sig (Normalized) Sig (Original) doxycycline hyclate 100 mg oral capsule (20 sources) Tetracycline-clas s Drug Start: 05-05-2025 take 1 capsule by mouth once daily Start: 04-12-2024 End: 08-16-2024 take 1 capsule [...] 14, 2022 12:00am May 15, 2022 12:04am 120 actuat fluticasone propionate 0.22 mg/actuat metered dose inhaler (9 sources) Corticosteroid Start: 02-28-2025 fluticasone (F LOVENT) 220 mcg/actuation inhaler 02/28/2025 Active Start: 12-16-2018 End: 08-16-2024 take 2 spray(s) by mouth once daily fluticasone (FLONASE) 50 mcg/actuation nasal spray Use 2 Sprays in each nostril once daily. Rinse mouth after use. 1 Bottle 12/16/2018 08/16/2024 Discontinued (Course of therapy completed) Comment on above: Use 2 Sprays in each nostril once daily. Rinse mouth after use. Jydzmsiqprj-Sdeizoemm-Glamyu er (2 sources) Anticholinergic, Corticosteroid, beta2-Adrenergic Agonist Start: 05-05-2025 Start: 05-05-2025 Fluticasone-Um eclidin-Vilanter (Trelegy Ellipta) 100-62.5-25 mcg blister with device Active 1 NMA INHALATION Q24H May 05, 2025 12:00am levothyroxine sodium 0.075 m g oral capsule (5 sources) l-Thyroxine Start: 05-05-2025 take 1 capsule by [facility] once daily Start: 05-03-2025 levothyroxine (SYNTHROID) 75 mcg tablet 05/03/2025 Active Start: 03-28-2025 levothyroxine (SYNTHROID) 50 mcg tablet 03/28/2025 Active omeprazole 40 mg delayed release oral capsule (4 sources) Proton Pump Inhibitor Start: 12-27-2024 take 1 capsule by mouth once daily ondansetron 4 mg oral tablet (1 source) Serotonin-3 Receptor Antagonist Start: 03-31-2025 take 1 tablet by mouth every eight hours as needed ondansetron (ZOFRAN) 4 mg tablet Take 4 mg by mouth three times a day as needed. 03/31/2025 Active predniSONE 20 mg oral tablet (2 sources) Start: 03-28-2025 End: 04-08-2025 take 3 tablets by mouth once daily, [...] Comment on above: Take 2 tablets by [facility] once daily for 5 days. 30 actuat umeclidinium 0.0625 mg/actuat / vilanterol 0.025 mg/actuat dry powder inhaler (2 sources) Anticholinergic, beta2-Adrenergic Agonist Start: 02-28-2025 take 1 puff(s) by mouth once daily ANORO ELLIPTA 62.5-25 mcg/actuation inhaler INHALE 1 PUFF BY MOUTH ONCE DAILY WITH GOOD ORAL CARE AFTER USE 02/28/2025 Active Completed/Discontinued Medications Medication Drug Class(es) Dates Sig (Normalized) Sig (Original) acetaminophen 325 mg / HYDROcodone bitartrate 5 mg oral tablet (16 sources) Opioid Agonist Start: 02-27-2021 End: 04-24-2022 [...] mg / clavulanate 125 mg oral tablet (12 sources) Penicillin-class Antibacterial Start: 02-25-2023 End: 06-08-2024 take 1 tablet by mouth every twelve hours Amoxicillin-Pot Clavulanate 875-125 mg tablet Discontinued 875 mg PO Q12H 20 0 February 25, 2023 12:00am June 08, 2024 9:52am baclofen 10 mg oral tablet (11 sources) gamma-Aminobutyric Acid-ergic Agonist Start: 10-17-2024 End: 05-05-2025 Baclofen 10 mg tablet Discontinued mg PO October 17, 2024 1:00am May 05, 2025 8:48am benzonatate 100 mg oral capsule (3 sources) [...] oral solution (5 sources) alpha-Adrenergic Agonist, Uncompetitive P-lweqac-P-aspartate Receptor Antagonist, Sigma-1 Agonist Start: 12-16-2018 End: 12-27-2023 take 10 mL by mouth every six hours as needed Brompheniramine- Pseudoeph-DM (BROMFED DM) 2-30-10 mg/5 mL syrup Take 10 mL by mouth four times daily as needed. 200 mL 12/16/2018 12/27/2023 Discontinued Comment on above: Take 10 mL by mouth four times daily as needed. cephalexin 500 mg oral capsule (20 sources) Cephalosporin Antibacterial Start: 06-10-2024 End: 08-09-2024 [...] 2024 9:52am clindamycin 150 mg oral capsule (16 sources) Lincosamide Antibacterial Start: 02-27-2021 End: 04-24-2022 [...] mg/ml / guaiFENesin 20 mg/ml oral solution (16 sources) Opioid Agonist Start: 10-29-2019 End: 11-01-2019 [...] 29, 2019 1:00am November 01, 2019 1:08am gabapentin 100 mg oral capsule (11 sources) Anti-epileptic Agent Start: 06-08-2024 End: 08-09-2024 [...] on above: Take 1 tablet by anshul every 6 hours as needed for pain. [...] food.). oxyCODONE hydrochloride 5 mg oral capsule (11 sources) Opioid Agonist Start: 08-18-2024 End: 09-06-2024 [...] by mouth. tiZANidine 4 mg oral tablet (11 sources) Central alpha-2 Adrenergic Agonist Start: 4 End: 4 take 1 tablet by mouth twice daily Tizanidine 4 mg tablet Discontinued 4 mg PO TWICE A DAY June 08, 2024 12:00am June 21, 2024 11:20am Problems Active Problems Problem Classification Problem Date Documented Da te Episodic/Chronic Disorders of teeth and jaw (20 sources) Abscess of mandible; Translations: [Inflammatory conditions of jaws] Episodic Fracture of lower limb (12 sources) Closed fracture of distal right fibula; Translations: [Other fracture of upper and lower end of right fibula, initial encounter for closed fracture] 08-16-2024 Episodic Genitourinary symptoms and ill-defined conditions (16 sources) Proteinuria; Translations: [Proteinuria, unspecified] 08-15-2019 Episodic Lymphadenitis (1 source) Localized enlarged lymph nodes; Translations: [Localized enlarged lymph nodes] Onset: 04-28-2025 Episodic Other connective tissue disease (15 sources) Pain in axilla; Translations: [Pain in left upper arm] 05-13-2022 Episodic Other connective tissue disease (2 sources) Pain in left upper arm; Translations: [Pain in limb] Episodic Other connective tissue disease (1 source) Pain in left foot; Translations: [Pain in left foot] 03-28-2021 Episodic Other connective tissue disease (1 source) Pain in left foot; Translations: [Foot pain, left] Onset: 07-18-2025 Episodic Other ear and sense organ disorders [...] right ankle, initial encounter] 08-16-2024 Episodic Other injuries and conditions due to external causes (2 sources) Unspecified injury of right wrist, hand and finger(s), initial encounter; Translations: [Right wrist injury, initial encounter] Onset: 06-20-2025 Episodic Other non-traumatic joint disorders (1 source) Acute ankle pain; Translations: [Pain in left ankle and joints of left foot] 03-28-2021 Episodic Other non-traumatic joint disorders (19 sources) Disorder of shoulder; Translations: [Other specified joint disorders, left shoulder] 09-06-2024 Episodic Other screening for suspected conditions (not mental disorders or infectious disease) (2 sources) Encounter for screening mammogram for malignant neoplasm of breast; Translations: [Other specified abnormal findings of blood chemistry] Onset: 02-01-2025 Episodic Other skin disorders (16 sources) Infection of sebaceous cyst; Translations: [Sebaceous cyst] 04-29-2022 Episodic Other skin disorders (18 sources) Hidradenitis suppurativa; Translations: [Hidradenitis suppurativa] 05-08-2022 Episodic Other skin disorders (4 sources) Hidradenitis suppurativa; Translations: [Hidradenitis] Episodic Other skin disorders (2 sources) Eruption; Translations: [Rash and other nonspecific skin eruption] 04-25-2024 Episodic Other skin disorders (11 sources) Epidermoid cyst of skin of neck; Translations: [Epidermal cyst] 06-08-2024 Episodic Other upper respiratory infections (4 sources) Acute upper respiratory infection; Translations: [Acute upper respiratory infection, unspecified] Onset: 05-07-2025 12-27-2023 Episodic Pulmonary heart disease (2 sources) Pulmonary hypertension, unspecified; Translations: [Pulmonary hypertension, unspecified] Onset: 02-27-2025 Chronic Residual codes; unclassified (5 sources) Influenza-like symptoms; Translations: [Other general symptoms and signs] 10-30-2019 Episodic Residual codes; unclassified (12 sources) Viral syndrome; Translations: [Other general symptoms and signs] 11-19-2024 Episodic Skin and subcutaneous tissue infections (20 sources) Abscess; Translations: [Cutaneous abscess, unspecified] 10-08-2022 Episodic Sprains and strains (17 sources) Strain of biceps brachii muscle; Translations: [Strain of muscle, fascia and tendon of other parts of biceps, unspecified arm, initial encounter] Onset: 07-18-2025 08-15-2019 Episodic Superficial injury; contusion (2 sources) Contusion of right ankle, initial encounter; Translations: [Contusion of right hand, initial encounter] Onset: 01-26-2025 Episodic Thyroid disorders (1 source) Hypothyroidism, unspecified; Translations: [Hypothyroidism, unspecified] Onset: 06-23-2025 Chronic Past or Other Problems Problem Classification Problem Date Documented Da te Episodic/Chronic Abdominal pain (18 sources) Flank pain; Translations: [Unspecified abdominal pain] Onset: 12-05-2024 08-15-2019 Episodic Allergic reactions (1 source) Unspecified contact dermatitis due to plants, except food; Translations: [Rhus dermatitis] Onset: 01-12-2025 Episodic Cardiac dysrhythmias (1 source) Palpitations; Translations: [...] right, initial encounter] Onset: 08-16-2024 Episodic Other lower respiratory disease (1 source) Shortness of breath; Translations: [Shortness of breath] Onset: 02-10-2025 Episodic Other nervous system disorders (2 sources) Anesthesia of skin; Translations: [Anesthesia of skin] Onset: 10-04-2024 Episodic Other nervous system disorders (1 source) Paresthesia of skin; Translations: [Paresthesia of skin] Onset: 10-04-2024 Episodic Other non-traumatic joint disorders (20 sources) Pain in left shoulder; Translations: [Left shoulder pain] Onset: 11-03-2024 08-09-2024 Episodic Other non-traumatic joint disorders (1 source) Other specified joint disorders, left shoulder; Translations: [Other specified joint disorders, left shoulder] Onset: 09-06-2024 Episodic Other skin disorders (1 source) Rash and other nonspecific skin eruption; Translations: [Rash] Onset: 03-28-2025 Episodic Results Test Name Value Interpretation Reference Range Facility [facility] 07-18-2025 CNOV Office Visit ([facility]) FELA GARCIA ([id number]) 1995 F Date Time Provider Department 07/18/25 9:15 AM GALI MATTHEW During your visit today, we recorded the following information about you: Temperature Pulse Respiration Blood pressure 97.4 degrees 82/minute 16/minute 122/70 Weight 96.9 kg Gali Matthew MD 07/18/2025 9:42 AM Signed [facility] Priscilla Garcia is a 30 year old female. Patient presents with: Pain (foot): left foot into ankle pain x 1 week, increased x 2 days, denies injury Pt is here with 1 week hx of left foot pain occurs when standing no known injury some swelling medial foot no redness no rash of note pt mentions she also hurts in the right sometimes no ankle or leg pain or swelling Pain (foot) Pertinent negatives include no fever or numbness. Review of Systems Constitutional: Negative for chills and fever. Musculoskeletal: Positive for arthralgias, gait problem, joint swelling and myalgias. Skin: Negative for rash and wound. Neurological: Negative for weakness and numbness. Objective BP 122/70 Pulse 82 Temp 36.3 ?C (97.4 ?F) Resp 16 Wt 96.9 kg (213 lb 10 oz) LMP 05/31/2025 (Exact Date) SpO2 98% Physical Exam Vitals and nursing note reviewed. Constitutional: Appearance: Normal appearance. She is not ill-appearing. Cardiovascular: Pulses: Normal pulses. Musculoskeletal: General: Swelling and tenderness present. No deformity or signs of injury. Normal range of motion. Right lower leg: No edema. Left lower leg: No edema. Skin: Capillary Refill: Capillary refill takes less than 2 seconds. Findings: No bruising, erythema or rash. Neurological: Mental Status: She is alert. Sensory: No sensory deficit. Motor: No weakness. Coordination: Coordination normal. Deep Tendon Reflexes: Reflexes normal. {ASSESSMENT/PLAN: 1. Foot pain, left - ICD9: 729.5, ICD10: M79.672 (primary diagnosis) - XR FOOT GENERAL 3V AP/LAT/OBL LEFT - DICLOFENAC 1 % TOPICAL GEL - CONSULT TO PODIATRY 2. Sprain of left foot, initial encounter - ICD9: 845.10, ICD10: S93.602A Follow up with podiatry - DICLOFENAC 1 % TOPICAL GEL - CONSULT TO PODIATRY Gali Matthew MD Differential Diagnoses - foot sprain is more likely for the following reason(s): suggested by HANDP and consistent with imaging - foot fracture is less likely for the following reason(s): no evidence on imaging Disposition The patient was discharged. Procedures Gali Matthew MD 07/18/2025 9:39 AM Signed SPRAINS AND STRAINS BASIC INFORMATION Description: A strain is a stretched or torn muscle. A sprain is a stretched or torn ligament. Sprains occur most often in ankles, knees, or fingers, although any joint can be sprained. Sprained joints can function, but only with pain. Frequent Signs and Symptoms: - Pain or tenderness in the area of injury; severity varies with the extent of injury. - Swelling of the affected joint. - Redness or bruising in the area of injury, either immediately or several hours after injury. - Loss of normal mobility in the injured joint. Causes: Strains usually are associated with overuse injuries. Sprains usually occur secondary to trauma (fall, twisting injury or automobile accident). The ankel is injured most often because of its anatomical weakness, its exposed position, and the stress it sustains in athletic and recreational activities. It is difficult to differentiate sprains from strains. Risk Increases With: - Obesity . - Trauma. - Excessive exercise. - Poor conditioning. - Poor fitting shoes and high heeled shoes. - High-risk activities (skateboarding), contact spoints, ice and roller skating. Preventive Measures: - Maintain good level of physical fitness. - Wrap weak joints with support bandanges before strenuous activity. - Stretch muscles before and after exercise. - Strengthen weak muscles with rehabilitative exercises to prevent a recurrence. - Accident-proof your home. Expected Outcome: With appropriate treatment and rest, 6-8 weeks for recovery. May take longer depending on the severity of the injury. Possible Complications: - Permanent weakness if the sprain is severe or if a joint is sprained repeatedly. - Arthritis. TREATMENT General Measures: - Diagnostic tests may include x-rays of the injured area, or CT scan or MRI. -RICE therapy: rest, ice, compression, and elevation - Apply ice to the injured joint during the first [address] ice in a plastic bag and separate it from the skin with a thin towel. Hold it against the joint with your hand or an elastic bandage. Keep the ice pack on the joint up to 2 hours at a time either constantly or intermittently depending on your ability to tolerate the cold. Continue the ice treatment at 2-hour intervals for 24 hours. - After (more content not included)... Normal [facility] XR FOOT 3V AP/LAT/OBL LTon 1 XR FOOT 3V AP/LAT/OBL LT * * *Final Repo rt* * * DATE OF EXAM: Jul 18 2025 10:08AM WOX [id number] - XR FOOT 3V AP/LAT/OBL LT / PROCEDURE REASON: Foot pain, left * * * * Physician Interpretation * * * * PROCEDURE: Left foot INDICATION: Foot pain, left .pain since this morning/denies injury/hard to put pressure on it TECHNIQUE: XR FOOT 3V AP/LAT/OBL LT COMPARISON: 03/28/2021 FINDINGS: No fractures or dislocations are seen. The bones, joint spaces and soft tissues are unremarkable. IMPRESSION: Negative Dot Compliance Specialist: GASTON Transcribe Date/Time: Jul 18 2025 10:11A Dictated by : JOSELUIS ANGUIANO MD This examination was interpreted and the report reviewed and electronically signed by: JOSELUIS ANGUIANO MD on Jul 18 2025 10:11AM EST [id number] Normal [facility] 06-20-2025 CNOV Office Visit ([facility]) MARICARMENCheleFELA R ([id number]) 1995 F Date Time Provider Department 06/20/25 10:15 AM BOOKER RAMOS During your visit today, we recorded the following information about you: Temperature Pulse Respiration Blood pressure 97.1 degrees 69/minute 18/minute 126/88 Weight Last Period 92 kg 05/31/25 Booker Ramos, REBELC 06/20/2025 11:02 AM Signed [facility] Subjective Patient presents with: Musculoskeletal Problem: R hand, smashed in truck door x 5 bruising, swelling, painful, lumps in 2 spots Fela Garcia is a 29 year old female with a past medical history of pulmonary hypertension who presents to express care today for evaluation of right hand and wrist pain after crushing it in a truck door 3 days ago. She states that the pain has been constant and is worse with certain movements. No numbness or tingling. Review of Systems Constitutional: Negative for chills, diaphoresis and fever. Musculoskeletal: Positive for arthralgias (right hand/wrist). Skin: Negative for rash and wound. Neurological: Negative for weakness and numbness. All other systems reviewed and are negative. Objective BP 126/88 Pulse 69 Temp 36.2 ?C (97.1 ?F) Resp 18 Wt 92 kg (202 lb 13.2 oz) LMP 05/31/2025 (Exact Date) SpO2 98% Physical Exam Vitals reviewed. Constitutional: General: She is not in acute distress. Appearance: Normal appearance. She is normal weight. She is not ill-appearing or toxic-appearing. Comments: The patient appears to be non-toxic, in no acute distress, and resting comfortably on the table. HENT: Head: Normocephalic and atraumatic. Eyes: Extraocular Movements: Extraocular movements intact. Musculoskeletal: General: Normal range of motion. Cervical back: Normal range of motion. Skin: General: Skin is warm and dry. Findings: No erythema or rash. Neurological: General: No focal deficit present. Mental Status: She is alert and oriented to person, place, and time. Mental status is at baseline. Psychiatric: Mood and Affect: Mood normal. Behavior: Behavior normal. Thought Content: Thought content normal. MDM Examination of the right hand reveals tenderness to the lateral dorsal aspect of the hand as well as over the base of the thumb. Imaging ordered to rule out fracture. Imaging shows no acute abnormalities. Results discussed with patient. Patient advised to rest, ice, compress, and elevate the hand. Advised to follow-up with primary care as needed. ASSESSMENT/PLAN: 1. Contusion of right hand, initial encounter - ICD9: 923.20, ICD10: S60.221A (primary diagnosis) 2. Right wrist injury, initial encounter - ICD9: 959.3, ICD10: S69.91XA - XR WRIST GENERAL 3V PA/LAT/OBL RIGHT 3. Hand injury, right, initial encounter - ICD9: 959.4, ICD10: S69.91XA - XR HAND GENERAL 3V PA/LAT/OBL RIGHT Medical Decision Making: Problems: Low: Acute, uncomplicated illness or injury Risk: Minimal: Minimal risk from testing/treatment Moderate: Drug management Medical Decision Making Level: 3 - Low I spent a total of 20 minutes on the date of the service which included preparing to see the patient, [id number] patient care, completing clinical documentation, performing a medically appropriate examination, counseling and educating the patient/family/caregi mil, and ordering medications, tests, or procedures. Booker Ramos PA-C Procedures Booker Ramos PA-C 06/20/2025 10:56 AM Signed SPRAINS AND STRAINS BASIC INFORMATION Description: A strain is a stretched or torn muscle. A sprain is a stretched or torn ligament. Sprains occur most often in ankles, knees, or fingers, although any joint can be sprained. Sprained joints can function, but only with pain. Frequent Signs and Symptoms: - Pain or tenderness in the area of injury; severity varies with the extent of injury. - Swelling of the affected joint. - Redness or bruising in the area of injury, either immediately or several hours after injury. - Loss of normal mobility in the injured joint. Causes: Strains usually are associated with overuse injuries. Sprains usually occur secondary to trauma (fall, twisting injury or automobile accident). The ankel is injured most often because of its anatomical weakness, its exposed position, and the stress it sustains in athletic and recreational activities. It is difficult to differentiate sprains from strains. Risk Increases With: - Obesity . - Trauma. - Excessive exercise. - Poor conditioning. - Poor fitting shoes and high heeled shoes. - High-risk activities (skateboarding), contact spoints, ice and roller skating. Preventive Measures: - Maintain good level of physical fitness. - Wrap weak joints with support bandanges before strenuous activity. - Stretch muscles before and after exercise. - Strengthen weak (more content not included)... Normal [facility] XR HAND 3V PA/LAT/OBL RTon 0 06-20-2025 XR HAND 3V PA/LAT/OBL RT * * *Final Repo rt* * * DATE OF EXAM: Jun 20 2025 10:42AM WOX [id number] - XR HAND 3V PA/LAT/OBL RT / PROCEDURE REASON: Hand injury, right, initial encounter * * * * Physician Interpretation * * * * EXAMINATION: XR WRIST 3V PA/LAT/OBL RT, XR HAND 3V PA/LAT/OBL RT TECHNOLOGIST PROVIDED HISTORY: Hand injury CLINICAL INFORMATION: 29 years old Female with Right wrist injury, initial encounter TECHNIQUE: XR WRIST 3V PA/LAT/OBL RT, XR HAND 3V PA/LAT/OBL RT Laterality: RIGHT Number of different views (projections): 3 views of the RIGHT hand and 3 views of the RIGHT wrist. COMPARISON: None RESULT: No acute fracture. Joint spaces are maintained. IMPRESSION: No acute osseous abnormality. Dot Compliance Specialist: GASTON Transcribe Date/Time: Jun 20 2025 10:43A Dictated by : MOOK LUA DO This examination was interpreted and the report reviewed and electronically signed by: MOOK LUA DO on Jun 20 2025 10:45AM EST [id number] Normal [facility] XR WRIST 3V PA/LAT/OBL RTon 06-20-2025 XR WRIST 3V PA/LAT/OBL RT * * *Final Report* * * DATE OF EXAM: Jun 20 2025 10:42AM WOX [id number] - XR WRIST 3V PA/LAT/OBL RT / PROCEDURE REASON: Right wrist injury, initial encounter * * * * Physician Interpretation * * * * EXAMINATION: XR WRIST 3V PA/LAT/OBL RT, XR HAND 3V PA/LAT/OBL RT TECHNOLOGIST PROVIDED HISTORY: Hand injury CLINICAL INFORMATION: 29 years old Female with Right wrist injury, initial encounter TECHNIQUE: XR WRIST 3V PA/LAT/OBL RT, XR HAND 3V PA/LAT/OBL RT Laterality: RIGHT Number of different views (projections): 3 views of the RIGHT hand and 3 views of the RIGHT wrist. COMPARISON: None RESULT: No acute fracture. Joint spaces are maintained. IMPRESSION: No acute osseous abnormality. Dot Compliance Specialist: Ulmart Transcribe Date/Time: Jun 20 2025 10:43A Dictated by : MOOK LUA DO This examination was interpreted and the report reviewed and electronically signed by: MOOK LUA DO on Jun 20 2025 10:45AM EST [id number] N Normal [facility] TSH DL <= 0.005 mIU/L QnOrde red By: Helio Smith on 06-14-2025 TSH Qn 1.930 uIU/mL 0.300-4.200 [facility] Thyroid Stim Hormone (TSH)on 06-14-2025 TSH 1.930 uIU/mL Normal 0.300-4.200 [facility] Comment on above: Order Comment: Order Date: 04/04/25Order Info: [id number] - TSH Performed By: #### L [id number] ####[facility] [id number] [place], [address] Surgery Visit Reporton 05-25 Surgery Visit Report [facility] [address] [place] [address] OFFICE VISIT Date of Service: 05/25/25 MR#: [id number] Acct: [id number] Name: FELA GARCIA Rep #: [id number] : 1995 Provider: Dr. 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 100 mcg-umeclid 1 inh inhalation Q24H 05/05/2501/13 History 62.5 mcg-vilant 25 mcg inhalat.powder (Trelegy Ellipta) levothyroxine 75 mcg capsule 75 mcg PO QDAY 05/05/25 05/25/25 H istory omeprazole 40 mg capsule,delayed 40 mg PO QDAY 05/05/25 05/25/25 Hi story release Have you fallen in the past year?: No PFSH Medical History Impingement of left shoulder Left shoulder pain History of back pain History of environmental allergies Pain, dental H/O drainage of abscess Hidradenitis suppurativa Abscess Family History Grandmother Breast cancer Diabetes Grandfather Cancer prostate and colon Grandmother CVA (cerebral vascular accident) Thyroid disorder Aunt Thyroid disorder Social History Smoking Status: Former smoker alcohol intake: never substance use type: does not use additional social history: denies vaping, denies edibles, denies marijuana, denies aspirin and ibuprofen HPI HPI HPI: 29-year-old female presents for follow-up for left axillary nodules/boils. Patient denies any changes with the doxycycline. Patient also denies any change of size as well. ROS General General: Yes weight change; No appetite, fatigue, colon cancer or breast cancer HEENT HEENT: Yes difficulty swallowing and swollen glands; No eye injury, eye surgery or hoarseness Endo Endocrine: Yes thyroid disease; No diabetes mellitus, thyroid cancer, Hair loss, heat intolerance or cold intolerance Skin Skin: No rash or changing moles Breast Breast: No left breast lump, right breast lump, nipple discharge, breast pain or breast enlargement Musc Musculoskeletal: No back problems, arthritis, rheumatoid arthritis, gout or joint pain Cardio Cardiovascular: No murmur, pacemaker, heart disease, atrial fibrillation, high blood pressure, heart attack, heart stent, palpitations, shortness of breath with exertion or chest pain Psych Psychiatric: No depression, anxiety or hearing voices Resp Respiratory: No shortness of breath, No sleep apnea, No cough, Yes COPD, No asthma, No emphysema and No wheezing Gastro Gastrointestinal: Yes abdominal pain, Yes nausea or vomiting, No diarrhea, No constipation, No blood in stool, Yes acid reflux, No hemorrhoids, No ulcers, No gallbladder problem and No black,tarry stools Pablo Hematologic: No blood thinners, No blood disorders, No bleeding, No anemia and No blood clots Neuro Neurologic: No numbness and No tingling Exam Const General: cooperative, healthy appearing and no acute distress Chest Other: Left axilla: No change since last appointment-bedside ultrasound does show the previous ultrasound nodule near the crease of the axilla these are very superficial about it half a centimeter from the skin-likely more related to patient's history of hidradenitis and boils. Patient denies any redness over this area but does have multiple boils on her chest and back currently. Resp Effort Inspection: normal respiratory effort Cardio Rate: regular rate Assessment and Plan Assessment and Plan (1) Hidradenitis suppurativa: Status: Acute Plan No plans for biopsy of this area. It is likely even excision may have a difficult time healing due to her history of multiple skin boils. Patient will let us know if she has any changes in the future that could require I D or excision. Patient is agreeable to plan. Kaylene Porter M.D. Pager: [phone] [facility] [address] [place] [address], [facility], [address] [place] [address] Office: [phone] Coding Level of Care Code Off vis,est,level 3 Diagnoses Hidradenitis suppurativa L73.2 Clinical Quality M (more content not included)... [facility] Office Visit ([facility]) FELA GARCIA ([id number]) 1995 F Date Time Provider Department 05/07/25 12:15 PM LEONOR HUGGINS During your visit today, we recorded the following information about you: Temperature Pulse Respiration Blood pressure 97.6 degrees 78/minute 20/minute 104/72 Weight Last Period 92 kg 05/05/25 Leonor Huggins APRN.ARBORICULTURE TEACHER 05/07/2025 12:35 PM Signed [facility] Priscilla Garcia is a 29 year old female. Patient presents with: Nasal Congestion: Runny nose, sore throat, headache nauseated, exposed to strep x last night sx started HPI Viral Symptoms: - Onset of symptoms last night, including sore throat, nausea, headache, nasal congestion, and sweating. - Sore throat is bilateral, with increased pain on one side after a throat swab. 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 - Boyfriend's other son has had strep throat twice in the last month. - Strep test was negative. Review of Systems Constitutional: (+) diaphoresis Head: (+) headache Ears/Nose/Mouth/Throa t: (+) sore throat, (+) nasal congestion Gastrointestinal: (+) nausea Objective BP 104/72 Pulse 78 Temp 36.4 ?C (97.6 ?F) Resp 20 Wt 92 kg (202 lb 13.2 oz) LMP 05/05/2025 (Exact Date) SpO2 97% Physical Exam General: No acute distress. HEENT: Erythematous pharynx without abnormal swelling or abscesses, tympanic membranes normal. CV: Normal heart sounds. Resp: Normal breath sounds. { 1. Sore throat (J02.9) - Acute onset of sore throat, sweating, nausea, headache, and nasal congestion; recent exposure to strep throat through boyfriend's son. - Strep test negative; throat exam shows erythema and irritation without abnormal swelling or abscess. - Discussed that symptoms are likely viral in etiology and should resolve with supportive care. - Offered COVID-19 testing; patient declined. - Advised supportive therapy for symptom management. - Educated on the possibility of false-negative strep test if performed too early; advised to return for re-evaluation if symptoms persist. and Recording using ambient [employer] software for draft documentation of the visit was discussed with the patient/authorized malt liquors sales representative; all questions welcomed and answered. Patient/authorized malt liquors sales representative agreed to proceed MDM Procedures Allergies As of Date: 05/07/2025 (No Known Allergies) Date Reviewed: 05/07/2025 Reviewed by: Opal Kaminski LPN - Fully Assessed Reason for Visit: Nasal Congestion [235] Cmt: Runny nose, sore throat, headache nauseated, exposed to strep x last night sx started Primary Visit Diagnosis:Sore throat [J02.9] Order(s):STREP A MOLECULAR (POC) [8409626] Order #: [id number]. #:[id number] Prescriptions as of 05/07/2025 - doxycycline hyclate (VIBRAMYCIN) 100 mg capsule - ondansetron (ZOFRAN) 4 mg tablet Take 4 mg by mouth three times a day as needed. - levothyroxine (SYNTHROID) 75 mcg tablet - levothyroxine (SYNTHROID) 50 mcg tablet - fluticasone (FLOVENT) 220 mcg/actuation inhaler - ANORO ELLIPTA 62.5-25 mcg/actuation inhaler INHALE 1 PUFF BY MOUTH ONCE DAILY WITH GOOD ORAL CARE AFTER USE - omeprazole (PRILOSEC) 40 mg capsule TAKE 1 CAPSULE BY MOUTH ONCE DAILY DIRECTED BEFORE BREAKFAST Problem List As Of Date: 05/07/2025 (None) Encounter Status:Closed by LEONOR HUGGINS on 05/07/25 Normal [facility] STREP A MOLECULAR (POC)on Procedural Control Valid [facility] Strep A (POCT) Negative Negative [facility] Surgery Visit Reporton 05-05 Surgery Visit Report [facility] [address] [place] [address] [address] [place] [address] OFFICE VISIT Date of Service: 05/05/25 MR#: [id number] Acct: [id number] Name: FELA GARCIA Rep #: [id number] : 1995 Provider: Dr. Kaylene mayorga MD Age/Sex: 29/F Location: [facility] Status: Signed Intake Vital Signs 08/18/24 17:17 05/05/25 08:44 Height 5 ft 5 in 5 ft 5 in Weight: 204 lb BMI 33.9 BP 108/73 Blood Pressure Location Rt brachial Position Sitting Respiration 17 Pulse 67 Pulse Source Monitor Pulse Oximetry (%) 98 Oxygen Delivery Method room air Intake Visit Reasons: left breast Chief Complaint: left axilla Is patient in pain?: No Allergies No Known Allergies Allergy (Verified 05/05/25 08:46) Medications ???Medication ???Instructions ???Recorded ???Confirmed ???Type doxycycline hyclate 100 mg capsule 100 mg PO QDAY #10 caps 05/05/25 05/05/25 Rx fluticasone fur. 100 mcg-umeclid 1 inh inhalation Q24H 05/05/25 History 62.5 mcg-vilant 25 mcg inhalat.powder (Trelegy Ellipta) levothyroxine 75 mcg capsule 75 mcg PO QDAY 05/05/25 05/05/25 H istory omeprazole 40 mg capsule,delayed 40 mg PO QDAY 05/05/25 05/05/25 Hi story release PFSH Medical History Impingement of left shoulder Left shoulder pain History of back pain History of environmental allergies Pain, dental H/O drainage of abscess Hidradenitis suppurativa Abscess Family History (Updated 05/05/25 @ 08:44 by Mariam Paz) Grandmother Breast cancer Diabetes Grandfather Cancer prostate and colon Grandmother CVA (cerebral vascular accident) Thyroid disorder Aunt Thyroid disorder Social History (Updated 05/05/25 @ 08:44 by Mariam Paz) Smoking Status: Former smoker alcohol intake: never substance use type: does not use additional social history: denies vaping, denies edibles, denies marijuana, denies aspirin and ibuprofen HPI HPI HPI: 29-year-old female presents due to left axillary nodules on ultrasound. Patient does have history of hidradenitis/boils on bilateral axillas chest and back. Patient states that she has noticed some swelling of her lymph nodes over the last 4 to 5 years. Patient had an ultrasound due to history of lymphadenopathy. Patient denies feeling any obvious discrete swollen lymph nodes. Age at menses 13, age of of first child N/A, family history of breast cancer maternal grandmother and great aunts on paternal side about age 60 for both, no previous breast biopsies. -------- BREAST LIMITED UNILATERAL 04/20/2025 REASON FOR EXAM: F, Age 29 y/o , LYMPHADENOPATHY COMPARISON: Prior mammogram done earlier in the day.. TECHNIQUE: BREAST LIMITED UNILATERAL. Targeted sonogram of the left axilla. FINDINGS: There is a 1.5 cm 1.4 cm 0.6 cm hypoechoic complex density with increased vascularity in the axilla. There is also evidence of a 6 mm x 5 mm x 8 mm superficial hypoechoic nodule without any vascularity. There is also evidence of a 1.2 cm 1.2 cm x 0.4 cm hypoechoic complex nodular density with increased vascularity. Benign-appearing axillary lymph nodes are also seen the largest measures 2 cm x 1.6 cm x 0.9 cm. US/Breast Limited Unilateral IMPRESSION: Benign-appearing lymphadenopathy as described. There are 2 complex solid and cystic nodules with increased vascularity. Biopsy recommended. ROS General General: Yes weight change; No appetite, fatigue, colon cancer or breast cancer HEENT HEENT: Yes difficulty swallowing and swollen glands; No eye injury, eye surgery or hoarseness Endo Endocrine: Yes thyroid disease; No diabetes mellitus, thyroid cancer, Hair loss, heat intolerance or cold intolerance Skin Skin: No rash or changing moles Breast Breast: No left breast lump or right breast lump Additional Details: Left axillary ultrasound given BI-RADS 4. Musc Musculoskeletal: No back problems, arthritis, rheumatoid arthritis, gout or joint pain Cardio Cardiovascular: No murmur, pacemaker, heart disease, atrial fibrillation, high blood pressure, heart attack, heart stent, palpitations, shortness of breath with exertion or chest pain Psych Psychiatric: No depression, anxiety or hearing voices Resp Respiratory: No shortness of breath, No sleep apnea, No cough, Yes COPD, No asthma, No emphysema and No wheezing Gastro Gastrointestinal: Yes abdominal pain, Yes nausea or vomiting, No diarrhea, No constipation, No blood in stool, Yes acid reflux, No hemorrhoids, No ulcers, No gallbladder problem and No black,tarry stools Pablo Hematologic: No blood thinners, No blood disorders, No bleeding, No anemia and No blood clots Neuro Neurologic: No numbness and No t (more content not included)... Normal [facility] Breast Limited Unilateralon 04-20-2025 Breast Limited Unilateral [facility] [address] [place] [address] Breast Limited Unilateral MR#: [id number] Acct: [id number] Name: FELA GARCIA Rep #: [id number] : 1995 F 29 From: Clint lal MD PCP: Dr. Helio Smith MD Status: REG CLI Study: Breast Limited Unilateral Date of Exam: Exam# [id number] Ordering Dr: Helio Smith MD PROCEDURE: BREAST LIMITED UNILATERAL 04/20/2025 REASON FOR EXAM: F, Age 29 y/o , LYMPHADENOPATHY COMPARISON: Prior mammogram done earlier in the day.. TECHNIQUE: BREAST LIMITED UNILATERAL. Targeted sonogram of the left axilla. FINDINGS: There is a 1.5 cm 1.4 cm 0.6 cm hypoechoic complex density with increased vascularity in the axilla. There is also evidence of a 6 mm x 5 mm x 8 mm superficial hypoechoic nodule without any vascularity. There is also evidence of a 1.2 cm 1.2 cm x 0.4 cm hypoechoic complex nodular density with increased vascularity. Benign-appearing axillary lymph nodes are also seen the largest measures 2 cm x 1.6 cm x 0.9 cm. US/Breast Limited Unilateral IMPRESSION: Benign-appearing lymphadenopathy as described. There are 2 complex solid and cystic nodules with increased vascularity. Biopsy recommended. BI-RADS 4: SUSPICIOUS RECOMMENDATION: Biopsy Recommended Reading Location: [id number] CC: Dr. Helio Smith MD Dot Compliance Specialist: Signed Normal [facility] Breast Limited Unilateral [facility] [address] [place], [place] [id number] Breast Limited Unilateral MR#: [id number] Acct: [id number] Name: FELA GARCIA Rep #: [id number] : 1995 F 29 From: Clint lal MD PCP: Dr. Helio Smith MD Status: REG CLI Study: Breast Limited Unilateral Date of Exam: Exam# [id number] Ordering Dr: Helio Smith MD PROCEDURE: BREAST LIMITED UNILATERAL 04/20/2025 REASON FOR EXAM: F, Age 29 y/o , LYMPHADENOPATHY COMPARISON: Prior mammogram done earlier in the day.. TECHNIQUE: BREAST LIMITED UNILATERAL targeted ultrasound of the right axilla performed. FINDINGS: No sonographic abnormality is seen. US/Breast Limited Unilateral IMPRESSION: No sonographic abnormality is seen. BI-RADS 1: NEGATIVE RECOMMENDATION: Routine annual follow-up in 1 Year Reading Location: [facility] CC: Dr. Helio Smith MD Dot Compliance Specialist: Signed Normal [facility] Breast imaging reportOrdered By: Clint Navarro on 04-20-2025 Study report [facility] [address] [place] [address] DIAG MAMM W/CAD, BILAT MR#: [id number] Acct: [id number] Name: FELA GARCIA Rep #: [id number] : 1995 F 29 From: Vern Navarro MD PCP: Dr. Helio Smith MD Status: REG CL I Study:DIAG MAMM W/CAD, BILAT Date of Exam: 04/20/25 Exam# [id number] Ordering Dr: Martha Smith MD EXAM: DIAG MAMM W/CAD, BILAT 04/20/2025 CLINICAL HISTORY: F, Age 29 y/o , LYMPHADENOPATHY. Waxing and waning of swollen lymph nodes in both axilla. TECHNIQUE: DIAG MAMM W/CAD, BILAT. COMPARISON: This is a baseline study. FINDINGS: TISSUE DENSITY: The breasts are heterogeneously dense, which may obscure small masses. Bilateral Breast Mammographic Findings: No significant masses, calcifications or other abnormalities are identified. BI/DIAG MAMM W/CAD, BILAT IMPRESSION: No suspicious abnormality is seen. With the patient's history of bilateral axillary lymphadenopathy, targeted sonographic correlation recommended. OVERALL FINAL ASSESSMENT BI-RADS 0: INCOMPLETE - NEED ADDITIONAL IMAGING EVALUATION. RECOMMENDATION: Ultrasound Recommended A letter with findings and recommendations will be mailed to the patient. Reading Location: [id number] CC: Dr. Helio Smith MD ~ Dot Compliance Specialist: Signed [facility] DIAG MAMM W/CAD, BILATon DIAG MAMM W/CAD, BILAT [facility] [address] [place] [address] DIAG MAMM W/CAD, BILAT MR#: [id number] Acct: [id number] Name: FELA GARCIA Rep #: [id number] : 1995 F 29 From: Clint lal MD PCP: Dr. Helio Smith MD Status: [facility] Study: DIAG MAMM W/CAD, BILAT Date of Exam: 04/20/25 Exam# [id number] Ordering Dr: Helio Smith MD EXAM: DIAG MAMM W/CAD, BILAT 04/20/2025 CLINICAL HISTORY: F, Age 29 y/o , LYMPHADENOPATHY. Waxing and waning of swollen lymph nodes in both axilla. TECHNIQUE: DIAG MAMM W/CAD, BILAT. COMPARISON: This is a baseline study. FINDINGS: TISSUE DENSITY: The breasts are heterogeneously dense, which may obscure small masses. Bilateral Breast Mammographic Findings: No significant masses, calcifications or other abnormalities are identified. BI/DIAG MAMM W/CAD, BILAT IMPRESSION: No suspicious abnormality is seen. With the patient's history of bilateral axillary lymphadenopathy, targeted sonographic correlation recommended. OVERALL FINAL ASSESSMENT BI-RADS 0: INCOMPLETE - NEED ADDITIONAL IMAGING EVALUATION. RECOMMENDATION: Ultrasound Recommended A letter with findings and recommendations will be mailed to the patient. Reading Location: [facility] CC: Dr. Helio Smith MD Dot Compliance Specialist: Signed Normal [facility] Echo Completeon 04-11-2025 Echo Complete [facility] [address] [facility] [place] [address] Echo Complete 04/11/25 1018 MR#: [id number] Acct: [id number] Name: FELA GARCIA Rep #: [id number] : 1995 29 From: Ty Vazquez MD Attending Dr: Dr. Eric Ford MD Status: REG CLI Ordering Dr: Eric Ford MD Date: 04/11/25 Location: [facility] Sex: F C Admitted: Reason For [...] Date Ty Vazquez MD CC: Dr. Helio Smith MD; Dr. Eric Ford MD Date Dictated: 04/11/25 1018 Date Transcribed: 04/11/25 1123 Dot Compliance Specialist: Signed Normal [facility] Echocardiogram study reportO rdered By: Ty Vazquez on 04-11-2025 Study report [facility] [address] [place] [address] Echo Complete 04/11/25 1018 MR#: [id number] Acct: [id number] Name: FELA GARCIA Rep #:[id number] : 1995 29 From: Ty Tyson Attending Dr: Dr. Eric Ford MD Status: REG CLI Ordering Dr: Eric Ford MD Date: 04/11/25 Location: [facility] Sex: F C Admitted: Reason For [...] _ Ty Vazquez MD CC: Dr. Helio Smith MD; Dr. Eric Ford MD ~ Date Dictated: 04/11/25 1018 Date Transcribed: 04/11/25 1123 Dot Compliance Specialist: Signed [facility] Work Phone: T4 Free Directon 04-03-2025 T4 FREE DIRECT 1.50 ng/dL High 0.76-1.46 [facility] Comment on above: Order Comment: Order Date: 03/31/25Order Info: 3016-3 - TSHOrder Info: 3024-7 - T4F Performed By: #### L [id number] ####[facility] [id number] [place], [address] T4 freeOrdered By: Helio morejon on 04-03-2025 Free T4 [Mass/Vol] 1.50 ng/dL High 0.76-1.46 [facility] TSH DL <= 0.005 mIU/L QnOrde red By: Helio Smith on 04-03-2025 TSH Qn 4.510 uIU/mL High 0.300-4.200 [facility] Thyroid Stim Hormone (TSH)on 04-03-2025 TSH 4.510 uIU/mL High 0.300-4.200 [facility] Comment on above: Order Comment: Order Date: 03/31/25Order Info: 3016-3 - TSHOrder Info: 3024-7 - T4F Performed By: #### L 501.9520 ####[facility] [address] [place], [address] CNOVon 03-28-2025 CNOV Office Visit (WOUCA) FELA GARCIA ([id number]) 1995 F Date Time Provider Department 03/28/25 6:00 PM GALI MATTHEW During your visit today, we recorded the following information about you: Temperature Pulse Respiration Blood pressure 99.4 degrees 82/minute 18/minute 122/74 Weight 94.4 kg Gali Matthew MD 03/28/2025 6:08 PM Signed [facility] [address] 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 [place], [place] [address] Emergency Department Diagnosis: Assessment NONSPECIFIC RASH: Our [...] specific ca (more content not included)... Normal [facility] Chest without Contraston Chest without Contrast [facility] Imaging Services [address] [place], [place] [id number] Chest without Contrast MR#: [id number] Acct: [id number] Name: FELA GARCIA Rep #: [id number] : 1995 F 29 From: Yusuf Pulido MD PCP: Dr. Helio Smith MD Status: REG CLI Study: Chest without Contrast Date of Exam: 02/06/25 Exam# [id number] Ordering Dr: Eric Ford MD PROCEDURE: CHEST [...] nodes bilaterally. Recommend clinical follow-up. Reading Location: [facility] CC: Dr. Helio Smith MD; Dr. Eric Ford MD Dot Compliance Specialist: Signed Normal [facility] Alpha Antitrypsin Serumon ALPHA1 ANTITRYP 145 mg/dL Normal 100-188 [facility] Comment on above: Order Comment: Order Date: 01/26/25Order Info: 1825-9 - AA Result Comment: Perf ormed at: CB - [facility] [address] [id number] Car Pre Cooler: Alejandro Guzman PhD, Phone: [phone] Performed By: #### L 506.0400, B949.4766, G9760.8494 ####[facility] [address] [place], [address] Serum begjb-9-czgbptxrbgu me asurementOrdered By: Helio Smith on 01-26-2025 Alpha 1 antitrypsin [Mass/Vol] 145 mg/dL 100-188 [facility] Comment on above: Performed at: [address] [id number] Director: Alejandro Guzman PhD, Phone: [phone] T4 Free Directon 01-26-2025 T4 FREE DIRECT 0.90 ng/dL Normal 0.76-1.46 [facility] Comment on above: Order Comment: Order Date: 01/26/25Order Info: 3016-3 - TSHOrder Info: 3024-03 - T4F Performed By: #### L 506.0400, L501.9520, L3900.2100 ####[facility] [address] [place], [address] T4 freeOrdered By: Helio morejon on 01-26-2025 Free T4 [Mass/Vol] 0.90 ng/dL 0.76-1.46 [facility] TSH DL <= 0.005 mIU/L QnOrde red By: Helio Smith on 01-26-2025 TSH Qn 13.800 uIU/mL High 0.300-4.200 [facility] Thyroid Stim Hormone (TSH)on 01-26-2025 TSH 13.800 uIU/mL High 0.300-4.200 [facility] Comment on above: Order Comment: Order Date: 01/26/25Order Info: 3016-3 - TSHOrder Info: 3024-03 - T4F Performed By: #### L 506.0400, L501.9520, L3900.2100 ####[facility] [address] [place], [address] CNOVon 01-12-2025 CNOV Office Visit (UCWSTR ) FELA GARCIA ([id number]) 1995 F Date Time Provider Department 01/12/25 4:30 PM ROSIE WHALEN During your visit today, we recorded the following information about you: Temperature Pulse Respiration Blood pressure 98.6 degrees 78/minute 18/minute 122/70 Weight 89.4 kg Rosie Whalen APRN.ARBORICULTURE TEACHER 01/12/2025 4:44 PM Signed [facility] Subjective HPI HPI Fela Garcia is a 29 year old female who presents today for CC of itchy rash. This started 2 days ago. Has tried otc medication for relief. Symptoms are worsened by nothing. Risk factors recently started a Little Borrowed Dress. .Patient presents with: Rash: Widespread, started on [...] ACETONIDE 0.1 % TOPICAL CREAM Rosie Whalen APRN.ARBORICULTURE TEACHER Differential Diagnoses - contact allergic derm d/t [...] Status:Closed by ROSIE WHALEN on 01/12/25 Normal [facility] Celiac Disease Profileon ENDOMYSIAL IGA Negative Normal Negative [facility] Comment on above: Performed By: #### L 3410.2400, L501.6710 #### [facility] [address] [place], [place], [address] IMMUNOGLOB A QN 100 mg/dL Normal 87-352 [facility] Comment on above: Result Comment: Perf ormed at: [facility] [address] [id number] Car Pre Cooler: Alejandro Guzman PhD, Phone: [phone] Performed By: #### L 3410.2400, L527.6710 #### [facility] [address] [place], [place], [address] tTG IGA <2 Normal 0-3 [facility] Comment on above: Result Comment: Nega tive 0 - 3 Weak Positive 4 - 10 Positive >10 Tissue Transglutaminase (tTG) has been identified as the endomysial antigen. Studies have demonstr- ated that endomysial IgA antibodies have over 99% specificity for gluten sensitive enteropathy. Performed By: #### L 3410.2400, L501.6710 #### [facility] [address] [place], [place], [address] CRPon 12-02-2024 C-REACTIVE PROT 4.51 mg/L High 0.0-3.0 [facility] Comment on above: Performed By: #### L 3410.2400, L566.6710 #### [facility] [address] [place], [place], [address] CRP [Mass/Vol]Ordered By: Lydia Meneses on 12-02-2024 C-Reactive Protein Extended Range 4.51 mg/L High 0.0-3.0 [facility] Endomysial IgA antibody assa yOrdered By: Alejandro Meneses on 12-02-2024 Endomysial IgA Antibody Negative Negative [facility] IgA [Mass/Vol]Ordered By: Lydia Meneses on 12-02-2024 Immunoglobulin A 100 mg/dL [address] [place] [address] Comment on above: Performed at: [facility] [place] [id number] Director: Alejandro Guzman PhD, Phone: [phone] Serum or plasma C reactive p rotein measurement (mass/volume)Ordered By: Alejandro Meneses on 12-02-2024 CRP [Mass/Vol] 4.51 mg/L High 0.0-3.0 [facility] Serum or plasma IgA measurem ent (mass/volume)Ordered By: Alejandro Meneses on 12-02-2024 IgA [Mass/Vol] 100 mg/dL [address] [place] [address] Comment on above: Performed at: [facility] [place] [id number] Director: Alejandro Guzman PhD, Phone: [phone] Serum tissue transglutaminas e (tTG) IgA antibody assay (units/volume)Ordered By: Alejandro Meneses on 12-02-2024 tTG IgA Qn (S) <2 U/mL 0-3 [facility] Comment on above: Negative 0 - 3 Weak Positive 4 - 10 Positive >10 Tissue Transglutaminase (tTG) has been identified as the endomysial antigen. Studies have demonstr- ated that endomysial IgA antibodies have over 99% specificity for gluten sensitive enteropathy. tTG IgA Qn (S)Ordered By: Lydia Meneses on 12-02-2024 Tissue Transglutaminase IgA Ab <2 U/mL 0-3 [facility] Comment on above: Negative 0 - 3 Weak Positive 4 - 10 Positive >10 Tissue Transglutaminase (tTG) has been identified as the endomysial antigen. Studies have demonstr- ated that endomysial IgA antibodies have over 99% specificity for gluten sensitive enteropathy. Abdomen WITH IV Contraston 0 11-22-2024 Abdomen WITH IV Contrast [facility] Imaging Services [address] [place], [place] [address] Abdomen WITH IV Contrast MR#: [id number] Acct: [id number] Name: FELA GARCIA Rep #: [id number] : 1995 F 29 From: Eric Chan MD PCP: Dr. Helio Smith MD Status: REG CLI Study: Abdomen WITH IV Contrast Date of Exam: 5 Exam# [id number] Ordering Dr: Helio Smith MD PROCEDURE: ABDOMEN WITH IV CONTRAST REASON [...] use of iterative reconstruction technique). Reading Location: [facility] CC: Dr. Helio Smith MD Dot Compliance Specialist: Signed Normal [facility] CNOVon 11-19-2024 CNOV Office Visit (UCWSTR ) FELA GARCIA ([id number]) 1995 F Date Time Provider Department 11/19/24 12:00 PM ARIES ARAIZA [facility] During your visit today, we recorded the [...] AND RSV PCR, ROUTINE [SQCVFLRS] Order #: [id number]. #:[id number] Problem List As Of Date: 11/19/2024 (None) LOS History for Encounter ----- Level of Service: OFFICE/OUTPATIENT ESTABLISHED [facility] 30 MIN[[id number]] Date AND Time: 11-19-2024 12:47 PM Recorded by User: ARIES ARAIZA Encounter Status:Closed by ARIES ARAIZA on 11/19/24 Normal [facility] Beta HCG ( test) Ql Ordered By: Helio Smith on 11-14-2024 Serum Test, Qualitative Negative [facility] ,Serum,hCG Quali.on 11-14-2024 HCG, SERUM QUAL Negative Normal [facility] Comment on above: Performed By: #### L 700.6800 ####[facility] [address] [place], [address] Serum beta-hCG test, qualita tiveOrdered By: Helio Smith on 11-14-2024 Beta HCG ( test) Ql Negative [facility] CNOVon 10-26-2024 CNOV Office Visit (UCWSTR ) CRISTELFELA BAILEY ([id number]) 1995 F Date Time Provider Department 10/26/24 4:00 PM LEONOR HUGGINS [facility] During your visit today, we recorded the following information about you: Temperature Pulse Respiration Blood pressure 98.1 degrees 63/minute 18/minute 110/72 Weight 82.8 kg Leonor Huggins APRN.ARBORICULTURE TEACHER 10/26/2024 4:23 PM Signed CC: Patient presents [...] Patient agreeable to treatment plan. Leonor Huggins APRN.ARBORICULTURE TEACHER Allergies As of Date: 10/26/2024 (No Known Allergies) Date Reviewed: 10/26/2024 Reviewed by: Merle Francois LPN - Fully Assessed Reason for Visit: Sore Throat [200] Cmt: ST and fever x 3 days Primary Visit Diagnosis:Sore throat [J02.9] Order(s):STREP A MOLECULAR (POC) [1493002] Order #: [id number]. #:[id number] Problem List As Of Date: 10/26/2024 (None) Encounter Status:Closed by LEONOR HUGGINS on 10/26/24 Normal [facility] STREP A MOLECULAR (POC)on Procedural Control Valid [facility] Strep A (POCT) Negative Negative [facility] Orthopedic Visit Reporton Orthopedic Visit Report [facility] [address] [place] [address] OFFICE VISIT Date of Service: 10/17/24 MR#: [id number] Acct: [id number] Name: AIRWFELA BAILEY Rep #: [id number] : 1995 Provider: Dr. Jayson silveira MD Age/Sex: 29/F Location: [facility] Status: Signed Intake Vital Signs 08/18/24 17:17 [...] medications for the upper extremity. Supplemental Info [facility] Imaging Services [address] [place], [place] [id number] Upper Ext Joint Only(Routine) MR#: [id number] Acct: [id number] Name: FELA GARCIA Rep #: [id number] : 1995 F 29 From: Ender Amanda MD PCP: Dr. Helio Smith MD Status: REG CLI Study: Upper Ext Joint Only(Routine) Date of Exam: 10/10/24 Exam# [id number] Ordering Dr: Jayson Turcios MD [id number] STUDY: MRI LEFT SHOULDER REASON FOR EXAM: [...] Signed: Ender Amanda MD at 9:54 EST Reading Location ID and State: [facility] / [place] , Service support , I independently reviewed the imaging. Concur [...] and potenti (more content not included)... Normal [facility] Upper Ext Joint Only(Routine )on 10-10-2024 Upper Ext Joint Only(Routine) [facility] Imaging Services [address] [place], [place] [address] Upper Ext Joint Only(Routine) MR#: [id number] Acct: [id number] Name: FELA GARCIA Rep #: [id number] : 1995 F 29 From: Ender Amanda MD PCP: Dr. Helio Smith MD Status: REG CLI Study: Upper Ext Joint Only(Routine) Date of Exam: 0 10/10/24 Exam# [id number] Ordering Dr: Jayson Turcios MD [id number] STUDY: MRI LEFT SHOULDER REASON FOR EXAM: [...] at 9:54 EST , CC: Dr. Helio Smith MD; Dr. Jayson Turcios MD Dot Compliance Specialist: Signed Normal [facility] [address]-[place] DOrdered By: Thierry Smith on 09-27-2024 Vitamin D 25-Hydroxy 30.1 ng/mL [facility] Comment on above: Vitamin D 25(OH) Sta tus Range Deficiency <20 ng/mL (50nmol/L) Insufficiency 20 - 30 ng/mL (50 - 75 nmol/L) Sufficiency 30 - 100 ng/mL (75 - 250 nmol/L) Toxicity >100 ng/mL (>250 nmol/L) Absolute neutrophil countOrd ered By: Helio Smith on 09-27-2024 Neutrophils (Bld) [#/Vol] 4.9 10*3/uL 2.0-7.7 [facility] Albumin to globulin ratioOrd ered By: Helio Smith on 09-27-2024 Albumin/Globulin [Mass ratio] 1.1 {ratio} 0.9-2.4 [facility] Basophil percentageOrdered B y: Helio Smith on 09-27-2024 Basophils/100 WBC (Bld) 0.5 % 0-1 [facility] Bilirubin, totalOrdered By: Helio Smith on 09-27-2024 Bilirubin [Mass/Vol] 0.30 mg/dL 0.20-1.00 [facility] Comment on above: For patients on eltr ombopag therapy, use of Dimension Rampart TBIL is not recommended. Blood urea nitrogen (BUN)/cr eatinine ratioOrdered By: Helio Smith on 09-27-2024 Urea nitrogen/Creatinine [Mass ratio] 13.6 mg/mg 10-20 [facility] CBC W/Diff, Automatedon Absolute Lymph 3.50 X10 3/uL Normal 0.83-4.51 [facility] Comment on above: Order Comment: Order Date: 09/27/24 Order Info: 0184-1 - CBCD Performed By: #### L 500.4050, L501.9520, L506.1000, L100.0100 #### [facility] [address] [place], [address] Absolute Neut 4.9 X10 3/uL Normal 2.0-7.7 [facility] Comment on above: Order Comment: Order Date: 09/27/24 Order Info: 0184-1 - CBCD Performed By: #### L 500.4050, L501.9520, L506.1000, L100.0100 #### [facility] [address] [place], [address] Basophils/100 WBC (Bld) 0.5 % Normal 0-1 [facility] Comment on above: Order Comment: Order Date: 09/27/24 Order Info: 0184-1 - CBCD Performed By: #### L 500.4050, L501.9520, L506.1000, L100.0100 #### [facility] [address] [place], [address] Eosinophils/100 WBC (Bld) 0.9 % Normal 0-5 [facility] Comment on above: Order Comment: Order Date: 09/27/24 Order Info: 0184-1 - CBCD Performed By: #### L 500.4050, L501.9520, L506.1000, L100.0100 #### [facility] [address] [place], [address] Erythrocyte distribution width (RBC) [Ratio] 12.4 % Normal 11.6-14.6 [facility] Comment on above: Order Comment: Order Date: 09/27/24 Order Info: 0184-1 - CBCD Performed By: #### L 500.4050, L501.9520, L506.1000, L100.0100 #### [facility] [address] [place], [address] Hematocrit (Bld) [Volume fraction] 40.5 % Normal 37-47 [facility] Comment on above: Order Comment: Order Date: 09/27/24 Order Info: 0184-1 - CBCD Performed By: #### L 500.4050, L501.9520, L506.1000, L100.0100 #### [facility] [address] [place], [address] Hemoglobin (Bld) [Mass/Vol] 13.1 g/dL Normal 12.0-15.0 [facility] Comment on above: Order Comment: Order Date: 09/27/24 Order Info: 0184-1 - CBCD Performed By: #### L 500.4050, L501.9520, L506.1000, L100.0100 #### [facility] [address] [place], [address] IG% 0.200 Normal 0.0-0.9 [facility] Comment on above: Order Comment: Order Date: 09/27/24 Order Info: 0184-1 - CBCD Result Comment: IG% - Immature Granulocytes (promyelocytes, myelocytes and metamyelocytes) > 1% indicates that a LEFT SHIFT is Present. Performed By: #### L 500.4050, L501.9520, L506.1000, L100.0100 #### [facility] [address] [place], [address] Lymphocytes/100 WBC (Bld) 37.7 % Normal 19-41 [facility] Comment on above: Order Comment: Order Date: 09/27/24 Order Info: 0184-1 - CBCD Performed By: #### L 500.4050, L501.9520, L506.1000, L100.0100 #### [facility] [address] [place] [place], [address] MCH (RBC) [Entitic mass] 29.0 pg Normal 27.0-32.0 [facility] Comment on above: Order Comment: Order Date: 09/27/24 Order Info: 0184-1 - CBCD Performed By: #### L 500.4050, L501.9520, L506.1000, L100.0100 #### [facility] [address] [place], [address] MCHC (RBC) [Mass/Vol] 32.3 g/dL Normal 32-36 [facility] Comment on above: Order Comment: Order Date: 09/27/24 Order Info: 0184-1 - CBCD Performed By: #### L 500.4050, L501.9520, L506.1000, L100.0100 #### [facility] [address] [place], [address] MCV (RBC) [Entitic vol] 89.6 fL Normal 81-99 [facility] Comment on above: Order Comment: Order Date: 09/27/24 Order Info: 0184-1 - CBCD Performed By: #### L 500.4050, L501.9520, L506.1000, L100.0100 #### [facility] [address] [place], [address] Monocytes/100 WBC (Bld) 7.6 % Normal 0-10 [facility] Comment on above: Order Comment: Order Date: 09/27/24 Order Info: 0184-1 - CBCD Performed By: #### L 500.4050, L501.9520, L506.1000, L100.0100 #### [facility] [address] [place], [address] Neutrophils/100 WBC (Bld) 53.1 % Normal 47-70 [facility] Comment on above: Order Comment: Order Date: 09/27/24 Order Info: 0184-1 - CBCD Performed By: #### L 500.4050, L501.9520, L506.1000, L100.0100 #### [facility] [address] [place], [address] Nucleated RBC (Bld) [#/Vol] 0 10*3/uL Normal 0-5 [facility] Comment on above: Order Comment: Order Date: 09/27/24 Order Info: 0184-1 - CBCD Performed By: #### L 500.4050, L501.9520, L506.1000, L100.0100 #### [facility] [address] [place], [address] Platelet mean volume (Bld) [Entitic vol] 11.0 fL Normal 6.2-12.0 [facility] Comment on above: Order Comment: Order Date: 09/27/24 Order Info: 0184-1 - CBCD Performed By: #### L 500.4050, L501.9520, L506.1000, L100.0100 #### [facility] [address] [place], [address] Platelets (Bld) [#/Vol] 348 10*3/uL Normal 150-450 [facility] Comment on above: Order Comment: Order Date: 09/27/24 Order Info: 0184-1 - CBCD Performed By: #### L 500.4050, L501.9520, L506.1000, L100.0100 #### [facility] [address] [place], [address] RBC (Bld) [#/Vol] 4.52 10*6/uL Normal 4.2-5.4 [facility] Comment on above: Order Comment: Order Date: 09/27/24 Order Info: 0184-1 - CBCD Performed By: #### L 500.4050, L501.9520, L506.1000, L100.0100 #### [facility] [address] [place], [address] RDW SD 40.7 fl Normal 35.1-43.9 [facility] Comment on above: Order Comment: Order Date: 09/27/24 Order Info: 0184-1 - CBCD Performed By: #### L 500.4050, L501.9520, L506.1000, L100.0100 #### [facility] [address] [place], [address] WBC (Bld) [#/Vol] 9.3 10*3/uL Normal 4.4-11.0 [facility] Comment on above: Order Comment: Order Date: 09/27/24 Order Info: 0184-1 - CBCD Performed By: #### L 500.4050, L501.9520, L506.1000, L100.0100 #### [facility] [address] [place], [address] Carbon dioxide measurementOr dered By: Helio Smith on 09-27-2024 CO2 [Moles/Vol] 25.0 mmol/L 21.0-32.0 [facility] Chloride measurementOrdered By: Helio Simth on 09-27-2024 Chloride [Moles/Vol] 106 mmol/L 98-107 [facility] Comprehensive Metabolic Prof ilon 09-27-2024 Albumin [Mass/Vol] 4.1 g/dL Normal 3.2-5.0 [facility] Comment on above: Order Comment: Order Date: 09/27/24 Order Info: 0786-1 - CMP Order Info: 3016-3 - TSH 1 Performed By: #### L 500.4050, L501.9520, L506.1000, L100.0100 #### [facility] [address] [place], [address] Albumin/Globulin [Mass ratio] 1.1 {ratio} Normal 0.9-2.4 [facility] Comment on above: Order Comment: Order Date: 09/27/24 Order Info: 0786-1 - CMP Order Info: 3016-3 - TSH 1 Performed By: #### L 500.4050, L501.9520, L506.1000, L100.0100 #### [facility] [address] [place], [address] ALK P 72 U/L Normal 45-117 [facility] Comment on above: Order Comment: Order Date: 09/27/24 Order Info: 0786-1 - CMP Order Info: 301-3 - TSH 1 Performed By: #### L 500.4050, L501.9520, L506.1000, L100.0100 #### [facility] [address] [place], [address] ALT [Catalytic activity/Vol] 25 U/L Normal 13-56 [facility] Comment on above: Order Comment: Order Date: 09/27/24 Order Info: 0786-1 - CMP Order Info: 3016-3 - TSH 1 Performed By: #### L 500.4050, L501.9520, L506.1000, L100.0100 #### [facility] [address] [place], [address] AST [Catalytic activity/Vol] 14 U/L Low 15-37 [facility] Comment on above: Order Comment: Order Date: 09/27/24 Order Info: 0786-1 - CMP Order Info: 3016-3 - TSH 1 Performed By: #### L 500.4050, L501.9520, L506.1000, L100.0100 #### [facility] [address] [place], [address] Bilirubin [Mass/Vol] 0.30 mg/dL Normal 0.20-1.00 [facility] Comment on above: Order Comment: Order Date: 09/27/24 Order Info: 0786-1 - CMP Order Info: 3016-3 - TSH 1 Result Comment: For patients on eltrombopag therapy, use of Dimension Rampart TBIL is not recommended. Performed By: #### L 500.4050, L501.9520, L506.1000, L100.0100 #### [facility] [address] [place], [address] BUN/CRE 13.6 RATIO Normal 10-20 [facility] Comment on above: Order Comment: Order Date: 09/27/24 Order Info: 0786-1 - CMP Order Info: 3015-3 - TSH 1 Performed By: #### L 500.4050, L501.9520, L506.1000, L100.0100 #### [facility] [address] [place], [address] CA,Total 9.4 mg/dL Normal 8.5-10.1 [facility] Comment on above: Order Comment: Order Date: 09/27/24 Order Info: 0786- - CMP Order Info: 301-3 - TSH 1 Performed By: #### L 500.4050, L501.9520, L506.1000, L100.0100 #### [facility] [address] [place], [address] Chloride [Moles/Vol] 106 mmol/L Normal 98-107 [facility] Comment on above: Order Comment: Order Date: 09/27/24 Order Info: 0786-1 - CMP Order Info: 301-3 - TSH 1 Performed By: #### L 500.4050, L501.9520, L506.1000, L100.0100 #### [facility] [address] [place], [address] CO2 [Moles/Vol] 25.0 mmol/L Normal 21.0-32.0 [facility] Comment on above: Order Comment: Order Date: 09/27/24 Order Info: 0786-1 - CMP Order Info: 3016-3 - TSH 1 Performed By: #### L 500.4050, L501.9520, L506.1000, L100.0100 #### [facility] [address] [place], [address] Creatinine [Mass/Vol] 0.66 mg/dL Normal 0.55-1.02 [facility] Comment on above: Order Comment: Order Date: 09/27/24 Order Info: 0786-1 - CMP Order Info: 301-3 - TSH 1 Result Comment: The validity of the calculated GFR GFRAA in patients over 70 years has not been determined. Clinical correlation is essential. Performed By: #### L 500.4050, L501.9520, L506.1000, L100.0100 #### [facility] [address] [place], [address] EST GFR - AA 136 mL/min Normal >60 [facility] Comment on above: Order Comment: Order Date: 09/27/24 Order Info: 0786-1 - CMP Order Info: 3016- - TSH 1 Result Comment: Afri can Palauan GFR Calc Performed By: #### L 500.4050, L501.9520, L506.1000, L100.0100 #### [facility] [address] [place], [address] GAP 6 Normal 5-15 [facility] Comment on above: Order Comment: Order Date: 09/27/24 Order Info: 0786-1 - CMP Order Info: 3016- - TSH 1 Performed By: #### L 500.4050, L501.9520, L506.1000, L100.0100 #### [facility] [address] [place], [address] GFR/1.73 sq M.predicted among non-blacks MDRD (S/P/Bld) [Vol rate/Area] 113 mL/min/{1.73_m2} Normal >60 [facility] Comment on above: Order Comment: Order Date: 09/27/24 Order Info: 0786-1 - CMP Order Info: 3015-3 - TSH 1 Result Comment: Non- GFR Calc Performed By: #### L 500.4050, L501.9520, L506.1000, L100.0100 #### [facility] [address] [place], [address] Globulin (S) [Mass/Vol] 3.9 g/dL Normal 2.2-4.2 [facility] Comment on above: Order Comment: Order Date: 09/27/24 Order Info: 0786-1 - CMP Order Info: 3 - TSH 1 Performed By: #### L 500.4050, L501.9520, L506.1000, L100.0100 #### [facility] [address] [place], [address] Glucose [Mass/Vol] 97 mg/dL Normal 74-106 [facility] Comment on above: Order Comment: Order Date: 09/27/24 Order Info: 0786-1 - CMP Order Info: 3015-11 - TSH 1 Performed By: #### L 500.4050, L501.9520, L506.1000, L100.0100 #### [facility] [address] [place], [address] Potassium [Moles/Vol] 3.9 mmol/L Normal 3.5-5.1 [facility] Comment on above: Order Comment: Order Date: 09/27/24 Order Info: 0786-1 - CMP Order Info: 3015-11 - TSH 1 Performed By: #### L 500.4050, L501.9520, L506.1000, L100.0100 #### [facility] [address] [place], [address] Sodium [Moles/Vol] 138 mmol/L Normal 136-145 [facility] Comment on above: Order Comment: Order Date: 09/27/24 Order Info: 0786-1 - CMP Order Info: 6-3 - TSH 1 Performed By: #### L 500.4050, L501.9520, L506.1000, L100.0100 #### [facility] [address] [place], [place], [address] T PROT 8.0 g/dL Normal 6.4-8.2 [facility] Comment on above: Order Comment: Order Date: 09/27/24 Order Info: 0786-1 - CMP Order Info: 3016-3 - TSH 1 Performed By: #### L 500.4050, L501.9520, L506.1000, L100.0100 #### [facility] [address] [place], [address] Urea nitrogen [Mass/Vol] 9 mg/dL Normal 7-18 [facility] Comment on above: Order Comment: Order Date: 09/27/24 Order Info: 0786-1 - CMP Order Info: 3016-3 - TSH 1 Performed By: #### L 500.4050, L501.9520, L506.1000, L100.0100 #### [facility] [address] [place], [address] Eosinophil percentageOrdered By: Helio Smith on 09-27-2024 Eosinophils/100 WBC (Bld) 0.9 % 0-5 [facility] Erythrocyte distribution wid th ratioOrdered By: Helio Smith on 09-27-2024 Erythrocyte distribution width (RBC) [Ratio] 12.4 % 11.6-14.6 [facility] Erythrocyte distribution wid th standard deviationOrdered By: Helio Smith on 09-27-2024 Erythrocyte distribution width (RBC) [Entitic vol] 40.7 fL 35.1-43.9 [facility] Estimated glomerular filtrat ion rate (GFR) AmericanOrdered By: Helio Smith on 09-27-2024 Estimated GFR (MDRD) Amer 136 mL/min >60 [facility] Comment on above: GFR Calc Glomerular filtration rate ( GFR) estimationOrdered By: Helio Smith on 09-27-2024 Estimated GFR (MDRD) Non-Af Amer 113 mL/min >60 [facility] Comment on above: Non- GFR Calc Glucose measurementOrdered B y: Beverlyraoul Mercadoke on 09-27-2024 Glucose [Mass/Vol] 97 mg/dL 74-106 [facility] Hematocrit Auto (Bld) [Volum e fraction]Ordered By: Helio Smith on 09-27-2024 Hematocrit (Bld) [Volume fraction] 40.5 % 37-47 [facility] Hemoglobin measurementOrdere d By: Helio Smith on 09-27-2024 Hemoglobin (Bld) [Mass/Vol] 13.1 g/dL 12.0-15.0 [facility] Immature granulocytes/100 WB C Auto (Bld)Ordered By: Wayne Hospitalraoul Beena on 09-27-2024 Immature granulocytes/100 WBC (Bld) 0.200 % 0.0-0.9 [facility] Comment on above: IG% - Immature Granu locytes (promyelocytes, myelocytes and metamyelocytes) > 1% indicates that a LEFT SHIFT is Present. L501.4020on 09-27-2024 TROPONIN-I HS 4 pg/mL Normal 3.0-54.0 [facility] Comment on above: Order Comment: Order Date: 09/27/24Order Info: 0786-1 - CMPOrder Info: 3016-3 - TSH1 Result Comment: Tim frank Note: New Test Units and Gender Specific Reference Ranges. For more information see Policy Stat Procedure Rampart High Sensitivity Troponin (TNIH) and attachments. Performed By: #### L 501.4020 ####[facility] [address] [place], [place], [address] Laboratory - Chemistry and C hemistry - challengeOrdered By: Helio Smith on 09-27-2024 AST [Catalytic activity/Vol] 14 U/L Low 15-37 [facility] Lymphocytes Auto (Unsp spec) [#/Vol]Ordered By: Helio Smith on 09-27-2024 Lymphocytes (Bld) [#/Vol] 3.50 10*3/uL 0.83-4.51 [facility] Lymphocytes/100 WBC Auto (Un sp spec)Ordered By: Helio Smith on 09-27-2024 Lymphocytes/100 WBC (Bld) 37.7 % 19-41 [facility] MCV (mean corpuscular volume ) determinationOrdered By: Helio Smith on 09-27-2024 MCV (RBC) [Entitic vol] 89.6 fL 81-99 [facility] Mean corpuscular hemoglobin (MCH) determinationOrdered By: Helio Beena on 09-27-2024 MCH (RBC) [Entitic mass] 29.0 pg 27.0-32.0 [facility] Mean corpuscular hemoglobin concentration (MCHC) determinationOrdered By: Helio Smith on 09-27-2024 MCHC (RBC) [Mass/Vol] 32.3 g/dL 32-36 [facility] Mean platelet volume determi nationOrdered By: Helio Smith on 09-27-2024 Platelet mean volume (Bld) [Entitic vol] 11.0 fL 6.2-12.0 [facility] Monocyte percentageOrdered B y: Helio Smith on 09-27-2024 Monocytes/100 WBC (Bld) 7.6 % 0-10 [facility] Neutrophil percentageOrdered By: Helio Smith on 09-27-2024 Neutrophils/100 WBC (Bld) 53.1 % 47-70 [facility] Nucleated red blood cell per centageOrdered By: Helio Smith on 09-27-2024 Nucleated RBC/100 WBC (Bld) [Ratio] 0 % 0-5 [facility] Platelet countOrdered By: Dallin Smith on 09-27-2024 Platelets (Bld) [#/Vol] 348 10*3/uL 150-450 [facility] Potassium measurementOrdered By: Helio Smith on 09-27-2024 Potassium [Moles/Vol] 3.9 mmol/L 3.5-5.1 [facility] RBC Auto (Bld) [#/Vol]Ordere d By: Helio Smith on 09-27-2024 RBC (Bld) [#/Vol] 4.52 10*6/uL 4.2-5.4 [facility] Serum anion gap measurementO rdered By: Helio Smith on 09-27-2024 Anion gap [Moles/Vol] 6 mmol/L 5-15 [facility] Serum globulin measurementOr dered By: Helio Smith on 09-27-2024 Globulin (S) [Mass/Vol] 3.9 g/dL 2.2-4.2 [facility] Serum or plasma alanine larson otransferase (ALT) measurementOrdered By: Helio Smith on 09-27-2024 ALT [Catalytic activity/Vol] 25 U/L 13-56 [facility] Serum or plasma albumin carri urement (mass/volume)Ordered By: Helio Smith on 09-27-2024 Albumin [Mass/Vol] 4.1 g/dL 3.2-5.0 [facility] Serum or plasma alkaline fabby sphatase measurementOrdered By: Helio Smith on 09-27-2024 ALP [Catalytic activity/Vol] 72 U/L 45-117 [facility] Serum or plasma calcium carri urement (mass/volume)Ordered By: Helio Smith on 09-27-2024 Calcium [Mass/Vol] 9.4 mg/dL 8.5-10.1 [facility] Serum or plasma creatinine m easurement (mass/volume)Ordered By: Helio Smith on 09-27-2024 Creatinine [Mass/Vol] 0.66 mg/dL 0.55-1.02 [facility] Comment on above: The validity of the calculated GFR & GFRAA in patients over 70 years has not been determined. Clinical correlation is essential. Serum or plasma urea nitroge n measurement (mass/volume)Ordered By: Helio Smith on 09-27-2024 Urea nitrogen [Mass/Vol] 9 mg/dL 7-18 [facility] Sodium levelOrdered By: Beverly Smith on 09-27-2024 Sodium [Moles/Vol] 138 mmol/L 136-145 [facility] TSH QnOrdered By: Heloi German e on 09-27-2024 Thyroid Stimulating Hormone (TSH) 3.830 uIU/mL High 0.358-3.740 [facility] Thyroid Stim Hormone (TSH)on 09-27-2024 TSH 3.830 uIU/mL High 0.358-3.740 [facility] Comment on above: Order Comment: Order Date: 09/27/24 Order Info: 0786-1 - CMP Order Info: 3016-3 - TSH 1 Performed By: #### L 500.4050, L501.9520, L506.1000, L100.0100 #### [facility] [address] [place] [place], [address] Total proteinOrdered By: Martha Smith on 09-27-2024 Protein [Mass/Vol] 8.0 g/dL 6.4-8.2 [facility] Troponin IOrdered By: Helio Smith on 09-27-2024 Troponin I High Sensitivity 4 pg/mL 3.0-54.0 [facility] Comment on above: Please Note: New Cady t Units and Gender Specific Reference Ranges. For more information see Policy Stat Procedure Rampart High Sensitivity Troponin (TNIH) and attachments. Vitamin D,25 Hydroxyon 09-27 Vitamin D 25-OH 30.1 ng/mL Normal [facility] Comment on above: Order Comment: Order Date: 09/27/24 Order Info: 34728-3 - VITD25 Result Comment: Ilene min D 25(OH) Status Range Deficiency <20 ng/mL (50nmol/L) Insufficiency 20 - 30 ng/mL (50 - 75 nmol/L) Sufficiency 30 - 100 ng/mL (75 - 250 nmol/L) Toxicity >100 ng/mL (>250 nmol/L) Performed By: #### L 500.4050, L501.9520, L506.1000, L100.0100 #### [facility] [address] [place], [address] White blood cell (WBC) count Ordered By: Helio Smith on 09-27-2024 WBC (Bld) [#/Vol] 9.3 10*3/uL 4.4-11.0 [facility] Orthopedic Visit Reporton Orthopedic Visit Report [facility] [address] [place] [address] [address] [place] [address] OFFICE VISIT Date of Service: 09/06/24 MR#: [id number] Acct: [id number] Name: FELA GARCIA Rep #: [id number] : 1995 Provider: Dr. Jayson silveira MD Age/Sex: 29/F Location: [facility] Status: Signed Intake Vital Signs 08/18/24 17:17 [...] by me, Dr. Jayson Turcios MD 09/06/24 6970. Part of today???s visit was documented by [ ], acting as scribe. FELA GARCIA is a 29 year old F here today for FU NCS upper extremities. still painful in the shoulder. Has done PT twice now. first time was OT. PT was 6 weeks ago for 5 weeks. Supplemental Info [facility] Pulmonary Services/Neurology [address] [place] [address] MR#: [id number] Acct: [id number] Name: FELA GARCIA Rep #: [id number] : 1995 29 From: Jade Hernandez MD [...] Multi Select Codes Neurology Neurology Interp Codes: 63292-50 Musc test done w/n test comp (interp) (2) and 41576-00 Nrv cndj test 13/> studies (interp) Coding [...] 1116 Date (more content not included)... Normal [facility] Inital Evaluation (1) - PTon 09-05-2024 Inital Evaluation (1) - PT [facility] Physical Therapy [facility] [address] [place] [address] / REHABILITATION SERVICES INITIAL EVALUATION MR#: [id number] Acct: [id number] Name: FELA GARCIA Rep #: [id number] : 1995 29 From: Joseluis Borden PT, Cert. MD Martel, OCS Referring Dr.: Yao Myers PA-C Status: REG R CR Insurance: [facility] [employer] PAY INSURANCE Patient's Visit Information Visit Information Visit Information: FELA GARCIA is a 29 year old F referred to Physical Therapy by Yao Myers PA-C with a diagnosis of CONTUSION OF RIGHT ANKLE. Date of Evaluation: 09/05/24 Physical Therapist: Joseluis Borden PT, Cert MDT, OCS Visit Plan Frequency: 2x /Week Duration: [...] . Patient developed bruising and edema. JEN Myesr did x-rays no fracture. Recommended PT also [...] to be FAXED BACK to us at [phone] for Medicare purposes. For Medicare only, by signing this I certify the plan of care. Please let me know if there are questions or concerns regarding this plan of care. Physician Signature: Date : 09/05/24 1519 CC: CHRISTIANO Myers; Dr. Helio Smith MD ROSALINA Signed Normal [facility] NCS and/or EMG Patienton NCS and/or EMG Patient [facility] Pulmonary Services/Neurology [address] [place] [address] MR#: [id number] Acct: [id number] Name: FELA GARCIA Rep #: [id number] : 1995 29 From: Jade Hernandez MD Referring Dr: Jayson Turcios MD Status: REG I Location: [facility] Date: 08/31/24 Sex: F C [...] Multi Select Codes Neurology Neurology Interp Codes: 05082-44 Musc test done w/n test comp (interp) (2) and 42455-27 Nrv cndj test 13/> studies (interp) 08/31/24 1301 Date Jade Hernandez MD CC: Dr. Jade Hernandez MD; Dr. Helio Smith MD; Dr. Jayson Turcios MD Date Dictated: 08/31/24 1259 Date Transcribed: 08/31/24 1259 Dot Compliance Specialist: JOSY Signed Normal [facility] Emergency Department Summary on 08-18-2024 Emergency Department Summary [facility] Medical Records Department [address] [place] [address] Emergency Department Summary 08/18/24 MR#: [id number] Acct: [id number] Name: FELA GARCIA Rep #: [id number] : 1995 29 From: Jaylan Hunter DO PCP: Dr. Helio Smith MD Status:PRE ER Location: ED HPI History of Present Illness Chief Complaint: [facility] Extremity [facility] Medical History Left shoulder pain [...] History obtained from others: none Consults: none [facility] Narrative: Patient was hemodynamically stable, afebrile, nontoxic-appearing. [...] Discharge home This note was generated with Swirl dictation software. It may contain incorrect words, spelling, and punctuation that were not noted in review of the chart prior to signing. Discharge Plan Triage Chief Complaint: Lower Extremity Inj (more content not included)... Normal [facility] CNOVon 08-16-2024 CNOV Office Visit (UCWSTR ) FELA GARCIA ([id number]) 1995 F Date Time Provider Department 08/16/24 11:30 AM WHITNEY SMILEY WSTR During your visit today, we recorded the following information about you: Temperature Pulse Respiration Blood pressure 98 degrees 77/minute 18/minute 129/85 Weight Last Period 79.7 kg 07/27/24 Whitney Smiley PA-C 08/16/2024 2:15 PM Signed This note was created using Accumulate. Subjective Fela Garcia is a 29 year [...] orthopedics. She would prefer to follow-up with [place] [facility]. She was given her disc of x-rays and referral. Rest, ice, ibuprofen. Patient agreeable. - XR ANKLE GENERAL 3V AP/LAT/OBL RIGHT - XR FOOT GENERAL 3V AP/LAT/OBL RIGHT - CONSULT TO ORTHOPAEDICS Whtiney Smiley PA-C Allergies As of Date: 08/16/2024 [...] [S82.831A] Order(s):XR ANKLE GENERAL 3V AP/LAT/OBL RIGHT [[id number]] Order #: [id number] FUTURE XR FOOT GENERAL 3V AP/LAT/OBL RIGHT [[id number]] Order #: [id number] FUTURE CONSULT TO ORTHOPAEDICS [9026] Order #: [id number]: 1 FUTURE Problem List As Of Date: [...] Status:Closed by WHITNEY SMILEY on 08/16/24 Normal [facility] No Panel Informationon 08-16 Radiology Study observation (narrative) [facility] XR ANKLE 3V AP/LAT/OBL RTon 08-16-2024 XR [...] fibular metaphysis with overlying soft tissue swelling Dot Compliance Specialist: [facility] Transcribe Date/Time: Aug 16 2024 12:17P Dictated by : ISAIAS MARSHALL MD This examination was interpreted and the report reviewed and electronically signed by: ISAIAS MARSHALL MD on Aug 16 2024 12:20PM EST [id number] N Normal [facility] XR Ankle - right AP and Late ral and obliqueon 08-16-2024 IMPRESSION: Nondisplaced fracture of the distal fibular metaphysis with overlying soft tissue swelling Dot Compliance Specialist: GASTON Transcribe Date/Time: Aug 16 2024 12:17P Dictated by : ISAIAS MARSHALL MD This examination was interpreted and the report reviewed and electronically signed by: ISAIAS MARSHALL MD on Aug 16 2024 12:20PM [facility] DIVISION OF RADIOLOGY * * *Final Report* [...] ankle mortise intact. DIVISION OF RADIOLOGY Provider, [facility] - 08/16/2024 * * *Final Report* [...] fibular metaphysis with overlying soft tissue swelling Dot Compliance Specialist: [facility] Transcribe Date/Time: Aug 16 2024 12:17P Dictated by : ISAIAS MARSHALL MD This examination was interpreted and the report reviewed and electronically signed by: ISAIAS MARSHALL MD on Aug 16 2024 12:20PM [facility] XR FOOT 3V AP/LAT/OBL RTon 1 [...] dictation of concurrently performed right ankle radiograph Dot Compliance Specialist: [facility] Transcribe Date/Time: Aug 16 2024 12:15P Dictated by : ISAIAS MARSHALL MD This examination was interpreted and the report reviewed and electronically signed by: ISAIAS MARSHALL MD on Aug 16 2024 12:19PM EST [id number] N Normal [facility] XR Foot - right AP and Later al and obliqueon 08-16-2024 IMPRESSION: No radiographic evidence of acute osseous injury in the right foot. See separate dictation of concurrently performed right ankle radiograph Dot Compliance Specialist: PSCB Transcribe Date/Time: Aug 16 2024 12:15P Dictated by : ISAIAS MARSHALL MD This examination was interpreted and the report reviewed and electronically signed by: ISAIAS MARSHALL MD on Aug 16 2024 12:19PM EST DIVISION OF RADIOLOGY * * *Final Report* [...] Joint spaces preserved. DIVISION OF RADIOLOGY Provider, [facility] - 08/16/2024 * * *Final Report* [...] dictation of concurrently performed right ankle radiograph Dot Compliance Specialist: GASTON Transcribe Date/Time: Aug 16 2024 12:15P Dictated by : ISAIAS MARSHALL MD This examination was interpreted and the report reviewed and electronically signed by: ISAIAS MARSHALL MD on Aug 16 2024 12:19PM EST [facility] XR Foot - right AP and Later al and obliqueOrdered By: Ccf Provider on 08-16-2024 [facility] Orthopedic Visit Reporton Orthopedic Visit Report [facility] [address] [place] [address] OFFICE VISIT Date of Service: 08/09/24 MR#: [id number] Acct: [id number] Name: FELA GARCIA Rep #: [id number] : 1995 Provider: Dr. Jayson silveira MD Age/Sex: 29/F Location: [facility] Status: Signed Intake Vital Signs 06/10/24 08:41 [...] by me, Dr. Jayson Turcios MD 08/09/24 0947. Part of today???s visit was documented by [...] anterior aspect of the shoulder. Supplemental Info [facility] Imaging Services [address] [place] [address] Cerv Spine 4 or 5 Views MR#: [id number] Acct: [id number] Name: FELA GARCIA Rep #: [id number] : 1995 F 28 From: Billy Russell MD PCP: Dr. Helio Smith MD Status: DEP CLI Study: Cerv Spine 4 or 5 Views Date of Exam: 04/12/24 Exam# [id number] Ordering Dr: Helio Smith MD [id number] STUDY: X-RAY - CERVICAL SPINE REASON FOR [...] nerve cond (more content not included)... Normal [facility] Shoulder min 2 Viewson 08-09 Shoulder min 2 Views [facility] [address] [place] [address] Shoulder min 2 Views MR#: [id number] Acct: [id number] Name: FELA GARCIA Rep #: [id number] : 1995 F 29 From: Billy Russell MD PCP: Dr. Helio Smith MD Status: DEP AMB Study: Shoulder min 2 Views Date of Exam: 08/09/24 Exam# [id number] Ordering Dr: Jayson uTrcios MD [id number] STUDY: X-RAY - LEFT SHOULDER REASON FOR [...] at 9:06 EST , CC: Dr. Helio Smith MD; Dr. Jayson Turcios MD Dot Compliance Specialist: Signed Normal [facility] PT D/C Summary (1)on 024 PT D/C Summary (1) [facility] Physical Therapy [facility] [place] [address] / REHABILITATION SERVICES DISCHARGE SUMMARY MR#: [id number] Acct: [id number] Name: FELA GARCIA Rep #: [id number] : 1995 29 From: Precious CHOI Referring Dr.: Dr. Helio Smith MD Status: REG RCR Insurance: [facility] [employer] SELF PAY INSURANCE Discharge Summary D/C summary: It has been my pleasure to treat FELA GARCIA referred by Helio Smith MD, with the diagnosis of neuropathy for [...] please feel free to call me at [phone]. Thank you for the referral of this patient. Sincerely, Precious Snow, JIMBO Balance/Gait/Function al tests Balance/Special Test Scores Lower Extremity Functional Score: 65 Improvement % Improvement: 40 08/01/24 0951 CC: Dr. Helio Smith MD Signed Normal [facility] INFLUENZA A&B MOLECULAR (POC )on 12-27-2023 Flu A (POCT) Negative Negative [facility] Flu B (POCT) Negative Negative [facility] Procedural Control Valid [facility] STREP A MOLECULAR (POC)on Procedural Control Valid [facility] Strep A (POCT) Negative Negative [facility] XR FOOT GENERAL 3V AP/LAT/OB L RIGHTon 04-27-2023 [facility] XR Foot - right AP and Later al and obliqueon 04-27-2023 IMPRESSION: No radiographic evidence of acute osseous injury Dot Compliance Specialist: [facility] Transcribe Date/Time: Apr 27 2023 4:07P Dictated by : ISAIAS MARSHALL MD This examination was interpreted and the report reviewed and electronically signed by: ISAIAS MARSHALL MD on Apr 27 2023 4:08PM [facility] DIVISION OF RADIOLOGY * * *Final Report* [...] Joint spaces preserved. DIVISION OF RADIOLOGY Provider, [facility] - 04/27/2023 * * *Final Report* * [...] No radiographic evidence of acute osseous injury Dot Compliance Specialist: PSCB Transcribe Date/Time: Apr 27 2023 4:07P Dictated by : ISAIAS MARSHALL MD This examination was interpreted and the report reviewed and electronically signed by: ISAIAS MARSHALL MD on Apr 27 2023 4:08PM EST [facility] Radiology Study observation (narrative) [facility] XR Foot - right AP and Later al and obliqueOrdered By: Ccf Provider on 04-27-2023 [facility] Basophil percentageon 2021 Chloride [Moles/Vol] 106 mmol/L 98-107 [facility] Work Phone: Glucose [Mass/Vol] 95 mg/dL 74-106 [facility] Work Phone: Potassium [Moles/Vol] 3.9 mmol/L 3.5-5.1 [facility] Work Phone: Sodium [Moles/Vol] 139 mmol/L 136-145 [facility] Work Phone: Erythrocyte sedimentation ra gabrielle 08-11-2022 ESR (Bld) [Velocity] 11 mm/h 0-30 [facility] Work Phone: Laboratory - Chemistry and C hemistry - challengeon 08-11-2022 CO2 [Moles/Vol] 25.0 mmol/L 21.0-32.0 [facility] Work Phone: Urea nitrogen/Creatinine [Mass ratio] 17.2 mg/mg 10-20 [facility] Work Phone: No Panel Informationon 08-11 Anti-Nuclear Antibody Screen Negative Negative [facility] Work Phone: Comment on above: Performed at: [address] [id number] Director: Alejandro Guzman PhD, Phone: [phone] Estimated GFR (MDRD) Amer 161 mL/min >60 [facility] Work Phone: Comment on above: GFR Calc Estimated GFR (MDRD) Non-Af Amer 133 mL/min >60 [facility] Work Phone: Comment on above: Non- GFR Calc Serum or plasma calcium carri urement (mass/volume)on 08-11-2022 Calcium [Mass/Vol] 8.8 mg/dL 8.5-10.1 [facility] Work Phone: Serum or plasma creatinine m easurement (mass/volume)on 08-11-2022 Creatinine [Mass/Vol] 0.58 mg/dL 0.55-1.02 [facility] Work Phone: Comment on above: The validity of the calculated GFR & GFRAA in patients over 70 years has not been determined. Clinical correlation is essential. Serum or plasma urea nitroge n measurement (mass/volume)on 08-11-2022 Urea nitrogen [Mass/Vol] 10 mg/dL 7-18 [facility] Work Phone: Thin prep Papanicolaou smear with manual screeningon 08-11-2022 Thin prep Papanicolaou smear with manual screening 8 5-15 [facility] Work Phone: Absolute lymphocyte counton 06-25-2022 Lymphocytes Auto (Unsp spec) [#/Vol] 2.11 10*3/uL 0.83-4.51 [facility] Work Phone: Basophil percentageon 2021 Basophils/100 WBC (Bld) 0.4 % 0-1 [facility] Work Phone: Eosinophils/100 WBC (Bld) 1.0 % 0-5 [facility] Work Phone: Neutrophils (Bld) [#/Vol] 5.1 10*3/uL 2.0-7.7 [facility] Work Phone: Neutrophils/100 WBC (Bld) 63.8 % 47-70 [facility] Work Phone: WBC (Bld) [#/Vol] 8.0 10*3/uL 4.4-11.0 [facility] Work Phone: Blood erythrocytes count (nu mber/volume)on 06-25-2022 RBC (Bld) [#/Vol] 4.54 10*6/uL 4.2-5.4 [facility] Work Phone: [phone] Blood hemoglobin measurement (mass/volume)on 06-25-2022 Hemoglobin (Bld) [Mass/Vol] 13.1 g/dL 12.0-15.0 [facility] Work Phone: [phone] Blood lymphocytes/100 leukoc yteson 06-25-2022 Lymphocytes/100 WBC (Bld) 26.5 % 19-41 [facility] Work Phone: [phone] Blood monocytes/100 leukocyt eson 06-25-2022 Monocytes/100 WBC (Bld) 7.9 % 0-10 [facility] Work Phone: [phone] Blood platelet mean volumeon 06-25-2022 Platelet mean volume (Bld) [Entitic vol] 10.8 fL 6.2-12.0 [facility] Work Phone: [phone] Determination of erythrocyte mean corpuscular volume (MCV)on 06-25-2022 MCV (RBC) [Entitic vol] 91.2 fL 81-99 [facility] Work Phone: [phone] Hematocrit Auto (Bld) [Volum e fraction]on 06-25-2022 Hematocrit (Bld) [Volume fraction] 41.4 % 37-47 [facility] Work Phone: [phone] Laboratory - Hematology and Cell countson 06-25-2022 Erythrocyte distribution width (RBC) [Entitic vol] 42.8 fL 35.1-43.9 [facility] Work Phone: [phone] Erythrocyte distribution width (RBC) [Ratio] 12.9 % 11.6-14.6 [facility] Work Phone: [phone] Immature granulocytes/100 WBC (Bld) 0.400 % 0.0-0.9 [facility] Work Phone: [phone] Comment on above: IG% - Immature Granu locytes (promyelocytes, myelocytes and metamyelocytes) > 1% indicates that a LEFT SHIFT is Present. MCH (RBC) [Entitic mass] 28.9 pg 27.0-32.0 [facility] Work Phone: Nucleated RBC/100 WBC (Bld) [Ratio] 0 % 0-5 [facility] Work Phone: MCHC Auto (RBC) [Mass/Vol]on 06-25-2022 MCHC (RBC) [Mass/Vol] 31.6 g/dL 32-36 [facility] Work Phone: Platelets bldon 06-25-2022 Platelets (Bld) [#/Vol] 395 10*3/uL 150-450 [facility] Work Phone: No Panel Informationon 03-28 IMPRESSION: Negative left ankle and foot. Dot Compliance Specialist: GASTON Transcribe Date/Time: Mar 28 2021 7:57P Dictated by : KENZIE PAYNE MD This examination was interpreted and the report reviewed and electronically signed by: KENZIE PAYNE MD on Mar 28 2021 7:59PM [facility] DIVISION OF RADIOLOGY Radiology Study observation (narrative) [facility] No Panel InformationOrdered By: Ccf Provider on 03-28-2021 [facility] XR Ankle - left AP and Later [...] within normal limits. DIVISION OF RADIOLOGY Provider, [facility] Jarred Maddox - 03/28/2021 * * *Final Report* * [...] IMPRESSION IMPRESSION: Negative left ankle and foot. Dot Compliance Specialist: GASTON Transcribe Date/Time: Mar 28 2021 7:57P Dictated by : KENZIE PAYNE MD This examination was interpreted and the report reviewed and electronically signed by: KENZIE PAYNE MD on Mar 28 2021 7:59PM [facility] XR Foot - left AP and Latera [...] within normal limits. DIVISION OF RADIOLOGY Provider, [facility] - 03/28/2021 * * *Final Report* [...] IMPRESSION IMPRESSION: Negative left ankle and foot. Dot Compliance Specialist: Ulmart Transcribe Date/Time: Mar 28 2021 7:57P Dictated by : KENZIE PAYNE MD This examination was interpreted and the report reviewed and electronically signed by: KENZIE PAYNE MD on Mar 28 2021 7:59PM [facility] EMERGENCY REPORTon EMERGENCY REPORT [facility] EMERGENCY ROOM REPORT NAME ACCOUNT SEX AGE ADMIT DISCHARGE PT MED. RECORD# NUMBER DATE DATE TYPE JOSE [id number] F 22 01/11/18 01/11/18 [place] [address] ROOM: ER DATE OF : 1995 DICTATING [...] GARCIA Emergency Room Report deficits noted. Hand deployment specialist is strong and symmetric. Vital Signs: Blood [...] discharge. She is to follow up with [facility] in 2-3 days for reevaluation. If her symptoms become worse she can return here. She is discharged from the clinic in stable condition. Dictated By: Kenzie Farah DO JOB #: [id number] Transcribed by: tessie TD: 01/11/18 11:20 Electronically signed by: E-Sign: Dr. Kenzie Farah D.O. 01/15/18 05:44 Page 2 of 2 FELA GARCIA Emergency Room Report Normal [facility] EMERGENCY REPORTon 8 EMERGENCY REPORT [facility] EMERGENCY ROOM REPORT NAME ACCOUNT SEX AGE ADMIT DISCHARGE PT MED. RECORD# NUMBER DATE DATE TYPE JOSE [id number] F 22 12/27/17 12/27/17 3 F[place] [address] ROOM: ER DATE OF : 1995 DICTATING [...] in stable condition. Page 1 of 2 FELA GARCIA Emergency Room Report D: Tab Sage DO TD: 12/28/17 07:40 JOB #: [id number] Transcribed by: tessie Electronically signed by: EMELIA Sage D.O. 12/29/17 08:00 Page 2 of 2 FELA GARCIA Emergency Room Report Normal [facility] Vital Signs Date Time Vital Sign Value Performing Clinician Facility 05-07-2025 12:20-0400 Body temperature 97.59 [degF] Leonor Huggins APRN.ARBORICULTURE TEACHER Work Phone: [facility] 05-07-2025 12:20-0400 Body weight 92 kg Leonor Huggins APRN.ARBORICULTURE TEACHER Work Phone: [facility] 05-07-2025 12:20-0400 Diastolic blood pressure 72 mm[Hg] Leonor Huggins APRN.ARBORICULTURE TEACHER Work Phone: [facility] 05-07-2025 12:20-0400 Heart rate 78 /min Leonor Huggins APRN.ARBORICULTURE TEACHER Work Phone: [facility] 05-07-2025 12:20-0400 Respiratory rate 20 /min Leonor Huggins APRN.ARBORICULTURE TEACHER Work Phone: [facility] 05-07-2025 12:20-0400 SaO2% (BldA) [Mass fraction] 97 % Leonor Huggins APRN.ARBORICULTURE TEACHER Work Phone: [facility] 05-07-2025 12:20-0400 Systolic blood pressure 104 mm[Hg] Leonor Huggins APRN.ARBORICULTURE TEACHER Work Phone: [facility] 05-05-2025 08:44-0400 Body height 165.1 cm Helio Smith MD Work Phone: [facility] 05-05-2025 08:44-0400 Body mass index (BMI) [Ratio] 33.9 kg/m2 Helio Smith MD Work Phone: [facility] 05-05-2025 08:44-0400 Body weight 92.53 kg Helio Smith MD Work Phone: [facility] 05-05-2025 08:44-0400 Diastolic blood pressure 73 mm[Hg] Helio Smith MD Work Phone: [facility] 05-05-2025 08:44-0400 Heart rate 67 /min Helio Smith MD Work Phone: [facility] 05-05-2025 08:44-0400 Respiratory rate 17 /min Helio Smith MD Work Phone: [facility] 05-05-2025 08:44-0400 SaO2% (BldA) [Mass fraction] 98 % Helio Smith MD Work Phone: [facility] 05-05-2025 08:44-0400 Systolic blood pressure 108 mm[Hg] Helio Smith MD Work Phone: [facility] 03-28-2025 17:55-0400 Body temperature 99.39 [degF] Gali Matthew MD Work Phone: [facility] 03-28-2025 17:55-0400 Body weight 94.4 kg Gali Matthew MD Work Phone: [facility] 03-28-2025 17:55-0400 Diastolic blood pressure 74 mm[Hg] Gali Matthew MD Work Phone: [facility] 03-28-2025 17:55-0400 Heart rate 82 /min Gali Matthew MD Work Phone: [facility] 03-28-2025 17:55-0400 Respiratory rate 18 /min Gali Matthew MD Work Phone: [facility] 03-28-2025 17:55-0400 SaO2% (BldA) [Mass fraction] 99 % Gali Matthew MD Work Phone: [facility] 03-28-2025 17:55-0400 Systolic blood pressure 122 mm[Hg] Gali Matthew MD Work Phone: [facility] 11-19-2024 12:14-0500 Body temperature 97 [degF] Aries Araiza MD Work Phone: [facility] 11-19-2024 12:14-0500 Body weight 85.1 kg Aries Araiza MD Work Phone: [facility] 11-19-2024 12:14-0500 Diastolic blood pressure 68 mm[Hg] Aries Araiza MD Work Phone: [facility] 11-19-2024 12:14-0500 Heart rate 61 /min Aries Araiza MD Work Phone: [facility] 11-19-2024 12:14-0500 Respiratory rate 18 /min Aries Araiza MD Work Phone: [facility] 11-19-2024 12:14-0500 SaO2% (BldA) [Mass fraction] 98 % Aries Araiza MD Work Phone: [facility] 11-19-2024 12:14-0500 Systolic blood pressure 106 mm[Hg] Aries Araiza MD Work Phone: [facility] 10-26-2024 15:57-0500 Body temperature 98.1 [degF] Leonor Huggins APRN.ARBORICULTURE TEACHER Work Phone: [facility] 10-26-2024 15:57-0500 Body weight 82.8 kg Leonor Huggins APRN.ARBORICULTURE TEACHER Work Phone: [facility] 10-26-2024 15:57-0500 Diastolic blood pressure 72 mm[Hg] Leonor Huggins APRN.ARBORICULTURE TEACHER Work Phone: [facility] 10-26-2024 15:57-0500 Heart rate 63 /min Leoonr Huggins APRN.ARBORICULTURE TEACHER Work Phone: [facility] 10-26-2024 15:57-0500 Respiratory rate 18 /min Leonor Huggins APRN.ARBORICULTURE TEACHER Work Phone: [facility] 10-26-2024 15:57-0500 SaO2% (BldA) [Mass fraction] 98 % Leonor Huggins APRN.ARBORICULTURE TEACHER Work Phone: [facility] 10-26-2024 15:57-0500 Systolic blood pressure 110 mm[Hg] Leonor Huggins APRN.ARBORICULTURE TEACHER Work Phone: [facility] 08-18-2024 17:17-0500 Body height 165.1 cm Helio Smith MD Work Phone: [facility] 08-18-2024 17:17-0500 Body mass index (BMI) [Ratio] 30.1 kg/m2 Helio Smith MD Work Phone: [facility] 08-18-2024 17:17-0500 Body temperature 96.2 [degF] Helio Smith MD Work Phone: [facility] 08-18-2024 17:17-0500 Body weight 82.1 kg Helio Smith MD Work Phone: [facility] 08-18-2024 17:17-0500 Diastolic blood pressure 85 mm[Hg] Helio Smith MD Work Phone: [facility] 08-18-2024 17:17-0500 Heart rate 104 /min Helio Smith MD Work Phone: [facility] 08-18-2024 17:17-0500 Respiratory rate 16 /min Helio Smith MD Work Phone: [facility] 08-18-2024 17:17-0500 SaO2% (BldA) [Mass fraction] 100 % Helio Smith MD Work Phone: [facility] 08-18-2024 17:17-0500 Systolic blood pressure 159 mm[Hg] Helio Smith MD Work Phone: [facility] 08-16-2024 11:43-0500 Body temperature 98.01 [degF] Whitney Athy PA-C Work Phone: [facility] 08-16-2024 11:43-0500 Body weight 79.7 kg Whitney Athy PA-C Work Phone: [facility] 08-16-2024 11:43-0500 Diastolic blood pressure 85 mm[Hg] Whitney Athy PA-C Work Phone: [facility] 08-16-2024 11:43-0500 Heart rate 77 /min Whitney Athy PA-C Work Phone: [facility] 08-16-2024 11:43-0500 Respiratory rate 18 /min Whitney Athy PA-C Work Phone: [facility] 08-16-2024 11:43-0500 SaO2% (BldA) [Mass fraction] 100 % Whitney Smiley PA-C Work Phone: [facility] 08-16-2024 11:43-0500 Systolic blood pressure 129 mm[Hg] Whitney LI-Thierry Work Phone: [facility] 04-25-2024 18:54-0400 Body temperature 98.8 [degF] Es Maria G HUMAN SERVICES CASE MANAGER.ARBORICULTURE TEACHER Work Phone: [facility] 04-25-2024 18:54-0400 Body weight 80.1 kg Es Maria G HUMAN SERVICES CASE MANAGER.ARBORICULTURE TEACHER Work Phone: [facility] 04-25-2024 18:54-0400 Diastolic blood pressure 78 mm[Hg] Es Maria G HUMAN SERVICES CASE MANAGER.ARBORICULTURE TEACHER Work Phone: [facility] 04-25-2024 18:54-0400 Heart rate 82 /min Es Maria G HUMAN SERVICES CASE MANAGER.ARBORICULTURE TEACHER Work Phone: [facility] 04-25-2024 18:54-0400 Respiratory rate 16 /min Es Maria G HUMAN SERVICES CASE MANAGER.ARBORICULTURE TEACHER Work Phone: [facility] 04-25-2024 18:54-0400 SaO2% (BldA) [Mass fraction] 98 % Es Maria G HUMAN SERVICES CASE MANAGER.ARBORICULTURE TEACHER Work Phone: [facility] 04-25-2024 18:54-0400 Systolic blood pressure 112 mm[Hg] Es Maria G HUMAN SERVICES CASE MANAGER.ARBORICULTURE TEACHER Work Phone: [facility] 12-27-2023 11:15-0400 Body temperature 98.4 [degF] Roseline Lan HUMAN SERVICES CASE MANAGER.ARBORICULTURE TEACHER Work Phone: [facility] 12-27-2023 11:15-0400 Body weight 83 kg Roseline Lan HUMAN SERVICES CASE MANAGER.ARBORICULTURE TEACHER Work Phone: [facility] 12-27-2023 11:15-0400 Diastolic blood pressure 72 mm[Hg] Roseline Lan HUMAN SERVICES CASE MANAGER.ARBORICULTURE TEACHER Work Phone: [facility] 12-27-2023 11:15-0400 Heart rate 108 /min Roseline Lan HUMAN SERVICES CASE MANAGER.ARBORICULTURE TEACHER Work Phone: [facility] 12-27-2023 11:15-0400 Respiratory rate 18 /min Roseline Lan HUMAN SERVICES CASE MANAGER.ARBORICULTURE TEACHER Work Phone: [facility] 12-27-2023 11:15-0400 SaO2% (BldA) [Mass fraction] 97 % Roseline Lan HUMAN SERVICES CASE MANAGER.ARBORICULTURE TEACHER Work Phone: [facility] 12-27-2023 11:15-0400 Systolic blood pressure 110 mm[Hg] Roseline Lan HUMAN SERVICES CASE MANAGER.ARBORICULTURE TEACHER Work Phone: [facility] 04-27-2023 15:38-0400 Body temperature 97.7 [degF] Rosie Koby HUMAN SERVICES CASE MANAGER.ARBORICULTURE TEACHER Work Phone: [facility] 04-27-2023 15:38-0400 Body weight 80.02 kg Rosie Koby HUMAN SERVICES CASE MANAGER.ARBORICULTURE TEACHER Work Phone: [facility] 04-27-2023 15:38-0400 Diastolic blood pressure 76 mm[Hg] Roise Koby HUMAN SERVICES CASE MANAGER.ARBORICULTURE TEACHER Work Phone: [facility] 04-27-2023 15:38-0400 Heart rate 80 /min Rosie Koby HUMAN SERVICES CASE MANAGER.ARBORICULTURE TEACHER Work Phone: [facility] 04-27-2023 15:38-0400 Respiratory rate 21 /min Rosie Koby HUMAN SERVICES CASE MANAGER.ARBORICULTURE TEACHER Work Phone: [facility] 04-27-2023 15:38-0400 SaO2% (BldA) [Mass fraction] 98 % Rosie Koby HUMAN SERVICES CASE MANAGER.ARBORICULTURE TEACHER Work Phone: [facility] 04-27-2023 15:38-0400 Systolic blood pressure 118 mm[Hg] Rosie Koby HUMAN SERVICES CASE MANAGER.ARBORICULTURE TEACHER Work Phone: [facility] 02-25-2023 19:41-0400 Body height 162.56 cm [facility] 02-25-2023 19:41-0400 Body mass index (BMI) [Ratio] 29.8 kg/m2 [facility] 02-25-2023 19:41-0400 Body temperature 98.1 [degF] [facility] 02-25-2023 19:41-0400 Body weight 78.92 kg [facility] 02-25-2023 19:41-0400 Diastolic blood pressure 80 mm[Hg] [facility] 02-25-2023 19:41-0400 Heart rate 80 /min [facility] 02-25-2023 19:41-0400 Respiratory rate 16 /min [facility] 02-25-2023 19:41-0400 SaO2% (BldA) [Mass fraction] 99 % [facility] 02-25-2023 19:41-0400 Systolic blood pressure 119 mm[Hg] [facility] 12-17-2022 17:01-0400 Body temperature 97.5 [degF] Leonor Huggins APRN.ARBORICULTURE TEACHER Work Phone: [facility] 12-17-2022 17:01-0400 Body weight 86.82 kg Leonor Huggins APRN.ARBORICULTURE TEACHER Work Phone: [facility] 12-17-2022 17:01-0400 Diastolic blood pressure 68 mm[Hg] Leonor Huggins APRN.ARBORICULTURE TEACHER Work Phone: [facility] 12-17-2022 17:01-0400 Heart rate 70 /min Leonor Huggins APRN.ARBORICULTURE TEACHER Work Phone: [facility] 12-17-2022 17:01-0400 Respiratory rate 20 /min Leonor Huggins APRN.ARBORICULTURE TEACHER Work Phone: [facility] 12-17-2022 17:01-0400 SaO2% (BldA) [Mass fraction] 99 % Leonor Huggins APRN.ARBORICULTURE TEACHER Work Phone: [facility] 12-17-2022 17:01-0400 Systolic blood pressure 100 mm[Hg] Leonor Huggins APRN.ARBORICULTURE TEACHER Work Phone: [facility] 09-30-2022 19:32-0500 SaO2% (BldA) [Mass fraction] 99 % [facility] Work Phone: 09-30-2022 18:23-0500 Body height 165.1 cm [facility] Work Phone: 09-30-2022 18:23-0500 Body mass index (BMI) [Ratio] 32.1 kg/m2 [facility] Work Phone: 09-30-2022 18:23-0500 Body temperature 96.8 [degF] [facility] Work Phone: 09-30-2022 18:23-0500 Body weight 87.54 kg [facility] Work Phone: 09-30-2022 18:23-0500 Diastolic blood pressure 92 mm[Hg] [facility] Work Phone: 09-30-2022 18:23-0500 Heart rate 92 /min [facility] Work Phone: 09-30-2022 18:23-0500 Respiratory rate 18 /min [facility] Work Phone: 09-30-2022 18:23-0500 Systolic blood pressure 150 mm[Hg] [facility] Work Phone: 04-21-2022 20:01-0400 Respiratory rate 16 /min [facility] Work Phone: 04-21-2022 18:58-0400 Body temperature 97.8 [degF] [facility] Work Phone: 04-21-2022 18:58-0400 Diastolic blood pressure 81 mm[Hg] [facility] Work Phone: 04-21-2022 18:58-0400 Heart rate 92 /min [facility] Work Phone: 04-21-2022 18:58-0400 SaO2% (BldA) [Mass fraction] 98 % [facility] Work Phone: 04-21-2022 18:58-0400 Systolic blood pressure 114 mm[Hg] [facility] Work Phone: 04-21-2022 18:35-0400 Body height 165.1 cm [facility] Work Phone: 04-21-2022 18:35-0400 Body mass index (BMI) [Ratio] 29.1 kg/m2 [facility] Work Phone: 04-21-2022 18:35-0400 Body weight 79.37 kg [facility] Work Phone: Encounters Encounter Date Encounter Type Care Provider Facility Start: 07-18-2025 End: 07-18-2025 ambulatory [facility] Facility:[facility] Start: 06-20-2025 End: 06-20-2025 [facility] Start: 06-14-2025 End: 06-14-2025 ambulatory Helio Smith MD Work Phone: -[facility] Start: 06-14-2025 End: 06-14-[address] Helio Smith MD -[facility] Start: 06-14-2025 End: 06-14-2025 [facility] Start: 05-25-2025 End: 05-25-[address] Kaylene Porter MD -[facility] Work Phone: Start: 05-25-2025 End: 05-25-2025 ambulatory Helio Smith MD Work Phone: -[facility] Start: 05-07-2025 End: 05-07-2025 Patient encounter procedure Leonor Huggins APRN.ARBORICULTURE TEACHER Work Phone: [facility] Comment on above: Sore throat (Primary Dx) Start: 05-07-2025 End: 05-07-2025 ambulatory LEONOR HUGGINS Facility:[facility] Start: 05-05-2025 End: 05-05-[address] Kaylene Porter MD -[facility] Work Phone: Start: 05-05-2025 End: 05-05-2025 ambulatory Helio Smith MD Work Phone: -[facility] Start: 04-20-2025 End: 04-20-2025 ambulatory Helio Smith MD Work Phone: -[facility] Start: 04-20-2025 End: 04-20-[address] Helio Smith MD -[facility] Work Phone: Start: 04-20-2025 End: 04-20-2025 ambulatory Helio Smith Facility:[facility] Start: 04-12-2025 ambulatory Helio Smith Facility:[facility] Start: 04-11-2025 Non-patient / Non-visit Dr. Starr FLYNN -[facility] Start: 04-11-2025 End: 04-11-2025 ambulatory Helio Smith MD Work Phone: -Cardiovascular Services Start: 04-11-2025 End: 04-11-[address] Eric Ford MD -[facility] Services Work Phone: Start: 04-11-2025 End: 04-11-2025 ambulatory Eric Ford Facility:[facility] Start: 04-03-2025 End: 04-03-2025 ambulatory Helio Smith MD Work Phone: -[facility] Start: 04-03-2025 End: 04-03-[address] Helio Smith MD -[facility] Start: 04-03-2025 End: 04-03-2025 ambulatory Helio Smith Facility:[facility] Start: 03-28-2025 End: 03-28-2025 Office outpatient visit 25 minutes Gali Matthew MD Work Phone: [facility] Comment on above: Rash (Primary Dx) Start: 03-28-2025 End: 03-28-2025 ambulatory GALI MATTHEW Facility:[facility] Start: 02-27-2025 ambulatory Helio Smith Facility:[facility] Start: 02-06-2025 End: 02-06-[address] Eric Ford MD -Cat Scan [facility] Work Phone: Start: 02-06-2025 End: 02-06-2025 [facility] Facility:[facility] Start: 01-26-2025 End: 01-26-2025 ambulatory Helio Smith MD Work Phone: [facility] Work Phone: Start: 01-26-2025 End: 01-26-[address] [facility] Start: 01-26-2025 End: 01-26-2025 ambulatory [facility] Facility:[facility] Start: 01-12-2025 End: 01-12-2025 ambulatory [facility] Facility:[facility] Start: 12-02-2024 End: 12-02-2024 ambulatory Helio Smith MD Work Phone: [facility] Work Phone: Start: 12-02-2024 End: 12-02-[address] [facility] Work Phone: Start: 12-02-2024 End: 12-02-2024 [facility] Facility:[facility] Start: 11-24-2024 Encounter for genera l adult medical examination without abnormal findings [facility] Start: 11-22-2024 End: 11-22-2024 ambulatory Helio Smith MD Work Phone: [facility] Work Phone: Start: 11-22-2024 End: 11-22-[address] Helio Smith MD -Cat Scan, [facility] Work Phone: Start: 11-22-2024 End: 11-22-2024 [facility] Start: 11-20-2024 End: 01-20-2025 Follow-up encounter Leonor Huggins APRN.[facility] Work Phone: [facility] Start: 11-19-2024 End: 11-19-2024 ambulatory [facility] Facility:[facility] Start: 11-19-2024 End: 11-19-2024 Patient encounter procedure Aries Araiza MD Work Phone: [facility] Comment on above: Influenza-like sympt oms (Primary Dx); Impacted cerumen of right ear Start: 11-14-2024 End: 11-14-2024 ambulatory Helio Smith MD Work Phone: [facility] Work Phone: Start: 11-14-2024 End: 11-14-[address] Helio Smith MD -Laboratory, [facility] Start: 11-14-2024 End: 11-14-2024 [facility] Start: 10-26-2024 End: 10-26-2024 ambulatory [facility] Facility:[facility] Start: 10-26-2024 End: 10-26-2024 Patient encounter procedure Leonor Huggins APRN.ARBORICULTURE TEACHER Work Phone: [facility] Comment on above: Sore throat (Primary Dx) Start: 10-17-2024 End: 10-17-[address] Jayson Turcios MD -[facility] Work Phone: Start: 10-17-2024 End: 10-17-2024 ambulatory Jayson Turcios Facility:[facility] Start: 10-10-2024 End: 10-10-[address] Jayson Turcios MD -[facility] Work Phone: Start: 10-10-2024 End: 10-10-2024 ambulatory Jayson Turcios Facility:[facility] Start: 09-27-2024 End: 09-27-[address] Helio Smith MD -Laboratory, [facility] Start: 09-27-2024 End: 09-27-2024 [facility] Start: 09-27-2024 Registered Recurring Yao Ramirez -Physical Therapy Work Phone: Start: 09-27-2024 End: 09-27-[facility] Start: 09-06-2024 End: 09-06-[address] Jayson Turcios MD -[facility] Work Phone: Start: 09-06-2024 End: 09-06-2024 ambulatory Chalon Beena Facility:[facility] Start: 08-31-2024 ambulatory Jayson [facility] Facility :[facility] Start: 08-31-2024 Non-patient / Non-visit Dr. Jade acuña MD -[facility]- Start: 08-31-2024 End: 08-31-[address] Jayson Turcios MD -Pulmonary Services/Neurology Work Phone: Start: 08-31-2024 End: 08-31-2024 ambulatory Jayson Turcios Facility:[facility] Start: 08-18-2024 End: 08-18-2024 Emergency department patient visit Dr. Jaylan Hunter DO -Emergency Department Work Phone: Start: 08-16-2024 End: 08-16-2024 Subsequent hospital visit by physician [facility] Work Phone: Radiology Comment on above: Ankle injury, right, initial encounter [S99.911A] Start: 08-16-2024 End: 08-16-2024 ambulatory [facility] Facility:[facility] Start: 08-16-2024 End: 08-16-2024 Patient encounter procedure Whitney Smiley PA-C Work Phone: [facility] Comment on above: Closed fracture of d istal end of right fibula, unspecified fracture morphology, initial encounter (Primary Dx) Start: 08-09-2024 End: 08-09-[address] Jayson Turcios MD -[facility] Work Phone: Start: 08-09-2024 End: 08-09-2024 [facility] Start: 08-01-2024 End: 08-01-2024 ambulatory [facility] Facility:[facility] Start: 08-01-2024 End: 08-01-[address] Helio Smith MD -Physical Therapy Work Phone: Start: 04-25-2024 End: 04-25-2024 Patient encounter procedure Es Maria G GAMBLE.ARBORICULTURE TEACHER Work Phone: [facility] Comment on above: Rash (Primary Dx) Start: 12-27-2023 End: 12-27-2023 Patient encounter procedure Roseline Lan HUMAN SERVICES CASE MANAGER.ARBORICULTURE TEACHER Work Phone: [facility] Comment on above: URI, acute (Primary Dx) Start: 04-27-2023 End: 04-27-2023 Subsequent hospital visit by physician [facility] Work Phone: Radiology Comment on above: Foot injury, right, initial encounter [S99.921A] Start: 04-27-2023 End: 04-27-2023 Patient encounter procedure Rosie Whalen APRN.ARBORICULTURE TEACHER Work Phone: [facility] Comment on above: Foot injury, right, initial encounter (Primary Dx) Start: 02-25-2023 End: 02-25-2023 Emergency department patient visit [facility]-Emergency Department Start: 12-17-2022 End: 12-17-2022 Patient encounter procedure Leonor Huggins APRN.[facility] Work Phone: [facility] Comment on above: Jaw pain (Primary Dx ) Start: 09-30-2022 End: 09-30-2022 Emergency department patient visit [facility]-Emergency Department Start: 08-11-2022 End: 08-11-2022 ambulatory No Primary Care Physician [facility] Work Phone: Start: 08-11-2022 End: 08-11-2022 Patient encounter procedure No Primary Care Physician [facility] Start: 07-22-2022 End: 07-22-2022 ambulatory No Primary Care Physician [facility] Work Phone: Start: 07-22-2022 End: 07-22-2022 Discharged Recurring No Primary Care Physician [facility]-Occupational Therapy Start: 07-22-2022 Registered Recurring No Primar y Care Physician [facility]-Occupational Therapy Start: 06-25-2022 End: 06-25-2022 Patient encounter procedure No Primary Care Physician [facility]-Laboratory, [place] Start: 05-16-2022 End: 05-16-2022 Patient encounter procedure No Primary Care Physician [facility]-Ultrasound, [facility] Start: 05-13-2022 End: 05-13-2022 Patient encounter procedure No Primary Care Physician [facility] Start: 05-08-2022 End: 05-08-2022 Patient encounter procedure No Primary Care Physician [facility] Start: 04-24-2022 End: 04-24-2022 Patient encounter procedure No Primary Care Physician [facility] Start: 04-21-2022 End: 04-21-2022 Emergency department patient visit [facility]-Emergency Department Start: 03-28-2021 End: 03-28-2021 Subsequent hospital visit by physician [facility] Work Phone: Radiology Comment on above: Acute left ankle cathryn n [M25.572] Start: 01-11-2018 End: 01-11-2018 Emergency department patient visit KENZIE SANTA [facility] Start: 12-27-2017 End: 12-27-2017 Emergency department patient visit TAB SAGE [facility] Procedures Date Procedure Procedure Detail Performing Clinician Start: 05-07-2025 Iadna streptococcus group a amplified probe tq Leonor Huggins APRN.CNP Work Phone: Start: 04-20-2025 Bilateral mammography Thierry Smith MD Work Phone: Start: 04-20-2025 Ultrasonography of breast Helio Smith MD Work Phone: Start: 02-06-2025 CT of chest without contrast Helio Smith MD Work Phone: Start: 12-02-2024 Endomysial antibody IgA level Helio Smith MD Work Phone: Start: 11-22-2024 CT of abdomen with contrast Helio Smith MD Work Phone: Start: 10-26-2024 STREP A MOLECULAR (POC) Roseline Lan HUMAN SERVICES CASE MANAGER.ARBORICULTURE TEACHER Work Phone: Start: 10-10-2024 MRI of joint of lowe r extremity Helio Smith MD Work Phone: Start: 08-16-2024 End: 08-16-2024 Radex ankle complete minimum 3 views Whitney Smiley PADelvinC Work Phone: Start: 08-09-2024 Plain X-ray of shoulder Helio Smith MD Work Phone: Start: 12-27-2023 INFLUENZA A&B MOLECU LAR (POC) [facility] Provider Start: 12-27-2023 STREP A MOLECULAR (POC) [facility] Provider Start: 04-27-2023 Radex foot complete minimum 3 views Rosie Whalen HUMAN SERVICES CASE MANAGER.ARBORICULTURE TEACHER Work Phone: Start: 05-16-2022 Ultrasonography of limb No Primary Care Physician Start: 03-28-2021 Radex ankle complete minimum 3 views Guzman Charlton HUMAN SERVICES CASE MANAGER.ARBORICULTURE TEACHER Work Phone: Plan of Treatment Date Care Activity Detail Author Start: 05-22-2025 Influenza vaccination C [facility] Start: 04-20-2025 Digital breast tomosynthesis bilateral BREAST TOMOSYNTHESIS [facility] Start: 04-20-2025 Digital tomosynthesi s of bilateral breasts BREAST TOMOSYNTHESIS [facility] Start: 08-18-2024 [facility] Start: 05-22-2024 Covid-19 Vaccine ( season) Covid-19 Vaccine ( season) [facility] Start: 05-22-2024 Covid-19 Vaccine ( season) Covid-19 Vaccine ( season) [facility] Start: 05-22-2024 Influenza vaccination C [facility] Start: 12-27-2023 End: 03-27-2024 INFLUENZA A&B MOLECULAR (POC) INFLUENZA A&B MOLECULAR (POC) Microbiology Routine URI, acute Expected: 12/27/2023, Expires: 03/27/2024 [facility] Work Phone: Comment on above: Expected: 12/27/2023 , Expires: 03/27/2024 Start: 09-21-2023 Behavioral Health Screening Behavioral Health Screening [facility] Start: 05-22-2023 Covid-19 Vaccine ( season) Covid-19 Vaccine ( season) [facility] Start: 05-22-2023 Influenza vaccination INFLUENZA (#1) [facility] Start: 09-21-2022 DEPRESSION ASSESSMENT DEPRESSION ASS ESSMENT [facility] Start: 05-22-2022 Influenza vaccination INFLUENZA (#1) [facility] Start: 05-08-2022 Patient referral [facility] Work Phone: Start: 11-12-2021 Urine microalbumin profile DTaP,Tdap,Td Vaccine (7 - Td or Tdap) [facility] Start: 2017 PAP TESTING PAP TESTING [facility] Start: 2017 Screening for malign ant neoplasm of cervix [facility] Start: 2015 Pneumococcal vaccination Pneum ococcal Vaccine (1 of 2 - PCV) [facility] Start: 2015 Urine microalbumin profile DTAP,TDAP,TD (1 - Tdap) [facility] Start: 2014 Anxiety Screening Anxiety Screening [facility] Start: 2014 Depression Screening Depression Scre [facility] Start: 2014 HEPATITIS C SCREENING HEPATITIS C [facility] Start: 2014 Hepatitis C screening Hepatitis C [facility] Start: 2014 HIV SCREENING HIV SCREENING [facility] Start: 2014 HIV screening HIV Screening [facility] Start: 12-10-2011 HPV Vaccine (2 - 3-d ose series) HPV Vaccine (2 - 3-dose series) [facility] Start: 2010 PEDS TO ADULT TRANSI TION ANNUAL ASSESSMENT PEDS TO ADULT TRANSITION ANNUAL ASSESSMENT [facility] Start: 2008 PEDS TO ADULT TRANSI TION INITIAL DISCUSSION PEDS TO ADULT TRANSITION INITIAL DISCUSSION [facility] Start: 2007 HPV VACCINE (1 - 2-d ose series) HPV VACCINE (1 - 2-dose series) [facility] Start: 2005 HPV VACCINE (1 - 2-d ose series) HPV VACCINE (1 - 2-dose series) [facility] Start: 2002 PNEUMOCOCCAL (1 - PCV) PNEUMOCOCCAL (1 - PCV) [facility] Start: 2002 Pneumococcal vaccination Pneum ococcal Vaccine (1 of 2 - PCV) [facility] Start: 01-11-1997 COVID-19 VACCINE (#1) COVID-19 VACCI NE (#1) [facility] Start: 1996 HEPATITIS B (1 of 3 - 3-dose series) HEPATITIS B (1 of 3 - 3-dose series) [facility] COVID & INFLUENZA A/ B & RSV PCR, ROUTINE COVID & INFLUENZA A/B & RSV PCR, ROUTINE Microbiology Routine Influenza-like symptoms Ordered: 11/19/2024 [facility] Work Phone: Comment on above: Ordered: 11/19/2024 Patient Education [facility] Work Phone: Patient referral [facility] Work Phone: Immunizations Immunization Date Immunization Notes Care Provider Sylwia gallo 11-12-2011 HPV, unspecified formulation Leonor Huggins APRN.ARBORICULTURE TEACHER Work Phone: [facility] 11-12-2011 tetanus toxoid, redu merry diphtheria toxoid, and acellular pertussis vaccine, adsorbed Leonor Huggins APRN.ARBORICULTURE TEACHER Work Phone: [facility] 12-20-2002 diphtheria, tetanus toxoids and acellular pertussis vaccine, unspecified formulation Leonor Huggins APRN.ARBORICULTURE TEACHER Work Phone: [facility] 02-24-2002 measles, mumps and rubella virus vaccine Leonor Huggins APRN.ARBORICULTURE TEACHER Work Phone: [facility] 02-24-2002 poliovirus vaccine, inactivated Leonor Huggins APRN.ARBORICULTURE TEACHER Work Phone: [facility] 09-04-1998 diphtheria, tetanus toxoids and acellular pertussis vaccine, unspecified formulation Leonor Huggins APRN.ARBORICULTURE TEACHER Work Phone: [facility] 09-04-1998 haemophilus influenz ae type b vaccine, conjugate unspecified formulation Leonor Huggins APRN.ARBORICULTURE TEACHER Work Phone: [facility] 12-05-1997 measles, mumps and rubella virus vaccine Leonorfrancis Huggins APRN.ARBORICULTURE TEACHER Work Phone: [facility] 12-05-1997 poliovirus vaccine, inactivated Leonor Huggins APRN.ARBORICULTURE TEACHER Work Phone: [facility] 11-03-1997 diphtheria, tetanus toxoids and acellular pertussis vaccine, unspecified formulation Leonor Huggins APRN.ARBORICULTURE TEACHER Work Phone: [facility] 11-03-1997 haemophilus influenz ae type b vaccine, PRP-OMP conjugate Leonor Huggins APRN.ARBORICULTURE TEACHER Work Phone: [facility] 05-11-1997 diphtheria, tetanus toxoids and acellular pertussis vaccine, unspecified formulation Leonor Huggins APRN.ARBORICULTURE TEACHER Work Phone: [facility] 05-11-1997 haemophilus influenz ae type b vaccine, conjugate unspecified formulation Leonor Huggins APRN.ARBORICULTURE TEACHER Work Phone: [facility] 05-11-1997 hepatitis B vaccine, adult dosage Leonor Huggins APRN.ARBORICULTURE TEACHER Work Phone: [facility] 05-11-1997 trivalent poliovirus vaccine, live, oral Leonor Huggins APRN.ARBORICULTURE TEACHER Work Phone: [facility] 1996 DTP-Haemophilus influenzae type b conjugate vaccine Leonor Huggins APRN.ARBORICULTURE TEACHER Work Phone: [facility] 1996 hepatitis B vaccine, adult dosage Leonorfrancis Huggins APRN.ARBORICULTURE TEACHER Work Phone: [facility] 1996 trivalent poliovirus vaccine, live, oral Leonor Huggins APRN.ARBORICULTURE TEACHER Work Phone: [facility] 1996 hepatitis B vaccine, adult dosage Leonor James HUMAN SERVICES CASE MANAGER.ARBORICULTURE TEACHER Work Phone: [facility] Payers Date Payer Category Payer Self-pay [id number] 2022 Unknown [id number] 2020 Medicaid [id number] [facility] [id number] Medicaid MEDICAID [id number] Private Health Insurance [id number] Unknown [id number] Unknown [id number] 2.16.8 40.1.684701.3.579.2.462 Unknown [id number] 2.16.8 40.1.586502.3.579.2.462 Unknown [id number] 2.16.8 40.1.081590.3.579.2.462 Unknown [id number] 2.16.8 40.1.994442.3.579.2.462 Unknown [id number] 2.16.8 40.1.813708.3.579.2.462 Unknown [id number] 2.16.8 40.1.894633.3.579.2.462 Unknown [id number] 2.16.8 40.1.161762.3.579.2.462 Unknown [id number] 2.16.8 40.1.461063.3.579.2.462 Unknown [id number] 2.16.8 40.1.662524.3.579.2.462 Unknown [id number] 2.16.8 40.1.758166.3.579.2.462 Unknown [id number] 2.16.8 40.1.319459.3.579.2.462 Unknown [id number] 2.16.8 40.1.745029.3.579.2.462 Unknown [id number] 2.16.8 40.1.552530.3.579.2.462 Unknown [id number] 2.16.8 40.1.679634.3.579.2.462 Unknown [id number] 2.16.8 40.1.649810.3.579.2.462 Unknown [id number] 2.16.8 40.1.384761.3.579.2.462 Unknown [id number] 2.16.8 40.1.410899.3.579.2.462 Unknown [id number] 2.16.8 40.1.180593.3.579.2.462 Unknown [id number] 2.16.8 40.1.117866.3.579.2.462 Unknown [id number] 2.16.8 40.1.444030.3.579.2.462 Unknown [id number] 2.16.8 40.1.176456.3.579.2.462 Unknown [id number] 2.16.8 40.1.089836.3.579.2.462 Unknown [id number] 2.16.8 40.1.190874.3.579.2.462 Unknown [id number] 2.16.8 40.1.338347.3.579.2.462 Unknown [id number] 2.16.8 40.1.447506.3.579.2.462 Social History Date Type Detail Facility [facility] Work Phone: Start: 04-21-2022 End: 02-25-2023 Tobacco smoking status NHIS Unknown if ever smoked [facility] Start: 08-14-2019 Rare [facility] Start: 10-29-2019 With Family [facility] Start: 1995 Sex Assigned At Female [facility] Start: 12-17-2022 End: 08-18-2024 Tobacco smoking status NHIS Smokes tobacco daily [facility] Start: 11-25-2018 End: 12-17-2022 Tobacco use and exposure Smokeless tobacco non-user [facility] Start: 1995 Sex Assigned At Not on file [facility] Start: 08-25-2020 End: 04-27-2023 History of Social function [facility] Start: 08-25-2020 End: 04-27-2023 Tobacco use panel [facility] Start: 12-16-2018 National Score (1-100), lower number is lower risk Not on file [facility] Start: 02-26-2021 End: 03-28-2021 Exposure to SARS-CoV-2 (event) Not sure [facility] Start: 11-24-2024 End: 12-13-2024 Sex Female (finding) [facility] Start: 05-05-2025 Tobacco smoking status NHIS Ex-smoker (finding) [facility] NEGATED: Highlighted row [facility] Functional Status Date Assessment Result Facility 08-30-2020 Are you deaf, or do you have serious difficulty hearing No 08/30/2020 7:23 PM Dinah Sepulveda MD No [facility] Work Phone: 08-30-2020 Are you blind, or do you have serious difficulty seeing, even when wearing glasses No 08/30/2020 7:23 PM Dinah Sepulveda MD No [facility] 08-30-2020 Do you have serious difficulty walking or climbing stairs No 08/30/2020 7:23 PM Dinah Sepulveda MD No [facility] 08-30-2020 Do you have difficul ty dressing or bathing No 08/30/2020 7:23 PM Dinah Sepulveda MD No [facility] 08-30-2020 Because of a physica l, mental, or emotional condition, do you have difficulty doing errands alone such as visiting a physician's office or shopping No 08/30/2020 7:23 PM Dinah Sepulveda MD No [facility] Mental Status Date Assessment Result Facility 08-30-2020 Because of a physica l, mental, or emotional condition, do you have serious difficulty concentrating, remembering, or making decisions No 08/30/2020 7:23 PM Dinah Sepulveda MD No [facility] Clinical Notes 03-28-2021 to 07-18-2025 Leonor Huggins APRN.ARBORICULTURE TEACHER - 05/07/2025 12:22 PM EDT Note Date & Type Note Facility 07-18-2025 Note HNO ID: [id number] Author: ARSENIO GUTIERREZ RT(R) Service: ? Author Type: Medical Insurance Verifier Type: Progress Notes Filed: 07/18/2025 10:13 Note Text: Radiology Service Progress Note PATIENT NAME: Fela Garcia DATE OF SERVICE: July 18, 2025 TIME: 10:13 AM PATIENT IDENTITY VERIFICATION COMPLETED USING TWO (2) IDENTIFIERS: Name and Date of confirmed by patient verbally. FALL SCREENING: Has the patient had 2 falls in the last year or 1 fall with injury or currently using an Ambulatory Assistive Device (Walker, Cane, Wheelchair, Crutches, etc.)? No PATIENT GENDER DATA: Assigned female at . status: : No status: NO. PATIENT RELEVANT IMPLANT DATA REVIEWED: Not Applicable PATIENT PRESENTS WITH AN IMPLANTABLE OR ATTACHED SENIOR RELATIONSHIP MANAGER: No RADIOLOGY DEPARTMENT: General X-ray: Exam(s) Completed: Lower Extremity X-Ray(s): Foot, Left PERIPHERAL IV DATA: Not applicable SIGNED BY: RT Marly(R) July 18, 2025 10:13 AM [facility] 07-18-2025 Note HNO ID: [id number] Author: GALI MATTHEW MD Service: ? Author Type: Physician Type: Progress Notes Filed: 07/18/2025 09:42 Note Text: [facility] Subjective Fela Garcia is a 30 year old female. Patient presents with: Pain (foot): left foot into ankle pain x 1 week, increased x 2 days, denies injury Pt is here with 1 week hx of left foot pain occurs when standing no known injury some swelling medial foot no redness no rash of note pt mentions she also hurts in the right sometimes no ankle or leg pain or swelling Pain (foot) Pertinent negatives include no fever or numbness. Review of Systems Constitutional: Negative for chills and fever. Musculoskeletal: Positive for arthralgias, gait problem, joint swelling and myalgias. Skin: Negative for rash and wound. Neurological: Negative for weakness and numbness. Objective BP 122/70 Pulse 82 Temp 36.3 ?C (97.4 ?F) Resp 16 Wt 96.9 kg (213 lb 10 oz) LMP 05/31/2025 (Exact Date) SpO2 98% Physical Exam Vitals and nursing note reviewed. Constitutional: Appearance: Normal appearance. She is not ill-appearing. Cardiovascular: Pulses: Normal pulses. Musculoskeletal: General: Swelling and tenderness present. No deformity or signs of injury. Normal range of motion. Right lower leg: No edema. Left lower leg: No edema. Skin: Capillary Refill: Capillary refill takes less than 2 seconds. Findings: No bruising, erythema or rash. Neurological: Mental Status: She is alert. Sensory: No sensory deficit. Motor: No weakness. Coordination: Coordination normal. Deep Tendon Reflexes: Reflexes normal. {ASSESSMENT/PLAN: 1. Foot pain, left - ICD9: 729.5, ICD10: M79.672 (primary diagnosis) - XR FOOT GENERAL 3V AP/LAT/OBL LEFT - DICLOFENAC 1 % TOPICAL GEL - CONSULT TO PODIATRY 2. Sprain of left foot, initial encounter - ICD9: 845.10, ICD10: S93.602A Follow up with podiatry - DICLOFENAC 1 % TOPICAL GEL - CONSULT TO PODIATRY Gali Matthew MD Differential Diagnoses - foot sprain is more likely for the following reason(s): suggested by HANDP and consistent with imaging - foot fracture is less likely for the following reason(s): no evidence on imaging Disposition The patient was discharged. Procedures [facility] 06-20-2025 Note HNO ID: [id number] Author: NELLIE FLOWER Tech Service: ? Author Type: Medical Insurance Verifier Type: Progress Notes Filed: 06/20/2025 10:41 Note Text: Radiology Service Progress Note PATIENT NAME: Fela Garcia DATE OF SERVICE: June 20, 2025 TIME: 10:41 AM PATIENT IDENTITY VERIFICATION COMPLETED USING TWO (2) IDENTIFIERS: Name and Date of confirmed by patient verbally. FALL SCREENING: Has the patient had 2 falls in the last year or 1 fall with injury or currently using an Ambulatory Assistive Device (Walker, Cane, Wheelchair, Crutches, etc.)? No PATIENT GENDER DATA: Assigned female at . status: : No status: NO. PATIENT RELEVANT IMPLANT DATA REVIEWED: Yes PATIENT PRESENTS WITH AN IMPLANTABLE OR ATTACHED SENIOR RELATIONSHIP MANAGER: No RADIOLOGY DEPARTMENT: General X-ray: Exam(s) Completed: Upper Extremity X-Ray(s): Wrist, right and Hand, right PERIPHERAL IV DATA: Not applicable SIGNED BY: Wm Villaseñor June 20, 2025 10:41 AM [facility] 06-20-2025 Note HNO ID: [id number] Author: BOOKER RAMOS PA-C Service: ? Author Type: Physician Ramp Attendant Type: Progress Notes Filed: 06/20/2025 11:02 Note Text: [facility] Subjective Patient presents with: Musculoskeletal Problem: R hand, smashed in truck door x 5 bruising, swelling, painful, lumps in 2 spots Fela Garcia is a 29 year old female with a past medical history of pulmonary hypertension who presents to express care today for evaluation of right hand and wrist pain after crushing it in a truck door 3 days ago. She states that the pain has been constant and is worse with certain movements. No numbness or tingling. Review of Systems Constitutional: Negative for chills, diaphoresis and fever. Musculoskeletal: Positive for arthralgias (right hand/wrist). Skin: Negative for rash and wound. Neurological: Negative for weakness and numbness. All other systems reviewed and are negative. Objective BP 126/88 Pulse 69 Temp 36.2 ?C (97.1 ?F) Resp 18 Wt 92 kg (202 lb 13.2 oz) LMP 05/31/2025 (Exact Date) SpO2 98% Physical Exam Vitals reviewed. Constitutional: General: She is not in acute distress. Appearance: Normal appearance. She is normal weight. She is not ill-appearing or toxic-appearing. Comments: The patient appears to be non-toxic, in no acute distress, and resting comfortably on the table. HENT: Head: Normocephalic and atraumatic. Eyes: Extraocular Movements: Extraocular movements intact. Musculoskeletal: General: Normal range of motion. Cervical back: Normal range of motion. Skin: General: Skin is warm and dry. Findings: No erythema or rash. Neurological: General: No focal deficit present. Mental Status: She is alert and oriented to person, place, and time. Mental status is at baseline. Psychiatric: Mood and Affect: Mood normal. Behavior: Behavior normal. Thought Content: Thought content normal. MDM Examination of the right hand reveals tenderness to the lateral dorsal aspect of the hand as well as over the base of the thumb. Imaging ordered to rule out fracture. Imaging shows no acute abnormalities. Results discussed with patient. Patient advised to rest, ice, compress, and elevate the hand. Advised to follow-up with primary care as needed. ASSESSMENT/PLAN: 1. Contusion of right hand, initial encounter - ICD9: 923.20, ICD10: S60.221A (primary diagnosis) 2. Right wrist injury, initial encounter - ICD9: 959.3, ICD10: S69.91XA - XR WRIST GENERAL 3V PA/LAT/OBL RIGHT 3. Hand injury, right, initial encounter - ICD9: 959.4, ICD10: S69.91XA - XR HAND GENERAL 3V PA/LAT/OBL RIGHT Medical Decision Making: Problems: Low: Acute, uncomplicated illness or injury Risk: Minimal: Minimal risk from testing/treatment Moderate: Drug management Medical Decision Making Level: 3 - Low I spent a total of 20 minutes on the date of the service which included preparing to see the patient, [id number] patient care, completing clinical documentation, performing a medically appropriate examination, counseling and educating the patient/family/caregiver, and ordering medications, tests, or procedures. Booker Ramos PA-C Procedures [facility] 05-07-2025 Note HNO ID: [id number] Author: LEONOR HUGGINS APRN.[facility] Service: ? Author Type: Nurse Practitioner Type: Progress Notes Filed: 05/07/2025 12:35 Note Text: [facility] Priscilla Garcia is a 29 year old female. Patient presents with: Nasal Congestion: Runny nose, sore throat, headache nauseated, exposed to strep x last night sx started HPI Viral Symptoms: - Onset of symptoms last night, including sore throat, nausea, headache, nasal congestion, and sweating. - Sore throat is bilateral, with increased pain on one side after a throat swab. 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 - Boyfriend's other son has had strep throat twice in the last month. - Strep test was negative. Review of Systems Constitutional: (+) diaphoresis Head: (+) headache Ears/Nose/Mouth/Throat: (+) sore throat, (+) nasal congestion Gastrointestinal: (+) nausea Objective BP 104/72 Pulse 78 Temp 36.4 ?C (97.6 ?F) Resp 20 Wt 92 kg (202 lb 13.2 oz) LMP 05/05/2025 (Exact Date) SpO2 97% Physical Exam General: No acute distress. HEENT: Erythematous pharynx without abnormal swelling or abscesses, tympanic membranes normal. CV: Normal heart sounds. Resp: Normal breath sounds. { 1. Sore throat (J02.9) - Acute onset of sore throat, sweating, nausea, headache, and nasal congestion; recent exposure to strep throat through boyfriend's son. - Strep test negative; throat exam shows erythema and irritation without abnormal swelling or abscess. - Discussed that symptoms are likely viral in etiology and should resolve with supportive care. - Offered COVID-19 testing; patient declined. - Advised supportive therapy for symptom management. - Educated on the possibility of false-negative strep test if performed too early; advised to return for re-evaluation if symptoms persist. and Recording using [employer] software for draft documentation of the visit was discussed with the patient/authorized malt liquors sales representative; all questions welcomed and answered. Patient/authorized malt liquors sales representative agreed to proceed MDM Procedures [facility] 05-07-2025 History of Present illness Narrative URGENT CARE [facility] Fela Garcia is a 29 year old female. Patient presents with: Nasal Congestion: Runny nose, sore throat, headache nauseated, exposed to strep x last night sx started HPI Viral Symptoms: - Onset of symptoms last night, including sore throat, nausea, headache, nasal congestion, and sweating. - Sore throat is bilateral, with increased pain on one side after a throat swab. 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 - Boyfriend's other son has had strep throat twice in the last month. - Strep test was negative. Review of Systems Constitutional: (+) diaphoresis Head: (+) headache Ears/Nose/Mouth/Throat: (+) sore throat, (+) nasal congestion Gastrointestinal: (+) nausea Objective BP 104/72 Pulse 78 Temp 36.4 C (97.6 F) Resp 20 Wt 92 kg (202 lb 13.2 oz) LMP 05/05/2025 (Exact Date) SpO2 97% Physical Exam General: No acute distress. HEENT: Erythematous pharynx without abnormal swelling or abscesses, tympanic membranes normal. CV: Normal heart sounds. Resp: Normal breath sounds. { 1. Sore throat (J02.9) - Acute onset of sore throat, sweating, nausea, headache, and nasal congestion; recent exposure to strep throat through boyfriend's son. - Strep test negative; throat exam shows erythema and irritation without abnormal swelling or abscess. - Discussed that symptoms are likely viral in etiology and should resolve with supportive care. - Offered COVID-19 testing; patient declined. - Advised supportive therapy for symptom management. - Educated on the possibility of false-negative strep test if performed too early; advised to return for re-evaluation if symptoms persist. and Recording using [employer] software for draft documentation of the visit was discussed with the patient/authorized malt liquors sales representative; all questions welcomed and answered. Patient/authorized malt liquors sales representative agreed to proceed MDM Procedures documented in this encounter [facility] 05-05-2025 Evaluation note Diagnosis Onset Date Resolution Hidradenitis suppurativa acute May 05 8:11am [facility] Work Phone: 1(958) 837-207708-15-2025 Evaluation note* Diagnosis Onset Date Resolution Status Admit Date Hidradenitis suppurativa acute May 05, 2025 8:11am Hidradenitis suppurativa acute May 25, 2025 2:24pm [facility] Work Phone: 1(266) 302-853107-31-2025 Radiology Diagnostic study note [facility] [address] [place], [place] [address] Breast Limited Unilateral MR#: [id number] Acct: [id number] Name: FELA GARCIA Rep #: [id number] : 1995 F 29 From: Vern Navarro MD PCP: Dr. Helio Smith MD Status: REG CL I Study:Breast Limited Unilateral Date of Exam: 04/20/25 Exam# [id number] Ordering Dr: Martha Smith MD PROCEDURE: BREAST LIMITED UNILATERAL 04/20/2025 REASON FOR EXAM: F, Age 29 y/o , LYMPHADENOPATHY COMPARISON: Prior mammogram done earlier in the day.. TECHNIQUE: BREAST LIMITED UNILATERAL targeted ultrasound of the right axilla performed. FINDINGS: No sonographic abnormality is seen. US/Breast Limited Unilateral IMPRESSION: No sonographic abnormality is seen. BI-RADS 1: NEGATIVE RECOMMENDATION: Routine annual follow-up in 1 Year Reading Location: [id number] CC: Dr. Helio Smith MD ~ Dot Compliance Specialist: Signed [facility]07-31-2025 Radiology Diagnostic study note [facility] [address] [place], [place] [id number] Breast Limited Unilateral MR#: [id number] Acct: [id number] Name: FELA GARCIA Rep #: [id number] : 1995 F 29 From: Vern Navarro MD PCP: Dr. Helio Smith MD Status: REG CL I Study:Breast Limited Unilateral Date of Exam: 04/20/25 Exam# [id number] Ordering Dr: Martha Smith MD PROCEDURE: BREAST LIMITED UNILATERAL 04/20/2025 REASON FOR EXAM: F, Age 29 y/o , LYMPHADENOPATHY COMPARISON: Prior mammogram done earlier in the day.. TECHNIQUE: BREAST LIMITED UNILATERAL. Targeted sonogram of the left axilla. FINDINGS: There is a 1.5 cm 1.4 cm 0.6 cm hypoechoic complex density with increased vascularity in the axilla. There is also evidence of a 6 mm x 5 mm x 8 mm superficial hypoechoic nodule without any vascularity. Thereis also evidence of a 1.2 cm 1.2 cm x 0.4 cm hypoechoic complex nodular density with increased vascularity. Benign-appearing axillary lymph nodes are also seen the largest measures 2 cm x 1.6 cm x 0.9 cm. US/Breast Limited Unilateral IMPRESSION: Benign-appearing lymphadenopathy as described. There are 2 complex solid and cystic nodules with increased vascularity. Biopsyrecommended. BI-RADS 4: SUSPICIOUS RECOMMENDATION: Biopsy Recommended Reading Location: [id number] CC: Dr. Helio Smith MD ~ Dot Compliance Specialist: Signed [facility]07-08-2025 NoteHNO ID: [id number] Author: GALI MATTHEW MD Service: ? Author Type: Physician Type: Progress Notes Filed: 03/28/2025 18:20 Note Text: [facility] Priscilla Garcia is a 29 year old female. 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 [facility] History of Present illness Narrative* Gali Matthew MD - 03/28/2025 6:08 PM EDT [facility] Subjective Fela Garcia is a 29 year old female. 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 [facility] Instructions* Patient Instructions* Gali Matthew MD - 03/28/2025 6:08 PM EDT [facility] [address] [place] [address] Emergency Department Diagnosis: Assessment NONSPECIFIC RASH: Our [...] redness, drainage or pus). [facility]25 NoteHNO ID: [id number] Author: ROSIE WHALEN APRN.[facility] Service: ? Author Type: Nurse Practitioner Type: Progress Notes Filed: 01/12/2025 16:44 Note Text: [facility] Subjective HPI HPI Fela Garcia is a 29 year old female who presents today for CC of itchy rash. This started 2 days ago. Has tried otc medication for relief. Symptoms are worsened by nothing. Risk factors recently started a [employer] business. .Patient presents with: Rash: Widespread, started on [...] ACETONIDE 0.1 % TOPICAL CREAM Rosie Whalen APRN.ARBORICULTURE TEACHER Differential Diagnoses - contact allergic derm d/t plant Disposition The patient was discharged. [facility] Radiology Diagnostic study note [facility] [address] [place] [address] Abdomen WITH IV Contrast MR#: [id number] Acct: [id number] Name: FELA GARCIA Rep #: [id number] : 1995 F 29 From: Narendra Chan MD PCP: Dr. Helio Smith MD Status: REG CL I Study:Abdomen WITH IV Contrast Date of Exam: 11/22/24 Exam# [id number] Ordering Dr: Martha Smith MD PROCEDURE: ABDOMEN WITH IV CONTRAST REASON [...] use of iterative reconstruction technique). Reading Location: [facility] CC: Dr. Helio Smith MD ~ Dot Compliance Specialist: Signed [facility]03-01-2025 [id number] (AGENT OF COVID-19) RNA: Not detected INFLUENZA A RNA: Not detected INFLUENZA B RNA: Not detected RESPIRATORY SYNCYTIAL VIRUS (RSV) RNA: Not detectedOhiohealth Southeastern Medical CenterComment on above:Performed By: #### [id number] ####[facility] [id number] [address] [id number] Note* Addendum Note - Aries Araiza MD - 11/19/2024 2:05 PM ESTAddended by: ARIES ARAIZA on: 11/19/2024 02:05 PM Modules accepted: Orders [facility]03-01-2025 Miscellaneous Notes* Addendum Note - Aries Araiza MD - 11/19/2024 2:05 PM ESTAddended by: ARIES ARAIZA on: 11/19/2024 02:05 PM Modules accepted: Orders documented in this encounterCorey [facility]03-01-2025 NoteHNO ID: [id number] Author: ARIES ARAIZA MD Service: ? Author [...] completed by myself for residual impaction). Aries Araiza, [facility]03-01-2025 History of Present illness Narrative* Aries Araiza MD - 11/19/2024 12:18 PM EST Patient presents with: Flu Like Symptoms: Nasal [...] pain, shortness of breath, and lethargy; in theER if severe. 2. Impacted cerumen of right ear - ICD9: 380.4, ICD10: H61.21 Successful removal of impaction by water irrigation (began by staff and completed by myself for residual impaction). Aries Araiza MD documented [facility] encounterCore[facility]02-05-2025 NoteHNO ID: [id number] Author: LEONOR HUGGINS APRN.ARBORICULTURE TEACHER Service: ? Author Type: Nurse Practitioner Type: [...] Patient agreeable to treatment plan. Leonor Huggins APRN.[facility]02-05-2025 History of Present illness Narrative* Leonor Huggins APRN.[facility] - 10/26/2024 4:06 PM EST CC: Patient presents with: Sore Throat: ST [...] Wt 82.8 kg (182 lb 8.7 oz) [facility]09/26/2023 (Exact Date) SpO2 98% General appearance: alert, [...] Patient agreeable to treatment plan. Leonor Huggins APRN.ARBORICULTURE TEACHER documented in this encounterCorey Hospital01-27-2025 Evaluation note* Diagnosis Onset Date Resolution Status Admit Date Impingement of left shoulder acute October 17, 2024 10:49am Left shoulder pain acute Sepuar y 2024 10:49am [facility] Work Phone: 1(512) 280-966012-17-2024 Evaluation note* Diagnosis Onset Date Resolution Status Admit Date Impingement of left shoulder acute September 06, 2024 10:56am Left shoulder pain acute Decemb er 2023 10:56am Impingement of left shoulder acute October 17, 2024 10:49am Left shoulder pain acute Januar y 2024 10:49am [facility] Work Phone: 1(122) 335-733811-26-2024 NoteHNO ID: [id number] Author: WHITNEY SMILEY PA-C Service: ? Author Type: Physician Ramp Attendant Type: Progress Notes Filed: 08/16/2024 14:15 Note Text: This note was created using [employer]. Subjective Fela Garcia is a 29 year [...] orthopedics. She would prefer to follow-up with [facility]. She was given her disc of x-rays and referral. Rest, ice, ibuprofen. Patient agreeable. - XR ANKLE GENERAL 3V AP/LAT/OBL RIGHT - XR FOOT GENERAL 3V AP/LAT/OBL RIGHT - CONSULT TO ORTHOPAEDICS JEN [facility]11-26-2024 History of Present illness Narrative* Whitney Smiley PA-C - 08/16/2024 2:12 PM EST This note was created using [employer]. Subjective Fela Garcia is a 29 year [...] with orthopedics. She would prefer tofollow-up with [facility]. She was given her disc of x-rays and referral. Rest, ice, ibuprofen. Patient agreeable. - XR ANKLE GENERAL 3V AP/LAT/OBL RIGHT - XR FOOT GENERAL 3V AP/LAT/OBL RIGHT - CONSULT TO ORTHOPAEDICS Whitney Smiley PA-C documented in this encounterCore[facility]11-26-[facility]24 History of Present illness Narrative* Ginny Caba [...] PATIENT PRESENTS WITH AN IMPLANTABLE OR ATTACHED SENIOR RELATIONSHIP MANAGER: No RADIOLOGY DEPARTMENT: General X-ray: Exam(s) Completed: Lower Extremity X- Ray(s): Ankle, Right and Foot, Right PERIPHERAL IV DATA: Not applicable SIGNED BY: RT Michael(R) August 16, 2024 12:14 PM documented in this encounterCorey Hospital11-26-2024 NoteHNO ID: [id number] Author: GINNY CABA RT(R) Service: ? Author Type: Medical Insurance Verifier Type: Progress Notes Filed: 08/16/2024 12:14 Note [...] PATIENT PRESENTS WITH AN IMPLANTABLE OR ATTACHED SENIOR RELATIONSHIP MANAGER: No RADIOLOGY DEPARTMENT: General X-ray: Exam(s) Completed: Lower Extremity X-Ray(s): Ankle, Right and Foot, Right PERIPHERAL IV DATA: Not applicable SIGNED BY: RT Michael(R) August 16, 2024 12:14 [facility]11-19-2024 Evaluation note* Diagnosis Onset Date Resolution Status Admit Date Left shoulder pain acute Novemb er 2023 9:28am Impingement of left shoulder acute September 06, 2024 10:56am Left shoulder pain acute Decemb er 2023 10:56am Impingement of left shoulder acute October 17, 2024 10:49am Left shoulder pain acute Januar y 2024 10:49am [facility] Work Phone: 1(511) 107-244608-05-2024 Instructions* Patient Instructions* Es Cummins APRN.CNP - 04/25/2024 7:13 PM EDT Stop doxycycline Zyrtec/Benadryl prn Follow up with PCP for management of doxycycline. * Seek medical care immediately, call 911, go to ER if you have chest pain, difficulty breathing, shortness of breath, inability to swallow. documented in this encounterCorey Hospital08-05-2024 History of Present illness Narrative* Es Cummins APRN.CNP - 04/25/2024 7:08 PM EDT Images from the original note were not included. Subjective The history is provided by the patient. No over the horizon targeting supervisor was used. HPI Fela Garcia is a 28 year old female who presents today for CC of red, sunburn like rash onface, neck, and patches on arms, and legs. States it does not itch, feels like sunburn This startedin past 24 hours. Patient started Doxycycline in March 50 mg for cystic acne. Patient was out in thesun the past weekend and developed sunburn like [...] have confirmed and edited as necessary, the [facility] Review of Systems Constitutional: Negative for chills [...] evaluation. Es Cummins APRN.TALIB documented in this encounterCorey Hospital04-07-2024 History of Present illness Narrative* Roseline Lan APRN.CNP - 12/27/2023 11:24 AM EDT This note was created using NoteWriter. Subjective Fela Garcia is a 28 year [...] history is provided by the patient. No over the horizon targeting supervisor was used. Flu Like Symptoms This is [...] - INFLUENZA A&B MOLECULAR (POC) Roseline Lan APRN.ARBORICULTURE TEACHER documented in this encounterCorey Hospital08-07-2023 History of Present illness Narrative* Rosie Whalen APRN.CNP - 04/27/2023 4:29 PM EDT Images from [...] (Patient not taking: Reported on 08/22/2020 ) Yrkoszzijdtgcti-Wvmfabhcp-PP (BROMFED DM) 2-30-10 mg/5 mL syrup Take [...] - PREDNISONE 20 MG TABLET Rosie Whalen APRN.ARBORICULTURE TEACHER documented in this encounterCorey Hospital08-07-2023 History of Present illness Narrative* Shayy Velasco RT(R) - 04/27/2023 4:00 PM EDT Radiology [...] 27, 2023 3:58 PM documented in this encounterCorey Hospital03-29-2023 History of Present illness Narrative* Leonor Huggins APRN.ARBORICULTURE TEACHER - 12/17/2022 5:18 PM EDT Subjective Patient [...] history is provided by the patient. No over the horizon targeting supervisor was used. Ear Problem Review of Systems [...] (Patient not taking: Reported on 08/22/2020 ) Naomggavvimdnum-Khhdnarru-LC (BROMFED DM) 2-30-10 mg/5 mL syrup Take [...] okay with this care plan. Leonor Huggins APRN.CNP documented in this encounterCorey Hospital07-08-2021 History of Present illness Narrative* Shayy Velasco, RT(R) - 03/28/2021 7:20 PM EDT Radiology Service Progress Note PATIENT NAME: Flea Garcia DATE OF SERVICE: March 28, 2021 [...] 28, 2021 7:20 PM documented in [facility] encounterC[facility] noteNo assessment information availableWClermont [facility] Hospital Work Phone: evaluation note* Diagnosis Onset Date Resolution Status Abscess of mandible acute Hidradenitis suppurativa acu te Hidradenitis suppurativa acu te Left axillary pain acute [facility] Work Phone: Evaluation note* Diagnosis Onset Date Resolution Status Hidradenitis suppurativa acu te Hidradenitis suppurativa acu te Left axillary pain acute [facility] Work Phone: Evaluation note* Diagnosis Jaw pain- Primary documented in this encounter [facility]* Diagnosis Foot injury, right, initial encounter- Primary documented [facility] this encounter [facility]* Diagnosis URI, acute- Primary Acute upper respiratory infections of unspecified site documented [facility] this encounter [facility]* Diagnosis Rash- Primary Rash and other nonspecific skin eruption documented [facility] this encounter [facility]* Diagnosis Acute left ankle pain Foot pain, left Pain in limb documented [facility] this encounter [facility]* Diagnosis Closed fracture of distal end of right fibula, unspecified fracture morphology, initial encounter- Primary Ankle injury, right, initial encounter documented [facility] this encounter [facility]* Diagnosis Ankle injury, right, initial encounter [facility] Diagnosis Sore throat- Primary Acute pharyngitis documented in this encounter [facility]* Diagnosis Influenza-like symptoms- Primary Other general symptoms Impacted cerumen of right ear Impacted cerumen documented in this encounter [facility]* Diagnosis Rash- Primary Rash and other nonspecific skin eruption documented in this [facility]* Diagnosis Sore throat- Primary Acute pharyngitis [facility] instructions Additional Instructions You need to follow-up with a surgeon to remove the sac of the cyst to prevent recurrent infections. This is located on your back Take antibiotics until gone The name of your doctor is located on your insurance card issue to you by [facility] Work Phone: Reason for referral (narrative)* Diagnostic Procedure Only (Urgent) - Closed Specialty Diagnoses / Procedures Referred By Contac t Referred To Contact XR IMAGING Diagnoses Foot injury, right, initial encounter Procedures XR FOOT GENERAL 3V AP/LAT/OBL RIGHT RADEX FOOT COMPLETE MINIMUM 3 VIEWS Rosie Whalen APRN.CNP [address] [place] [id number] Xr Imaging Referral ID Status Reason Start Date Expiration Date V isits Requested Visits Authorized [id number] Closed Auto-Generate d Referral 04/27/2023 05/26/2024 1 1 [facility] for referral (narrative)* Diagnostic Procedure Only (Urgent) - Closed Specialty Diagnoses / Procedures Referred By Contac t Referred To Contact XR IMAGING Diagnoses Ankle injury, right, initial encounter Procedures XR FOOT GENERAL 3V AP/LAT/OBL RIGHT RADEX FOOT COMPLETE MINIMUM 3 VIEWS Whitney Smiley PA-C [address] [place] [address] [place] [address] Referral ID Status Reason Start Date Expiration Date V isits Requested Visits Authorized [id number] Closed Auto-Generate d Referral 08/16/2024 09/15/2025 1 1 * Diagnostic Procedure Only (Urgent) - Closed Specialty Diagnoses / Procedures Referred By Contac t Referred To Contact XR IMAGING Diagnoses Ankle injury, right, initial encounter Procedures XR ANKLE GENERAL 3V AP/LAT/OBL RIGHT RADEX ANKLE COMPLETE MINIMUM 3 VIEWS Whitney Smiley PA-C [address] [place] [address] [place] [address] Referral ID Status Reason Start Date Expiration Date V isits Requested Visits Authorized [id number] Closed Auto-Generate d Referral 08/16/2024 09/15/2025 1 1 [facility] for referral (narrative)No reason for referral information availableWClermont County Hospital Work Phone: Reason for visit Narrative* Diagnostic Procedure Only (Urgent) - Closed Specialty Diagnoses / Procedures Referred By Contac t Referred To Contact XR IMAGING Diagnoses Foot injury, right, initial encounter Procedures XR FOOT GENERAL 3V AP/LAT/OBL RIGHT RADEX FOOT COMPLETE MINIMUM 3 VIEWS Rosie Whalen APRN.CNP [address] [place] [address] [place] [address] Referral ID Status Reason Start Date Expiration Date V isits Requested Visits Authorized [id number] Closed Auto-Generate d Referral 04/27/2023 05/26/2024 1 1 [facility] for visit Narrative* Diagnostic Procedure Only (Urgent) - Closed Specialty Diagnoses / Procedures Referred By Contac t Referred To Contact XR IMAGING Diagnoses Ankle injury, right, initial encounter Procedures XR FOOT GENERAL 3V AP/LAT/OBL RIGHT RADEX FOOT COMPLETE MINIMUM 3 VIEWS Whitney Smiley PA-C [address] [place] [address] [place] [address] Referral ID Status Reason Start Date Expiration Date V isits Requested Visits Authorized [id number] Closed Auto-Generate d Referral 08/16/2024 09/15/2025 1 1 [facility] Summary Purpose Family History No Family History Records Found Relationship Condition Age at Onset Recorded Date/T raquel grandmother Malignant neoplasm of breast Unknown Diabetes mellitus Unknown Relationship Condition Age at Onset Recorded Date/T raquel grandmother Malignant neoplasm of breast Unknown Diabetes mellitus Unknown grandfather Malignant neoplasm Unknown grandmother Cerebrovascular accident (CVA) Unknown Relationship Condition Age at Onset Recorded Date/T raquel grandmother Malignant neoplasm of breast Unknown Diabetes mellitus Unknown grandfather Malignant neoplasm Unknown grandmother Cerebrovascular accident (CVA) Unknown Disorder of thyroid Unknown aunt Disorder of thyroid Unknown Advance Directives No Advanced Directives Records Found Advance Directive Response Recorded Date/ Time Living Will No April 21, 2022 6:56pm Power of Admitting Manager No April 21 6:56pm Advance Directive Response Recorded Date/ Time Living Will No April 21, 2022 5:56pm Power of Admitting Manager No April 21 5:56pm Advance Directive Response Recorded Date/ Time Living Will No September 30 7:32pm Power of Admitting Manager No September 30, 2022 7:32pm Advance Directive Response Recorded Date/ Time Living Will No February 25, 2023 8 :45pm Power of Admitting Manager No February 25, 2023 8:45pm Advance Directive Response Recorded Date/ Time Living Will No February 25, 2023 7 :45pm Power of Admitting Manager No February 25, 2023 7:45pm Living Will No August 18 5:24pm Power of Admitting Manager No August 18, 2024 5:24pm Advance Directive Response Recorded Date/ Time Living Will No August 18 6:24pm Power of Admitting Manager No August 18, 2024 6:24pm Advance Directive Response Recorded Date/ Time Living Will No August 18 6:24pm Do you have a Healthcare Power of Admitting Manager? No August 18, 2024 6:24pm Chief Complaint [...] CONTUSION OF RIGHT ANKLE. RX HERE Terry mederos 2024 11:00am LEFT SHOULDER PAIN October 10, [...] CONTUSION OF RIGHT ANKLE. RX HERE Terry mederos 2024 11:00am LEFT SHOULDER PAIN October 10, [...] CONTUSION OF RIGHT ANKLE. RX HERE Terry mederos 2024 11:00am LEFT SHOULDER PAIN October 10, [...] Pulmonary hypertension, unspecified April 11, 2025 10:06am Chief Complaint Admit Date COPD, SOB February 06, 2025 5:10p m Pulmonary hypertension, unspecified April 11, 2025 10:06am SWOLLEN LYMPH NODES/LUMP BILAT BREASTS J alvin 2024 7:52am Chief Complaint Admit Date COPD, SOB February 06, 2025 5:10p m Pulmonary hypertension, unspecified April 11, 2025 10:06am SWOLLEN LYMPH NODES/LUMP BILAT BREASTS J alvin 2024 7:52am left breast May 05, 2025 8: 11am Chief Complaint Admit Date COPD, SOB February 06, 2025 5:10p m Pulmonary hypertension, unspecified April 11, 2025 10:06am SWOLLEN LYMPH NODES/LUMP BILAT BREASTS J alvin 2024 7:52am left breast May 05, 2025 8: 11am AXILLARY CHECK W/US May 25, 2025 2:24pm Reason for Visit Admit Date Hidradenitis suppurativa May 05 8:11am Chief Complaint Admit Date Pulmonary hypertension, unspecified April 11, 2025 10:06am SWOLLEN LYMPH NODES/LUMP BILAT BREASTS J alvin 2024 7:52am left breast May 05, 2025 8: 11am AXILLARY CHECK W/US May 25, 2025 2:24pm Reason for Visit Admit Date Hidradenitis suppurativa May 05 8:11am Hidradenitis suppurativa May 25, 2025 2:24pm Reason for Referral Specialty Diagnoses / Procedures Referred By Contac t Referred To Contact Orthopedics Diagnoses Closed fracture of distal end of right fibula, unspecified fracture morphology, initial encounter Procedures CONSULT TO ORTHOPAEDICS OFFICE/OUTPATIENT [facility] 60 MINUTES Whitney Smiley PA-C [address] [place] [address] Referral ID Status Reason Start Date Expiration Date Visits Requested Visits Authorized [id number] Authorized PCP Requested Referral 08/16/2025 1 1 Specialty Diagnoses / Procedures Referred By Contac t Referred To Contact XR IMAGING Diagnoses Ankle injury, right, initial encounter Procedures XR FOOT GENERAL 3V AP/LAT/OBL RIGHT RADEX FOOT COMPLETE MINIMUM 3 VIEWS Whitney Smiley PA-C [address] [place] [address] [place] [address] Referral ID Status Reason Start Date Expiration Date V isits Requested Visits Authorized [id number] Closed Auto-Generate d Referral 08/16/2024 09/15/2025 1 1 Specialty Diagnoses / Procedures Referred By Contac t Referred To Contact XR IMAGING Diagnoses Ankle injury, right, initial encounter Procedures XR ANKLE GENERAL 3V AP/LAT/OBL RIGHT RADEX ANKLE COMPLETE MINIMUM 3 VIEWS Whitney Smiley PA-C [address] [place] [address] [place] [address] Referral ID Status Reason Start Date Expiration Date V isits Requested Visits Authorized [id number] Closed Auto-Generate d Referral 08/16/2024 09/15/2025 1 1 Additional Source Comments INFORMATION SOURCE (unrecogn ized section and content) DATE CREATED AUTHOR 03/11/2018 Shen Frias [facility] DATE CREATED AUTHOR AUTHOR'S ORGANIZ ATION 06/27/2025 [facility] DATE CREATED AUTHOR AUTHOR'S JOSELO CRUZ 07/19/2025 [facility] Goals (unrecognized section and content) Goals may [...] or prosecute any alcohol or drug abuse patient.[facility] the event this information is protected by the Federal Confidentiality of Alcohol and Drug Abuse Patient Records regulations: The Federal rules restrict any use of the information to criminally investigate or prosecute any alcohol or drug abuse patient.[facility] the event this information is protected by the Federal Confidentiality of Alcohol and Drug Abuse Patient Records regulations: The Federal rules restrict any use of the information to criminally investigate or prosecute any alcohol or drug abuse patient.[facility] the event this information is protected by the Federal Confidentiality of Alcohol and Drug Abuse Patient Records regulations: The Federal rules restrict any use of the information to criminally investigate or prosecute any alcohol or drug abuse patient.[facility] the event this information is protected by the Federal Confidentiality of Alcohol and Drug Abuse Patient Records regulations: The Federal rules restrict any use of the information to criminally investigate or prosecute any alcohol or drug abuse patient.[facility] the event this information is protected by the Federal Confidentiality of Alcohol and Drug Abuse Patient Records regulations: The Federal rules restrict any use of the information to criminally investigate or prosecute any alcohol or drug abuse patient.[facility] the event this information is protected by the Federal Confidentiality of Alcohol and Drug Abuse Patient Records regulations: The Federal rules restrict any use of the information to criminally investigate or prosecute any alcohol or drug abuse patient.[facility] the event this information is protected by the Federal Confidentiality of Alcohol and Drug Abuse Patient Records regulations: The Federal rules restrict any use of the information to criminally investigate or prosecute any alcohol or drug abuse patient.[facility] the event this information is protected by the Federal Confidentiality of Alcohol and Drug Abuse Patient Records regulations: The Federal rules restrict any use of the information to criminally investigate or prosecute any alcohol or drug abuse patient.[facility] the event this information is protected by the Federal Confidentiality of Alcohol and Drug Abuse Patient Records regulations: The Federal rules restrict any use of the information to criminally investigate or prosecute any alcohol or drug abuse patient.[facility] the event this information is protected by the Federal Confidentiality of Alcohol and Drug Abuse Patient Records regulations: The Federal rules restrict any use of the information to criminally investigate or prosecute any alcohol or drug abuse patient.[facility] the event this information is protected by the Federal Confidentiality of Alcohol and Drug Abuse Patient Records regulations: The Federal rules restrict any use of the information to criminally investigate or prosecute any alcohol or drug abuse patient.[facility] the event this information is protected by the Federal Confidentiality of Alcohol and Drug Abuse Patient Records regulations: The Federal rules restrict any use of the information to criminally investigate or prosecute any alcohol or drug abuse patient.[facility] Reason for Visit (unrecogniz ed section and [...] chest and h ands x 1 week Reason Comments Nasal Congestion Runny nose, sore thr oat, headache nauseated, exposed to strep x last night sx started Care Teams (unrecognized sec tion and content) Team Status: Active Member Role Status Dates No Primary Care Physician Family Provider Active Nanda William , DO Primary Care Provider Active Team Status: Inactive Member Role Status Dates Nanda William , DO Primary Care Provider Active Dr. Guzman Lan , DO Emergency Provider Active Student Assistant Relationship Specialty Start Date End Date Cynthia Williamson (Pss) PCP - General 12/27/23 Student Assistant Relationship Specialty Start Date End Date Helio Smith MD [address] [place] [address] PCP - General Internal Medicine 04/25/24 Student Assistant Relationship Specialty Start Date End Date Helio Smith MD [address] [place] [address] PCP - General Internal Medicine 04/25/24 Student Assistant Relationship Specialty Start Date End Date Helio Smith MD [address] [place] [address] PCP - General Internal Medicine 04/25/24 Student Assistant Relationship Specialty Start Date End Date Helio Smith MD [address] [place] [address] PCP - General Internal Medicine 04/25/24 Student Assistant Relationship Specialty Start Date End Date Helio Smith MD [address] [place] [address] PCP - General Internal Medicine 04/25/24 Team Status: Active Member Role Status Hazel Smith MD Primary Care Provider Active Team Status: Inactive Member Role Status Hazel Smith MD Primary Care Provider Active St art: August 01, 2024 End: August 01, 2024 Helio Smith MD Attending Provider Active Start : August 01, 2024 End: August 01, 2024 Helio Smith MD Referring Provider Active Start : August 01, 2024 End: August 01, 2024 Team Status: Inactive Member Role Status Hazel Smith MD Primary Care Provider Active St art: August 09, 2024 End: August 09, 2024 Helio Smith MD Referring Provider Active Start : August 09, 2024 End: August 09, 2024 Jayson Turcios MD Attending Provider Active St art: August 09, 2024 End: August 09, 2024 Team Status: Inactive Member Role Status Hazel Smith MD Primary Care Provider Active St art: August 09, 2024 End: August 09, 2024 Dr. Ty Vazquez MD Attending Provider Active S tart: August 09, 2024 End: August 09, 2024 Team Status: Inactive Member Role Status Hazel Smith MD Primary Care Provider Active St art: August 18, 2024 End: August 18, 2024 Dr. Jaylan Hunter DO Attending Provider Active Start: August 18, 2024 End: August 18, 2024 Dr. Jaylan Hunter DO Emergency Provider Active Start: August 18, 2024 End: August 18, 2024 Team Status: Inactive Member Role Status Hazel Smith MD Primary Care Provider Active St art: August 31, 2024 End: August 31, 2024 Jayson Turcios MD Attending Provider Active St art: August 31, 2024 End: August 31, 2024 Jayson Turcios MD Referring Provider Active St art: August 31, 2024 End: August 31, 2024 Team Status: Active Member Role Status Hazel Smith MD Primary Care Provider Active St art: August 31, 2024 Jayson Turcios MD Referring Provider Active St art: August 31, 2024 Jayson Turcios MD Other Provider Active Start: August 31, 2024 Dr. Jade Hernandez MD Attending Provider Active S tart: August 31, 2024 Team Status: Inactive Member Role Status Hazel Smith MD Primary Care Provider Active St art: September 06, 2024 End: September 06, 2024 Helio Smith MD Referring Provider Active Start : September 06, 2024 End: September 06, 2024 Jayson Turcios MD Attending Provider Active St art: September 06, 2024 End: September 06, 2024 Team Status: Active Member Role Status Hazel Smith MD Primary Care Provider Active St art: September 27, 2024 Yao LI PA-C Attending Provider Active Start: September 27, 2024 Yao LI PA-C Referring Provider Active Start: September 27, 2024 Team Status: Inactive Member Role Status Hazel Smith MD Primary Care Provider Active St art: September 27, 2024 End: September 27, 2024 Helio Smith MD Attending Provider Active Start : September 27, 2024 End: September 27, 2024 Helio Smith MD Referring Provider Active Start : September 27, 2024 End: September 27, 2024 Team Status: Inactive Member Role Status Hazel Smith MD Primary Care Provider Active St art: October 10, 2024 End: October 10, 2024 Jayson Turcios MD Attending Provider Active St art: October 10, 2024 End: October 10, 2024 Jayson Turcios MD Referring Provider Active St art: October 10, 2024 End: October 10, 2024 Team Status: Inactive Member Role Status Hazel Smith MD Primary Care Provider Active St art: October 17, 2024 End: October 17, 2024 Helio Smith MD Referring Provider Active Start : October 17, 2024 End: October 17, 2024 Jayson Turcios MD Attending Provider Active St art: October 17, 2024 End: October 17, 2024 Team Status: Inactive Member Role Status Hazel Smith MD Primary Care Provider Active St art: November 14, 2024 End: November 14, 2024 Helio Smith MD Attending Provider Active Start : November 14, 2024 End: November 14, 2024 Helio Smith MD Referring Provider Active Start : November 14, 2024 End: November 14, 2024 Team Status: Active Member Role Status Hazel Smith MD Primary Care Provider Active St art: November 22, 2024 Helio Smith MD Attending Provider Active Start : November 22, 2024 Helio Smith MD Referring Provider Active Start : November 22, 2024 Team Status: Inactive Member Role Status Hazel Smith MD Primary Care Provider Active St art: November 22, 2024 End: November 22, 2024 Helio Smith MD Attending Provider Active Start : November 22, 2024 End: November 22, 2024 Helio Smith MD Referring Provider Active Start : November 22, 2024 End: November 22, 2024 Team Status: Active Member Role Status Hazel Smith MD Primary Care Provider Active St art: December 02, 2024 Dr. Alejandro Meneses MD Attending Provider Active Start: December 02, 2024 Dr. Alejandro Meneses MD Referring Provider Active Start: December 02, 2024 Team Status: Inactive Member Role Status Hazel Smith MD Primary Care Provider Active St art: December 02, 2024 End: December 02, 2024 Dr. Alejandro Meneses MD Attending Provider Active Start: December 02, 2024 End: December 02, 2024 Dr. Alejandro Meneses MD Referring Provider Active Start: December 02, 2024 End: December 02, 2024 Student Assistant Relationship Specialty Start Date End Date Helio Smith MD [address] [facility] [address] [place] [address] PCP - General Internal Medicine 04/25/24 Team Status: Inactive Member Role Status Hazel Smith MD Primary Care Provider Active St art: January 26, 2025 End: January 26, 2025 Helio Smith MD Attending Provider Active Start : January 26, 2025 End: January 26, 2025 Helio Smith MD Referring Provider Active Start : January 26, 2025 End: January 26, 2025 Student Assistant Relationship Specialty Start Date End Date Helio Smith MD [address] [facility] [address] [place] [address] PCP - General Internal Medicine 04/25/24 Team Status: Active Member Role/Relationship Status Hazel Smith MD Primary Care Provider Active Team Status: Inactive Member Role/Relationship Status Hazel Smith MD Primary Care Provider Active St art: January 26, 2025 End: January 26, 2025 Helio Smith MD Attending Provider Active Start : January 26, 2025 End: January 26, 2025 Helio Smith MD Referring Provider Active Start : January 26, 2025 End: January 26, 2025 Team Status: Inactive Member Role/Relationship Status Hazel Smith MD Primary Care Provider Active St art: February 06, 2025 End: February 06, 2025 Dr. Eric Ford MD Attending Provider Active Start: February 06, 2025 End: February 06, 2025 Dr. Eric Ford MD Referring Provider Active Start: February 06, 2025 End: February 06, 2025 Team Status: Inactive Member Role/Relationship Status Hazel Smith MD Primary Care Provider Active St art: April 03, 2025 End: April 03, 2025 Helio Smith MD Attending Provider Active Start : April 03, 2025 End: April 03, 2025 Helio Smith MD Referring Provider Active Start : April 03, 2025 End: April 03, 2025 Team Status: Inactive Member Role/Relationship Status Hazel Smith MD Primary Care Provider Active St art: April 11, 2025 End: April 11, 2025 Dr. Eric Ford MD Attending Provider Active Start: April 11, 2025 End: April 11, 2025 Dr. Eric Ford MD Referring Provider Active Start: April 11, 2025 End: April 11, 2025 Team Status: Active Member Role/Relationship Status Hazel Smith MD Primary Care Provider Active St art: April 11, 2025 Dr. Ty Vazquez MD Attending Provider Active S tart: April 11, 2025 Team Status: Inactive Member Role/Relationship Status Hazel Smith MD Primary Care Provider Active St art: April 20, 2025 End: April 20, 2025 Helio Smith MD Attending Provider Active Start : April 20, 2025 End: April 20, 2025 Helio Smith MD Referring Provider Active Start : April 20, 2025 End: April 20, 2025 Team Status: Inactive Member Role/Relationship Status Hazel Smith MD Primary Care Provider Active St art: May 05, 2025 End: May 05, 2025 Helio Smith MD Referring Provider Active Start : May 05, 2025 End: May 05, 2025 Dr. Kaylene Porter MD Attending Provider Active Start: May 05, 2025 End: May 05, 2025 Student Assistant Relationship Specialty Start Date End Date Helio Smith MD [facility] [address] [place] [address] PCP - General Internal Medicine 04/25/24 Team Status: Inactive Member Role/Relationship Status Hazel Smith MD Primary Care Provider Active St art: May 25, 2025 End: May 25, 2025 Helio Smith MD Referring Provider Active Start : May 25, 2025 End: May 25, 2025 Dr. Kaylene Porter MD Attending Provider Active Start: May 25, 2025 End: May 25, 2025 Team Status: Active Member Role/Relationship Status Hazel Smith MD Primary care physician Active Team Status: Inactive Member Role/Relationship Status Hazel Smith MD Primary care physician Active S tart: April 03, 2025 End: April 03, 2025 Helio Smith MD Attending physician Active Star t: April 03, 2025 End: April 03, 2025 Helio Smith MD Referring Provider Active Start : April 03, 2025 End: April 03, 2025 Team Status: Inactive Member Role/Relationship Status Hazel Smith MD Primary care physician Active S tart: April 11, 2025 End: April 11, 2025 Dr. Eric Ford MD Attending physician Active Start: April 11, 2025 End: April 11, 2025 Dr. Eric Ford MD Referring Provider Active Start: April 11, 2025 End: April 11, 2025 Team Status: Active Member Role/Relationship Status Hazel Smith MD Primary care physician Active S tart: April 11, 2025 Dr. Ty Vazquez MD Attending physician Active Start: April 11, 2025 Team Status: Inactive Member Role/Relationship Status Hazel Smith MD Primary care physician Active S tart: April 20, 2025 End: April 20, 2025 Helio Smith MD Attending physician Active Star t: April 20, 2025 End: April 20, 2025 Helio Smith MD Referring Provider Active Start : April 20, 2025 End: April 20, 2025 Team Status: Inactive Member Role/Relationship Status Hazel Smith MD Primary care physician Active S tart: May 05, 2025 End: May 05, 2025 Helio Smith MD Referring Provider Active Start : May 05, 2025 End: May 05, 2025 Dr. Kaylene Porter MD Attending physician Active Start: May 05, 2025 End: May 05, 2025 Team Status: Inactive Member Role/Relationship Status Hazel Smith MD Primary care physician Active S tart: May 25, 2025 End: May 25, 2025 Helio Smith MD Referring Provider Active Start : May 25, 2025 End: May 25, 2025 Dr. Kaylene Porter MD Attending physician Active Start: May 25, 2025 End: May 25, 2025 Team Status: Inactive Member Role/Relationship Status Hazel Smith MD Primary care physician Active S tart: June 14, 2025 End: June 14, 2025 Helio Smith MD Attending physician Active Star t: June 14, 2025 End: June 14, 2025 FOR RECORDS PERTAINING TO PATIENTS WHO [...] BE BASED ON THE PRIMARY CLINICAL RECORDS. [employer] provides no warranty or guarantee of the accuracy or completeness of information in this document.
[2025-08-31 22:00] VITALS: BP 109/70; PULSE 77; RESP 14; O2SAT 98
[2025-08-31 22:36] VITALS: BP 119/64; PULSE 67; RESP 14; TEMP 36.6; O2SAT 98
== END 2025-08-31 22:37 | disposition home or self-care (01) ==
PROVIDERS: Emergency Provider Emergency Medicine; PCP Family Medicine; Visit Provider Emergency Medicine
DX: S09.90XA Unspecified injury of head, initial encounter (principal); S20.229A Contusion of unspecified back wall of thorax, initial encounter; Z87.891 Personal history of nicotine dependence; S30.0XXA Contusion of lower back and pelvis, initial encounter; W10.9XXA Fall (on) (from) unspecified stairs and steps, initial encounter
CPT/HCPCS: 70450; 74176; 99282